=== PATIENT | female | born 1950 | race Caucasian/White ===

== ENCOUNTER 2017-04-16 19:54 | Emergency (ER) | payer OTHER ==
[~2017-04-16] VITALS: Ht 162.6 cm; Wt 110.0 kg
[~2017-04-16 19:54] MED LIST: CALC0.25 PO; D 50CAP PO; FURO40TA PO; GABA300C5 PO; LEVEMIR SQ; LEVO100T5 PO; MIDO10TA PO; NOVOLOGP2 SQ; OMEP20TA93 PO; POTA1TAB77 PO; SENS60TA PO; SEVEL800 PO; TEMA30CA PO; WALKER WHEELS/F1 MIS
[2017-04-16 20:57] VITALS: BP 137/63; PULSE 87; RESP 18; TEMP 98.1; O2SAT 97
--- NOTE | 2017-04-16 22:09 | PD ---
HPI Chief Complaint: Skin Problem Time Seen by Provider: 22:03 Travel History International Travel<30 days: No Contact w/Intl Traveler<30days: No Traveled to known affect area: No History of Present Illness HPI The patient is a 66-year-old female that complains of cellulitis of her right foot. She was seen several days ago about this and she was prescribed Keflex 500 mg twice daily. She is been on the Keflex only slightly over a day. Since then she developed a sore of the dorsum of her foot. She denies any fever. She has an insulin-dependent diabetic. PFSH Past Medical History Heart Rhythm Problems: No Cancer: No Cardiac Catheterization: Yes (20% BLOCKAGE) Cardiovascular Problems: Yes (ANG[place]) High Cholesterol: Yes Congestive Heart Failure: No Diabetes: Yes Patient Takes Glucophage: No Diminished Hearing: No GERD: Yes Glaucoma: No Gout: Yes Hepatitis: No Hiatal Hernia: No Hypertension: Yes Medical other: Yes (GERD, ULCER, BACK/NECK PROBLEMS) Musculoskeletal: Yes (RESTLESS LEG; CHRONIC BACK & NECK PAIN) Respiratory: No Immunizations Current: Yes Myocardial Infarction: No Thyroid Disease: Yes (HYPOTHYROID) Influenza Vaccination: No ?: Not Tubal Ligation: Yes Past Surgical History Abdominal Surgery: Yes (GALLBLADDER REMOVED) Cardiac Surgery: No Cholecystectomy: Yes Coronary Artery Bypass Graft: No Ear Surgery: No Endocrine Surgery: No Eye Surgery: No Genitourinary Surgery: No Gynecologic Surgery: Yes (TUBAL LIGATION) Neurologic Surgery: No Oral Surgery: No Pacemaker: No Thoracic Surgery: No Other Surgery: Yes Family History Family Myocardial Infarction: Yes Social History Alcohol Use: Yes (OCC) Tobacco Use: No Substance Use: No Allergies-Medications (Allergen,Severity, Reaction): Coded Allergies: quinine (Verified Allergy, Intermediate, Rash, 04/16/17) Reported Meds & Prescriptions Reported Meds & Active Scripts Active Calcitriol 0.25 Mcg Cap 0.5 Mcg PO DAILY Daily Midodrine 10 Mg Tab 10 Mg PO BID Renvela (Sevelamer Carbonate) 800 Mg Tab 3 Tab PO TID 3 tabs with each meal and 1-2 tabs with each snack. Walker with Front Wheels (Device) 1 Mis Mis 1 Ea .ROUTE DIRECTED Reported K-Tab (Potassium Chloride) 8 Meq Tab 8 Meq PO DAILY Sensipar (Cinacalcet) 60 Mg Tab 60 Mg PO DAILY Levemir Inj (Insulin Detemir) 1,000 unit/ 10 ML Vial 58 Units SQ HS Do not mix with any other Insulin. Furosemide 40 Mg Tab 40 Mg PO BID D 5000 (Cholecalciferol) 5,000 Unit Cap 1 Cap PO DAILY Omeprazole 20 Mg Tab 20 Mg PO DAILY Levothyroxine (Levothyroxine Sodium) 100 Mcg Tab 100 Mcg PO DAILY Review of Systems Except as stated in HPI: all other systems reviewed are Neg Physical Exam Narrative GENERAL: The patient is obese, alert, oriented 3 in minimal apparent distress with her right foot discomfort. Her vital signs are normal. SKIN: Focused skin assessment warm/dry. There is a 4 cm diameter vague area of apparent cellulitis on the dorsum of the right foot. There is a 3 mm sore on the dorsum of the right foot. No red streak is seen. HEAD: Atraumatic. Normocephalic. EYES: Pupils equal and round. No scleral icterus. No injection or drainage. ENT: No nasal bleeding or discharge. Mucous membranes pink and moist. NECK: Trachea midline. No JVD. CARDIOVASCULAR: Regular rate and rhythm. No murmur appreciated. RESPIRATORY: No accessory muscle use. Clear to auscultation. Breath sounds equal bilaterally. GASTROINTESTINAL: Abdomen soft, non-tender, nondistended. Hepatic and splenic margins not palpable. MUSCULOSKELETAL: No obvious deformities. No clubbing. No cyanosis. There is bilateral 2+ edema in her lower legs. NEUROLOGICAL: Awake and alert. No obvious cranial nerve deficits. Motor grossly within normal limits. Normal speech. PSYCHIATRIC: Appropriate mood and affect; insight and judgment normal. Data Data Last Documented VS Vital Signs Date Time Temp Pulse Resp B/P (MAP) Pulse Ox O2 Delivery O2 Flow Rate FiO2 04/16/17 20:57 98.1 87 18 137/63 (87) 97 MDM Medical Decision Making Medical Screen Exam Complete: Yes Emergency Medical Condition: Yes Medical Record Reviewed: Yes Differential Diagnosis Cellulitis foot, osteomyelitis-unlikely, abscess foot-unlikely Narrative Course The patient has not had an adequate trial of antibiotics at this time. She will be given Bactrim DS to add to the Keflex. She needs to elevate her legs, it is obvious that she is not elevating her legs because she has 2+ edema in both of her legs. Diagnosis Primary Impression: Cellulitis in diabetic foot Additional Impression: Infected ulcer of skin Additional Instructions: Both the antibiotic ointment and the oral antibiotics are taken twice daily. The ointment is put on the small sore twice daily. Do not put a lot on, just enough to make it slightly shiny. Med/Other Pt SpecificInfo: Prescription(s) given Scripts Sulfamethoxazole-Trimethoprim (Bactrim DS) 800-160 Mg Tab 1 TAB PO BID for Infection, #20 TAB 0 Refills Prov: Wes Johnson MD 04/16/17 Mupirocin Topical (Bactroban Topical) 22 Gm Cream 1 APPLIC TOPICAL BID for Mgmt Bacterial Infection, #1 TUBE 0 Refills Prov: Wes Johnson MD 04/16/17 Disposition: 01 DISCHARGE HOME Condition: Stable Wes Johnson MD Apr 16, 2017 22:09
[2017-04-16] MEDS ORDERED: BACT800T5 PO (22:17)
[2017-04-16] MEDS ORDERED: MUPI2%T TOPICAL (22:17)
[2017-04-16] MEDS ORDERED: MUPIROCIN 2% OINT 22 GM TUBE TOPICAL ONE (22:30)
[2017-04-16] MEDS ORDERED: SULFAMETHOXAZOLE-TRIMETHOPRIM DS 800-160 MG TAB PO ONE (22:30)
== END 2017-04-16 22:58 | disposition home or self-care (01) ==
LOC: PHED 19:54
DX: E11.628 Type 2 diabetes mellitus with other skin complications (principal); L03.115 Cellulitis of right lower limb; L97.519 Non-pressure chronic ulcer of other part of right foot with unspecified severity; I10 Essential (primary) hypertension; E78.00 Pure hypercholesterolemia, unspecified; Z79.4 Long term (current) use of insulin; Z88.8 Allergy status to other drugs, medicaments and biological substances
CPT/HCPCS: 99283

== ENCOUNTER 2017-04-27 15:45 | Inpatient (IN) | payer MEDICARE, OTHER ==
[~2017-04-27] VITALS: Ht 162.6 cm; Wt 109.6 kg
[~2017-04-27 15:45] MED LIST changes: +BACT800T5 PO; -GABA300C5 PO; +MUPI2%T TOPICAL; -NOVOLOGP2 SQ; -TEMA30CA PO
[2017-04-27 15:46] VITALS: BP 150/60; PULSE 94; RESP 16; TEMP 98.4; O2SAT 97
--- NOTE | 2017-04-27 16:35 | RADRPT ---
EXAM DATE/TIME: 04/27/2017 16:14 [place] COMPARISON: No previous studies available for comparison. INDICATIONS : Right foot pain and swelling, no known injury. MEDICAL HISTORY : Diabetes mellitus type II. SURGICAL HISTORY : None. ENCOUNTER: Initial ACUITY: 1 week PAIN SCORE: 10/10 LOCATION: Right foot, dorsal surface. FINDINGS: There is diffuse osteopenia. The osseous structures of the forefoot are in normal alignment. There is prominent vascular calcification in the interdigital vessels. Multiple prominent soft tissue calc ifications are present in the posterior leg. CONCLUSION: 1. Osseous structures of the forefoot are intact. 2. Extensive soft tissue calcifications in the distal posterior leg. Shmuel Lester MD on April 27, 2017 at 16:32 Board Certified Radiologist. This report was verified electronically.
[2017-04-27 17:22] LABS: AUTOMATED NEUTROPHIL # 9.3 TH/MM3 (1.8-7.7); BASOPHIL # 0.1 TH/MM3 (0-0.2); BASOPHIL % 0.8 % (0.0-2.0); EOSINOPHIL # 0.3 TH/MM3 (0-0.4); EOSINOPHIL % 2.9 % (0.0-4.0); HEMATOCRIT 37.1 % (35.0-46.0); HEMOGLOBIN 12.6 GM/DL (11.6-15.3); LYMPH % 8.7 % (9.0-44.0); MEAN CELL VOLUME 104.1 FL (80.0-100.0); MEAN CORPUSCULAR HEMOGLOBIN 35.5 PG (27.0-34.0); MEAN CORPUSCULAR HGB CONC 34.1 % (32.0-36.0); MEAN PLATELET VOLUME 7.7 FL (7.0-11.0); MONO % 3.5 % (0.0-8.0); MONOCYTE # 0.4 TH/MM3 (0-0.9); NEUT % 84.1 % (16.0-70.0); PLATELET COUNT 212 TH/MM3 (150-450); RED BLOOD COUNT 3.56 MIL/MM3 (4.00-5.30); RED CELL DISTRIBUTION WIDTH 17.6 % (11.6-17.2); WHITE BLOOD COUNT 11.1 TH/MM3 (4.0-11.0)
[2017-04-27 17:33] LABS: INTERNATIONAL NORMALIZED RATIO 1.1 RATIO; PROTHROMBIN TIME - PATIENT 11.1 SEC (9.8-11.6)
[2017-04-27 17:37] LABS: ALBUMIN 3.3 GM/DL (3.4-5.0); AST (GOT) 33 U/L (15-37); BICARBONATE 25.6 MEQ/L (21.0-32.0); BLOOD UREA NITROGEN 42 MG/DL (7-18); CALCIUM 9.1 MG/DL (8.5-10.1); CHLORIDE 102 MEQ/L (98-107); CREATININE 8.61 MG/DL (0.50-1.00); GLOMERULAR FILTRATION RATE 5 ML/MIN (>89); GLUCOSE,RANDOM 119 MG/DL (74-106); SODIUM (NA) 139 MEQ/L (136-145)
[2017-04-27 17:38] LABS: ALT (GPT) 27 U/L (10-53)
[2017-04-27 17:40] LABS: ALKALINE PHOSPHATASE 237 U/L (45-117); TOTAL BILIRUBIN ADULT 0.4 MG/DL (0.2-1.0); TOTAL PROTEIN 7.7 GM/DL (6.4-8.2)
--- NOTE | 2017-04-27 18:08 | HHI.HP ---
[facility] Service Family Medicine Primary Care Physician Danae Hernandez MD Admission Diagnosis Diagnoses: International Travel<30 Days: No Contact w/Intl Traveler<30days: No Known Affected Area: No History of Present Illness The patient is a pleasant 66 year old woman with PMH significant for ESRD on peritoneal dialysis, IDDM, hypotension, hypothyroidism, peripheral neuropathy sent to the ED after being evaluated in the [facility] acutes clinic earlier today for a right food wound. The patient states she first noticed her right foot wound about one month ago but it did not significantly worsen or change in character until about 2 weeks ago. The patient states she was previously given prescriptions for Keflex and Bactrim, however did not complete these courses due to being started on a different antibiotic and being advised to stop her previous abx treatment. The patient was most recently given a prescription for Levaquin, she states she has one tablet left of this and was due to take this today. She reports right foot pain at a 9/10. She is still able to bear weight on the foot an ambulate but this exacerbates the pain. She denies any drainage of pus or bleeding. She denies a history of cellulitis or abscesses or MRSA. She denies any trauma to the right foot or history of any puncture. The patient reports she is also taking gabapentin 400 mg twice daily and 900 mg at night in addition to her other chronic medications. Review of Systems Constitutional: COMPLAINS OF: Chills, DENIES: Fever, Change in appetite, Night Sweats Respiratory: DENIES: Cough, Wheezing, Sputum production, Shortness of breath Cardiovascular: DENIES: Chest pain, Palpitations Gastrointestinal: DENIES: Abdominal pain, Black stools, Bloody stools, Constipation, Diarrhea, Nausea, Vomiting Genitourinary: DENIES: Hematuria, Dysuria Integumentary: COMPLAINS OF: Rash Neurologic: DENIES: Headache Past Family Social History Past Medical History ESRD on daily peritoneal dialysis for past 5 years Insulin-dependent DM Hypothyroidism GERD Peripheral neuropathy Hypotension Past Surgical History Cholecystectomy Allergies: Coded Allergies: quinine (Verified Allergy, Intermediate, Rash, 04/27/17) Family History Father: due to complications from CHF Mother: Cardiomyopathy One brother about 4 years ago from an [place] Social History Lives at home with her and grandchildren Tobacco: patient reports she quit smoking about 20 years ago Etoh: denies Illicit drug use: denies Physical Exam Vital Signs Vital Signs Date Time Temp Pulse Resp B/P (MAP) Pulse Ox O2 Delivery O2 Flow Rate FiO2 04/27/17 15:46 98.4 94 16 150/60 (90) 97 Physical Exam GENERAL: NAD, sitting comfortably on side of bed NEURO: Alert. Normal speech. reprographics associate grossly intact. Motor grossly normal. SKIN: Right dorsal foot appearing erythematous, mildly swollen, ~1cm circular almost eschar-like area on the dorsal foot without purulent drainage or abscess. Has soft tissue swelling of her right foot. Erythema extends to the inferior aspect of her right foot. Right foot warm to touch compared to left foot. The dorsal foot also appears somewhat mottled. HEAD: Normocephalic. Atraumatic. EYES: PERRL. EOMI. No scleral icterus. No injection or drainage. ENT: No nasal drainage. Moist mucous membranes. No oral ulcers or lesions. NECK: Supple, trachea midline. No JVD or lymphadenopathy. CARDIOVASCULAR: Regular rate and rhythm without murmurs, rubs, or gallops. Peripheral pulses 2+. Capillary refill < 2 seconds. RESPIRATORY: Breath sounds clear to auscultation and equal bilaterally, without wheezes, rales, or rhonchi. No accessory muscle use. GASTROINTESTINAL: Abdomen soft, nontender, protuberant, normal BS. No rebound tenderness. No guarding. MUSCULOSKELETAL: Nonpitting lower extremity edema most prominent around the ankles bilaterally. ROM not significantly limited of right foot compared to the left foot. BACK: Nontender without obvious deformity. Laboratory Laboratory Tests Test 04/27/17 16:51 White Blood Count 11.1 Red Blood Count 3.56 Hemoglobin 12.6 Hematocrit 37.1 Mean Corpuscular Volume 104.1 Mean Corpuscular Hemoglobin 35.5 Mean Corpuscular Hemoglobin Concent 34.1 Red Cell Distribution Width 17.6 Platelet Count 212 Mean Platelet Volume 7.7 Neutrophils (%) (Auto) 84.1 Lymphocytes (%) (Auto) 8.7 Monocytes (%) (Auto) 3.5 Eosinophils (%) (Auto) 2.9 Basophils (%) (Auto) 0.8 Neutrophils # (Auto) 9.3 Lymphocytes # (Auto) 1.0 Monocytes # (Auto) 0.4 Eosinophils # (Auto) 0.3 Basophils # (Auto) 0.1 CBC Comment DIFF FINAL Differential Comment Prothrombin Time 11.1 Prothromb Time International Ratio 1.1 Activated Partial Thromboplast Time 26.7 Blood Urea Nitrogen 42 Creatinine 8.61 Random Glucose 119 Total Protein 7.7 Albumin 3.3 Calcium Level 9.1 Alkaline Phosphatase 237 Aspartate Amino Transf (AST/SGOT) 33 Alanine Aminotransferase (ALT/SGPT) 27 Total Bilirubin 0.4 Sodium Level 139 Potassium Level 4.0 Chloride Level 102 Carbon Dioxide Level 25.6 Anion Gap 11 Estimat Glomerular Filtration Rate 5 Date/Time Source Procedure Growth Status 04/27/17 16:51 Blood Peripheral Aerobic Blood Culture Pending Received 04/27/17 16:51 Blood Peripheral Anaerobic Blood Culture Pending Received Result Diagram: 04/27/17 1651 04/27/17 1651 Imaging Last 72 hours Impressions Foot X-Ray 04/27/17 0000 Signed Impressions: Service Date/Time: Thursday, April 27, 2017 16:14 - CONCLUSION: 1. Osseous structures of the forefoot are intact. 2. Extensive soft tissue calcifications in the distal posterior leg. Shmuel Lester MD Caprini VTE Risk Assessment Caprini VTE Risk Assessment: Mod/High Risk (score >= 2) Caprini Risk Assessment Model Point Value = 1 Point Value = 2 Point Value = 3 Point Value = 5 Age 41-60 Minor surgery BMI > 25 kg/m2 Swollen legs Varicose veins or History of unexplained or recurrent spontaneous Oral contraceptives or hormone replacement Sepsis (< 1 month) Serious lung disease, including pneumonia (< 1 month) Abnormal pulmonary function Acute myocardial infarction Congestive heart failure (< 1 month) History of inflammatory bowel disease Medical patient at bed rest Age 61-74 Arthroscopic surgery Major open surgery (> 45 min) Laparoscopic surgery (> 45 min) Malignancy Confined to bed (> 72 hours) Immobilizing plaster cast Central venous access Age >= 75 History of VTE Family history of VTE Factor V Leiden Prothrombin [id number] Lupus anticoagulant Anticardiolipin antibodies Elevated serum homocysteine Heparin-induced thrombocytopenia Other congenital or acquired thrombophilia Stroke (< 1 month) Elective arthroplasty Hip, pelvis, or leg fracture Acute spinal cord injury (< 1 month) Prophylaxis Regimen Total Risk Factor Score Risk Level Prophylaxis Regimen 0-1 Low Early ambulation 2 Moderate Order ONE of the following: *Sequential Compression Device (SCD) *Heparin 5000 units SQ BID 3-4 Higher Order ONE of the following medications: *Heparin 5000 units SQ TID *Enoxaparin/Lovenox 40 mg SQ daily (WT < 150 kg, CrCl > 30 mL/min) *Enoxaparin/Lovenox 30 mg SQ daily (WT < 150 kg, CrCl > 10-29 mL/min) *Enoxaparin/Lovenox 30 mg SQ BID (WT < 150 kg, CrCl > 30 mL/min) AND/OR *Sequential Compression Device (SCD) 5 or more Highest Order ONE of the following medications: *Heparin 5000 units SQ TID (Preferred with Epidurals) *Enoxaparin/Lovenox 40 mg SQ daily (WT < 150 kg, CrCl > 30 mL/min) *Enoxaparin/Lovenox 30 mg SQ daily (WT < 150 kg, CrCl > 10-29 mL/min) *Enoxaparin/Lovenox 30 mg SQ BID (WT < 150 kg, CrCl > 30 mL/min) AND *Sequential Compression Device (SCD) Assessment and Plan Assessment and Plan 66 year old female being admitted with sepsis due to right foot cellulitis, vs calciphylaxis, vs diabetic foot ulcer Code Status Full code Discussed Condition With [facility] family medicine service Problem List: (1) Cellulitis ICD Codes: L03.90 - Cellulitis, unspecified Plan: Will treat as sepsis due to cellulitis at this time, although the patient has not had any improvement despite outpatient PO antibiotics Give vancomycin 1 gm x1 now, give every 4 to 7 days with peritoneal dialysis if planning to continue, discussed with inpatient pharmacy Consult podiatry, appreciate recommendations Patient appears well hydrated, hold IV fluids given ESRD Pain control with norco prn, morphine prn breakthrough pain (2) ESRD (end stage renal disease) on dialysis ICD Codes: N18.6 - End stage renal disease; Z99.2 - Dependence on renal dialysis Status: Acute Plan: Continue peritoneal dialysis daily Consult nephrology Continue home renvela, sensipar (3) Diabetes mellitus type 2, insulin dependent ICD Codes: E11.9 - Diabetes mellitus type 2, insulin dependent; Z79.4 - terminal makeup operator (current) use of insulin Status: Chronic Plan: Hold home levemir Will half home dose at this time, give Levemir 29 units hs Accuchecks achs Low-dose ISS (4) Hyperphosphatemia ICD Codes: E83.39 - Other disorders of phosphorus metabolism Plan: Continue Renvela Continue peritoneal dialysis daily (5) Nutrition, metabolism, and development symptoms ICD Codes: R63.8 - Other symptoms and signs concerning food and fluid intake Plan: Fluids: per PO Electrolytes: continue to monitor, PD daily Nutrition: 1800 ADA DVT ppx: Heparin 5000 units q12h GI ppx: Protonix PO daily Physician Certification 2 Midnight Certification Type: Admission for Inpatient Services Order for Inpatient Services The services are ordered in accordance with Medicare regulations or non- Medicare payer requirements, as applicable. In the case of services not specified as inpatient-only, they are appropriately provided as inpatient services in accordance with the 2-midnight benchmark. Estimated LOS (days): 2 days is the estimated time the patient will need to remain in the hospital, assuming treatment plan goals are met and no additional complications. Post-Hospital Plan: Home Problem Qualifiers (1) Cellulitis: Chai Jeter MD Apr 27, 2017 18:08
--- NOTE | 2017-04-27 18:23 | PD ---
HPI Chief Complaint: Edema Time Seen by Provider: 16:23 Travel History International Travel<30 days: No Contact w/Intl Traveler<30days: No Traveled to known affect area: No History of Present Illness HPI 66-year-old female with history of renal failure, peritoneal dialysis patient, insulin dependent diabetes mellitus, presents with worsening pain and redness to her right foot. Patient states that she was seen earlier this month and a port [place] and prescribed antibiotics. She states since she has been on the antibiotics she has had worsening pain and redness to her right foot. She has severe peripheral neuropathy. She states despite this she is having increased pain. She denies any fevers, chills. She denies any nausea vomiting diarrhea. She does make some urine and denies any change in her output of urine. According to the nurse who took report, she was sent here by her family physician in the [facility]. PFSH Past Medical History Heart Rhythm Problems: No Cancer: No Cardiac Catheterization: Yes (20% BLOCKAGE) Cardiovascular Problems: Yes High Cholesterol: Yes Congestive Heart Failure: No Diabetes: Yes Patient Takes Glucophage: No Diminished Hearing: No GERD: Yes Glaucoma: No Gout: Yes Hepatitis: No Hiatal Hernia: No Hypertension: Yes Medical other: Yes (GERD, ULCER, BACK/NECK PROBLEMS) Musculoskeletal: Yes (RESTLESS LEG; CHRONIC BACK & NECK PAIN) Respiratory: No Immunizations Current: Yes Myocardial Infarction: No Thyroid Disease: Yes (HYPOTHYROID) Tubal Ligation: Yes Past Surgical History Abdominal Surgery: Yes (GALLBLADDER REMOVED) Cardiac Surgery: No Cholecystectomy: Yes Coronary Artery Bypass Graft: No Ear Surgery: No Endocrine Surgery: No Eye Surgery: No Genitourinary Surgery: No Gynecologic Surgery: Yes (TUBAL LIGATION) Neurologic Surgery: No Oral Surgery: No Pacemaker: No Thoracic Surgery: No Other Surgery: Yes Family History Family Myocardial Infarction: Yes Social History Alcohol Use: Yes (OCC) Tobacco Use: No Substance Use: No Allergies-Medications (Allergen,Severity, Reaction): Coded Allergies: quinine (Verified Allergy, Intermediate, Rash, 04/27/17) Reported Meds & Prescriptions Reported Meds & Active Scripts Active Bactrim DS (Sulfamethoxazole-Trimethoprim) 800-160 Mg Tab 1 Tab PO BID Bactroban Topical (Mupirocin) 22 Gm Cream 1 Applic TOPICAL BID Calcitriol 0.25 Mcg Cap 0.5 Mcg PO DAILY Daily Midodrine 10 Mg Tab 10 Mg PO BID Renvela (Sevelamer Carbonate) 800 Mg Tab 3 Tab PO TID 3 tabs with each meal and 1-2 tabs with each snack. Walker with Front Wheels (Device) 1 Mis Mis 1 Ea .ROUTE DIRECTED Reported K-Tab (Potassium Chloride) 8 Meq Tab 8 Meq PO DAILY Sensipar (Cinacalcet) 60 Mg Tab 60 Mg PO DAILY Levemir Inj (Insulin Detemir) 1,000 unit/ 10 ML Vial 58 Units SQ HS Do not mix with any other Insulin. Furosemide 40 Mg Tab 40 Mg PO BID D 5000 (Cholecalciferol) 5,000 Unit Cap 1 Cap PO DAILY Omeprazole 20 Mg Tab 20 Mg PO DAILY Levothyroxine (Levothyroxine Sodium) 100 Mcg Tab 100 Mcg PO DAILY Review of Systems Except as stated in HPI: all other systems reviewed are Neg General / Constitutional: No: Fever, Chills HENT: No: Headaches, Lightheadedness, Neck Pain Cardiovascular: No: Chest Pain or Discomfort, Palpitations Respiratory: No: Cough, Shortness of Breath Gastrointestinal: No: Nausea, Vomiting, Diarrhea, Abdominal Pain Genitourinary: No: Dysuria, Decreased Urinary Output Musculoskeletal: Positive: Edema (Increased pain right foot), Pain, Other, No: Weakness Skin: Positive Lesions (Right dorsum of her foot), No Rash, No Itching Neurologic: No: Weakness, Dizziness, Headache Physical Exam Narrative GENERAL: Well-developed well-nourished female in no acute respiratory distress. SKIN: Focused skin assessment warm/dry. HEAD: Atraumatic. Normocephalic. EYES: Pupils equal and round. No scleral icterus. No injection or drainage. ENT: No nasal bleeding or discharge. Mucous membranes pink and moist. NECK: Trachea midline. No JVD. CARDIOVASCULAR: Regular rate and rhythm. No murmur appreciated. RESPIRATORY: No accessory muscle use. Clear to auscultation. Breath sounds equal bilaterally. GASTROINTESTINAL: Abdomen soft, non-tender, nondistended. Peritoneal dialysis catheter intact with no drainage or redness MUSCULOSKELETAL: On examination patient's right foot, she has a eschar lesion over the dorsum of her foot between her third and fourth metatarsal. There is surrounding redness and pain up her ankle. There is no calf tenderness. Patient has chronic lower extremity edema which is not new. No Homans sign. No palpable cords in the popliteal area. NEUROLOGICAL: Awake and alert. No obvious cranial nerve deficits. Motor grossly within normal limits. Normal speech. Data Data Last Documented VS Vital Signs Date Time Temp Pulse Resp B/P (MAP) Pulse Ox O2 Delivery O2 Flow Rate FiO2 04/27/17 15:46 98.4 94 16 150/60 (90) 97 Orders Orders Foot, Complete ([id number]) (04/27/17 ) Complete Blood Count With Diff (04/27/17 15:58) Comprehensive Metabolic Panel (04/27/17 15:58) Prothrombin Time / Inr (Pt) (04/27/17 15:58) Act Partial Throm Time (Ptt) (04/27/17 15:58) Blood Culture (04/27/17 15:58) Labs Laboratory Tests Test 04/27/17 16:51 White Blood Count 11.1 TH/MM3 Red Blood Count 3.56 MIL/MM3 Hemoglobin 12.6 GM/DL Hematocrit 37.1 % Mean Corpuscular Volume 104.1 FL Mean Corpuscular Hemoglobin 35.5 PG Mean Corpuscular Hemoglobin Concent 34.1 % Red Cell Distribution Width 17.6 % Platelet Count 212 TH/MM3 Mean Platelet Volume 7.7 FL Neutrophils (%) (Auto) 84.1 % Lymphocytes (%) (Auto) 8.7 % Monocytes (%) (Auto) 3.5 % Eosinophils (%) (Auto) 2.9 % Basophils (%) (Auto) 0.8 % Neutrophils # (Auto) 9.3 TH/MM3 Lymphocytes # (Auto) 1.0 TH/MM3 Monocytes # (Auto) 0.4 TH/MM3 Eosinophils # (Auto) 0.3 TH/MM3 Basophils # (Auto) 0.1 TH/MM3 CBC Comment DIFF FINAL Differential Comment Prothrombin Time 11.1 SEC Prothromb Time International Ratio 1.1 RATIO Activated Partial Thromboplast Time 26.7 SEC Blood Urea Nitrogen 42 MG/DL Creatinine 8.61 MG/DL Random Glucose 119 MG/DL Total Protein 7.7 GM/DL Albumin 3.3 GM/DL Calcium Level 9.1 MG/DL Alkaline Phosphatase 237 U/L Aspartate Amino Transf (AST/SGOT) 33 U/L Alanine Aminotransferase (ALT/SGPT) 27 U/L Total Bilirubin 0.4 MG/DL Sodium Level 139 MEQ/L Potassium Level 4.0 MEQ/L Chloride Level 102 MEQ/L Carbon Dioxide Level 25.6 MEQ/L Anion Gap 11 MEQ/L Estimat Glomerular Filtration Rate 5 ML/MIN MDM Medical Decision Making Medical Screen Exam Complete: Yes Emergency Medical Condition: Yes Differential Diagnosis Right foot cellulitis, failed outpatient antibiotics, renal failure/peritoneal dialysis dependent, metabolic derangement. Narrative Course 66-year-old female presents at the request of her primary care physician for admission for failed outpatient cellulitis of her right foot. Patient is a peritoneal dialysis patient. She has been on Bactrim since 17 April. There is a call out to the [facility] service for admission. Diagnosis Primary Impression: Right foot cellulitis, failed outpatient treatment. Additional Impressions: Renal failure, peritoneal dialysis dependent. Insulin dependent diabetes mellitus Admitting Information Admitting Physician Requests: Admit Romel Wang MD Apr 27, 2017 18:22
[2017-04-27] MEDS ORDERED: HYDROmorphone HCL PF 2 MG/ML VIAL IVS ONE (18:30)
[2017-04-27] MEDS ORDERED: VANCOMYCIN INJ 1,000 MG in SODIUM CHLOR 0.9% 250 ML INJ 250 ML IV ONE ×2 (18:30→19:00)
[2017-04-27] MEDS ORDERED: ONDANSETRON HCL 4 MG/2 ML VIAL IV PUSH ONE (18:30)
[2017-04-27 18:56] VITALS: BP 130/62; PULSE 90; RESP 16; O2SAT 99
[2017-04-27] MEDS ORDERED: MAGNESIUM HYDROXIDE SUSP 30 ML CUP PO PRN (19:00)
[2017-04-27] MEDS ORDERED: SODIUM CHLORIDE 0.9% FLUSH 10 ML FLUSH IV FLUSH PRN ×2 (19:00→23:00)
[2017-04-27] MEDS ORDERED: ACETAMINOPHEN/HYDROcodone 325 MG/5 MG TAB PO PRN (19:00)
[2017-04-27] MEDS ORDERED: NALOXONE HCL 0.4 MG/ML AMP IV PUSH PRN (19:00)
[2017-04-27] MEDS ORDERED: Vancomycin Consult Pharmacy 1 EA OTHER SCH (19:00)
[2017-04-27] MEDS ORDERED: BISACODYL 10 MG SUPP RECTAL PRN (19:00)
[2017-04-27 20:41] VITALS: BP 117/58; PULSE 88; RESP 18; TEMP 98; O2SAT 93
[2017-04-27] MEDS: SODIUM CHLORIDE 0.9% FLUSH 10 ML FLUSH IV FLUSH SCH (21:00)
[2017-04-27] MEDS: DOCUSATE SODIUM 50 MG/SENNA 8.6 MG TAB PO SCH (21:00)
[2017-04-27] MEDS ORDERED: GLUCAGON 1 MG/ML VIAL OTHER PRN (21:30)
[2017-04-27] MEDS ORDERED: DEXTROSE 50% IN WATER 50 ML VIAL(D50) IV PUSH PRN (21:30)
[2017-04-27 21:49] VITALS: PULSE 87
[2017-04-27] MEDS: FUROSEMIDE 40 MG TAB PO SCH (22:06)
[2017-04-27] MEDS: ACETAMINOPHEN/HYDROcodone 325 MG/10 MG TAB PO PRN (22:06)
[2017-04-27] MEDS: MIDODRINE 5 MG TAB PO SCH (22:07)
[2017-04-27] MEDS: HEPARIN SODIUM - SQ 10,000 UNITS/ML VIAL SQ SCH (22:07)
[2017-04-27] MEDS: INSULIN DETEMIR 100 UNITS/ML VIAL SQ SCH (22:07)
[2017-04-27] MEDS: GABAPENTIN 300 MG CAP PO SCH (22:09)
[2017-04-27] MEDS ORDERED: HEPARIN SODIUM - IV 10,000 UNITS/10 ML VIAL XX PRN (23:00)
[2017-04-28] VITALS (12 sets, daily range): BP systolic 114–140; BP diastolic 55–62; PULSE 74–125; RESP 18–20; TEMP 98.1–99.2; O2SAT 92–97
[2017-04-28] MEDS: ACETAMINOPHEN/HYDROcodone 325 MG/10 MG TAB PO PRN ×3 (02:14→16:26)
[2017-04-28] MEDS: MORPHINE SULFATE 4 MG/ML INJ IV PUSH PRN ×3 (05:44→20:11)
[2017-04-28] MEDS: LEVOTHYROXINE SODIUM 100 MCG TAB PO SCH (05:44)
[2017-04-28] MEDS: SODIUM CHLORIDE 0.9% FLUSH 10 ML FLUSH IV FLUSH SCH ×2 (07:33→21:00)
[2017-04-28] MEDS: MIDODRINE 5 MG TAB PO SCH ×2 (07:58→22:34)
[2017-04-28] MEDS: SEVELAMER CARBONATE 800 MG TAB PO SCH ×3 (07:58→17:28)
[2017-04-28] MEDS: CHOLECALCIFEROL (VIT D3) 5000 UNIT CAP PO SCH (07:59)
[2017-04-28] MEDS: CALCITRIOL 0.25 MCG CAP PO SCH (07:59)
[2017-04-28] MEDS: PANTOPRAZOLE SOD 20 MG DELAYED RELEASE TAB PO SCH (07:59)
[2017-04-28] MEDS: FUROSEMIDE 40 MG TAB PO SCH ×2 (07:59→22:33)
[2017-04-28] MEDS: GABAPENTIN 400 MG CAP PO SCH ×2 (07:59→14:34)
[2017-04-28] MEDS: DOCUSATE SODIUM 50 MG/SENNA 8.6 MG TAB PO SCH ×2 (07:59→21:00)
[2017-04-28] MEDS: HEPARIN SODIUM - SQ 10,000 UNITS/ML VIAL SQ SCH ×2 (08:01→21:00)
[2017-04-28 08:04] LABS: AUTOMATED NEUTROPHIL # 7.5 TH/MM3 (1.8-7.7); BASOPHIL # 0.1 TH/MM3 (0-0.2); BASOPHIL % 1.1 % (0.0-2.0); EOSINOPHIL # 0.4 TH/MM3 (0-0.4); EOSINOPHIL % 4.8 % (0.0-4.0); HEMATOCRIT 38.5 % (35.0-46.0); HEMOGLOBIN 12.7 GM/DL (11.6-15.3); LYMPHOCYTE # 0.8 TH/MM3 (1.0-4.8); MEAN CELL VOLUME 104.4 FL (80.0-100.0); MEAN CORPUSCULAR HEMOGLOBIN 34.4 PG (27.0-34.0); MEAN PLATELET VOLUME 8.1 FL (7.0-11.0); MONO % 4.3 % (0.0-8.0); MONOCYTE # 0.4 TH/MM3 (0-0.9); NEUT % 80.8 % (16.0-70.0); PLATELET COUNT 248 TH/MM3 (150-450); RED BLOOD COUNT 3.69 MIL/MM3 (4.00-5.30); WHITE BLOOD COUNT 9.3 TH/MM3 (4.0-11.0)
[2017-04-28 08:45] LABS: BICARBONATE 25.3 MEQ/L (21.0-32.0); CALCIUM 9.2 MG/DL (8.5-10.1); CREATININE 8.35 MG/DL (0.50-1.00)
[2017-04-28] MEDS ORDERED: CINACALCET HYDROCHLORIDE 30 MG TAB PO SCH (09:00)
[2017-04-28] MEDS: INSULIN ASPART SUPPLEMENTAL SCALE SQ SCH ×4 (09:15→21:00)
[2017-04-28] MEDS: POTASSIUM CHLORIDE 8 MEQ CONTROLLED RELEASE TAB PO SCH (09:19)
--- NOTE | 2017-04-28 12:11 | PD.CONS ---
HPI Service Nephrology Consult Requested By Dr. Larsen, Dr. Jeter Reason for Consult ESRD management Primary Care Physician Danae Hernandez MD History of Present Illness Patient is a 66-year-old white female with history of diabetes, obesity, hypertension, ESRD on peritoneal dialysis, developed right foot painful ulceration, this happened about a month ago and it was a small wound but for the past 2 weeks that it is spreading it as blackish eschar on top and there was discoloration with redness present, the pain intensified and she was unable to bear weight or walk, she was sent by family physician to the emergency for further management, she had her peritoneal dialysis yesterday. She also has hyperparathyroidism, hyperphosphatemia, she was told there is a possibility of calciphylaxis. Review of Systems Constitutional: COMPLAINS OF: Fatigue Respiratory: COMPLAINS OF: Shortness of breath Cardiovascular: COMPLAINS OF: Lower Extremity Edema Gastrointestinal: DENIES: Abdominal pain, Black stools, Bloody stools, Constipation, Diarrhea, Nausea, Vomiting, Difficulty Swallowing, Anorexia Integumentary: COMPLAINS OF: Abnormal pigmentation, Rash (ulceration on, right foot) Hematologic/lymphatic: COMPLAINS OF: Bruising Neurologic: COMPLAINS OF: Abnormal gait Psychiatric: COMPLAINS OF: Anxiety Past Family Social History Allergies: Coded Allergies: quinine (Verified Allergy, Intermediate, Rash, 04/27/17) Past Medical History End-stage renal disease Diabetes Hypertension History of smoking Hyperparathyroidism Anemia Hyperlipidemia\ Hyperphosphatemia Osteoarthritis Hypothyroidism GERD Past Surgical History Gallbladder Tenckhoff placement Tubal ligation Reported Medications Reported Meds & Active Scripts Active Bactrim DS (Sulfamethoxazole-Trimethoprim) 800-160 Mg Tab 1 Tab PO BID Bactroban Topical (Mupirocin) 22 Gm Cream 1 Applic TOPICAL BID Calcitriol 0.25 Mcg Cap 0.5 Mcg PO DAILY Daily Midodrine 10 Mg Tab 10 Mg PO BID Renvela (Sevelamer Carbonate) 800 Mg Tab 3 Tab PO TID 3 tabs with each meal and 1-2 tabs with each snack. Walker with Front Wheels (Device) 1 Mis Mis 1 Ea .ROUTE DIRECTED Reported K-Tab (Potassium Chloride) 8 Meq Tab 8 Meq PO DAILY Sensipar (Cinacalcet) 60 Mg Tab 60 Mg PO DAILY Levemir Inj (Insulin Detemir) 1,000 unit/ 10 ML Vial 58 Units SQ HS Do not mix with any other Insulin. Furosemide 40 Mg Tab 40 Mg PO BID D 5000 (Cholecalciferol) 5,000 Unit Cap 1 Cap PO DAILY Omeprazole 20 Mg Tab 20 Mg PO DAILY Levothyroxine (Levothyroxine Sodium) 100 Mcg Tab 100 Mcg PO DAILY Active Ordered Medications Current Medications Medications (Trade) Dose Ordered Sig/Gianfranco Route Start Time Stop Time Status Last Admin (NS Flush) 2 ml UNSCH PRN IV FLUSH 04/27/17 19:00 (NS Flush) 2 ml BID IV FLUSH 04/27/17 21:00 04/28/17 07:33 (Tylenol) 650 mg Q4H PRN PO 04/27/17 19:00 (Zofran Inj) 4 mg Q6H PRN IVP 04/27/17 19:00 (Heparin Inj) 5,000 units Q12H SQ 04/27/17 21:00 04/28/17 08:01 (Narcan Inj) 0.4 mg UNSCH PRN IV PUSH 04/27/17 19:00 (Williamson 5-325 Mg) 1 tab Q4H PRN PO 04/27/17 19:00 (Williamson 10-325 Mg) 1 tab Q4H PRN PO 04/27/17 19:00 04/28/17 02:14 (Morphine Inj) 4 mg Q4HR PRN IV PUSH 04/27/17 22:30 04/28/17 05:44 (Nathaly-Colace) 1 tab BID PO 04/27/17 21:00 04/28/17 07:59 (Milk Of Magnesia Liq) 30 ml Q12H PRN PO 04/27/17 19:00 (Dulcolax Supp) 10 mg DAILY PRN RECTAL 04/27/17 19:00 (Lactulose Liq) 30 ml DAILY PRN PO 04/27/17 19:00 Pharmacy Profile Note 0 ml @ 0 mls/hr UNSCH OTHER 04/27/17 19:00 (Rocaltrol) 0.5 mcg DAILY PO 04/28/17 09:00 04/28/17 07:59 (Vitamin D3) 5,000 units DAILY PO 04/28/17 09:00 04/28/17 07:59 (Lasix) 40 mg BID PO 04/27/17 21:00 04/28/17 07:59 (Synthroid) 100 mcg DAILY@0600 PO 04/28/17 06:00 04/28/17 05:44 (Proamatine) 10 mg BID PO 04/27/17 21:00 04/28/17 07:58 (KCl) 8 meq DAILY PO 04/28/17 09:00 04/28/17 09:19 (Renvela) 2,400 mg TID PO 04/28/17 09:00 04/28/17 07:58 (Sensipar) 60 mg DAILY PO 04/28/17 09:00 04/28/17 09:19 (Protonix) 20 mg DAILY PO 04/28/17 09:00 04/28/17 07:59 (Neurontin) 900 mg HS PO 04/27/17 21:30 04/27/17 22:09 (Neurontin) 400 mg BID@0900,1500 PO 04/28/17 09:00 04/28/17 07:59 (Levemir Inj) 29 units HS SQ 04/27/17 21:15 04/27/17 22:07 (NovoLOG SUPPLEMENTAL SCALE) 1 ACHS SLIDING SCALE SQ 04/28/17 08:00 04/28/17 09:15 (D50w (Vial) Inj) 50 ml UNSCH PRN IV PUSH 04/27/17 21:30 (Glucagon Inj) 1 mg UNSCH PRN OTHER 04/27/17 21:30 (Heparin Inj) 1,000 units WITH DIALYSIS PRN XX 04/27/17 23:00 (NS Flush) 10 ml UNSCH PRN IV FLUSH 04/27/17 23:00 Family History Noncontributory Social History History of smoking half pack per day. She states that she stopped few months back Denies alcohol intake Physical Exam Vital Signs Vital Signs Date Time Temp Pulse Resp B/P (MAP) Pulse Ox O2 Delivery O2 Flow Rate FiO2 04/28/17 08:00 99.2 82 20 124/55 (78) 95 04/28/17 04:27 98.5 85 20 122/60 (80) 92 04/28/17 03:48 86 04/28/17 00:16 91 04/28/17 00:00 98.1 74 18 132/62 (85) 92 04/27/17 23:00 Room Air 04/27/17 21:49 87 04/27/17 20:41 98.0 88 18 117/58 (77) 93 04/27/17 18:56 90 16 130/62 (84) 99 Room Air 04/27/17 15:46 98.4 94 16 150/60 (90) 97 Physical Exam GENERAL: Well-nourished, well-developed patient. SKIN: Warm and dry. HEAD: Normocephalic. EYES: No scleral icterus. No injection or drainage. NECK: Supple, trachea midline. No JVD or lymphadenopathy. CARDIOVASCULAR: Regular rate and rhythm without murmurs, gallops, or rubs. RESPIRATORY: Breath sounds equal bilaterally. No accessory muscle use. GASTROINTESTINAL: Abdomen soft, non-tender, nondistended. EXTREMITIES: No cyanosis, right foot redness and discoloration on top of the foot there is eschar as well 2 cm above 4th toe NEUROLOGICAL: Awake, alert, and oriented x 3. Non-focal. Laboratory Laboratory Tests Test 04/27/17 16:51 04/28/17 07:18 White Blood Count 11.1 9.3 Red Blood Count 3.56 3.69 Hemoglobin 12.6 12.7 Hematocrit 37.1 38.5 Mean Corpuscular Volume 104.1 104.4 Mean Corpuscular Hemoglobin 35.5 34.4 Mean Corpuscular Hemoglobin Concent 34.1 33.0 Red Cell Distribution Width 17.6 18.0 Platelet Count 212 248 Mean Platelet Volume 7.7 8.1 Neutrophils (%) (Auto) 84.1 80.8 Lymphocytes (%) (Auto) 8.7 9.0 Monocytes (%) (Auto) 3.5 4.3 Eosinophils (%) (Auto) 2.9 4.8 Basophils (%) (Auto) 0.8 1.1 Neutrophils # (Auto) 9.3 7.5 Lymphocytes # (Auto) 1.0 0.8 Monocytes # (Auto) 0.4 0.4 Eosinophils # (Auto) 0.3 0.4 Basophils # (Auto) 0.1 0.1 CBC Comment DIFF FINAL DIFF FINAL Differential Comment Prothrombin Time 11.1 Prothromb Time International Ratio 1.1 Activated Partial Thromboplast Time 26.7 Blood Urea Nitrogen 42 42 Creatinine 8.61 8.35 Random Glucose 119 186 Total Protein 7.7 Albumin 3.3 Calcium Level 9.1 9.2 Alkaline Phosphatase 237 Aspartate Amino Transf (AST/SGOT) 33 Alanine Aminotransferase (ALT/SGPT) 27 Total Bilirubin 0.4 Sodium Level 139 138 Potassium Level 4.0 4.4 Chloride Level 102 100 Carbon Dioxide Level 25.6 25.3 Anion Gap 11 13 Estimat Glomerular Filtration Rate 5 5 Phosphorus Level 6.3 Parathyroid Hormone (Intact) 705.2 Date/Time Source Procedure Growth Status 04/27/17 16:51 Blood Peripheral Aerobic Blood Culture - Preliminary NO GROWTH IN 1 DAY Resulted 04/27/17 16:51 Blood Peripheral Anaerobic Blood Culture - Preliminary NO GROWTH IN 1 DAY Resulted Result Diagram: 04/28/1718 04/28/1718 Imaging Last Impressions Foot X-Ray 04/27/17 0000 Signed Impressions: Service Date/Time: Thursday, April 27, 2017 16:14 - CONCLUSION: 1. Osseous structures of the forefoot are intact. 2. Extensive soft tissue calcifications in the distal posterior leg. Shmuel Lester MD Assessment and Plan Problem List: (1) ESRD (end stage renal disease) on dialysis ICD Codes: N18.6 - End stage renal disease; Z99.2 - Dependence on renal dialysis Status: Acute Plan: Discussed with patient that she is on peritoneal dialysis doing not well, She has hyperparathyroidism and hyperphosphatemia risk of calciphylaxis as high Wound appearance is suspicious she will need a skin biopsy and will ask probation worker for further assistance Meanwhile I offered her hemodialysis which she refused There is medication sodium thiosulfate, but used with hemodialysis and Given with a central line She stated she absolutely do not wish to go on hemodialysis I will wait for the biopsy meanwhile we can increase the Sensipar to 90 mg daily control of phosphorus Continue monitor her progress monitor for any new lesions. (2) Diabetes mellitus type 2, insulin dependent ICD Codes: E11.9 - Diabetes mellitus type 2, insulin dependent; Z79.4 - MCC (current) use of insulin Status: Chronic Plan: Monitor blood glucose (3) Cellulitis ICD Codes: L03.90 - Cellulitis, unspecified Plan: Vancomycin was given (4) Hyperphosphatemia ICD Codes: E83.39 - Other disorders of phosphorus metabolism Plan: Sensipar increased to 90 mg continue with Renvela low phosphate diet Problem Qualifiers (1) Cellulitis: Nazanin Strickland MD Apr 28, 2017 12:11
--- NOTE | 2017-04-28 13:47 | HHI.FPPN ---
Subjective Remarks Patient seen and examined this morning. No acute events overnight. Reports no change in her foot. Having pain, but controlled with medications. Denies any new numbness or wound drainage. Otherwise, denies any fever/chills, chest pain, shortness of breath, abdominal pain. (Iron Ramachandran MD) Objective Vitals Vital Signs Date Time Temp Pulse Resp B/P (MAP) Pulse Ox O2 Delivery O2 Flow Rate FiO2 04/28/17 12:00 98.3 85 20 114/60 (78) 97 04/28/17 08:00 99.2 82 20 124/55 (78) 95 04/28/17 04:27 98.5 85 20 122/60 (80) 92 04/28/17 03:48 86 04/28/17 00:16 91 04/28/17 00:00 98.1 74 18 132/62 (85) 92 04/27/17 23:00 Room Air 04/27/17 21:49 87 04/27/17 20:41 98.0 88 18 117/58 (77) 93 04/27/17 18:56 90 16 130/62 (84) 99 Room Air 04/27/17 15:46 98.4 94 16 150/60 (90) 97 I/O 04/27/17 04/27/17 04/27/17 04/28/17 04/28/17 04/28/17 07:00 15:00 23:00 07:00 15:00 23:00 Intake Total 480 ml 250 ml Output Total 1500 ml Balance 480 ml -1250 ml Intake Oral 480 ml IV Total 250 ml Output Peritoneal Fluid 1500 ml # Voids 1 1 # Bowel Movements 0 (Iron Ramachandran MD) Result Diagram: 04/28/1718 04/28/17 0718 Imaging Last Impressions Foot X-Ray 04/27/17 0000 Signed Impressions: Service Date/Time: Thursday, April 27, 2017 16:14 - CONCLUSION: 1. Osseous structures of the forefoot are intact. 2. Extensive soft tissue calcifications in the distal posterior leg. Shmuel Lester MD Objective Remarks GENERAL: NAD, sitting in bed CARDIOVASCULAR: Regular rate and rhythm. RESPIRATORY: No accessory muscle use. Clear to auscultation. Breath sounds equal bilaterally. GASTROINTESTINAL: Abdomen soft, non-tender, nondistended. MUSCULOSKELETAL: Right dorsal foot appearing erythematous, mildly swollen, ~1cm circular almost eschar-like area on the dorsal foot without purulent drainage or abscess. Has soft tissue swelling of her right foot. Erythema extends to the inferior aspect of her right foot. Right foot warm to touch compared to left foot. NEUROLOGICAL: Awake and alert. Normal speech. (Iron Ramachandran MD) A/P Assessment and Plan 66 year old female being admitted with sepsis due to right foot cellulitis, vs calciphylaxis, vs diabetic foot ulcer Discharge Planning Pending workup and treatment of wound (Iron Ramachandran MD) Attending Attestation Patient interviewed Examination performed Case dicussed in detail with team 'EMR reviewed Agree with contents of above note See orders (Felix Larsen MD) Problem List: (1) Wound, open, foot ICD Codes: S91.309A - Unspecified open wound, unspecified foot, initial encounter Plan: Calciphylaxis vs cellulitis vs ischemia Podiatry consulted-appreciate recs -Spoke with Dr. Chambers -Recommended continuing Vancomycin for now for possible infection -Consulting vascular for evaluation Patient appears well hydrated, hold IV fluids given ESRD Pain control with norco prn, morphine prn breakthrough pain (2) ESRD (end stage renal disease) on dialysis ICD Codes: N18.6 - End stage renal disease; Z99.2 - Dependence on renal dialysis Status: Acute Plan: Continue peritoneal dialysis daily Consult nephrology -Offered hemodialysis, with possible medication -Await biopsy results -Sensipar 90mg dialy Continue home renvela (3) Diabetes mellitus type 2, insulin dependent ICD Codes: E11.9 - Diabetes mellitus type 2, insulin dependent; 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 Status: Chronic Plan: Hold home levemir Will half home dose at this time, give Levemir 29 units hs Accuchecks achs Low-dose ISS (4) Hyperphosphatemia ICD Codes: E83.39 - Other disorders of phosphorus metabolism Plan: Continue Renvela Continue peritoneal dialysis daily (5) Nutrition, metabolism, and development symptoms ICD Codes: R63.8 - Other symptoms and signs concerning food and fluid intake Plan: Fluids: per PO Electrolytes: continue to monitor, PD daily Nutrition: 1800 ADA DVT ppx: Heparin 5000 units q12h GI ppx: Protonix PO daily (Iron Ramachandran MD) Problem Qualifiers (1) Wound, open, foot: Qualified Codes: S91.301A - Unspecified open wound, right foot, initial encounter Iron Ramachandran MD Apr 28, 2017 13:47 Felix Larsen MD Apr 28, 2017 18:16
--- NOTE | 2017-04-28 16:32 | PD.POD ---
Past Med/Surg/Social History Past Surgical History Gynecologic: DENIES HX OF: Hysterectomy Breast: DENIES HX OF: Mastectomy, bilateral, Mastectomy, left, Mastectomy, right Social History Smoking Status: Current Some Day Smoker Objective Vital Signs Vital Signs Date Time Temp Pulse Resp B/P (MAP) Pulse Ox O2 Delivery O2 Flow Rate FiO2 04/28/17 12:00 98.3 85 20 114/60 (78) 97 04/28/17 08:00 99.2 82 20 124/55 (78) 95 04/28/17 04:27 98.5 85 20 122/60 (80) 92 04/28/17 03:48 86 04/28/17 00:16 91 04/28/17 00:00 98.1 74 18 132/62 (85) 92 04/27/17 23:00 Room Air 04/27/17 21:49 87 04/27/17 20:41 98.0 88 18 117/58 (77) 93 04/27/17 18:56 90 16 130/62 (84) 99 Room Air Coded Allergies: quinine (Verified Allergy, Intermediate, Rash, 04/27/17) Assessment & Plan Diagnosis: (1) Peripheral vascular disease of foot ICD Codes: I73.9 - Peripheral vascular disease, unspecified Status: Chronic (2) 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 Recommended restart ABX, topical Santyl debridement ordered, Arterial doppler ordered, Vascular surgery consult ordered. Spoke with Medicine team. Will Follow. 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
[2017-04-28] MEDS ORDERED: Vancomycin Consult Pharmacy 1 EA OTHER SCH (16:45)
--- NOTE | 2017-04-28 17:24 | MB ---
cc: KAYLEEN DENISE DPM DATE OF CONSULTATION 04/28/2017 REASON FOR CONSULTATION Right foot ulcer, nonhealing wound calciphylaxis. HISTORY OF PRESENT ILLNESS This is a 66-year-old female who has noticed over the past 1-2 weeks worsening condition of her right foot. She denies any obvious incident or injury but she did notice that there was very mild bleeding at one point in time and then there was spreading of a purple discoloration of the dorsum of her foot. She was counseled by her primary care physician who prescribed Keflex and Bactrim. However, she did not complete the course and she was then given a prescription for Levaquin. She does have a history of pain with ambulation and now rest pain and appears to be worsening. The patient does have a family history of her grandmother who had gangrene of the extremity and ultimately needed amputation. PAST MEDICAL HISTORY 1. End-stage renal disease for the past 5-6 years on peritoneal dialysis. 2. She is an insulin dependent diabetic. 3. Hypothyroidism. 4. Gastroesophageal reflux disease. 5. Peripheral neuropathy. 6. Hypotensive. PAST SURGICAL HISTORY Cholecystectomy. ALLERGIES QUININE FAMILY HISTORY AND SOCIAL HISTORY Father due to complications of CHF. Mother secondary to cardiomyopathy. One brother about four years ago from myocardial infarction. She lives at home with her and grandchildren. She quit smoking approximately 20 years ago. Denies drugs or alcohol. MEDICATIONS 1. Outpatient medications reviewed. Inpatient medications reviewed. It appears that she received vancomycin on 04/27. She is not currently on a standing dose of vancomycin. 2. She is on Sensipar. 3. Calciferol. 4. Vitamin D3. 5. Potassium chloride. 6. Sevelamer carbonate. 7. Protonix. 8. Neurontin. 9. Insulin. 10. Synthroid. 11. Heparin. 12. Morphine sulfate. 13. Furosemide. 14. Midodrine. As needed medications: 1. Tylenol. 2. Zofran. Pain medications: 1. [place]. 2. Anti constipation protocol. PHYSICAL EXAMINATION VITAL SIGNS: Temperature is 98.3, pulse rate 85, respiratory rate is 20, blood pressure is 114/60. She is sating 97% on room air. GENERAL: This is an alert and oriented female. She appears to be obese. EXTREMITIES: The bilateral lower extremities are examined. The right lower extremity, there is warmth at the level of the knee down to the ankle and the distal forefoot is cool. The dorsal aspect of the foot lateral there is noted to be approximately 1.5 cm eschar with noy ischemic rubor. Upon pressure to the area there is pain but there is no odor. There is there is no drainage. There is no soft tissue emphysema. Minimal swelling noted. There appears to be superficial abrasion of dorsal aspect of the patient's right fifth digit. Of all the digits this one is the coolest. It appears that it is going into an early ischemic gangrenous state. Slight delayed capillary fill time to digits one through four. Significant delayed capillary fill time to digit five. Pulses are hard to palpate but they are audible at least the dorsalis pedis by Doppler. Superficial venous dilations are noted. There is pain with range of motion of the toes but there is no pain with range of motion of the hind foot or ankle. Sensation appears to be intact. Left lower extremity is free from any ulcerative lesions. Pulses are decreased as well. The foot appears to be warm. NEUROLOGIC: The patient is verbal, appropriate. LUNGS: Nonlabored respirations. IMAGING X-ray of the foot reveals osseous structures of the forefoot are intact. There is soft tissue calcification in the distal posterior leg as well as evidence of Monckeberg sclerosis seen throughout the soft tissue of the foot. There appears to be disuse osteopenia. LABORATORY FINDINGS White blood cell 11.1 down to 9.3. Hemoglobin/hematocrit 12 and 38. Platelet count is 248. A Chem-7 sodium is 138, potassium 4.4, chloride 100, CO2 is 25.3, BUN is 42, creatinine 8.35. Random glucose is 186. Per the patient the last hemoglobin A1c was 7.3. Coagulation profile PT 11.1. INR 1.1. Microbiologic findings no growth of peripheral blood. ASSESSMENT AND PLAN Right foot necrotic ulcer eschar likely calciphylaxis with underlying PVD. My recommendation is to restart the antibiotic for now. The treatment for calciphylaxis typically is aggressive wound care however, due to the patient's limited circulation, aggressive debridement will likely cause significant exposure of the deep bone and soft tissue structures that will become infected quite quickly. My recommendation is a topical enzymatic debrider, arterial Doppler as a routine check for waveforms and a vascular surgery consultation. I will hold off on any aggressive intervention at this time. I spoke with medicine team regarding my recommendations. I will continue to follow along this case. LASHAWN Lr /4:32 PM /4:51 PM
[2017-04-28] MEDS: ONDANSETRON HCL 4 MG/2 ML VIAL IVP PRN (20:18)
[2017-04-28] MEDS: GABAPENTIN 300 MG CAP PO SCH (22:34)
[2017-04-28] MEDS: INSULIN DETEMIR 100 UNITS/ML VIAL SQ SCH (22:34)
[2017-04-29] VITALS (8 sets, daily range): BP systolic 107–127; BP diastolic 57–80; PULSE 79–117; RESP 14–18; TEMP 97.7–100.5; O2SAT 92–96
[2017-04-29] MEDS: LEVOTHYROXINE SODIUM 100 MCG TAB PO SCH (06:26)
[2017-04-29] MEDS: ACETAMINOPHEN/HYDROcodone 325 MG/10 MG TAB PO PRN ×4 (06:46→20:46)
[2017-04-29] MEDS: SODIUM CHLORIDE 0.9% FLUSH 10 ML FLUSH IV FLUSH SCH ×2 (07:27→20:47)
[2017-04-29] MEDS: CALCITRIOL 0.25 MCG CAP PO SCH (07:51)
[2017-04-29] MEDS: MIDODRINE 5 MG TAB PO SCH ×2 (07:51→20:46)
[2017-04-29] MEDS: PANTOPRAZOLE SOD 20 MG DELAYED RELEASE TAB PO SCH (07:52)
[2017-04-29] MEDS: CINACALCET HYDROCHLORIDE 30 MG TAB PO SCH (07:52)
[2017-04-29] MEDS: CHOLECALCIFEROL (VIT D3) 5000 UNIT CAP PO SCH (07:52)
[2017-04-29] MEDS: POTASSIUM CHLORIDE 8 MEQ CONTROLLED RELEASE TAB PO SCH (07:52)
[2017-04-29] MEDS: SEVELAMER CARBONATE 800 MG TAB PO SCH ×3 (07:52→18:03)
[2017-04-29] MEDS: FUROSEMIDE 40 MG TAB PO SCH ×2 (07:52→20:47)
[2017-04-29] MEDS: INSULIN ASPART SUPPLEMENTAL SCALE SQ SCH ×4 (07:53→20:53)
[2017-04-29] MEDS: DOCUSATE SODIUM 50 MG/SENNA 8.6 MG TAB PO SCH ×2 (07:53→20:47)
[2017-04-29] MEDS: HEPARIN SODIUM - SQ 10,000 UNITS/ML VIAL SQ SCH ×2 (07:53→20:47)
[2017-04-29] MEDS: COLLAGENASE OINT 30 GM TUBE TOPICAL SCH (07:54)
[2017-04-29] MEDS: GABAPENTIN 400 MG CAP PO SCH ×2 (07:59→15:15)
[2017-04-29 08:28] LABS: AUTOMATED NEUTROPHIL # 8.5 TH/MM3 (1.8-7.7); BASOPHIL # 0.1 TH/MM3 (0-0.2); BASOPHIL % 0.8 % (0.0-2.0); EOSINOPHIL # 0.3 TH/MM3 (0-0.4); EOSINOPHIL % 2.6 % (0.0-4.0); HEMATOCRIT 33.4 % (35.0-46.0); HEMOGLOBIN 11.1 GM/DL (11.6-15.3); LYMPH % 7.8 % (9.0-44.0); LYMPHOCYTE # 0.8 TH/MM3 (1.0-4.8); MEAN CELL VOLUME 104.9 FL (80.0-100.0); MEAN CORPUSCULAR HGB CONC 33.4 % (32.0-36.0); MEAN PLATELET VOLUME 8.2 FL (7.0-11.0); MONO % 4.4 % (0.0-8.0); MONOCYTE # 0.4 TH/MM3 (0-0.9); NEUT % 84.4 % (16.0-70.0); PLATELET COUNT 186 TH/MM3 (150-450); RED BLOOD COUNT 3.18 MIL/MM3 (4.00-5.30); RED CELL DISTRIBUTION WIDTH 17.8 % (11.6-17.2); WHITE BLOOD COUNT 10.1 TH/MM3 (4.0-11.0)
--- NOTE | 2017-04-29 08:45 | RADRPT ---
EXAM DATE/TIME: 04/28/2017 00:00 [facility] COMPARISON: No previous studies available for comparison. INDICATIONS : Right foot cellulitis, right foot ulcer TECHNIQUE: Five-station segmental examination of the lower extremities was performed. Pulsed-cuff waveform tracings and pressures were recorded. Ankle-brachial indices and toe-brachial indices were calculated. PRESSURES (mmHg): Brachial (arm): Right 92 Left IV SITE Lower Thigh: Right 109 Left 97 Calf: Right 99 Left 106 Ankle: Right CNO>220 Left 102 Toe: Right 0 Left 57 CASSIE: Right CNO Left 1.11 TBI: Right 0.00 Left 0.62 PULSED CUFF WAVEFORMS: The waveform is diminished throughout most of the right leg suggesting possible inflow disease. CONCLUSION: 1. The distal circulation on the right could not be occluded. There is a diminished waveform on the r ight. This would suggest densely calcified, non-compressible vessels. The diminished waveform raises suspicion for vascular disease. CT angiography could be performed for more definitive assessment. 2. CASSIE and TBI on the left are within the range of normal. Juan Miguel Hurt MD on April 29, 2017 at 8:40 Board Certified Radiologist. This report was verified electronically.
[2017-04-29 08:51] LABS: CALCIUM 8.6 MG/DL (8.5-10.1); CREATININE 8.75 MG/DL (0.50-1.00)
--- NOTE | 2017-04-29 11:36 | PD.VS.CON ---
History of Present Illness Chief Complaint: Right foot wound w/ progressive tissue loss and discoloration Non palpable distal pulses Consult Requested by: Dr. Chambers History of Present Illness 66/F with a PMH of DM, End Stage Renal Failure (on peritoneal dialysis), Hypothyroidism and Peripheral Neuropathy Pt c/o right 5th digit (toe) callus that appeared 6W ago Pt reported worsening tissue loss over the past 2 weeks with darkening discoloration Pt w/ non palpable Distal pulses (Petra Guerrero NANY) Past/Family/Social History Past Medical History ESRD (PD for 5 years) DM Hypotension Hypothyroidism Peripheral neuropathy Past Surgical History Cholecystectomy Social History Tobacco: patient reports she quit smoking about 20 years ago Etoh: denies Illicit drug use: denied Lives at home with her and grandchildren (Petra Guerrero NANY) Home Medications Active Scripts Sulfamethoxazole-Trimethoprim (Bactrim DS) 800-160 Mg Tab, 1 TAB PO BID for Infection, #20 TAB 0 Refills Prov:Wes Johnson MD 04/16/17 Mupirocin Topical (Bactroban Topical) 22 Gm Cream, 1 APPLIC TOPICAL BID for Mgmt Bacterial Infection, #1 TUBE 0 Refills Prov:Wes Johnson MD 04/16/17 Calcitriol (Calcitriol) 0.25 Mcg Cap, 0.5 MCG PO DAILY for Calcium Supplement, # 60 CAP 5 Refills Daily Prov:Danae Hernandez MD 04/03/17 Midodrine (Midodrine) 10 Mg Tab, 10 MG PO BID for Control Low Blood Pressure, # 90 TAB 0 Refills Prov:Danae Hernandez MD 04/01/17 Sevelamer Carbonate (Renvela) 800 Mg Tab, 3 TAB PO TID for Control phosphorous levels, #810 TAB 0 Refills 3 tabs with each meal and 1-2 tabs with each snack. Prov:Danae Hernandez MD 04/01/17 Walker with Front Wheels (Walker with Front Wheels) 1 Mis Mis, 1 EA .ROUTE DIRECTED, #1 EA 0 Refills Prov:Danae Hernandez MD 04/01/16 Reported Medications Potassium Chloride ER (K-Tab) 8 Meq Tab, 8 MEQ PO DAILY for Electrolyte Replacement, #30 TAB 0 Refills 04/01/17 Cinacalcet (Sensipar) 60 Mg Tab, 60 MG PO DAILY, #30 TAB 0 Refills 04/01/17 Insulin Detemir Inj (Levemir Inj) 1,000 unit/ 10 ML Vial, 58 UNITS SQ HS for Blood Sugar Management, VIAL 0 Refills Do not mix with any other Insulin. 04/01/16 Furosemide (Furosemide) 40 Mg Tab, 40 MG PO BID, #60 TAB 0 Refills 04/01/16 Cholecalciferol (D 5000) 5,000 Unit Cap, 1 CAP PO DAILY 04/01/16 Omeprazole (Omeprazole) 20 Mg Tab, 20 MG PO DAILY, #90 TAB 0 Refills 04/01/16 Levothyroxine (Levothyroxine) 100 Mcg Tab, 100 MCG PO DAILY for Thyroid, #90 TAB 0 Refills 04/01/16 Coded Allergies: quinine (Verified Allergy, Intermediate, Rash, 04/27/17) Review of Systems Constitutional: DENIES: Fever, Chills Cardiovascular: COMPLAINS OF: Claudication (Bilat LE ), DENIES: Chest pain Integumentary: COMPLAINS OF: Abnormal pigmentation (Right foot/ulcerations present ) (Petra Guerrero) Physical Exam Vitals/I&O Date Time Temp Pulse Resp B/P (MAP) Pulse Ox O2 Delivery O2 Flow Rate FiO2 04/29/17 08:00 98.7 86 17 114/80 (91) 94 04/29/17 04:00 99.3 93 14 107/57 (74) 92 04/29/17 03:54 95 04/29/17 00:00 100.5 117 18 113/61 (78) 92 04/28/17 23:43 125 04/28/17 20:00 98.3 91 18 140/61 (87) 95 04/28/17 19:46 92 04/28/17 16:17 79 04/28/17 16:00 98.1 79 20 121/58 (79) 93 04/28/17 12:00 83 04/28/17 12:00 98.3 85 20 114/60 (78) 97 04/29/17 04/29/17 04/29/17 07:00 15:00 23:00 Output Total 1168 ml Balance -1168 ml Neuro: GCS 15 CN 2-12 HEENT: Neck: NO JVD Heart: RRR Lungs: CTA Abdomen: S/NT Vascular: Non palpable distal pulses R Foot with dependent rubor (dorsal to lateral aspect of foot) Circular lesion below R 3rd toe without drainage or odor (Petra Guerrero) Laboratory Tests Test 04/29/17 06:05 White Blood Count 10.1 Red Blood Count 3.18 Hemoglobin 11.1 Hematocrit 33.4 Mean Corpuscular Volume 104.9 Mean Corpuscular Hemoglobin 35.0 Mean Corpuscular Hemoglobin Concent 33.4 Red Cell Distribution Width 17.8 Platelet Count 186 Mean Platelet Volume 8.2 Neutrophils (%) (Auto) 84.4 Lymphocytes (%) (Auto) 7.8 Monocytes (%) (Auto) 4.4 Eosinophils (%) (Auto) 2.6 Basophils (%) (Auto) 0.8 Neutrophils # (Auto) 8.5 Lymphocytes # (Auto) 0.8 Monocytes # (Auto) 0.4 Eosinophils # (Auto) 0.3 Basophils # (Auto) 0.1 CBC Comment DIFF FINAL Differential Comment Blood Urea Nitrogen 41 Creatinine 8.75 Random Glucose 125 Calcium Level 8.6 Sodium Level 136 Potassium Level 4.3 Chloride Level 98 Carbon Dioxide Level 26.0 Anion Gap 12 Estimat Glomerular Filtration Rate 5 Date/Time Source Procedure Growth Status 04/27/17 16:51 Blood Peripheral Aerobic Blood Culture - Preliminary NO GROWTH IN 1 DAY Resulted 04/27/17 16:51 Blood Peripheral Anaerobic Blood Culture - Preliminary NO GROWTH IN 1 DAY Resulted (Petra Guerrero) Assessment and Plan Assessment: (1) 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 Araya tomorrow for potential revascularization Pt agrees w/ plan Consent signed and placed in the chart Pt NPO after midnight Petra Guerrero CHILD CARE COUNSELOR [facility] [phone] (Petra Guerrero) Plan Profoundly ischemic R foot. 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
--- NOTE | 2017-04-29 11:39 | HHI.FPPN ---
Subjective Remarks Patient seen and examined this morning. No acute events overnight. Pt has a T max of 100.5 F overnight. Pt stated she did not feel warm or have chills. Denies cough, CP, SOB, abdominal pain or N/V. Pt stated Right foot pain is tolerable. Objective Vitals Vital Signs Date Time Temp Pulse Resp B/P (MAP) Pulse Ox O2 Delivery O2 Flow Rate FiO2 04/29/17 08:00 98.7 86 17 114/80 (91) 94 04/29/17 04:00 99.3 93 14 107/57 (74) 92 04/29/17 03:54 95 04/29/17 00:00 100.5 117 18 113/61 (78) 92 04/28/17 23:43 125 04/28/17 20:00 98.3 91 18 140/61 (87) 95 04/28/17 19:46 92 04/28/17 16:17 79 04/28/17 16:00 98.1 79 20 121/58 (79) 93 04/28/17 12:00 83 04/28/17 12:00 98.3 85 20 114/60 (78) 97 I/O 04/28/17 04/28/17 04/28/17 04/29/17 04/29/17 04/29/17 07:00 15:00 23:00 07:00 15:00 23:00 Intake Total 480 ml 970 ml Output Total 1500 ml 1168 ml Balance 480 ml -530 ml -1168 ml Intake Oral 480 ml 720 ml IV Total 250 ml Output Peritoneal Fluid 1500 ml Hemodialysis 1168 ml # Voids 1 4 1 # Bowel Movements 0 Result Diagram: 04/29/17 0605 04/29/17 0605 Imaging Last Impressions Foot X-Ray 04/27/17 0000 Signed Impressions: Service Date/Time: Thursday, April 27, 2017 16:14 - CONCLUSION: 1. Osseous structures of the forefoot are intact. 2. Extensive soft tissue calcifications in the distal posterior leg. Shmuel Lester MD Objective Remarks GENERAL: NAD, sitting in bed CARDIOVASCULAR: Regular rate and rhythm. RESPIRATORY: No accessory muscle use. Clear to auscultation. Breath sounds equal bilaterally. GASTROINTESTINAL: Abdomen soft, non-tender, nondistended. MUSCULOSKELETAL: Right dorsal foot appearing erythematous, mildly swollen, ~1cm circular almost eschar-like area on the dorsal foot without purulent drainage or abscess. Erythema extends to the inferior aspect of her right foot. NEUROLOGICAL: Awake and alert. Normal speech. A/P Assessment and Plan 66 year old female being admitted with sepsis due to right foot cellulitis, vs calciphylaxis. Discharge Planning Pending workup and treatment of wound Problem List: (1) Wound, open, foot ICD Codes: S91.309A - Unspecified open wound, unspecified foot, initial encounter Plan: Calciphylaxis vs cellulitis vs ischemia Podiatry consulted-appreciate recs -Recommended continuing Vancomycin for now for possible infection -vascular surgery were consulted for evaluation -possible revascularization procedure tomorrow, per patient. Will await formal recommendations. -Nephrology following, - It was recommended pt switch to HD for improvement of calciphylaxis, but pt has refused HD at this time. She will like to see outcome of vascular procedure first. 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) use of insulin Status: Chronic Plan: Hold home levemir Will half home dose at this time, give Levemir 29 units hs Accuchecks achs Low-dose ISS (4) Hyperphosphatemia ICD Codes: E83.39 - Other disorders of phosphorus metabolism Plan: Continue Renvela Continue peritoneal dialysis daily (5) Nutrition, metabolism, and development symptoms ICD Codes: R63.8 - Other symptoms and signs concerning food and fluid intake Plan: Fluids: per PO Electrolytes: continue to monitor, PD daily Nutrition: 1800 ADA DVT ppx: Heparin 5000 units q12h GI ppx: Protonix PO daily Problem Qualifiers (1) Wound, open, foot: Qualified Codes: S91.301A - Unspecified open wound, right foot, initial encounter Chema Bush MD, R1 Apr 29, 2017 11:39
[2017-04-29] MEDS: MORPHINE SULFATE 4 MG/ML INJ IV PUSH PRN ×3 (13:08→22:11)
[2017-04-29] MEDS: GABAPENTIN 300 MG CAP PO SCH (20:46)
[2017-04-29] MEDS: INSULIN DETEMIR 100 UNITS/ML VIAL SQ SCH (21:36)
[2017-04-30] VITALS (10 sets, daily range): BP systolic 102–140; BP diastolic 56–70; PULSE 80–104; RESP 18–20; TEMP 98–99.9; O2SAT 92–98
[2017-04-30] MEDS: ACETAMINOPHEN/HYDROcodone 325 MG/10 MG TAB PO PRN ×2 (04:44→09:44)
[2017-04-30] MEDS: LEVOTHYROXINE SODIUM 100 MCG TAB PO SCH (04:44)
[2017-04-30] MEDS: MORPHINE SULFATE 4 MG/ML INJ IV PUSH PRN ×2 (06:44→11:10)
[2017-04-30] MEDS: INSULIN ASPART SUPPLEMENTAL SCALE SQ SCH ×4 (08:00→21:00)
[2017-04-30] MEDS: GABAPENTIN 400 MG CAP PO SCH ×2 (09:00→15:00)
[2017-04-30] MEDS: FUROSEMIDE 40 MG TAB PO SCH ×2 (09:16→21:42)
[2017-04-30] MEDS: SEVELAMER CARBONATE 800 MG TAB PO SCH ×3 (09:16→18:00)
[2017-04-30] MEDS: DOCUSATE SODIUM 50 MG/SENNA 8.6 MG TAB PO SCH ×2 (09:16→21:44)
[2017-04-30] MEDS: POTASSIUM CHLORIDE 8 MEQ CONTROLLED RELEASE TAB PO SCH (09:16)
[2017-04-30] MEDS: PANTOPRAZOLE SOD 20 MG DELAYED RELEASE TAB PO SCH (09:16)
[2017-04-30] MEDS: MIDODRINE 5 MG TAB PO SCH ×2 (09:16→21:42)
[2017-04-30] MEDS: CHOLECALCIFEROL (VIT D3) 5000 UNIT CAP PO SCH (09:16)
[2017-04-30] MEDS: CALCITRIOL 0.25 MCG CAP PO SCH (09:16)
[2017-04-30] MEDS: HEPARIN SODIUM - SQ 10,000 UNITS/ML VIAL SQ SCH ×2 (09:17→21:45)
[2017-04-30] MEDS: CINACALCET HYDROCHLORIDE 30 MG TAB PO SCH (09:21)
[2017-04-30 09:23] LABS: ALBUMIN 3.3 GM/DL (3.4-5.0); AST (GOT) 28 U/L (15-37); BICARBONATE 28.8 MEQ/L (21.0-32.0); BLOOD UREA NITROGEN 43 MG/DL (7-18); CALCIUM 8.8 MG/DL (8.5-10.1); CHLORIDE 96 MEQ/L (98-107); GLOMERULAR FILTRATION RATE 4 ML/MIN (>89); GLUCOSE,RANDOM 115 MG/DL (74-106); SODIUM (NA) 134 MEQ/L (136-145)
[2017-04-30 09:24] LABS: ALT (GPT) 22 U/L (10-53)
[2017-04-30 09:26] LABS: ALKALINE PHOSPHATASE 198 U/L (45-117); TOTAL BILIRUBIN ADULT 0.6 MG/DL (0.2-1.0); TOTAL PROTEIN 7.8 GM/DL (6.4-8.2)
--- NOTE | 2017-04-30 09:36 | HHI.FPPN ---
Subjective Remarks Pt seen and examined this morning. No acute events overnight. Reports pain is stable, controlled some with medications. Is anxious about the vascular procedure today, but understands the plan. Otherwise, is doing well and denies any new complaints. Denies any chest pain, SOB, abdominal pain. Objective Vitals Vital Signs Date Time Temp Pulse Resp B/P (MAP) Pulse Ox O2 Delivery O2 Flow Rate FiO2 04/30/17 04:00 Room Air 04/30/17 04:00 98.7 84 18 115/56 (75) 94 04/30/17 04:00 80 04/30/17 00:00 98.6 96 20 102/69 (80) 94 04/30/17 00:00 97 04/30/17 00:00 Room Air 04/29/17 20:00 97.7 86 18 127/65 (85) 96 04/29/17 20:00 Room Air 04/29/17 20:00 79 04/29/17 16:07 98.6 86 17 112/66 (81) 94 04/29/17 15:46 83 04/29/17 12:00 98.5 84 17 110/65 (80) 93 I/O 04/29/17 04/29/17 04/29/17 04/30/17 04/30/17 04/30/17 07:00 15:00 23:00 07:00 15:00 23:00 Intake Total 420 ml 700 ml Output Total 1168 ml 963 ml Balance -1168 ml 420 ml 700 ml -963 ml Intake Oral 420 ml 700 ml Hemodialysis 1168 ml 963 ml # Voids 1 5 3 # Bowel Movements 1 Result Diagram: 04/29/17 0605 04/30/17 0825 Imaging Last Impressions Foot X-Ray 04/27/17 0000 Signed Impressions: Service Date/Time: Thursday, April 27, 2017 16:14 - CONCLUSION: 1. Osseous structures of the forefoot are intact. 2. Extensive soft tissue calcifications in the distal posterior leg. Shmuel Lester MD Objective Remarks GENERAL: NAD, sitting in bed CARDIOVASCULAR: Regular rate and rhythm. RESPIRATORY: No accessory muscle use. Clear to auscultation. Breath sounds equal bilaterally. GASTROINTESTINAL: Abdomen soft, non-tender, nondistended. MUSCULOSKELETAL: Right dorsal foot appearing erythematous, mildly swollen, ~1cm circular almost eschar-like area on the dorsal foot without purulent drainage or abscess. Erythema extends to the inferior aspect of her right foot. Stable from yesterday. NEUROLOGICAL: Awake and alert. Normal speech. A/P Assessment and Plan 66 year old female being admitted with sepsis due to right foot cellulitis, vs calciphylaxis. Discharge Planning Pending workup and treatment of wound Problem List: (1) Wound, open, foot ICD Codes: S91.309A - Unspecified open wound, unspecified foot, initial encounter Plan: Calciphylaxis vs cellulitis vs ischemia Podiatry consulted-appreciate recs -Recommended continuing Vancomycin for now for possible infection -Topical enzymatic debrider -Vascular surgery were consulted for evaluation -R LE angiogram 04/30 -Nephrology following, - It was recommended pt switch to HD for improvement of calciphylaxis, but pt declines HD at this time. She will like to see outcome of vascular procedure first. 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 insulin Status: Chronic Plan: Hold home levemir Will half home dose at this time, give Levemir 29 units hs Accuchecks achs Low-dose ISS (4) Hyperphosphatemia ICD Codes: E83.39 - Other disorders of phosphorus metabolism Plan: Continue Renvela Continue peritoneal dialysis daily (5) Nutrition, metabolism, and development symptoms ICD Codes: R63.8 - Other symptoms and signs concerning food and fluid intake Plan: Fluids: per PO Electrolytes: continue to monitor, PD daily Nutrition: 1800 ADA DVT ppx: Heparin 5000 units q12h GI ppx: Protonix PO daily Problem Qualifiers (1) Wound, open, foot: Qualified Codes: S91.301A - Unspecified open wound, right foot, initial encounter Iron Ramachandran MD Apr 30, 2017 09:36
[2017-04-30 09:37] LABS: AUTOMATED NEUTROPHIL # 10.1 TH/MM3 (1.8-7.7); BASOPHIL # 0.1 TH/MM3 (0-0.2); BASOPHIL % 0.5 % (0.0-2.0); EOSINOPHIL # 0.4 TH/MM3 (0-0.4); EOSINOPHIL % 3.5 % (0.0-4.0); HEMATOCRIT 34.3 % (35.0-46.0); HEMOGLOBIN 11.4 GM/DL (11.6-15.3); MEAN CELL VOLUME 103.8 FL (80.0-100.0); MEAN CORPUSCULAR HEMOGLOBIN 34.4 PG (27.0-34.0); MEAN CORPUSCULAR HGB CONC 33.2 % (32.0-36.0); MEAN PLATELET VOLUME 7.6 FL (7.0-11.0); MONO % 4.9 % (0.0-8.0); MONOCYTE # 0.6 TH/MM3 (0-0.9); NEUT % 83.1 % (16.0-70.0); PLATELET COUNT 192 TH/MM3 (150-450); RED CELL DISTRIBUTION WIDTH 17.6 % (11.6-17.2); WHITE BLOOD COUNT 12.2 TH/MM3 (4.0-11.0)
[2017-04-30] MEDS ORDERED: HEPARIN-NS/PF FLUSH BAG 1,000 ML IV FLUSH ONE (12:44)
[2017-04-30] MEDS ORDERED: MIDAZOLAM HCL 2 MG/2 ML VIAL ONE (12:47)
[2017-04-30] MEDS ORDERED: HEPARIN SODIUM - IV 10,000 UNITS/10 ML VIAL ONE (12:48)
[2017-04-30] MEDS ORDERED: PROTAMINE SULFATE 50 MG/5 ML VIAL ONE (13:52)
--- NOTE | 2017-04-30 14:00 | HHI.PR ---
cc: Carlos Araya MD; Tc Chambers DPM Immediate Post Op Note Procedure Date: Apr 30, 2017 Pre Op Diagnosis: PAD, R LE tissue loss Post Op Diagnosis: PAD, R LE tissue loss Surgeon: Carlos Araya Rodeo Clown(s): none Procedure: 1. Aortogram w/ R LE angiogram 2. R AYO atherectomy and PUBLIC HEALTH INFORMATICIAN 3. L AYO atherectomy and PUBLIC HEALTH INFORMATICIAN 4. L BLOOD DONOR UNIT ASSISTANT Angioseal Findings: severe calcific AYO disease B good runoff to foot with 2 vessels R LE Complications: none Specimen(s) removed: none Estimated blood loss: 10mL Anesthesia: MAC Drains: None Patient to: Other (DOCU) Carlos Araya MD Apr 30, 2017 14:00
--- NOTE | 2017-04-30 14:12 | CATHPROC ---
[employer] HIS Report Study Information Study Number Admission Scheduled Start Study Start [id number] Apr 27 2017 6:27PM 04/30/2017 Apr 30 2017 12:25PM [place] Service Cath Endovascular Study Admit Source Facility Department Emergency department [facility] - Business Planning Analyst Physician and Clinical Staff Initial MD Araya, Carlos Senior Vice President & General CounselDina Arteaga RN Recorder Fahad Patten,RT(R) Recorder Dennis DIEGO, Chin Hunt,RT(R) Procedures Performed Procedure Location (Site) Vessel Name Abdominal Angiogram Abd Aorta (A3) Aorta Abdominal Angiogram Fem Art (right) Femoral Art Abdominal Angiogram Iliac R. Com. (R4) Illiac Art. Abdominal Angiogram Popliteal R (R10) Popliteal Abdominal Angiogram SFA (right) Femoral Art Abdominal Angiogram Tib, Ant. (right) Popliteal Abdominal Angiogram Tib, Post (right) Popliteal [employer] Iliac L. Com. (L4) [place] Art. PRE[employer] Iliac R. Com. (R4) [place] Art. Wire insertion Fem Art (left) Femoral Art Wire insertion Fem Art (right) Femoral Art Equipment Time Adjunct Art History Instructor Description Size Mfg Part Number Used/Scraped [id number] 12:27 ANGIO-DYNAMICS OMNI FLUSH 65CM CATHETER FR 4 Used *[id number] DBP- CARDIOVASCULAR CATHETER, STEALTH SOLID 13:20 [id number] Used SYSTEMS INC. 2.0MM *[id number] CARDIOVASCULAR [id number] 13:13 WIRE, FIRM (VIPER) 335 Used SYSTEMS INC. *[id number] INTRODUCER SET, 12:27 COOK INC. FR 5 [id number] *[id number] Used MICROPUNCTURE, STIFFENED 13:14 CORDIS/ MARY SHEATH, FR6 BRITE TIP 11CM FR 6 11CM [id number] Used 13:21 CORDIS/ MARY SHEATH, FR6 BRITE TIP 11CM FR 6 11CM [id number] Used [id number] *[id number] 13:28 DAIG/[employer] [facility] MEDICAL ANGIOSEAL, FR6 VIP FR 6 Used *[id number] 13:28 DAIG/[employer] MEDICAL ANGIOSEAL, FR6 VIP FR 6 Used *[id number] BALLOON, ADMIRAL EXTREME 8 X [id number] 13:25 INVATELocately TECHN[employer]IES 80CM Used 40 80CM *[id number] 12:27 MEDLINE INDUSTRIES PACK, CCL CUSTOM * Used *[id number] 12:27 [facility] MEDICAL PRESSURE TUBING 48" 48" [id number] Used [id number] 12:27 NAMIC TUBING, HIGH PRESSURE 20" 20" Used *[id number] TUBING, PRESSURE INJECTION [id number] 12:27 NAMIC PACER 72" Used 72" *[id number] 12:27 NYCOMED OMNIPAQUE, 300 MG, 150ML 150ML [id number] Used 12:27 NYCOMED OMNIPAQUE, 300 MG, 50ML 50ML [id number] Used 12:47 NYCOMED OMNIPAQUE, 300 MG, 50ML 50ML [id number] Used 12:48 NYCOMED OMNIPAQUE, 300 MG, 50ML 50ML [id number] Used [id number] 12:27 [facility] BLANKET,WARM AIR CCL * Used *[id number] 12:27 TERUMO MEDICAL SHEATH, FR4 TERUMO (10CM) FR 4 Used *[id number] CATHETER, FR4 GUIDE ANGLED 13:03 TERUMO MEDICAL/MARY FR 4 [id number] *[id number] Used 120CM WIRE, ANGLED GLIDE .035 [id number] 12:27 TERUMO MEDICAL/MARY 260CM Used 260CM *[id number] Equipment Model, Serial, Lot Number and Expiration Data Description Model Number Serial Number Lot Number Expiration Date ANGIOSEAL, FR6 [facility] [id number] 01-06-2018 ANGIOSEAL, FR6 [facility] [id number] 01-06-2018 WIRE, FIRM (VIPER) 335 [id number] 01-06-2019 History: Allergies Allergy Reaction quinine Rash History: Risk Factors Hypertension Dyslipidemia No Yes On Dialysis History: Stress Tests Stress or Imaging Studies Performed No History: Other Disease Selection Items Gerd History: Other Current Smoker Method Quit No Cigarettes 20 Years Ago Labs Hgb (g/dl) Hct (%) WBC (l/cumm) Platelets (thousands) 11.60-17.00 35.00-51.00 4.00-11.00 150.00-450.00 11.4 34.3 12.2 192 Glucose (mg/dl) BUN (mg/dl) Creatinine (mg/dl) BUN:Creatinine (1:x) 74.00-106.00 7.00-18.00 0.50-1.30 10.00-20.00 115 43 9.0 4.8 Na (meq/l) K (meq/l) 136.00-145.00 3.50-5.10 134 4.4 INR (PTT:PT) 0.90-1.10 1.1 CPK-MB (ng/ML) 0.50-3.60 Not Drawn Medication Medication Total Dose (Bolus/Oral) Medication Total Dosage/Unit 1% XYLOCAINE 40 mL FENTANYL 100 mcg HEPARIN 5000 units OXYGEN 2 l/min PROTAMINE 50 mg VERSED 2 mg Medications (Bolus/Oral) Medication Time Given Dosage/Unit Administered By Reason VERSED 04/30/2017 12:50:27 PM 1 mg Dina Vásquez For sedation 1 mg VERSED given in lab by Dina Vásquez RN via Peripheral IV. Reason: For sedation. 1% XYLOCAINE 04/30/2017 12:50:33 PM 20 mL Carlos Araya 20 mL 1% XYLOCAINE given by Carlos Araya in Left Groin via Subcutaneous. FENTANYL 04/30/2017 12:51:23 PM 50 mcg Dina Vásquez For sedation 50 mcg FENTANYL given in lab by Dina Vásquez RN via Peripheral IV. Reason: For sedation. OXYGEN 04/30/2017 12:51:58 PM 2 l/min Dina Vásquez 2 l/min OXYGEN given in lab by Dina Vásquez RN via Nasal. 1% XYLOCAINE 04/30/2017 1:13:32 PM 20 mL Carlos Araya 20 mL 1% XYLOCAINE given in lab by Carlos Araya in Right Groin via Subcutaneous. FENTANYL 04/30/2017 1:15:19 PM 25 mcg Dina Vásquez For sedation 25 mcg FENTANYL given in lab by Dina Vásquez, BRANDIE via Peripheral IV. Reason: For sedation. HEPARIN 04/30/2017 1:19:17 PM 5000 units Dina Vásquez 5000 units HEPARIN given in lab by Dina Vásquez RN via Peripheral IV. Ordered by Carlos Araya. PROTAMINE 04/30/2017 1:53:01 PM 50 mg Dina Vásquez 50 mg PROTAMINE given in lab by Dina Vásquez, BRANDIE. Ordered by Carlos Araya. VERSED 04/30/2017 1:54:14 PM 1 mg Dina Vásquez For sedation 1 mg VERSED given in lab by Dina Vásquez, BRANDIE via Peripheral IV. Reason: For sedation. FENTANYL 04/30/2017 1:55:07 PM 25 mcg Dina Vásquez For sedation 25 mcg FENTANYL given in lab by Dina Vásquez, BRANDIE via Peripheral IV. Reason: For sedation. Initial Case Assessment Cardiovascular HR NIBP 92 126/70 Edema Present Skin color Skin Mild Normal Warm Dry Circulatory - Left Pulses Neurological State Oriented to time-place- Alert Moves all extremities person Respiration - General Respiration Rate SpO2 (%) (B/min) 16 95 Final Case Assessment Cardiovascular HR NIBP 69 120/73 Circulatory - Right Pulses Femoral 1 Scale (0,1,2,3,4,d) Circulatory - Left Pulses Femoral 1 Scale (0,1,2,3,4,d) Neurological State Oriented to time-place- Alert Moves all extremities person Respiration - General Respiration Rate SpO2 (%) O2 (lpm) (B/min) 12 97 2 Chronological Log Time Study Chronological Log 12:34:05 Patient arrived via Bed. 12:34:07 Patient Name, D.O.B, / Armband Verified By R.N. 12:34:08 Consent signed by the physician and the patient and verified by the Business Planning Analyst staff. 12:34:16 Pre-op and post- op instructions given; patient acknowledges understanding of instructions. 12:34:18 Verbal Stimulation=2 Physical Stimulation=2 Airway=2 Respiration=2 TOTAL=8. (0=absent, 1=li mited, 2=present) 12:34:28 Presedation assessment performed by Business Planning Analyst RN. 12:42:01 MD arrived. 12:42:09 Patient has been NPO for More than 6Hrs. Vitals capture started with the following parameters, Patient=Adult, Interval=5 min, Initial Pr utwhow=117 mmHg, 12:42:42 Deflation Rate=5 mmHg, Cuff placed on Right Ankle 12:42:48 Presedation assessment performed by Business Planning Analyst RN. 12:42:54 Immediate Presedation assesment performed by physician. 12:43:20 Skin Breakdown- right foot non healing ulcer 12:43:23 HR=91 bpm, KRTM=073/70 mmhg, SpO2=93.0 %, Resp=15 B/min, Pain=0, Albert=10, Casillas=2 12:43:47 Patient Warmer Placed on the Table. 12:43:50 Km Prominences Protected Assessment: Initial Case, HR=92 BPM, ESSK=821/70 mmhg, Edema=Mild, Color=Normal, Skin = Warm, D ry Left Pulses: Femoral=1 12:44:23 Neurological: State=Alert, Ox3, SMILEY Respiration: Resp=16 B/min, SpO2=95 % 12:45:53 Right and left groin prepped with 2% chlorhexidine, and draped after a 3 min. waiting time. 12:48:20 HR=93 bpm, TWPM=827/71 mmhg, SpO2=92.0 %, Resp=13 B/min, Casillas=2 Time Out. Correct patient, correct procedure, correct physician, power injector loaded, or not loaded with contrast with 12:48:50 surgical team present. Time Out Concurred by MD and individual staff in procedure. 12:49:13 Case Start 12:50:27 1 mg VERSED given in lab by Dina Vásquez RN via Peripheral IV. Reason: For sedation. 12:50:33 20 mL 1% XYLOCAINE given by Carlos Araya in Left Groin via Subcutaneous. 12:51:23 50 mcg FENTANYL given in lab by Dina Vásquez RN via Peripheral IV. Reason: For sedation . 12:51:58 2 l/min OXYGEN given in lab by Dina Vásquez RN via Nasal. 12:52:26 Access site was Left Femoral Artery. A INTRODUCER SET, MICROPUNCTURE, STIFFENED FR 5 was advanced into the Fem Art (left) using the Modified 12:52:35 Seldinger technique. 12:53:25 HR=84 bpm, ZFHO=594/54 mmhg, SpO2=75.0 %, Resp=11 B/min, Casillas=2 A SHEATH, FR4 TERUMO (10CM) FR 4 was exchanged in the Fem Art (left). This was necessary in ord er to 12:53:25 accomodate a larger catheter. 12:54:05 A WIRE, ANGLED GLIDE .035 260CM 260CM was inserted via Fem Art (left). 12:54:24 A OMNI FLUSH 65CM CATHETER FR 4 was advanced over a wire. contrast was used for injections. 12:55:52 Wire removed 12:55:54 Through a OMNI FLUSH 65CM CATHETER FR 4, The Abdominal Aorta was injected with 12 cc's of c ontrast. 12:56:26 A WIRE, ANGLED GLIDE .035 260CM 260CM was inserted via Fem Art (left). 12:58:00 Wire removed 12:58:24 HR=88 bpm, NGZE=032/58 mmhg, SpO2=96.0 %, Resp=9 B/min, Casillas=2 13:00:02 Through a catheter, The R Iliac was injected with 20 cc's of contrast. 13:03:01 A WIRE, ANGLED GLIDE .035 260CM 260CM was inserted via Fem Art (left). 13:03:25 HR=99 bpm, JQFT=212/60 mmhg, SpO2=96.0 %, Resp=10 B/min, Casillas=2 After removing the current catheter a CATHETER, FR4 GUIDE ANGLED 120CM FR 4 was advanced over a WIRE, 13:03:47 ANGLED GLIDE .035 260CM 260CM. After removing the current catheter a OMNI FLUSH 65CM CATHETER FR 4 was advanced over a WIRE, A NGLED GLIDE 13:05:07 .035 260CM 260CM. 13:06:39 Wire removed 13:07:48 Through a OMNI FLUSH 65CM CATHETER FR 4, The r sfa was injected with 20 cc's of contrast. 13:08:24 HR=90 bpm, SMXV=878/62 mmhg, SpO2=98.0 %, Resp=14 B/min, Casillas=2 13:08:44 Through a OMNI FLUSH 65CM CATHETER FR 4, The R popliteal was injected with 20 cc's of contr ast. 13:09:09 Through a OMNI FLUSH 65CM CATHETER FR 4, The R tibial was injected with 20 cc's of contrast . 13:11:47 Through a OMNI FLUSH 65CM CATHETER FR 4, The posterior tibial was injected with 20 cc's of contrast. 13:13:25 HR=90 bpm, SEQP=189/69 mmhg, SpO2=99.0 %, Resp=11 B/min, Casillas=2 13:13:32 20 mL 1% XYLOCAINE given in lab by Carlos Araya in Right Groin via Subcutaneous. 13:14:57 Access site was Right Femoral Artery. A INTRODUCER SET, MICROPUNCTURE, STIFFENED FR 5 was advanced into the Fem Art (right) using the Modified 13:15:03 Seldinger technique. 13:15:19 25 mcg FENTANYL given in lab by Dina Vásquez, RN via Peripheral IV. Reason: For sedation . A SHEATH, FR6 BRITE TIP 11CM FR 6 11CM was exchanged in the Fem Art (right). This was necessary in order to 13:15:30 accomodate a larger catheter. 13:15:45 A WIRE, ANGLED GLIDE .035 260CM 260CM was inserted via Fem Art (right). 13:18:20 A CATHETER, FR4 GUIDE ANGLED 120CM FR 4 was advanced over a wire. contrast was used for inj ections. 13:18:30 HR=88 bpm, NFTZ=388/65 mmhg, PvF4=117.0 %, Resp=16 B/min, Casillas=2 13:18:48 Wire removed 13:18:59 A WIRE, FIRM (VIPER) 335 was inserted via Fem Art (right). 13:19:17 5000 units HEPARIN given in lab by Dina Vásquez, RN via Peripheral IV. Ordered by Carlos Araya. 13:19:44 Catheter was removed w/o difficulty 13:22:11 An CATHETER, STEALTH SOLID 2.0MM catheter was inserted into the Fem Art (right). 13:22:51 2.0 solidcrown atherectomy performed right iliac artey. Multiple passes performed 13:23:23 HR=95 bpm, SYEW=023/61 mmhg, SpO2=98.0 %, Resp=12 B/min, Casillas=2 13:27:34 A WIRE, ANGLED GLIDE .035 260CM 260CM was inserted via Fem Art (left). A SHEATH, FR6 BRITE TIP 11CM FR 6 11CM was exchanged in the Fem Art (left). This was necessary in order to 13:27:51 accomodate a larger catheter. 13:28:13 Atherectomy catheter removed from right femoral artery 13:29:07 HR=92 bpm, VBQJ=102/66 mmhg, SpO2=96.0 %, Resp=17 B/min, Casillas=2 13:29:12 A OMNI FLUSH 65CM CATHETER FR 4 was advanced over a wire. contrast was used for injections. 13:29:29 Wire removed A BALLOON, ADMIRAL EXTREME 8 X 40 80CM 80CM was inserted over WIRE, FIRM (VIPER) 335 via the Fe m Art 13:29:57 (right). 13:31:29 In the Iliac R. Com. (R4) a BALLOON, ADMIRAL EXTREME 8 X 40 80CM 80CM was inflated to 8 justyn s for 135 seconds. 13:33:34 HR=88 bpm, QCHS=830/74 mmhg, SpO2=99.0 %, Resp=10 B/min, Casillas=2 13:34:42 Balloon Removed. 13:35:40 A WIRE, ANGLED GLIDE .035 260CM 260CM was inserted via Fem Art (left). 13:36:00 Catheter was removed w/o difficulty 13:36:11 A CATHETER, FR4 GUIDE ANGLED 120CM FR 4 was advanced over a wire. contrast was used for inj ections. 13:36:46 Wire removed 13:36:55 ViperWire removed Right femoral artery 13:37:41 A WIRE, FIRM (VIPER) 335 was inserted via Fem Art (left). 13:37:59 Catheter was removed w/o difficulty 13:38:02 An CATHETER, STEALTH SOLID 2.0MM catheter was inserted into the Fem Art (left). 13:38:37 Atherectomy L Iliac 2.0 Solid Pax viper. Multiple passes performed 13:39:06 HR=94 bpm, VVQS=356/104 mmhg, SpO2=97.0 %, Resp=14 B/min, Casillas=2 13:43:19 Atherectomy catheter removed from left femoral artery 13:43:34 HR=95 bpm, FNGC=006/64 mmhg, SpO2=97.0 %, Resp=18 B/min, Casillas=2 13:44:12 A BALLOON, ADMIRAL EXTREME 8 X 40 80CM 80CM was inserted over WIRE, FIRM (VIPER) 335 via th e Fem Art (left). 13:44:32 In the Iliac L. Com. (L4) a BALLOON, ADMIRAL EXTREME 8 X 40 80CM 80CM was inflated to 8 justny s for 210 seconds. 13:46:58 A WIRE, BENTSON 150CM 150CM was inserted via Fem Art (right). 13:47:06 A OMNI FLUSH 65CM CATHETER FR 4 was advanced over a wire. contrast was used for injections. 13:49:14 HR=96 bpm, GHTG=838/90 mmhg, SpO2=97.0 %, Resp=14 B/min, Casillas=2 13:49:50 Omniflush Catheter was removed over wire 13:50:03 Through a OMNI FLUSH 65CM CATHETER FR 4, The Abdominal Aorta was injected with 20 cc's of c ontrast. 13:50:45 Balloon Removed. 13:50:48 Viper Wire removed 13:50:59 A WIRE, BENTSON 150CM 150CM was inserted via Fem Art (left). 13:51:27 ANGIOSEAL, FR6 VIP FR 6 placement in the Fem Art (left) 13:53:01 50 mg PROTAMINE given in lab by Dina Vásquez, BRANDIE. Ordered by Carlos Araya. 13:53:22 Manual pressure applied to Right groin 13:54:09 XU=249 bpm, TETI=623/78 mmhg, SpO2=88.0 %, Resp=15 B/min, Pain=4, Casillas=2 13:54:14 1 mg VERSED given in lab by Dina Vásquez, RN via Peripheral IV. Reason: For sedation. 13:55:00 Right Femoral Artery Sheath removed; pressure applied to access site. 13:55:07 25 mcg FENTANYL given in lab by Dina Vásquez, RN via Peripheral IV. Reason: For sedation . 13:56:10 Case End Vitals capture started with the following parameters, Patient=Adult, Interval=5 min, Initial Pr kaitxj=448 mmHg, 14:00:48 Deflation Rate=5 mmHg, Cuff placed on Right Ankle 14:01:37 HR=96 bpm, GOHI=239/67 mmhg, SpO2=96.0 %, Resp=12 B/min, Casillas=2 14:07:13 HR=96 bpm, YYNK=835/73 mmhg, SpO2=97.0 %, Resp=9 B/min, Casillas=2 14:07:40 Sterile dressing applied to bilateral groin sites 14:08:01 Holding Area notified of successful intervention. 14:08:05 Bedside Report will be given. 14:08:13 Vitals capture stopped. Assessment: Final Case, HR=69 BPM, DROJ=188/73 mmhg Right Pulses: Femoral=1 14:08:23 Left Pulses: Femoral=1 Neurological: State=Alert, Ox3, SMILEY Respiration: Resp=12 B/min, SpO2=97 %, O2=2 lpm 14:09:13 No case complications noted. 14:11:32 Patient moved to stretcher End Study - Contrast Media Used In Study Contrast Total Opened (mL) Total Used (mL) Total Wasted (mL) Omnipaque 150 90 60 End Study - Maximum Contrast Load Max Contrast Load (mL) 61.4 End Study - Radiation Exposure Fluoro Time (minutes) 15.7 End Study - Patient Disposition Complications Transferred To Interventional Outcome No Telemetry Bed successful
[2017-04-30] MEDS ORDERED: IOHEXOL 350 MG/ML 100 ML BTL (for Cath Lab) OTHER ONE (15:12)
--- NOTE | 2017-04-30 16:19 | HHI.NPPN ---
Subjective History of Present Illness 66 year old with esrd PVD Additional Remarks re entry for 04/29 visit Objective Data Data Vital Signs 04/29/17 20:00 97.7 86 18 127/65 (85) 96 04/29/17 20:00 Room Air 04/29/17 20:00 79 -: 04/30/17 0825 04/30/17 0825 Physical Exam General Appearance: Well Developed Neck Neck Exam: Neck Supple Pulmonary Resp Exam: Clear Bilaterally, Breath Sounds Equal Gastrointestinal/Abdomen GI Exam: Soft, Non-Tender, Bowel Sounds Present Extremeties Extremities Exam: Moderate Edema Extremeties Remarks rt foot wound Assessment/Plan Problem List: (1) ESRD (end stage renal disease) on dialysis ICD Codes: N18.6 - End stage renal disease; Z99.2 - Dependence on renal dialysis Status: Acute Plan: she is on PD she will go for PVD angiogram discussed meanwhile control PTH/PO4 with medications (2) Diabetes mellitus type 2, insulin dependent ICD Codes: E11.9 - Diabetes mellitus type 2, insulin dependent; Z79.4 - senior living (current) use of insulin Status: Chronic Plan: Monitor blood glucose (3) Cellulitis ICD Codes: L03.90 - Cellulitis, unspecified Plan: Vancomycin was given (4) Hyperphosphatemia ICD Codes: E83.39 - Other disorders of phosphorus metabolism Plan: Sensipar increased to 90 mg continue with Renvela low phosphate diet Problem Qualifiers (1) Cellulitis: Nazanin Strickland MD Apr 30, 2017 16:19
--- NOTE | 2017-04-30 17:07 | HHI.NPPN ---
History of Present Illness Current Symptoms Appetite: normal Diet: other Compliance: poor Edema: Yes Muscle cramps: Yes Nausea: No Vomiting: No Pruritus: Yes Shortness of breath: Yes Weight change: Recent gain Past Medical History Diabetes Mellitus: Yes Hypertension: Yes Medications Current or past medications: New (< 30 days) Antibiotics Vitamin D supplementation: Yes Social History Tobacco status: Former tobacco use Family History Kidney disease: No Subjective History of Present Illness 66 year old with esrd PVD Additional Remarks post Vascular angioplasty Objective Data Data 04/30/17 05/01/17 19:00 07:00 Output Total 963 ml Balance -963 ml Hemodialysis 963 ml Vital Signs Date Time Temp Pulse Resp B/P (MAP) Pulse Ox O2 Delivery O2 Flow Rate FiO2 04/30/17 14:23 96 Nasal Cannula 6.00 04/30/17 12:01 98.0 87 19 140/65 (90) 93 04/30/17 11:45 18 04/30/17 11:45 22 04/30/17 08:01 98.0 85 19 113/70 (84) 92 04/30/17 04:00 Room Air 04/30/17 04:00 98.7 84 18 115/56 (75) 94 04/30/17 04:00 80 04/30/17 00:00 98.6 96 20 102/69 (80) 94 04/30/17 00:00 97 04/30/17 00:00 Room Air 04/29/17 20:00 97.7 86 18 127/65 (85) 96 04/29/17 20:00 Room Air 04/29/17 20:00 79 -: 04/30/17 0825 04/30/17 0825 Exam Constitutional General Appearance: comfortable Eyes Sclera: Bilateral: Normal Respiratory Auscultation: Bilateral: Normal Cardiovascular Rhythm: regular Peripheral edema: Leg: Right: 1+ Other (describe): rt fot scab Gastrointestinal Palpation: Soft, Distended Bowel sounds: LUQ: Normal, LLQ: Normal, RUQ: Normal, RLQ: Normal Neurologic Mental status: Alertness: description (sedated) Assessment/Plan Problem List: (1) ESRD (end stage renal disease) on dialysis ICD Codes: N18.6 - End stage renal disease; Z99.2 - Dependence on renal dialysis Status: Acute Plan: she is on PD PVD Angioplasty doing well post procedure meanwhile control PTH/PO4 with medications (2) Diabetes mellitus type 2, insulin dependent ICD Codes: E11.9 - Diabetes mellitus type 2, insulin dependent; Z79.4 - senior living (current) use of insulin Status: Chronic Plan: Monitor blood glucose (3) Cellulitis ICD Codes: L03.90 - Cellulitis, unspecified Plan: Vancomycin was given (4) Hyperphosphatemia ICD Codes: E83.39 - Other disorders of phosphorus metabolism Plan: Sensipar increased to 90 mg continue with Renvela low phosphate diet Problem Qualifiers (1) Cellulitis: Nazanin Strickland MD Apr 30, 2017 17:07
[2017-04-30] MEDS ORDERED: VANCOMYCIN INJ 1,000 MG in SODIUM CHLOR 0.9% 250 ML INJ 250 ML IV ONE (18:00)
[2017-04-30] MEDS ORDERED: VANCOMYCIN INJ 1,000 MG in SODIUM CHLOR 0.9% 250 ML INJ 250 ML IV SCH (18:00)
[2017-04-30] MEDS: SODIUM CHLORIDE 0.9% FLUSH 10 ML FLUSH IV FLUSH SCH (21:00)
[2017-04-30] MEDS: GABAPENTIN 300 MG CAP PO SCH (21:42)
[2017-04-30] MEDS: INSULIN DETEMIR 100 UNITS/ML VIAL SQ SCH (21:46)
[2017-05-01] VITALS (13 sets, daily range): BP systolic 112–137; BP diastolic 56–68; PULSE 79–95; RESP 18–20; TEMP 97.7–99.8; O2SAT 92–95
[2017-05-01] MEDS: LEVOTHYROXINE SODIUM 100 MCG TAB PO SCH (05:57)
[2017-05-01] MEDS: ACETAMINOPHEN/HYDROcodone 325 MG/10 MG TAB PO PRN ×2 (05:57→10:19)
[2017-05-01 07:26] LABS: AUTOMATED NEUTROPHIL # 10.7 TH/MM3 (1.8-7.7); BASOPHIL # 0.1 TH/MM3 (0-0.2); BASOPHIL % 0.7 % (0.0-2.0); EOSINOPHIL # 0.3 TH/MM3 (0-0.4); EOSINOPHIL % 2.7 % (0.0-4.0); HEMATOCRIT 34.7 % (35.0-46.0); HEMOGLOBIN 11.4 GM/DL (11.6-15.3); LYMPHOCYTE # 0.8 TH/MM3 (1.0-4.8); MEAN CELL VOLUME 104.5 FL (80.0-100.0); MEAN CORPUSCULAR HEMOGLOBIN 34.4 PG (27.0-34.0); MEAN CORPUSCULAR HGB CONC 32.9 % (32.0-36.0); MEAN PLATELET VOLUME 7.8 FL (7.0-11.0); MONO % 6.1 % (0.0-8.0); MONOCYTE # 0.8 TH/MM3 (0-0.9); NEUT % 84.5 % (16.0-70.0); PLATELET COUNT 191 TH/MM3 (150-450); RED BLOOD COUNT 3.32 MIL/MM3 (4.00-5.30); RED CELL DISTRIBUTION WIDTH 17.9 % (11.6-17.2); WHITE BLOOD COUNT 12.7 TH/MM3 (4.0-11.0)
[2017-05-01 07:38] LABS: BICARBONATE 25.6 MEQ/L (21.0-32.0); CALCIUM 9.2 MG/DL (8.5-10.1); CREATININE 9.39 MG/DL (0.50-1.00)
[2017-05-01] MEDS: CALCITRIOL 0.25 MCG CAP PO SCH (08:00)
[2017-05-01] MEDS: POTASSIUM CHLORIDE 8 MEQ CONTROLLED RELEASE TAB PO SCH (08:00)
[2017-05-01] MEDS: DOCUSATE SODIUM 50 MG/SENNA 8.6 MG TAB PO SCH ×2 (08:00→21:43)
[2017-05-01] MEDS: CHOLECALCIFEROL (VIT D3) 5000 UNIT CAP PO SCH (08:00)
[2017-05-01] MEDS: PANTOPRAZOLE SOD 20 MG DELAYED RELEASE TAB PO SCH (08:00)
[2017-05-01] MEDS: MIDODRINE 5 MG TAB PO SCH ×2 (08:00→21:43)
[2017-05-01] MEDS: FUROSEMIDE 40 MG TAB PO SCH ×2 (08:01→21:42)
[2017-05-01] MEDS: HEPARIN SODIUM - SQ 10,000 UNITS/ML VIAL SQ SCH ×2 (08:01→21:43)
[2017-05-01] MEDS: GABAPENTIN 400 MG CAP PO SCH ×2 (08:08→14:10)
[2017-05-01] MEDS: MORPHINE SULFATE 4 MG/ML INJ IV PUSH PRN (08:11)
[2017-05-01] MEDS: SODIUM CHLORIDE 0.9% FLUSH 10 ML FLUSH IV FLUSH SCH ×2 (08:16→19:50)
[2017-05-01] MEDS: CINACALCET HYDROCHLORIDE 30 MG TAB PO SCH (09:11)
[2017-05-01] MEDS: SEVELAMER CARBONATE 800 MG TAB PO SCH ×4 (09:11→18:00)
[2017-05-01] MEDS: INSULIN ASPART SUPPLEMENTAL SCALE SQ SCH ×4 (09:11→20:31)
--- NOTE | 2017-05-01 09:22 | HHI.FPPN ---
Subjective Remarks Pt seen and examined this morning. Temp of 99.8 overnight. Pt had vascular surgery yesterday, and had been drowsy overnight from the procedure. Pt's present at bedside, who stated that she is improving this morning, but having more pain overnight as well. She states that the pain medication helps. Otherwise, denies any new complaints. Denies any fever/chills, chest pain, SOB, abdominal pain. Objective Vitals Vital Signs Date Time Temp Pulse Resp B/P (MAP) Pulse Ox O2 Delivery O2 Flow Rate FiO2 05/01/17 07:46 Nasal Cannula 2.00 05/01/17 07:46 90 05/01/17 06:00 98.7 86 18 128/68 (88) 93 05/01/17 04:35 83 05/01/17 04:00 98.8 88 18 137/60 (85) 93 05/01/17 04:00 93 Nasal Cannula 2.00 05/01/17 02:00 98.9 87 18 116/65 (82) 92 05/01/17 01:37 99.8 05/01/17 00:00 99.7 95 20 112/67 (82) 95 05/01/17 00:00 Nasal Cannula 2.00 04/30/17 23:50 95 04/30/17 23:35 96 Nasal Cannula 2.00 04/30/17 21:40 Nasal Cannula 2.00 04/30/17 20:06 101 04/30/17 20:00 99.6 104 20 121/64 (83) 98 04/30/17 18:47 92 04/30/17 18:16 99.9 100 19 126/68 (87) 97 04/30/17 14:23 96 Nasal Cannula 6.00 04/30/17 12:01 98.0 87 19 140/65 (90) 93 04/30/17 11:45 18 04/30/17 11:45 22 I/O 04/30/17 04/30/17 04/30/17 05/01/17 05/01/17 05/01/17 07:00 15:00 23:00 07:00 15:00 23:00 Intake Total 700 ml 0 ml 0 ml Output Total 963 ml 277 ml Balance 700 ml -963 ml 0 ml 0 ml -277 ml Intake Oral 700 ml 0 ml 0 ml Hemodialysis 963 ml 277 ml # Voids 3 4 1 # Bowel Movements 1 0 Result Diagram: 05/01/17 0643 05/01/17 0643 Imaging Last Impressions Foot X-Ray 04/27/17 0000 Signed Impressions: Service Date/Time: Thursday, April 27, 2017 16:14 - CONCLUSION: 1. Osseous structures of the forefoot are intact. 2. Extensive soft tissue calcifications in the distal posterior leg. Shmuel Lester MD Objective Remarks GENERAL: In mild distress from some pain, sitting up in bed CARDIOVASCULAR: Regular rate and rhythm. RESPIRATORY: No accessory muscle use. Clear to auscultation. Breath sounds equal bilaterally. GASTROINTESTINAL: Abdomen soft, non-tender, nondistended. MUSCULOSKELETAL: Right dorsal foot appearing erythematous, mildly swollen, ~1cm circular almost eschar-like area on the dorsal foot without purulent drainage or abscess. Erythema extends to the inferior aspect of her right foot. Stable, some improved coloration. NEUROLOGICAL: Awake and alert. Normal speech. A/P Assessment and Plan 66 year old female being admitted with sepsis due to right foot cellulitis, vs calciphylaxis. Discharge Planning Pending workup and treatment of wound Problem List: (1) Wound, open, foot ICD Codes: S91.309A - Unspecified open wound, unspecified foot, initial encounter Plan: Calciphylaxis vs cellulitis vs ischemia Podiatry consulted-appreciate recs -Recommended continuing Vancomycin for now for possible infection -Topical enzymatic debrider -Vascular surgery were consulted for evaluation -R LE angiogram 04/30 -Nephrology following, - It was recommended pt switch to HD for improvement of calciphylaxis, but pt declines HD at this time. She will like to see outcome of vascular procedure first. Patient appears well hydrated, hold IV fluids given ESRD Pain control with norco prn, morphine prn breakthrough pain (2) ESRD (end stage renal disease) on dialysis ICD Codes: N18.6 - End stage renal disease; Z99.2 - Dependence on renal dialysis Status: Acute Plan: Continue peritoneal dialysis daily Consult nephrology -Offered hemodialysis, with possible medication -Sensipar 90mg dialy Continue home renvela (3) Diabetes mellitus type 2, insulin dependent ICD Codes: E11.9 - Diabetes mellitus type 2, insulin dependent; Z79.4 - intermission coordinator (current) use of insulin Status: Chronic Plan: Will give 1/2 home dose Levemir 29 units hs Accucheckgaurang achs Low-dose ISS (4) Hyperphosphatemia ICD Codes: E83.39 - Other disorders of phosphorus metabolism Plan: Continue Renvela Continue peritoneal dialysis daily (5) Nutrition, metabolism, and development symptoms ICD Codes: R63.8 - Other symptoms and signs concerning food and fluid intake Plan: Fluids: per PO Electrolytes: continue to monitor, PD daily Nutrition: 1800 ADA DVT ppx: Heparin 5000 units q12h GI ppx: Protonix PO daily Problem Qualifiers (1) Wound, open, foot: Qualified Codes: S91.301A - Unspecified open wound, right foot, initial encounter Iron Ramachandran MD May 01, 2017 09:22
[2017-05-01] MEDS: COLLAGENASE OINT 30 GM TUBE TOPICAL SCH ×2 (09:52→09:58)
--- NOTE | 2017-05-01 15:51 | PD.POD ---
Subjective Pain score: 6 Remarks Patient is responsive however appears not to be lucid seen bedside with Past Med/Surg/Social History Past Medical History Endocrine: REPORTS HX OF: Diabetes mellitus Cardiovascular: REPORTS HX OF: Hypertension Past Surgical History Gynecologic: DENIES HX OF: Hysterectomy Breast: DENIES HX OF: Mastectomy, bilateral, Mastectomy, left, Mastectomy, right Social History Smoking Status: Current Some Day Smoker Objective Vital Signs Vital Signs Date Time Temp Pulse Resp B/P (MAP) Pulse Ox O2 Delivery O2 Flow Rate FiO2 05/01/17 14:35 98.7 87 20 119/56 (77) 93 05/01/17 12:00 98.5 93 18 122/65 (84) 94 05/01/17 08:00 97.7 92 18 120/61 (80) 92 05/01/17 07:46 Nasal Cannula 2.00 05/01/17 07:46 90 05/01/17 06:00 98.7 86 18 128/68 (88) 93 05/01/17 04:35 83 05/01/17 04:00 98.8 88 18 137/60 (85) 93 05/01/17 04:00 93 Nasal Cannula 2.00 05/01/17 02:00 98.9 87 18 116/65 (82) 92 05/01/17 01:37 99.8 05/01/17 00:00 99.7 95 20 112/67 (82) 95 05/01/17 00:00 Nasal Cannula 2.00 04/30/17 23:50 95 04/30/17 23:35 96 Nasal Cannula 2.00 04/30/17 21:40 Nasal Cannula 2.00 04/30/17 20:06 101 04/30/17 20:00 99.6 104 20 121/64 (83) 98 04/30/17 18:47 92 04/30/17 18:16 99.9 100 19 126/68 (87) 97 Coded Allergies: quinine (Verified Allergy, Intermediate, Rash, 04/27/17) Medications and IVs Administered Medications Medications (Trade) Dose Ordered Sig/Gianfranco Route PRN Reason Start Time Stop Time Status Last Admin Dose Admin Sodium Chloride (NS Flush) 2 ml BID IV FLUSH 04/27/17 21:00 05/01/17 08:16 Ondansetron HCl (Zofran Inj) 4 mg Q6H PRN IVP NAUSEA OR VOMITING 04/27/17 19:00 04/28/17 20:18 Heparin Sodium (Porcine) (Heparin Inj) 5,000 units Q12H SQ 04/27/17 21:00 05/01/17 08:01 Acetaminophen/ Hydrocodone Bitart (Wilton 10-325 Mg) 1 tab Q4H PRN PO PAIN SCALE 6 TO 10 04/27/17 19:00 05/01/17 10:19 Morphine Sulfate (Morphine Inj) 4 mg Q4HR PRN IV PUSH BREAKTHROUGH PAIN 04/27/17 22:30 05/01/17 08:11 Senna/Docusate Sodium (Nathaly-Colace) 1 tab BID PO 04/27/17 21:00 05/01/17 08:00 Calcitriol (Rocaltrol) 0.5 mcg DAILY PO 04/28/17 09:00 05/01/17 08:00 Cholecalciferol (Vitamin D3) 5,000 units DAILY PO 04/28/17 09:00 05/01/17 08:00 Furosemide (Lasix) 40 mg BID PO 04/27/17 21:00 05/01/17 08:01 Levothyroxine Sodium (Synthroid) 100 mcg DAILY@0600 PO 04/28/17 06:00 05/01/17 05:57 Midodrine (Proamatine) 10 mg BID PO 04/27/17 21:00 05/01/17 08:00 Potassium Chloride (KCl) 8 meq DAILY PO 04/28/17 09:00 05/01/17 08:00 Sevelamer Carbonate (Renvela) 2,400 mg TID PO 04/28/17 09:00 05/01/17 12:49 Pantoprazole Sodium (Protonix) 20 mg DAILY PO 04/28/17 09:00 05/01/17 08:00 Gabapentin (Neurontin) 900 mg HS PO 04/27/17 21:30 04/30/17 21:42 Gabapentin (Neurontin) 400 mg BID@0900,1500 PO 04/28/17 09:00 05/01/17 14:10 Insulin Detemir (Levemir Inj) 29 units HS SQ 04/27/17 21:15 04/30/17 21:46 Insulin Aspart (NovoLOG SUPPLEMENTAL SCALE) 1 ACHS SLIDING SCALE SQ 04/28/17 08:00 05/01/17 12:46 Cinacalcet (Sensipar) 90 mg DAILY PO 04/29/17 09:00 05/01/17 09:11 Collagenase (Santyl Oint) 1 applic DAILY TOPICAL 04/29/17 09:00 05/01/17 09:58 Other Results Laboratory Tests Test 04/30/17 08:25 05/01/17 06:43 White Blood Count 12.2 TH/MM3 12.7 TH/MM3 Red Blood Count 3.30 MIL/MM3 3.32 MIL/MM3 Hemoglobin 11.4 GM/DL 11.4 GM/DL Hematocrit 34.3 % 34.7 % Mean Corpuscular Volume 103.8 FL 104.5 FL Mean Corpuscular Hemoglobin 34.4 PG 34.4 PG Mean Corpuscular Hemoglobin Concent 33.2 % 32.9 % Red Cell Distribution Width 17.6 % 17.9 % Platelet Count 192 TH/MM3 191 TH/MM3 Mean Platelet Volume 7.6 FL 7.8 FL Neutrophils (%) (Auto) 83.1 % 84.5 % Lymphocytes (%) (Auto) 8.0 % 6.0 % Monocytes (%) (Auto) 4.9 % 6.1 % Eosinophils (%) (Auto) 3.5 % 2.7 % Basophils (%) (Auto) 0.5 % 0.7 % Neutrophils # (Auto) 10.1 TH/MM3 10.7 TH/MM3 Lymphocytes # (Auto) 1.0 TH/MM3 0.8 TH/MM3 Monocytes # (Auto) 0.6 TH/MM3 0.8 TH/MM3 Eosinophils # (Auto) 0.4 TH/MM3 0.3 TH/MM3 Basophils # (Auto) 0.1 TH/MM3 0.1 TH/MM3 CBC Comment DIFF FINAL DIFF FINAL Differential Comment Laboratory Tests Test 04/30/17 08:25 05/01/17 06:43 Blood Urea Nitrogen 43 MG/DL 47 MG/DL Creatinine 9.00 MG/DL 9.39 MG/DL Random Glucose 115 MG/DL 154 MG/DL Total Protein 7.8 GM/DL Albumin 3.3 GM/DL Calcium Level 8.8 MG/DL 9.2 MG/DL Alkaline Phosphatase 198 U/L Aspartate Amino Transf (AST/SGOT) 28 U/L Alanine Aminotransferase (ALT/SGPT) 22 U/L Total Bilirubin 0.6 MG/DL Sodium Level 134 MEQ/L 134 MEQ/L Potassium Level 4.4 MEQ/L 4.9 MEQ/L Chloride Level 96 MEQ/L 97 MEQ/L Carbon Dioxide Level 28.8 MEQ/L 25.6 MEQ/L Anion Gap 9 MEQ/L 11 MEQ/L Estimat Glomerular Filtration Rate 4 ML/MIN 4 ML/MIN Physical Exam Remarks The patient appears to be alert however not completely lucid nursing alerted and medical team notified Right lower extremity is examined the foot appears to be significantly improved with warmth there still is noted to be a central eschar over the dorsal lateral aspect of the fourth fifth digit base with delayed capillary fill time to the lesser digits. There is extreme pain upon palpating this area there is no odor there is no drainage. 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
--- NOTE | 2017-05-01 16:50 | HHI.FPPN ---
Addendum to progress note ADDENDUM Reason for addendum: Additonal documentation Additional information Pt seen and examined after nurse concern for pt's mental status. Dr. Chambers also saw patient this afternoon and requested that we see her again. The nurse states that the vitals are stable, however, pt has been very drowsy most of the day. The is in the room as well and states that she has been back to normal since the procedure. She ate lunch normally. When she wakes up, she answers questions slowly. She denies any pain. Also has no urine output today, bladder scan showed 0ml. Had peritoneal dialysis last night after the procedure. Vitals: 98.7, P 87, RR 20, BP 119/56, 93% on 2L Gen: Lying in bed sleeping, arousable CV: RRR w/o murmurs Lungs: diminished breath sounds, clear to auscultation Ext: no edema. Right foot wound bandaged Neuro: AOx3. Limited neuro exam due to mental status, but normal sensation and motor function appreciated. Answers questions with 1 word answers. A/P: 66 y/o female with ESRD, DM with lethargy following angiogram yesterday. Blood glucose: 147 Vitals stable. AOx3 -Narcan now, showed some improvement -CT head now to rule out neuro disease -CBC, CMP dw Iron Quach MD May 01, 2017 16:50
[2017-05-01] MEDS ORDERED: NALOXONE HCL 0.4 MG/ML AMP IV PUSH ONE (17:00)
[2017-05-01] MEDS: NALOXONE HCL 0.4 MG/ML AMP IV PUSH PRN ×2 (17:06→20:22)
[2017-05-01] MEDS: ONDANSETRON HCL 4 MG/2 ML VIAL IVP PRN (17:19)
--- NOTE | 2017-05-01 18:39 | RADRPT ---
EXAM DATE/TIME: 05/01/2017 18:17 [facility] COMPARISON: CT BRAIN W/O CONTRAST, December 22, 2010, 19:04. INDICATIONS : Altered mental status. RADIATION DOSE: 45.89 CTDIvol (mGy) MEDICAL HISTORY : Cardiovascular disease. Hypertension. Diabetes mellitus type 1. SURGICAL HISTORY : Cholecystectomy. Tubal ligation. ENCOUNTER: Initial ACUITY: 1 day PAIN SCALE: 0/10 LOCATION: cranial TECHNIQUE: Multiple contiguous axial images were obtained of the head. Using automated exposure control and adj ustment of the mA and/or kV according to patient size, radiation dose was kept as low as reasonably a chievable to obtain optimal diagnostic quality images. DICOM format image data is available electro nically for review and comparison. FINDINGS: CEREBRUM: The ventricles are normal for age. No evidence of midline shift, mass lesion, hemorrhage or acute in farction. No extra-axial fluid collections are seen. POSTERIOR FOSSA: The cerebellum and brainstem are intact. The 4th ventricle is midline. The cerebellopontine angle i s unremarkable. EXTRACRANIAL: The visualized portion of the orbits is intact. SKULL: The calvaria is intact. No evidence of skull fracture. CONCLUSION: 1. No acute intracranial abnormality. Baldemar Jacobson MD on May 01, 2017 at 18:37 Board Certified Radiologist. This report was verified electronically.
--- NOTE | 2017-05-01 18:40 | HHI.NPPN ---
Subjective History of Present Illness 66 year old with esrd PVD Additional Remarks Patient remained lethargic since angioplasty Objective Data Data 05/01/17 05/02/17 19:00 07:00 Intake Total 600 ml Output Total 277 ml Balance 323 ml Intake Oral 600 ml Hemodialysis 277 ml Bladder Scan Volume Amount 0 ml # Voids 0 Vital Signs Date Time Temp Pulse Resp B/P (MAP) Pulse Ox O2 Delivery O2 Flow Rate FiO2 05/01/17 16:51 Nasal Cannula 2.00 05/01/17 16:00 98.8 85 18 127/65 (85) 95 05/01/17 14:35 98.7 87 20 119/56 (77) 93 05/01/17 12:00 98.5 93 18 122/65 (84) 94 05/01/17 08:00 97.7 92 18 120/61 (80) 92 05/01/17 07:46 Nasal Cannula 2.00 05/01/17 07:46 90 05/01/17 06:00 98.7 86 18 128/68 (88) 93 05/01/17 04:35 83 05/01/17 04:00 98.8 88 18 137/60 (85) 93 05/01/17 04:00 93 Nasal Cannula 2.00 05/01/17 02:00 98.9 87 18 116/65 (82) 92 05/01/17 01:37 99.8 05/01/17 00:00 99.7 95 20 112/67 (82) 95 05/01/17 00:00 Nasal Cannula 2.00 04/30/17 23:50 95 04/30/17 23:35 96 Nasal Cannula 2.00 04/30/17 21:40 Nasal Cannula 2.00 04/30/17 20:06 101 04/30/17 20:00 99.6 104 20 121/64 (83) 98 04/30/17 18:47 92 -: 05/01/17 0643 05/01/17 0643 Physical Exam General Appearance: Well Developed Neck Neck Exam: Neck Supple Pulmonary Resp Exam: Clear Bilaterally, Breath Sounds Equal Gastrointestinal/Abdomen GI Exam: Soft, Non-Tender, Bowel Sounds Present Extremeties Extremities Exam: Moderate Edema Extremeties Remarks rt foot wound Neurologic Neuro Exam: Obtunded Assessment/Plan Problem List: (1) ESRD (end stage renal disease) on dialysis ICD Codes: N18.6 - End stage renal disease; Z99.2 - Dependence on renal dialysis Status: Acute Plan: she is on PD PVD Angioplasty Patient remained lethargic post angioplasty CT is done awaiting results Continue with peritoneal dialysis 277 cc of ultrafiltrate meanwhile control PTH/PO4 with medications (2) Diabetes mellitus type 2, insulin dependent ICD Codes: E11.9 - Diabetes mellitus type 2, insulin dependent; 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
[2017-05-01] MEDS: GABAPENTIN 300 MG CAP PO SCH (21:00)
[2017-05-01] MEDS: INSULIN DETEMIR 100 UNITS/ML VIAL SQ SCH ×2 (21:00→22:20)
[2017-05-01 21:02] LABS: AUTOMATED NEUTROPHIL # 9.2 TH/MM3 (1.8-7.7); BASOPHIL # 0.1 TH/MM3 (0-0.2); BASOPHIL % 0.5 % (0.0-2.0); EOSINOPHIL # 0.3 TH/MM3 (0-0.4); EOSINOPHIL % 2.7 % (0.0-4.0); HEMATOCRIT 30.5 % (35.0-46.0); HEMOGLOBIN 10.2 GM/DL (11.6-15.3); LYMPHOCYTE # 0.5 TH/MM3 (1.0-4.8); MEAN CELL VOLUME 103.6 FL (80.0-100.0); MEAN CORPUSCULAR HEMOGLOBIN 34.6 PG (27.0-34.0); MEAN CORPUSCULAR HGB CONC 33.4 % (32.0-36.0); MONO % 6.5 % (0.0-8.0); MONOCYTE # 0.7 TH/MM3 (0-0.9); NEUT % 85.3 % (16.0-70.0); PLATELET COUNT 168 TH/MM3 (150-450); RED BLOOD COUNT 2.94 MIL/MM3 (4.00-5.30); RED CELL DISTRIBUTION WIDTH 17.9 % (11.6-17.2); WHITE BLOOD COUNT 10.8 TH/MM3 (4.0-11.0)
[2017-05-01 21:16] LABS: ALBUMIN 2.8 GM/DL (3.4-5.0); AST (GOT) 26 U/L (15-37); BICARBONATE 27.5 MEQ/L (21.0-32.0); BLOOD UREA NITROGEN 52 MG/DL (7-18); CALCIUM 8.8 MG/DL (8.5-10.1); CHLORIDE 96 MEQ/L (98-107); GLOMERULAR FILTRATION RATE 4 ML/MIN (>89); GLUCOSE,RANDOM 106 MG/DL (74-106); SODIUM (NA) 133 MEQ/L (136-145)
[2017-05-01 21:18] LABS: ALT (GPT) 21 U/L (10-53); CREATININE 10.34 MG/DL (0.50-1.00)
[2017-05-01 21:20] LABS: ALKALINE PHOSPHATASE 169 U/L (45-117); TOTAL BILIRUBIN ADULT 0.6 MG/DL (0.2-1.0); TOTAL PROTEIN 6.8 GM/DL (6.4-8.2)
[2017-05-02] VITALS: BP 119/64; PULSE 78; PULSE 84; RESP 18; TEMP 97.7; O2SAT 93
[2017-05-02 04:00] VITALS: BP 130/60; PULSE 83; PULSE 87; RESP 20; TEMP 97.7; O2SAT 92
[2017-05-02] MEDS: LEVOTHYROXINE SODIUM 100 MCG TAB PO SCH (05:44)
[2017-05-02 08:00] VITALS: BP 123/73; PULSE 86; PULSE 87; RESP 17; TEMP 98.2; O2SAT 90
[2017-05-02] MEDS: INSULIN ASPART SUPPLEMENTAL SCALE SQ SCH ×2 (08:00→12:00)
[2017-05-02] MEDS: COLLAGENASE OINT 30 GM TUBE TOPICAL SCH (09:00)
[2017-05-02] MEDS: SEVELAMER CARBONATE 800 MG TAB PO SCH ×2 (09:00→13:00)
[2017-05-02] MEDS: PANTOPRAZOLE SOD 20 MG DELAYED RELEASE TAB PO SCH (09:09)
[2017-05-02] MEDS: HEPARIN SODIUM - SQ 10,000 UNITS/ML VIAL SQ SCH ×2 (09:09→21:00)
[2017-05-02] MEDS: DOCUSATE SODIUM 50 MG/SENNA 8.6 MG TAB PO SCH ×2 (09:10→21:00)
[2017-05-02] MEDS: MIDODRINE 5 MG TAB PO SCH ×2 (09:10→21:00)
[2017-05-02] MEDS: CHOLECALCIFEROL (VIT D3) 5000 UNIT CAP PO SCH (09:10)
[2017-05-02] MEDS: CALCITRIOL 0.25 MCG CAP PO SCH (09:10)
[2017-05-02] MEDS: FUROSEMIDE 40 MG TAB PO SCH ×2 (09:10→21:00)
[2017-05-02] MEDS: CINACALCET HYDROCHLORIDE 30 MG TAB PO SCH (09:10)
[2017-05-02] MEDS: SODIUM CHLORIDE 0.9% FLUSH 10 ML FLUSH IV FLUSH SCH ×2 (09:11→21:00)
--- NOTE | 2017-05-02 09:12 | PD.VS.PN ---
Subjective Subjective/Hospital Course POD#2 s/p B AYO atherectomy and angioplasty Overall significantly more obtunded than pre-op continues to endorse R foot pain no focal neuro deficits and CT last night negative Objective Vitals/I&O Date Time Temp Pulse Resp B/P (MAP) Pulse Ox O2 Delivery O2 Flow Rate FiO2 05/02/17 08:00 98.2 87 17 123/73 (90) 90 05/02/17 04:00 97.7 83 20 130/60 (83) 92 05/02/17 04:00 87 05/02/17 00:00 78 05/02/17 00:00 97.7 84 18 119/64 (82) 93 05/01/17 20:00 98.2 82 20 126/63 (84) 93 05/01/17 20:00 Nasal Cannula 2.00 05/01/17 20:00 79 05/01/17 16:51 Nasal Cannula 2.00 05/01/17 16:00 98.8 85 18 127/65 (85) 95 05/01/17 15:59 82 05/01/17 14:35 98.7 87 20 119/56 (77) 93 05/01/17 12:00 98.5 93 18 122/65 (84) 94 05/02/17 05/02/17 05/02/17 07:00 15:00 23:00 Intake Total 0 ml Balance 0 ml Physical Exam obtunded pupils equal + B UE strength, symmetric R foot warm Laboratory Laboratory Tests Test 05/01/17 19:10 White Blood Count 10.8 Red Blood Count 2.94 Hemoglobin 10.2 Hematocrit 30.5 Mean Corpuscular Volume 103.6 Mean Corpuscular Hemoglobin 34.6 Mean Corpuscular Hemoglobin Concent 33.4 Red Cell Distribution Width 17.9 Platelet Count 168 Mean Platelet Volume 8.0 Neutrophils (%) (Auto) 85.3 Lymphocytes (%) (Auto) 5.0 Monocytes (%) (Auto) 6.5 Eosinophils (%) (Auto) 2.7 Basophils (%) (Auto) 0.5 Neutrophils # (Auto) 9.2 Lymphocytes # (Auto) 0.5 Monocytes # (Auto) 0.7 Eosinophils # (Auto) 0.3 Basophils # (Auto) 0.1 CBC Comment DIFF FINAL Differential Comment Blood Urea Nitrogen 52 Creatinine 10.34 Random Glucose 106 Total Protein 6.8 Albumin 2.8 Calcium Level 8.8 Alkaline Phosphatase 169 Aspartate Amino Transf (AST/SGOT) 26 Alanine Aminotransferase (ALT/SGPT) 21 Total Bilirubin 0.6 Sodium Level 133 Potassium Level 4.7 Chloride Level 96 Carbon Dioxide Level 27.5 Anion Gap 10 Estimat Glomerular Filtration Rate 4 Date/Time Source Procedure Growth Status 04/27/17 16:51 Blood Peripheral Aerobic Blood Culture - Preliminary NO GROWTH IN 4 DAYS Resulted 04/27/17 16:51 Blood Peripheral Anaerobic Blood Culture - Preliminary NO GROWTH IN 4 DAYS Resulted Imaging Last [address] 05/01/17 0000 Signed Impressions: Service Date/Time: Monday, May 01, 2017 18:17 - CONCLUSION: 1. No acute intracranial abnormality. 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 ischemia vs calciphylaxis New mental status changes 1. Potential symptomatic parathyroid dysfunction 2. Would favor HD for a few sessions to ensure not metabolic 3. Limit narcotics 4. Could have repeat angiogram if foot doesn't progress but I don't think that the foot/wound is cause of mental status changes. 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
--- NOTE | 2017-05-02 10:03 | HHI.FPPN ---
Subjective Remarks Patient seen and examined this morning. Patient is POD#2 from revascularization surgery on LE. Since vascular procedure pt has remained lucid. She was AAO x3 yesterday morning. Today she is awake but not responding appropriately to orientation questions. is at bedside and agrees she is still "out of it ", still not back at her mental status baseline. Patient received narcan yesterday with mild improvement of lethargy. Objective Vitals Vital Signs Date Time Temp Pulse Resp B/P (MAP) Pulse Ox O2 Delivery O2 Flow Rate FiO2 05/02/17 08:00 98.2 87 17 123/73 (90) 90 05/02/17 04:00 97.7 83 20 130/60 (83) 92 05/02/17 04:00 87 05/02/17 00:00 78 05/02/17 00:00 97.7 84 18 119/64 (82) 93 05/01/17 20:00 98.2 82 20 126/63 (84) 93 05/01/17 20:00 Nasal Cannula 2.00 05/01/17 20:00 79 05/01/17 16:51 Nasal Cannula 2.00 05/01/17 16:00 98.8 85 18 127/65 (85) 95 05/01/17 15:59 82 05/01/17 14:35 98.7 87 20 119/56 (77) 93 05/01/17 12:00 98.5 93 18 122/65 (84) 94 I/O 05/01/17 05/01/17 05/01/17 05/02/17 05/02/17 05/02/17 07:00 15:00 23:00 07:00 15:00 23:00 Intake Total 0 ml 600 ml 0 ml Output Total 277 ml Balance 0 ml 323 ml 0 ml Intake Oral 0 ml 600 ml 0 ml Hemodialysis 277 ml Bladder Scan Volume Amount 0 ml # Voids 1 0 0 # Bowel Movements 0 0 Result Diagram: 05/01/17190905/01/171909 Objective Remarks GENERAL: In mild distress from some foot pain, laying in bed. CARDIOVASCULAR: Regular rate and rhythm. RESPIRATORY: No accessory muscle use. Clear to auscultation. Breath sounds equal bilaterally. GASTROINTESTINAL: Abdomen soft, non-tender, nondistended. MUSCULOSKELETAL: Right dorsal foot wrapped in bandage, no swelling not, warm, stable, improved coloration. Severe tenderness upon palpation of Right foot. NEUROLOGICAL: Awake. She is able to make eye contact when addressed but not able to sustain patient's attention throughout exam. Not responding orientation questions, pt mumbled something unrelated when asked. No focal neurologic deficits noted on exam. A/P Assessment and Plan 66 year old female being admitted with sepsis due to right foot cellulitis, vs calciphylaxis. Discharge Planning Pending workup and treatment of wound Problem List: (1) Wound, open, foot ICD Codes: S91.309A - Unspecified open wound, unspecified foot, initial encounter Plan: Calciphylaxis vs cellulitis vs ischemia Podiatry consulted-appreciate recs -Recommended continuing Vancomycin for now for possible infection -Topical enzymatic debrider Vascular surgery were consulted for evaluation -R LE angiogram 04/30 - LE perfusion improved since revascularization surgery. - This morning patient seen with Dr. Araya, who agrees 1-2 rounds of HD to see if this improves her mental status. Nephrology following, - Previously it was recommended pt switch to HD for improvement of calciphylaxis, but pt declined HD at that time. Patient has negative association with HD because her father the day after receiving HD. She previously stated she will like to see outcome of vascular procedure first before deciding to proceed with HD. - at bedside, is patient's health care proxy, stated he will agree with doing HD temporarily. -CT brain w/o contrast on 03/31 done yesterday due to pt's AMS/lethargic state showed: no acute intracranial abnormality -Spoke to Dr. Minor, physician supervisor personnel clerks today. He does not believe AMS will improve with HD, suggested giving patient flumazenil and considering neuro consult if pt mental status does not improve today. He will see pt later today. -Patient received PD last night, BUN stable, will hold off HD for now pending improvement of AMS. -CHERY Larsen, will do MRI brain Patient appears well hydrated, hold IV fluids given ESRD Pain control medications held due to patient's current AMS -f/u am labs cbc,cmp,pth (2) ESRD (end stage renal disease) on dialysis ICD Codes: N18.6 - End stage renal disease; Z99.2 - Dependence on renal dialysis Status: Acute Plan: Continue peritoneal dialysis daily Consult nephrology -Offered hemodialysis, with possible medication -Sensipar 90mg dialy Continue home renvela Cr is uptrending, see plan above (3) Diabetes mellitus type 2, insulin dependent ICD Codes: E11.9 - Diabetes mellitus type 2, insulin dependent; Z79.4 - 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 possible switch to HD Nutrition: 1800 ADA DVT ppx: Heparin 5000 units q12h GI ppx: Protonix PO daily Problem Qualifiers (1) Wound, open, foot: Qualified Codes: S91.301A - Unspecified open wound, right foot, initial encounter Chema Bush MD, R1 May 02, 2017 10:03
[2017-05-02 10:25] LABS: AUTOMATED NEUTROPHIL # 10.1 TH/MM3 (1.8-7.7); BASOPHIL # 0.1 TH/MM3 (0-0.2); BASOPHIL % 0.5 % (0.0-2.0); EOSINOPHIL # 0.3 TH/MM3 (0-0.4); EOSINOPHIL % 2.9 % (0.0-4.0); HEMOGLOBIN 10.5 GM/DL (11.6-15.3); LYMPH % 5.7 % (9.0-44.0); LYMPHOCYTE # 0.7 TH/MM3 (1.0-4.8); MEAN CELL VOLUME 104.2 FL (80.0-100.0); MEAN CORPUSCULAR HEMOGLOBIN 34.3 PG (27.0-34.0); MEAN CORPUSCULAR HGB CONC 32.9 % (32.0-36.0); MONO % 6.1 % (0.0-8.0); MONOCYTE # 0.7 TH/MM3 (0-0.9); NEUT % 84.8 % (16.0-70.0); PLATELET COUNT 178 TH/MM3 (150-450); RED BLOOD COUNT 3.07 MIL/MM3 (4.00-5.30); RED CELL DISTRIBUTION WIDTH 17.6 % (11.6-17.2); WHITE BLOOD COUNT 11.9 TH/MM3 (4.0-11.0)
[2017-05-02 10:42] LABS: BICARBONATE 26.8 MEQ/L (21.0-32.0); CALCIUM 8.3 MG/DL (8.5-10.1)
[2017-05-02 10:51] LABS: CREATININE 10.13 MG/DL (0.50-1.00)
[2017-05-02] MEDS ORDERED: FLUMAZENIL 0.5 MG/5 ML VIAL IV PUSH ONE (11:15)
[2017-05-02 12:00] VITALS: BP 142/73; PULSE 88; RESP 18; TEMP 99; O2SAT 92
[2017-05-02 16:00] VITALS: BP 106/70; PULSE 77; PULSE 80; RESP 17; TEMP 99.9; O2SAT 95
--- NOTE | 2017-05-02 17:48 | RADRPT ---
EXAM DATE/TIME: 05/02/2017 17:13 [facility] COMPARISON: CT BRAIN W/O CONTRAST, May 01, 2017, 18:17. INDICATIONS : Confusion. MEDICAL HISTORY : Diabetes mellitus type 2. Renal insufficiency, chronic. SURGICAL HISTORY : Bilateral vascular leg angioplasty. ENCOUNTER: Initial ACUITY: 1 day PAIN SCORE: 0/10 LOCATION: cranial TECHNIQUE: Multiplanar, multisequence MRI of the brain was performed without contrast. FINDINGS: CEREBRUM: The ventricles are normal for age. There is bilateral cortical collapse of the. No evidence of midli ne shift, mass lesion, hemorrhage. There is a small acute focal infarct involving the left posterior frontal lobe adjacent to the posterior horn of the left lateral ventricle. No extraaxial fluid colle ctions are seen. The pituitary gland and suprasellar cistern are normal in configuration. WHITE MATTER: There is chronic white matter changes bilaterally characteristic of ischemic demyelinization. POSTERIOR FOSSA: The cerebellum and brainstem are intact. The 4th ventricle is midline. The cerebellopontine angle is unremarkable. The cerebellar tonsils are normal in position. DIFFUSION IMAGING: Focal area of increased signal adjacent to the posterior horn of the left lateral ventricle character istic of a small focal area of infarction. The small focal infarct measures 8 mm. EXTRACRANIAL: The visualized portions of the orbits and paranasal sinuses are unremarkable. CONCLUSION: 1. Small 8mm focal acute infarction involving the posterior left parietal lobe adjacent to the delicatessen slicer ior horn of the left lateral ventricle. 2. Bilateral cortical atrophy and chronic white matter changes. Raymon Conklin MD on May 02, 2017 at 17:43 Board Certified Radiologist. This report was verified electronically.
--- NOTE | 2017-05-02 18:26 | HHI.NPPN ---
Subjective History of Present Illness 66 year old with esrd PVD Additional Remarks ongoing somnelence today. Given narcan and flumazenil earlier. Objective Data Data Vital Signs Date Time Temp Pulse Resp B/P (MAP) Pulse Ox O2 Delivery O2 Flow Rate FiO2 05/02/17 16:00 99.9 80 17 106/70 (82) 95 05/02/17 12:00 99.0 88 18 142/73 (96) 92 05/02/17 08:00 98.2 87 17 123/73 (90) 90 05/02/17 04:00 97.7 83 20 130/60 (83) 92 05/02/17 04:00 87 05/02/17 00:00 78 05/02/17 00:00 97.7 84 18 119/64 (82) 93 05/01/17 20:00 98.2 82 20 126/63 (84) 93 05/01/17 20:00 Nasal Cannula 2.00 05/01/17 20:00 79 -: 05/02/17 0833 05/02/17 0833 Physical Exam General Appearance: Well Developed Neck Neck Exam: Neck Supple Pulmonary Resp Exam: Clear Bilaterally, Breath Sounds Equal Gastrointestinal/Abdomen GI Exam: Soft, Non-Tender, Bowel Sounds Present Extremeties Extremities Exam: Moderate Edema Neurologic Neuro Exam: Obtunded Assessment/Plan Problem List: (1) ESRD (end stage renal disease) on dialysis ICD Codes: N18.6 - End stage renal disease; Z99.2 - Dependence on renal dialysis Status: Acute Plan: she is on PD PAD s/p Angioplasty Patient remained lethargic post angioplasty - Given Versed and Fentanyl for sedation, was also previously given [place] (hyrdocodone). Apparent good response to narcan transiently. Will repeat. Small acute infarct seen on MRI - continue to follow, consider neuro evaluation. This potentially may be contributing to patient's symptoms. Hemodialysis would not be of significant benefit otherwise for clearance of sedation; however extended time period of HD (several weeks or months) may be beneficial to treat any calciphylaxis with sodium thiosulfate. Discussed at length with patient's . Meanwhile control PTH/PO4 with medications Continue with peritoneal dialysis for now. 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
[2017-05-02 20:00] VITALS: BP 108/60; PULSE 79; PULSE 83; RESP 18; TEMP 98; O2SAT 94
--- NOTE | 2017-05-02 20:18 | RADRPT ---
EXAM DATE/TIME: 05/02/2017 19:15 [facility] COMPARISON: No previous studies available for comparison. INDICATIONS : Cerebrovascular accident. MEDICAL HISTORY : Hypothyroidism. Hypercholesterolemia. Hypertension. Dyspnea. Edema. GERD. GOUT. Diabetes. Anxiety. Ul cer. SURGICAL HISTORY : Cholecystectomy. Tubal ligation. Cardiac catheterization. ENCOUNTER: Initial ACUITY: 1 day PAIN SCORE: Nonresponsive. LOCATION: Bilateral neck PEAK SYSTOLIC VELOCITIES (cm/sec): ICA/CCA RATIO: Right: 1.7 Left: 0.8 ICA: Right: 263.0 Left: 120.9 CCA: Right: 155.8 Left: 142.8 ECA: Right: 169.9 Left: 166.9 VERTEBRAL: Right: 95.3 antegrade Left: 84.9 antegrade Elevated flow velocities and ICA/CCA ratios have been found to correlate with increased degrees of vessel stenosis, calculated as percentage of diameter relative to a normal segment of distal ICA/CCA FINDINGS: RIGHT CAROTID: There is moderate to severe calcified plaque throughout the mid and distal common carotid artery and there is severe calcified plaque in the carotid bulb and proximal internal carotid artery. Waveforms demonstrate spectral broadening. LEFT CAROTID: There is moderate to severe calcified plaque throughout the mid common carotid artery and moderate to severe calcified plaque in the probable. VERTEBRAL ARTERIES: Antegrade flow is seen in both vertebral arteries. MISCELLANEOUS: None. CONCLUSION: 1. Severe atherosclerotic disease in the carotid bulbs and proximal internal carotid arteries bilater ally. Velocity measurements on the right suggest greater than 70% stenosis and assessment on the left suggests between 50-69% stenosis. Consider carotid CTA for further characterization, if needed clini radha. 2. There is antegrade flow within both vertebral arteries. Jc Sifuentes MD on May 02, 2017 at 20:14 Board Certified Radiologist. This report was verified electronically.
[2017-05-02] MEDS: INSULIN DETEMIR 100 UNITS/ML VIAL SQ SCH (21:00)
--- NOTE | 2017-05-02 22:29 | MP ---
cc: MAULIK ARAYA DATE OF SURGERY 04/30/17 PREOPERATIVE DIAGNOSIS Right lower extremity tissue loss, peripheral vascular disease POSTOPERATIVE DIAGNOSIS Bilateral lower extremity peripheral vascular disease, right lower extremity tissue loss. PROCEDURE 1. Aortogram 2. Right common iliac artery orbital atherectomy and angioplasty. 3. Left common iliac artery orbital atherectomy and angioplasty. 4. Left common femoral artery Angio-Seal. SURGEON Amarilis Araya MD ANESTHESIA Local with sedation INDICATION Mrs. Ruth is a 66-year old lady who has end-stage renal disease, peripheral arterial occlusive disease and right foot tissue loss. She was taken to the operating room angiographic evaluation and treatment. There is no prior cath based imaging of my review. PROCEDURE IN DETAIL Informed consent was obtained from patient. She was taken to the operating room and placed supine on the operating table. An appropriate time-out was taken to ensure the patient identity, operative site and planned procedure. Administration of antibiotics was not necessary as this was a clean procedure without planned implantation of any foreign object. Everyone in the room agreed with time-out and we proceeded. Her bilateral groins were prepped and draped. Left groin was anesthetized with 1% lidocaine. A 21 gauge micropuncture needle was used to access the left common femoral artery. This was exchanged using Seldinger technique for a micropuncture sheath through which a 0.035 Glidewire was introduced. The micropuncture sheath was exchanged for a 4-Luxembourger sheath and a VCF catheter was placed over the wire and through the sheath and aortogram/arteriogram was obtained. With the catheter in the aorta, a right lower extremity angiogram was obtained. The patient was systemically heparinized with 3000 units of IV heparin. The right groin was anesthetized with 1% lidocaine. The 21 gauge micropuncture needle was used to access the right common femoral artery. This was exchanged using Seldinger technique for a micropuncture sheath through which a 0.035 Glidewire was introduced. Micropuncture sheath was exchanged for a 6-Luxembourger sheath. On the left-hand side, the 4-Luxembourger sheath was exchanged for a 6-Luxembourger sheath over a Glidewire. A [employer] catheter was placed over the right-hand Glidewire and glide was advanced through the aorta and exchanged for a viper wire. The common iliac artery was atherectomized with an orbital atherectomy, and then postdilated with 8 mm balloon. Completion angiogram showed excellent result with minimal recoil and no extravasation. We then removed the wire and catheter from that side and placed the viper wire up the left hand side and the left common artery was atherectomized using orbital atherectomy device and then postdilated to 8 mm. Completion angiogram showed excellent results without any recoil or extravasation. The completion angiogram showed significant improvement in the common iliac artery's calcific disease. Wire catheter and sheath were removed from the right hand side and pressure held with hemostasis. On the left-hand side, the groin was closed with AngioSeal. There were no complications and I was present and scrubbed for entire procedure. INTERPRETATION The patient has patent terminal aorta with high-grade calcific common iliac artery lesion but she has a patent external iliac artery, hypogastric arteries bilaterally. After atherectomy and angioplasty, of the common iliac arteries, there is a significant reduction in the bulk of the plaque and no further hemodynamically significant stenoses. On the right-hand side, the common femoral artery SFA and profunda are patent. The popliteal artery is patent. There is three-vessel runoff to the ankle and two-vessel runoff to the foot. There are several border like projections in the right infrarenal disease but contrast did pass very rapidly past this. MD ALONA Elizabeth/ /3:31 PM /10:14 PM SAMIR
[2017-05-03] VITALS (9 sets, daily range): BP systolic 93–141; BP diastolic 55–70; PULSE 74–89; RESP 16–19; TEMP 97.9–99.3; O2SAT 90–97
[2017-05-03] MEDS: LEVOTHYROXINE SODIUM 100 MCG TAB PO SCH (05:48)
[2017-05-03 07:06] LABS: AUTOMATED NEUTROPHIL # 8.4 TH/MM3 (1.8-7.7); BASOPHIL # 0.1 TH/MM3 (0-0.2); BASOPHIL % 1.1 % (0.0-2.0); EOSINOPHIL # 0.4 TH/MM3 (0-0.4); EOSINOPHIL % 3.7 % (0.0-4.0); HEMATOCRIT 31.4 % (35.0-46.0); HEMOGLOBIN 10.6 GM/DL (11.6-15.3); LYMPH % 5.9 % (9.0-44.0); LYMPHOCYTE # 0.6 TH/MM3 (1.0-4.8); MEAN CELL VOLUME 103.7 FL (80.0-100.0); MEAN CORPUSCULAR HGB CONC 33.7 % (32.0-36.0); MEAN PLATELET VOLUME 7.8 FL (7.0-11.0); MONO % 5.9 % (0.0-8.0); MONOCYTE # 0.6 TH/MM3 (0-0.9); NEUT % 83.4 % (16.0-70.0); PLATELET COUNT 192 TH/MM3 (150-450); RED BLOOD COUNT 3.03 MIL/MM3 (4.00-5.30); RED CELL DISTRIBUTION WIDTH 17.9 % (11.6-17.2); WHITE BLOOD COUNT 10.1 TH/MM3 (4.0-11.0)
[2017-05-03 07:27] LABS: BICARBONATE 28.1 MEQ/L (21.0-32.0); BLOOD UREA NITROGEN 52 MG/DL (7-18); CALCIUM 8.3 MG/DL (8.5-10.1); CHLORIDE 98 MEQ/L (98-107); GLOMERULAR FILTRATION RATE 4 ML/MIN (>89); GLUCOSE,RANDOM 133 MG/DL (74-106); SODIUM (NA) 135 MEQ/L (136-145)
[2017-05-03 07:28] LABS: CHOLESTEROL 128 MG/DL (120-200); TRIGLYCERIDES 108 MG/DL (42-150)
[2017-05-03 07:30] LABS: CHOLESTEROL/ HDL RATIO 2.73 RATIO; HDL CHOLESTEROL 46.8 MG/DL (40.0-60.0); LDL CHOLESTEROL 60 MG/DL (0-99)
[2017-05-03 07:35] LABS: CREATININE 10.86 MG/DL (0.50-1.00)
[2017-05-03] MEDS: INSULIN ASPART SUPPLEMENTAL SCALE SQ SCH ×4 (08:00→21:00)
--- NOTE | 2017-05-03 08:48 | RADRPT ---
EXAM DATE/TIME: 05/03/2017 08:02 [facility] COMPARISON: MRI BRAIN W/O CONTRAST, May 02, 2017, 17:13. INDICATIONS : CVA. MEDICAL HISTORY : Diabetes mellitus type 2. Renal insufficiency, chronic. SURGICAL HISTORY : Bilateral lower leg vascular surgery. ENCOUNTER: Initial ACUITY: 1 day PAIN SCORE: 0/10 LOCATION: cranial Please note a normal MRA of the brain does not entirely exclude the possibility of a small aneurysm, nor the possibility of distal intracranial vessel disease. TECHNIQUE: 3D time of flight MRA was performed. Source images, multiplanar STS MIP, and 3D volume MIP reconstru ctions were reviewed. FINDINGS: There is excellent visualization of the major intracranial arteries out to the second-order branch ve ssels. There is no evidence for aneurysm, vessel truncation or stenosis, and no evidence for vascula r malformation. CONCLUSION: Negative MRA. Jc Trevino MD on May 03, 2017 at 8:45 Board Certified Radiologist. This report was verified electronically.
[2017-05-03] MEDS: CHOLECALCIFEROL (VIT D3) 5000 UNIT CAP PO SCH (09:00)
[2017-05-03] MEDS: POTASSIUM CHLORIDE 8 MEQ CONTROLLED RELEASE TAB PO SCH ×2 (09:00→09:40)
[2017-05-03] MEDS: ASPIRIN 325 MG TAB PO SCH ×2 (09:00→09:40)
[2017-05-03] MEDS: SEVELAMER CARBONATE 800 MG TAB PO SCH ×4 (09:00→16:59)
[2017-05-03] MEDS: CINACALCET HYDROCHLORIDE 30 MG TAB PO SCH (09:39)
[2017-05-03] MEDS: DOCUSATE SODIUM 50 MG/SENNA 8.6 MG TAB PO SCH ×2 (09:39→20:34)
[2017-05-03] MEDS: FUROSEMIDE 40 MG TAB PO SCH ×2 (09:40→20:34)
[2017-05-03] MEDS: CALCITRIOL 0.25 MCG CAP PO SCH (09:40)
[2017-05-03] MEDS: MIDODRINE 5 MG TAB PO SCH ×2 (09:40→20:34)
[2017-05-03] MEDS: SODIUM CHLORIDE 0.9% FLUSH 10 ML FLUSH IV FLUSH SCH ×2 (09:41→21:00)
[2017-05-03] MEDS: PANTOPRAZOLE SOD 20 MG DELAYED RELEASE TAB PO SCH (09:41)
[2017-05-03] MEDS: HEPARIN SODIUM - SQ 10,000 UNITS/ML VIAL SQ SCH ×2 (09:42→20:35)
--- NOTE | 2017-05-03 11:09 | HHI.FPPN ---
Subjective Remarks Patient seen and examined at bedside this morning. at bedside stated patient slept well throughout the night. Patient found to have small left parietal lobe stroke on MRI yesterday. Results were discussed with yesterday and this morning. stated patient is more conversive today compared to yesterday. Patient appears to be still slightly altered but responds to commands during exam. Patient was brought back from MRA procedure and was complaining of pain. (Chema Bush MD, R1) Objective Vitals Vital Signs Date Time Temp Pulse Resp B/P (MAP) Pulse Ox O2 Delivery O2 Flow Rate FiO2 05/03/17 10:42 95 Nasal Cannula 2.00 05/03/17 08:00 98.4 84 19 111/68 (82) 90 05/03/17 04:33 Nasal Cannula 2.00 05/03/17 04:00 98.9 89 16 93/57 (69) 97 05/03/17 04:00 86 05/03/17 00:00 97.9 75 16 98/55 (69) 92 05/03/17 00:00 76 05/02/17 23:45 Nasal Cannula 2.00 05/02/17 21:07 21 05/02/17 20:00 98.0 83 18 108/60 (76) 94 05/02/17 20:00 79 05/02/17 16:00 Nasal Cannula 2.00 05/02/17 16:00 77 05/02/17 16:00 99.9 80 17 106/70 (82) 95 05/02/17 12:00 99.0 88 18 142/73 (96) 92 I/O 05/02/17 05/02/17 05/02/17 05/03/17 05/03/17 05/03/17 07:00 15:00 23:00 07:00 15:00 23:00 Intake Total 0 ml Output Total 0 ml Balance 0 ml 0 ml Intake Oral 0 ml Output Urine Total 0 ml # Voids 0 # Bowel Movements 0 0 (Chema Bush MD, R1) Result Diagram: 05/03/17 0640 05/03/17 0640 Imaging Last Impressions Brain MRI 05/02/17 1108 Signed Impressions: Service Date/Time: Tuesday, May 02, 2017 17:13 - CONCLUSION: 1. Small 8mm focal acute infarction involving the posterior left parietal lobe adjacent to the posterior horn of the left lateral ventricle. 2. Bilateral cortical atrophy and chronic white matter changes. Raymon Conklin MD Carotid Artery Ultrasound 05/02/17 0000 Signed Impressions: Service Date/Time: Tuesday, May 02, 2017 19:15 - CONCLUSION: 1. Severe atherosclerotic disease in the carotid bulbs and proximal internal carotid arteries bilaterally. Velocity measurements on the right suggest greater than 70%% stenosis and assessment on the left suggests between 50-69%% stenosis. Consider carotid CTA for further characterization, if needed clinically. 2. There is antegrade flow within both vertebral arteries. Jc Sifuentes MD Head CT 05/01/17 0000 Signed Impressions: Service Date/Time: Monday, May 01, 2017 18:17 - CONCLUSION: 1. No acute intracranial abnormality. Baldemar Jacobson MD Foot X-Ray 04/27/17 0000 Signed Impressions: Service Date/Time: Thursday, April 27, 2017 16:14 - CONCLUSION: 1. Osseous structures of the forefoot are intact. 2. Extensive soft tissue calcifications in the distal posterior leg. Shmuel Lester MD Objective Remarks GENERAL: In mild distress from some foot pain, laying in bed. CARDIOVASCULAR: Regular rate and rhythm. RESPIRATORY: No accessory muscle use. Clear to auscultation. Breath sounds equal bilaterally. GASTROINTESTINAL: Abdomen soft, non-tender, nondistended. MUSCULOSKELETAL: Right dorsal foot wrapped in bandage, no swelling not, warm, stable, improved coloration. Severe tenderness upon palpation of Right foot. NEUROLOGICAL: Awake. Still slightly altered. Patient complaining of pain and tearful. No focal neurologic deficits noted on exam. Followed command when asked to squeeze hands. Did not want to interact with us but interactive with that was at bedside. (Chema Bush MD, R1) A/P Assessment and Plan 66 year old female being admitted with sepsis due to right foot cellulitis, vs calciphylaxis. Patient is POD #3 of Bilateral lower leg revascularization surgery. CT head done on 05/01 normal, MRI done on 05/02 showed small acute stroke on the left parietal lobe. Patient hemodynamically stable. MRA on 05/03 normal. Discharge Planning Pending workup and treatment of wound (Chema Bush MD, R1) Attending Attestation discussed patient in detail with (Felix Larsen MD) Problem List: (1) Wound, open, foot ICD Codes: S91.309A - Unspecified open wound, unspecified foot, initial encounter Plan: Calciphylaxis vs cellulitis vs ischemia Podiatry consulted-appreciate recs -Recommended continuing Vancomycin for now for possible infection -Topical enzymatic debrider Vascular surgery were consulted for evaluation -R LE angiogram 04/30 - LE perfusion improved since revascularization surgery. Nephrology following, - Previously it was recommended pt switch to HD for improvement of calciphylaxis, but pt declined HD at that time. Patient has negative association with HD because her father the day after receiving HD. She previously stated she will like to see outcome of vascular procedure first before deciding to proceed with HD. -CT brain w/o contrast on 03/31 due to pt's AMS/lethargic state showed: no acute intracranial abnormality -Spoke to Dr. Minor on 05/02. He does not believe AMS will improve with HD, suggested giving patient flumazenil -Patient received PD last night, BUN stable, will hold off HD for now pending improvement of AMS. Patient appears well hydrated, hold IV fluids given ESRD Pain control medications held due to patient's current AMS -f/u am labs cbc,cmp,pth (2) CVA (cerebral vascular accident) ICD Codes: I63.9 - Cerebral infarction, unspecified Status: Acute Plan: Patient with sedated/AMS sxs since revascularization procedure on 04/30. AMS slowly improving. Patient more alert and interactive today, per . POD# 3 BL AYO atherectomy and angioplasty -No neurological deficits on exam -CT brain w/o contrast done on 03/31 due to pt's AMS/lethargic state showed: no acute intracranial abnormality -Spoke to Dr. Minor on 05/02. He does not believe AMS will improve with HD, suggested giving patient flumazenil. -Patient received narcan x3 with temporary improvement in mental status -Patient received flumazenil x1 05/02 -pain medication held pending improvement of AMS Due to patient's continued AMS on 05/02 an MRI was ordered and results showed a small acute stroke on the left parietal lobe. STAT neuro consult and page was done. Patient altered mental status likely due to combination of incomplete clearance of any seizure medication and acute stroke. Neurology consulted 05/02, appreciate recommendations -MRI brain: Small 8mm focal acute infarction involving the posterior left parietal lobe adjacent to the posterior horn of the left lateral ventricle.Bilateral cortical atrophy and chronic white matter changes. -Carotid u/s: Right >70% stenosis, Left 50-69% stenosis.Severe atherosclerotic disease in carotid bulbs and proximal internal carotids BL. Consider carotid CTA. -MRA 05/03 results: There is excellent visualization of the major intracranial arteries out to the second-order branch vessels. There is no evidence for aneurysm, vessel truncation or stenosis, and no evidence for vascular malformation. -Pt started on asa yesterday 05/02 -f/u lipid profile (3) ESRD (end stage renal disease) on dialysis ICD Codes: N18.6 - End stage renal disease; Z99.2 - Dependence on renal dialysis Status: Acute Plan: Continue peritoneal dialysis daily Consult nephrology -Offered hemodialysis, with possible medication -Sensipar 90mg dialy Continue home renvela Cr is uptrending, see plan above (4) Diabetes mellitus type 2, insulin dependent ICD Codes: E11.9 - Diabetes mellitus type 2, insulin dependent; Z79.4 - intermodal customer service (current) use of insulin Status: Chronic Plan: Will give 1/2 home dose Levemir 29 units hs Accuchecks achs Low-dose ISS (5) Hyperphosphatemia ICD Codes: E83.39 - Other disorders of phosphorus metabolism Plan: Continue Renvela Continue peritoneal dialysis daily -see plan for Right foot wound (6) Nutrition, metabolism, and development symptoms ICD Codes: R63.8 - Other symptoms and signs concerning food and fluid intake Plan: Fluids: per PO Electrolytes: continue to monitor, PD daily. Nutrition: 1800 ADA DVT ppx: Heparin 5000 units q12h GI ppx: Protonix PO daily (Chema Bush MD, R1) Problem Qualifiers (1) Wound, open, foot: Qualified Codes: S91.301A - Unspecified open wound, right foot, initial encounter (2) CVA (cerebral vascular accident): Chema Bush MD, R1 May 03, 2017 11:09 Felix Larsen MD May 03, 2017 19:38
--- NOTE | 2017-05-03 11:29 | PD.POD ---
Subjective Pain score: 6 Remarks Patient is more responsive responsive however and appears to be more lucid seen bedside with Past Med/Surg/Social History Past Medical History Endocrine: REPORTS HX OF: Diabetes mellitus Cardiovascular: REPORTS HX OF: Hypertension Past Surgical History Gynecologic: DENIES HX OF: Hysterectomy Breast: DENIES HX OF: Mastectomy, bilateral, Mastectomy, left, Mastectomy, right Social History Smoking Status: Current Some Day Smoker Objective Vital Signs Vital Signs Date Time Temp Pulse Resp B/P (MAP) Pulse Ox O2 Delivery O2 Flow Rate FiO2 05/03/17 10:42 95 Nasal Cannula 2.00 05/03/17 08:00 98.4 84 19 111/68 (82) 90 05/03/17 04:33 Nasal Cannula 2.00 05/03/17 04:00 98.9 89 16 93/57 (69) 97 05/03/17 04:00 86 05/03/17 00:00 97.9 75 16 98/55 (69) 92 05/03/17 00:00 76 05/02/17 23:45 Nasal Cannula 2.00 05/02/17 21:07 21 05/02/17 20:00 98.0 83 18 108/60 (76) 94 05/02/17 20:00 79 05/02/17 16:00 Nasal Cannula 2.00 05/02/17 16:00 77 05/02/17 16:00 99.9 80 17 106/70 (82) 95 05/02/17 12:00 99.0 88 18 142/73 (96) 92 Coded Allergies: quinine (Verified Allergy, Intermediate, Rash, 04/27/17) Medications and IVs Administered Medications Medications (Trade) Dose Ordered Sig/Gianfranco Route PRN Reason Start Time Stop Time Status Last Admin Dose Admin Sodium Chloride (NS Flush) 2 ml BID IV FLUSH 04/27/17 21:00 05/03/17 09:41 Ondansetron HCl (Zofran Inj) 4 mg Q6H PRN IVP NAUSEA OR VOMITING 04/27/17 19:00 05/01/17 17:19 Heparin Sodium (Porcine) (Heparin Inj) 5,000 units Q12H SQ 04/27/17 21:00 05/03/17 09:42 Naloxone HCl (Narcan Inj) 0.4 mg UNSCH PRN IV PUSH SEE LABEL COMMENTS 04/27/17 19:00 05/01/17 20:22 Acetaminophen/ Hydrocodone Bitart ([place] 10-325 Mg) 1 tab Q4H PRN PO PAIN SCALE 6 TO 10 04/27/17 19:00 Future Hold 05/01/17 10:19 Morphine Sulfate (Morphine Inj) 4 mg Q4HR PRN IV PUSH BREAKTHROUGH PAIN 04/27/17 22:30 Future Hold 05/01/17 08:11 Senna/Docusate Sodium (Nathaly-Colace) 1 tab BID PO 04/27/17 21:00 05/03/17 09:39 Calcitriol (Rocaltrol) 0.5 mcg DAILY PO 04/28/17 09:00 05/03/17 09:40 Cholecalciferol (Vitamin D3) 5,000 units DAILY PO 04/28/17 09:00 05/03/17 09:00 Furosemide (Lasix) 40 mg BID PO 04/27/17 21:00 05/03/17 09:40 Levothyroxine Sodium (Synthroid) 100 mcg DAILY@0600 PO 04/28/17 06:00 05/03/17 05:48 Midodrine (Proamatine) 10 mg BID PO 04/27/17 21:00 05/03/17 09:40 Potassium Chloride (KCl) 8 meq DAILY PO 04/28/17 09:00 05/03/17 09:40 Sevelamer Carbonate (Renvela) 2,400 mg TID PO 04/28/17 09:00 05/03/17 09:39 Pantoprazole Sodium (Protonix) 20 mg DAILY PO 04/28/17 09:00 05/03/17 09:41 Gabapentin (Neurontin) 900 mg HS PO 04/27/17 21:30 Future Hold 04/30/17 21:42 Gabapentin (Neurontin) 400 mg BID@0900,1500 PO 04/28/17 09:00 Future Hold 05/01/17 14:10 Insulin Detemir (Levemir Inj) 29 units HS SQ 04/27/17 21:15 05/01/17 22:20 Insulin Aspart (NovoLOG SUPPLEMENTAL SCALE) 1 ACHS SLIDING SCALE SQ 04/28/17 08:00 05/01/17 12:46 Cinacalcet (Sensipar) 90 mg DAILY PO 04/29/17 09:00 05/03/17 09:39 Collagenase (Santyl Oint) 1 applic DAILY TOPICAL 04/29/17 09:00 05/02/17 09:00 Aspirin (Aspirin) 325 mg DAILY PO 05/02/17 18:00 05/03/17 09:40 Other Results Laboratory Tests Test 05/01/17 19:10 05/02/17 08:33 05/03/17 06:40 White Blood Count 10.8 TH/MM3 11.9 TH/MM3 10.1 TH/MM3 Red Blood Count 2.94 MIL/MM3 3.07 MIL/MM3 3.03 MIL/MM3 Hemoglobin 10.2 GM/DL 10.5 GM/DL 10.6 GM/DL Hematocrit 30.5 % 32.0 % 31.4 % Mean Corpuscular Volume 103.6 FL 104.2 FL 103.7 FL Mean Corpuscular Hemoglobin 34.6 PG 34.3 PG 35.0 PG Mean Corpuscular Hemoglobin Concent 33.4 % 32.9 % 33.7 % Red Cell Distribution Width 17.9 % 17.6 % 17.9 % Platelet Count 168 TH/MM3 178 TH/MM3 192 TH/MM3 Mean Platelet Volume 8.0 FL 8.0 FL 7.8 FL Neutrophils (%) (Auto) 85.3 % 84.8 % 83.4 % Lymphocytes (%) (Auto) 5.0 % 5.7 % 5.9 % Monocytes (%) (Auto) 6.5 % 6.1 % 5.9 % Eosinophils (%) (Auto) 2.7 % 2.9 % 3.7 % Basophils (%) (Auto) 0.5 % 0.5 % 1.1 % Neutrophils # (Auto) 9.2 TH/MM3 10.1 TH/MM3 8.4 TH/MM3 Lymphocytes # (Auto) 0.5 TH/MM3 0.7 TH/MM3 0.6 TH/MM3 Monocytes # (Auto) 0.7 TH/MM3 0.7 TH/MM3 0.6 TH/MM3 Eosinophils # (Auto) 0.3 TH/MM3 0.3 TH/MM3 0.4 TH/MM3 Basophils # (Auto) 0.1 TH/MM3 0.1 TH/MM3 0.1 TH/MM3 CBC Comment DIFF FINAL DIFF FINAL DIFF FINAL Differential Comment Laboratory Tests Test 05/01/17 19:10 05/02/17 08:33 05/02/17 12:25 05/03/17 06:40 Blood Urea Nitrogen 52 MG/DL 51 MG/DL 52 MG/DL Creatinine 10.34 MG/DL 10.13 MG/DL 10.86 MG/DL Random Glucose 106 MG/DL 123 MG/DL 133 MG/DL Total Protein 6.8 GM/DL Albumin 2.8 GM/DL Calcium Level 8.8 MG/DL 8.3 MG/DL 8.3 MG/DL Alkaline Phosphatase 169 U/L Aspartate Amino Transf (AST/SGOT) 26 U/L Alanine Aminotransferase (ALT/SGPT) 21 U/L Total Bilirubin 0.6 MG/DL Sodium Level 133 MEQ/L 134 MEQ/L 135 MEQ/L Potassium Level 4.7 MEQ/L 4.3 MEQ/L 4.4 MEQ/L Chloride Level 96 MEQ/L 96 MEQ/L 98 MEQ/L Carbon Dioxide Level 27.5 MEQ/L 26.8 MEQ/L 28.1 MEQ/L Anion Gap 10 MEQ/L 11 MEQ/L 9 MEQ/L Estimat Glomerular Filtration Rate 4 ML/MIN 4 ML/MIN 4 ML/MIN Parathyroid Hormone (Intact) 469.3 PG/ML Triglycerides Level 108 MG/DL Cholesterol Level 128 MG/DL LDL Cholesterol 60 MG/DL HDL Cholesterol 46.8 MG/DL Cholesterol/HDL Ratio 2.73 RATIO Physical Exam Remarks Right lower extremity is examined the foot appears to be significantly improved with warmth there still is noted to be a central eschar over the dorsal lateral aspect of the fourth fifth digit base with delayed capillary fill time to the lesser digits. There is extreme pain upon palpating this area there is no odor there is no drainage. 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 ICD Codes: L97.919 - Non-pressure chronic ulcer of unspecified part of right lower leg with unspecified severity; E83.59 - Other disorders of calcium metabolism Status: Acute A/P Continue Santyl debridement, once stable per medicine and vascular, okay for outpatient follow-up recommend daily application of Santyl home health, reconsult if new issues arise otherwise will follow-up outpatient Problem Qualifiers (1) 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
[2017-05-03 12:23] LABS: HEMOGLOBIN A1C 6.3 % (4.3-6.0)
--- NOTE | 2017-05-03 13:29 | HHI.FF ---
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 My clinical findings support the need for the requested home health care services because: Ltd mobility - disease progression Infection w/ risk of complications I certify that my clinical findings support that this patient is homebound because: Post-op weakness Impaired cognitive ability/safety Chema Bush MD, R1 May 03, 2017 13:29
--- NOTE | 2017-05-03 13:57 | MB ---
cc: LAZARO KAUFFMAN M.D. DATE OF CONSULTATION: 05/03/2017. REASON FOR CONSULTATION: She is a 66-year-old woman seen in neurological consultation. HISTORY OF PRESENT ILLNESS: I came to see her this morning when she was in the MRI unit. I spoke to the primary care physician team yesterday. This patient became lethargic the day before yesterday and the CT brain was negative. Yesterday she went for an MRI of brain that showed a tiny area of acute stroke. She has a history of being admitted on 04/27 for right foot cellulitis / sepsis. I believe today is postop day #3 for revascularization of her right foot. She woke up more conversant and more appropriate today than yesterday. According to the chart, she has a renal failure on peritoneal dialysis and apparently has refused hemodialysis in the past. EXAMINATION: On exam, her cousin was with her. The patient was awake, reasonably alert, following commands but emotional and started crying and she had difficulty with some relatively simple information. She is oriented to her age but had difficulty with the date. She discussed her medical background briefly. Her ocular movements were full. Visual cabello full. Pupils small but reactive. She has some asterixis / tremoring of both upper extremities, generalized weakness and decreased mobility right lower extremity. I did not push for the exam because of her recent surgical procedure. Reflexes were diminished but present at the knees, probably absent at the ankles, plantar responses probably flexor bilaterally. She raised the arms. She is able to count fingers bilaterally. ASSESSMENT: 1. Lethargy / encephalopathy along with small acute ischemic infarct on the left posterior parietal lobe. 2. Right carotid artery disease, over 70% stenosis by ultrasound. 3. MRA head shows no abnormality. 4. Renal failure on peritoneal dialysis. Aspirin is on board and continued. Check an echo if not completed yet. Eventually she ought to be evaluated with a CT angio of the neck to further evaluate the discussed carotid artery disease, especially on the right, by the carotid ultrasound. LDL 60. She is emotional and encephalopathic, which is likely multifactorial, the small stroke itself is not likely a significant factor in terms of her encephalopathy. I will follow her with you. Thank you for asking us to assist in her care. MD NORA Sifuentes/TASHI /1:33 PM /1:44 PM
--- NOTE | 2017-05-03 15:07 | ECHRPT ---
Indication: CVA/TIA CONCLUSIONS The left ventricular systolic function is normal with an estimated ejection fraction in the range of 55-60%. Wall thickness is measured at the upper limits of normal. Normal left ventricular size. The pulmonary valve is not well visualized. BP: / HR: Rhythm: Sinus MEASUREMENTS (Male / Female) Normal Values Technical Quality:Fair 2D ECHO LV Diastolic Diameter PLAX 4.1 cm 4.2 - 5.9 / 3.9 - 5.3 cm LV Systolic Diameter PLAX 3.0 cm IVS Diastolic Thickness 1.1 cm 0.6 - 1.0 / 0.6 - 0.9 cm LVPW Diastolic Thickness 1.2 cm 0.6 - 1.0 / 0.6 - 0.9 cm LV Relative Wall Thickness 0.6 LVOT Diameter 2.5 cm M-MODE Aortic Root Diameter MM 2.7 cm LA Systolic Diameter MM 3.3 cm LA Ao Ratio MM 1.2 AV Cusp Separation MM 2.3 cm DOPPLER AV Peak Velocity 172.0 cm/s AV Peak Gradient 11.8 mmHg LVOT Peak Velocity 133.0 cm/s LVOT Peak Gradient 7.1 mmHg AV Area Cont Eq pk 3.8 cm Mitral E Point Velocity 95.8 cm/s Mitral A Point Velocity 94.3 cm/s Mitral E to A Ratio 1.0 LV E' Lateral Velocity 9.5 cm/s Mitral E to LV E' Lateral Ratio 10.1 LV E' Septal Velocity 6.5 cm/s Mitral E to LV E' Septal Ratio 14.7 PV Peak Velocity 115.0 cm/s PV Peak Gradient 5.3 mmHg FINDINGS LEFT VENTRICLE The left ventricular systolic function is normal with an estimated ejection fraction in the range of 55-60%. Wall thickness is measured at the upper limits of normal. Normal left ventricular size. RIGHT VENTRICLE Normal right ventricular size and systolic function. LEFT ATRIUM The left atrial size is normal. RIGHT ATRIUM The right atrial size is normal. ATRIAL SEPTUM Normal atrial septal thickness without atrial level shunting by limited color doppler interrogation. AORTA The aortic root and proximal ascending aorta are normal in size on limited imaging. MITRAL VALVE Structurally normal mitral valve. No mitral valve stenosis or regurgitation. AORTIC VALVE Trileaflet aortic valve. No aortic valve stenosis or regurgitation. TRICUSPID VALVE Structurally normal tricuspid valve. No tricuspid valve stenosis or regurgitation. PULMONARY VALVE The pulmonary valve is not well visualized. VESSELS The inferior vena cava is normal in size. PERICARDIUM No pericardial effusion. Hua Calzada MD, FACC (Electronically Signed) Final Date:03 May 2017 15:05
--- NOTE | 2017-05-03 16:54 | HHI.NPPN ---
Subjective History of Present Illness 66 year old with esrd PVD Additional Remarks Patient much more awake and alert today. Still some ongoing confusion however. Objective Data Data 05/03/17 05/04/17 19:00 07:00 Output Total 1085 ml Balance -1085 ml Peritoneal Fluid 1085 ml Vital Signs Date Time Temp Pulse Resp B/P (MAP) Pulse Ox O2 Delivery O2 Flow Rate FiO2 05/03/17 12:20 81 05/03/17 12:00 99.3 78 19 115/60 (78) 92 05/03/17 10:42 95 Nasal Cannula 2.00 05/03/17 08:00 98.4 84 19 111/68 (82) 90 05/03/17 07:15 Nasal Cannula 3.00 05/03/17 04:33 Nasal Cannula 2.00 05/03/17 04:00 98.9 89 16 93/57 (69) 97 05/03/17 04:00 86 05/03/17 00:00 97.9 75 16 98/55 (69) 92 05/03/17 00:00 76 05/02/17 23:45 Nasal Cannula 2.00 05/02/17 21:07 21 05/02/17 20:00 98.0 83 18 108/60 (76) 94 05/02/17 20:00 79 -: 05/03/17 0640 05/03/17 0640 Physical Exam General Appearance: Well Developed Neck Neck Exam: Neck Supple Pulmonary Resp Exam: Clear Bilaterally, Breath Sounds Equal Gastrointestinal/Abdomen GI Exam: Soft, Non-Tender, Bowel Sounds Present Extremeties Extremities Exam: Moderate Edema Neurologic Neuro Exam: Obtunded Assessment/Plan Problem List: (1) ESRD (end stage renal disease) on dialysis ICD Codes: N18.6 - End stage renal disease; Z99.2 - Dependence on renal dialysis Status: Acute Plan: she is on PD PAD s/p Angioplasty Patient initially lethargic post angioplasty - Given Versed and Fentanyl for sedation, was also previously given [place] (hyrdocodone). Given narcan and flumazenil yesterday. Somnelence improved today. New finding of small acute CVA yesterday, seen with neurology. Continues with PD now, tolerating PD. Has refused hemodialysis in past (considered for sodium thiosulfate for calciphylaxis) - foot wound improving per podiatry now, s/p CAMPAIGN ADVISOR/ atherectomy. Meanwhile control PTH/PO4 with medications Continue with peritoneal dialysis for now. (2) Diabetes mellitus type 2, insulin dependent ICD Codes: E11.9 - Diabetes mellitus type 2, insulin dependent; Z79.4 - retirement (current) use of insulin Status: Chronic Plan: Monitor blood glucose (3) Cellulitis ICD Codes: L03.90 - Cellulitis, unspecified Plan: Vancomycin was given (4) Hyperphosphatemia ICD Codes: E83.39 - Other disorders of phosphorus metabolism Plan: Sensipar increased to 90 mg continue with Renvela low phosphate diet Problem Qualifiers (1) Cellulitis: Juan Miguel Minor MD May 03, 2017 16:54
[2017-05-03] MEDS: COLLAGENASE OINT 30 GM TUBE TOPICAL SCH (16:55)
[2017-05-03] MEDS: INSULIN DETEMIR 100 UNITS/ML VIAL SQ SCH (20:35)
[2017-05-04] VITALS (9 sets, daily range): BP systolic 105–136; BP diastolic 56–71; PULSE 64–85; RESP 17–19; TEMP 97.3–99.1; O2SAT 64–95
[2017-05-04 05:11] LABS: AUTOMATED NEUTROPHIL # 9.6 TH/MM3 (1.8-7.7); BASOPHIL # 0.1 TH/MM3 (0-0.2); BASOPHIL % 0.8 % (0.0-2.0); EOSINOPHIL # 0.5 TH/MM3 (0-0.4); EOSINOPHIL % 4.6 % (0.0-4.0); HEMOGLOBIN 10.8 GM/DL (11.6-15.3); LYMPH % 6.8 % (9.0-44.0); LYMPHOCYTE # 0.8 TH/MM3 (1.0-4.8); MEAN CORPUSCULAR HEMOGLOBIN 34.5 PG (27.0-34.0); MEAN CORPUSCULAR HGB CONC 33.9 % (32.0-36.0); MEAN PLATELET VOLUME 7.8 FL (7.0-11.0); MONO % 6.9 % (0.0-8.0); MONOCYTE # 0.8 TH/MM3 (0-0.9); NEUT % 80.9 % (16.0-70.0); PLATELET COUNT 233 TH/MM3 (150-450); RED BLOOD COUNT 3.14 MIL/MM3 (4.00-5.30); RED CELL DISTRIBUTION WIDTH 17.3 % (11.6-17.2); WHITE BLOOD COUNT 11.9 TH/MM3 (4.0-11.0)
[2017-05-04 05:21] LABS: INTERNATIONAL NORMALIZED RATIO 1.1 RATIO; PROTHROMBIN TIME - PATIENT 11.4 SEC (9.8-11.6)
[2017-05-04 05:42] LABS: ALBUMIN 2.9 GM/DL (3.4-5.0); AST (GOT) 18 U/L (15-37); BICARBONATE 28.6 MEQ/L (21.0-32.0); BLOOD UREA NITROGEN 54 MG/DL (7-18); CALCIUM 9.1 MG/DL (8.5-10.1); CHLORIDE 94 MEQ/L (98-107); GLOMERULAR FILTRATION RATE 3 ML/MIN (>89); GLUCOSE,RANDOM 139 MG/DL (74-106); SODIUM (NA) 134 MEQ/L (136-145)
[2017-05-04 05:43] LABS: ALT (GPT) 21 U/L (10-53)
[2017-05-04 05:45] LABS: ALKALINE PHOSPHATASE 223 U/L (45-117); TOTAL BILIRUBIN ADULT 0.5 MG/DL (0.2-1.0); TOTAL PROTEIN 7.7 GM/DL (6.4-8.2)
[2017-05-04] MEDS: LEVOTHYROXINE SODIUM 100 MCG TAB PO SCH (05:47)
[2017-05-04 05:55] LABS: CREATININE 11.03 MG/DL (0.50-1.00)
--- NOTE | 2017-05-04 07:22 | PD.VS.PN ---
Subjective Subjective/Hospital Course POD#4 s/p B AYO atherectomy and angioplasty Responsive but definitely not back to baseline mental status Notes that foot hurts with ambulation but denies rest pain No focal neurological deficits Objective Vitals/I&O Date Time Temp Pulse Resp B/P (MAP) Pulse Ox O2 Delivery O2 Flow Rate FiO2 05/04/17 04:00 97.9 80 19 118/64 (82) 95 05/04/17 00:09 98.1 84 17 132/65 (87) 93 05/03/17 20:00 98.6 81 17 141/60 (87) 96 05/03/17 16:30 74 05/03/17 16:00 98.2 76 17 111/70 (84) 90 05/03/17 12:20 81 05/03/17 12:00 99.3 78 19 115/60 (78) 92 05/03/17 10:42 95 Nasal Cannula 2.00 05/03/17 08:00 98.4 84 19 111/68 (82) 90 05/04/17 05/04/17 05/04/17 07:00 15:00 23:00 Intake Total 240 ml Output Total 200 ml Balance 40 ml Physical Exam R foot warm, stable wound. No focal neuro deficits Laboratory Laboratory Tests Test 05/04/17 04:36 05/04/17 04:56 White Blood Count 11.9 Red Blood Count 3.14 Hemoglobin 10.8 Hematocrit 32.0 Mean Corpuscular Volume 102.0 Mean Corpuscular Hemoglobin 34.5 Mean Corpuscular Hemoglobin Concent 33.9 Red Cell Distribution Width 17.3 Platelet Count 233 Mean Platelet Volume 7.8 Neutrophils (%) (Auto) 80.9 Lymphocytes (%) (Auto) 6.8 Monocytes (%) (Auto) 6.9 Eosinophils (%) (Auto) 4.6 Basophils (%) (Auto) 0.8 Neutrophils # (Auto) 9.6 Lymphocytes # (Auto) 0.8 Monocytes # (Auto) 0.8 Eosinophils # (Auto) 0.5 Basophils # (Auto) 0.1 CBC Comment DIFF FINAL Differential Comment Prothrombin Time 11.4 Prothromb Time International Ratio 1.1 Activated Partial Thromboplast Time 29.9 Blood Urea Nitrogen 54 Creatinine 11.03 Random Glucose 139 Total Protein 7.7 Albumin 2.9 Calcium Level 9.1 Alkaline Phosphatase 223 Aspartate Amino Transf (AST/SGOT) 18 Alanine Aminotransferase (ALT/SGPT) 21 Total Bilirubin 0.5 Sodium Level 134 Potassium Level 4.5 Chloride Level 94 Carbon Dioxide Level 28.6 Anion Gap 11 Estimat Glomerular Filtration Rate 3 Date/Time Source Procedure Growth Status 04/27/17 16:51 Blood Peripheral Aerobic Blood Culture - Final NO GROWTH IN 5 DAYS Complete 04/27/17 16:51 Blood Peripheral Anaerobic Blood Culture - Final NO GROWTH IN 5 DAYS Complete Imaging Last 48 hours Impressions Head Magnetic Resonance Angiography 05/03/17 0000 Signed Impressions: Service Date/Time: Wednesday, May 03, 2017 08:02 - CONCLUSION: Negative MRA. Jc Trevino MD Brain MRI 05/02/17 1108 Signed Impressions: Service Date/Time: Tuesday, May 02, 2017 17:13 - CONCLUSION: 1. Small 8mm focal acute infarction involving the posterior left parietal lobe adjacent to the posterior horn of the left lateral ventricle. 2. Bilateral cortical atrophy and chronic white matter changes. 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 ischemia vs calciphylaxis 1. Agree with podiatry: can be f/u as outpatient for wound. May require repeat angiography at some point. 2. Potential symptomatic parathyroid dysfunction - rec gen surgery consult for parathyroidectomy consideration 3. Would favor HD for a few sessions to ensure not metabolic 4. MRI showed L posterior parietal stroke. Duplex of carotids reviewed. Would NOT get CTA neck as the velocities on the carotid duplex correspond to 50-79% R ICA stenosis and <50% L carotid stenosis. CTA would be additional IV contrast without clinical benefit in my opinion. 5. Limit narcotics 6. Ok to WBAT and continue wound care. 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
[2017-05-04] MEDS: INSULIN ASPART SUPPLEMENTAL SCALE SQ SCH ×4 (08:00→20:19)
[2017-05-04] MEDS: COLLAGENASE OINT 30 GM TUBE TOPICAL SCH (09:00)
[2017-05-04] MEDS: ASPIRIN 325 MG TAB PO SCH (09:25)
[2017-05-04] MEDS: SODIUM CHLORIDE 0.9% FLUSH 10 ML FLUSH IV FLUSH SCH ×2 (09:25→19:53)
[2017-05-04] MEDS: DOCUSATE SODIUM 50 MG/SENNA 8.6 MG TAB PO SCH ×2 (09:26→19:51)
[2017-05-04] MEDS: POTASSIUM CHLORIDE 8 MEQ CONTROLLED RELEASE TAB PO SCH (09:26)
[2017-05-04] MEDS: FUROSEMIDE 40 MG TAB PO SCH ×2 (09:26→19:54)
[2017-05-04] MEDS: PANTOPRAZOLE SOD 20 MG DELAYED RELEASE TAB PO SCH (09:27)
[2017-05-04] MEDS: CHOLECALCIFEROL (VIT D3) 5000 UNIT CAP PO SCH (09:27)
[2017-05-04] MEDS: CALCITRIOL 0.25 MCG CAP PO SCH (09:27)
[2017-05-04] MEDS: CINACALCET HYDROCHLORIDE 30 MG TAB PO SCH (09:27)
[2017-05-04] MEDS: SEVELAMER CARBONATE 800 MG TAB PO SCH ×3 (09:27→17:24)
[2017-05-04] MEDS: MIDODRINE 5 MG TAB PO SCH ×2 (09:27→19:52)
[2017-05-04] MEDS: HEPARIN SODIUM - SQ 10,000 UNITS/ML VIAL SQ SCH ×2 (09:28→19:53)
--- NOTE | 2017-05-04 10:08 | HHI.FPPN ---
Subjective Remarks Pt seen and examined this morning. No acute events overnight. Pt's at bedside, who reports much improvement from yesterday. Talked with patient, who is conversive and answers questions today. Occasionally confused, but answers appropriately. Responds to commands. Occasional pain, but she currently complains of none. Denies any chest pain, SOB. Objective Vitals Vital Signs Date Time Temp Pulse Resp B/P (MAP) Pulse Ox O2 Delivery O2 Flow Rate FiO2 05/04/17 08:00 97.9 77 18 105/71 (82) 95 05/04/17 07:50 91 05/04/17 04:00 97.9 80 19 118/64 (82) 95 05/04/17 00:09 98.1 84 17 132/65 (87) 93 05/03/17 20:00 98.6 81 17 141/60 (87) 96 05/03/17 16:30 74 05/03/17 16:00 98.2 76 17 111/70 (84) 90 05/03/17 12:20 81 05/03/17 12:00 99.3 78 19 115/60 (78) 92 05/03/17 10:42 95 Nasal Cannula 2.00 I/O 05/03/17 05/03/17 05/03/17 05/04/17 05/04/17 05/04/17 07:00 15:00 23:00 07:00 15:00 23:00 Intake Total 960 ml 240 ml Output Total 0 ml 1085 ml 200 ml Balance 0 ml -1085 ml 960 ml 40 ml Intake Oral 960 ml 240 ml Output Urine Total 0 ml 200 ml Peritoneal Fluid 1085 ml # Voids 1 # Bowel Movements 0 0 Result Diagram: 05/04/17 0436 05/04/17 0456 Objective Remarks GENERAL: Lying in bed, no distress. CARDIOVASCULAR: Regular rate and rhythm. RESPIRATORY: No accessory muscle use. Clear to auscultation. Breath sounds equal bilaterally. GASTROINTESTINAL: Abdomen soft, non-tender, nondistended. MUSCULOSKELETAL: Right dorsal foot wrapped in bandage, no swelling not, warm, stable, improved coloration. Severe tenderness upon palpation of Right foot. NEUROLOGICAL: Awake. Oriented to person, place. Said 2015 for year, then 2018. No focal neurologic deficits noted on exam. Followed command when asked to squeeze hands. No cranial nerve deficits appreciated. A/P Assessment and Plan 66 year old female being admitted with sepsis due to right foot cellulitis, vs calciphylaxis. Patient is POD #4 of Bilateral lower leg revascularization surgery. CT head done on 05/01 normal, MRI done on 05/02 showed small acute stroke on the left parietal lobe. Patient hemodynamically stable. MRA on 05/03 normal. Discharge Planning Wound workup cleared by podiatry/vascular for follow-up outpatient. Pending workup/clinical improvement of neuro status Will need discharge to rehab facility. Problem List: (1) Wound, open, foot ICD Codes: S91.309A - Unspecified open wound, unspecified foot, initial encounter Plan: Podiatry consulted-appreciate recs -Santyl debridement -F/u outpatient and with home health Vascular surgery were consulted for evaluation -R LE angiogram 04/30 -LE perfusion improved since revascularization surgery. -May require repeat angiography at some point Nephrology following, - Previously it was recommended pt switch to HD for improvement of calciphylaxis, but pt declined HD at that time. Patient has negative association with HD because her father the day after receiving HD. She previously stated she will like to see outcome of vascular procedure first before deciding to proceed with HD. -CT brain w/o contrast on 03/31 due to pt's AMS/lethargic state showed: no acute intracranial abnormality -Patient continues to receive peritoneal dialysis daily. BUN stable, will hold off HD for now pending improvement of AMS. Will need placement to rehab upon discharge Patient appears well hydrated, hold IV fluids given ESRD Pain control medications held due to patient's current AMS (2) CVA (cerebral vascular accident) ICD Codes: I63.9 - Cerebral infarction, unspecified Status: Acute Plan: Patient with sedated/AMS sxs since revascularization procedure on 04/30. AMS improving, but not quite back to baseline POD# 4 BL AYO atherectomy and angioplasty -No neurological deficits on exam -CT brain w/o contrast done on 03/31 due to pt's AMS/lethargic state showed: no acute intracranial abnormality -Patient received narcan x3 with temporary improvement in mental status -pain medication held pending improvement of AMS Due to patient's continued AMS on 05/02 an MRI was ordered and results showed a small acute stroke on the left parietal lobe. STAT neuro consult and page was done. Patient altered mental status likely due to combination of incomplete clearance of any seizure medication and acute stroke. Neurology consulted 05/02, appreciate recommendations -MRI brain: Small 8mm focal acute infarction involving the posterior left parietal lobe adjacent to the posterior horn of the left lateral ventricle.Bilateral cortical atrophy and chronic white matter changes. -Carotid u/s: Right >70% stenosis, Left 50-69% stenosis.Severe atherosclerotic disease in carotid bulbs and proximal internal carotids BL. Consider carotid CTA. -MRA 05/03 results: There is excellent visualization of the major intracranial arteries out to the second-order branch vessels. There is no evidence for aneurysm, vessel truncation or stenosis, and no evidence for vascular malformation. 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 Nutrition: 1800 ADA DVT ppx: Heparin 5000 units q12h GI ppx: Protonix PO daily Problem Qualifiers (1) Wound, open, foot: Qualified Codes: S91.301A - Unspecified open wound, right foot, initial encounter (2) CVA (cerebral vascular accident): Iron Ramachandran MD May 04, 2017 10:08
[2017-05-04] MEDS: ACETAMINOPHEN 325 MG TAB PO PRN ×2 (13:16→19:52)
--- NOTE | 2017-05-04 16:36 | HHI.NPPN ---
Subjective History of Present Illness 66 year old with esrd PVD Additional Remarks Patient made extra effort walked in room, now exhausted awake but feels fatigued, washed out Objective Data Data Vital Signs Date Time Temp Pulse Resp B/P (MAP) Pulse Ox O2 Delivery O2 Flow Rate FiO2 05/04/17 12:00 99.1 75 18 123/58 (79) 95 05/04/17 08:00 97.9 77 18 105/71 (82) 95 05/04/17 07:50 91 05/04/17 04:00 97.9 80 19 118/64 (82) 95 05/04/17 00:09 98.1 84 17 132/65 (87) 93 05/03/17 20:00 98.6 81 17 141/60 (87) 96 -: 05/04/17 0436 05/04/17 0456 Physical Exam General Appearance: Well Developed Neck Neck Exam: Neck Supple Pulmonary Resp Exam: Clear Bilaterally, Breath Sounds Equal Gastrointestinal/Abdomen GI Exam: Soft, Non-Tender, Bowel Sounds Present Extremeties Extremities Exam: Moderate Edema Extremeties Remarks rt foot wound Neurologic Neuro Exam: Obtunded Assessment/Plan Problem List: (1) ESRD (end stage renal disease) on dialysis ICD Codes: N18.6 - End stage renal disease; Z99.2 - Dependence on renal dialysis Status: Acute Plan: she is on PD PAD s/p Angioplasty Patient initially lethargic post angioplasty - Given Versed and Fentanyl for sedation, was also previously given [place] (hyrdocodone). Given narcan and flumazenil yesterday. Somnelence improved today. New finding of small acute CVA Thursday, seen with neurology. Continues with PD now, tolerating PD. Has refused hemodialysis in past (considered for sodium thiosulfate for calciphylaxis) - foot wound improving per podiatry now, s/p OIL REFINER/ atherectomy. Meanwhile control PTH/PO4 with medications Continue with peritoneal dialysis for now. 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
[2017-05-04] MEDS: LACTULOSE SYRUP 20 GM/30 ML CUP PO PRN (17:25)
[2017-05-04] MEDS: INSULIN DETEMIR 100 UNITS/ML VIAL SQ SCH (20:19)
[2017-05-05] VITALS (11 sets, daily range): BP systolic 108–129; BP diastolic 54–66; PULSE 70–89; RESP 18–19; TEMP 97.6–98.3; O2SAT 94–99
[2017-05-05] MEDS: LEVOTHYROXINE SODIUM 100 MCG TAB PO SCH (04:51)
[2017-05-05 06:35] LABS: AUTOMATED NEUTROPHIL # 9.6 TH/MM3 (1.8-7.7); BASOPHIL # 0.1 TH/MM3 (0-0.2); BASOPHIL % 0.8 % (0.0-2.0); EOSINOPHIL # 0.5 TH/MM3 (0-0.4); EOSINOPHIL % 4.6 % (0.0-4.0); HEMOGLOBIN 11.2 GM/DL (11.6-15.3); LYMPHOCYTE # 0.8 TH/MM3 (1.0-4.8); MEAN CELL VOLUME 103.7 FL (80.0-100.0); MEAN CORPUSCULAR HGB CONC 32.8 % (32.0-36.0); MEAN PLATELET VOLUME 7.9 FL (7.0-11.0); MONO % 6.1 % (0.0-8.0); MONOCYTE # 0.7 TH/MM3 (0-0.9); NEUT % 81.5 % (16.0-70.0); PLATELET COUNT 279 TH/MM3 (150-450); RED BLOOD COUNT 3.28 MIL/MM3 (4.00-5.30); RED CELL DISTRIBUTION WIDTH 17.9 % (11.6-17.2); WHITE BLOOD COUNT 11.7 TH/MM3 (4.0-11.0)
[2017-05-05 06:54] LABS: BICARBONATE 26.3 MEQ/L (21.0-32.0); CALCIUM 8.7 MG/DL (8.5-10.1)
[2017-05-05 07:01] LABS: CREATININE 11.21 MG/DL (0.50-1.00)
[2017-05-05] MEDS: INSULIN ASPART SUPPLEMENTAL SCALE SQ SCH ×4 (08:00→21:15)
[2017-05-05] MEDS: SODIUM CHLORIDE 0.9% FLUSH 10 ML FLUSH IV FLUSH SCH ×2 (09:00→21:08)
[2017-05-05] MEDS: COLLAGENASE OINT 30 GM TUBE TOPICAL SCH (09:00)
--- NOTE | 2017-05-05 09:13 | HHI.FPPN ---
Subjective Remarks Patient seen and examined this morning. Patient was feeling much better and reportedly back to baseline. She answered all questions appropriately and was conversive. She had one bowel movement last night and is tolerating meals. She is ambulating well with walker, working with physical therapy and walked several time down [place] yesterday. She occasionally has sharp shooting neuropathic pain down right leg, pain tolerated with Tylenol. No other complaints. Objective Vitals Vital Signs Date Time Temp Pulse Resp B/P (MAP) Pulse Ox O2 Delivery O2 Flow Rate FiO2 05/05/17 04:39 97.6 80 18 108/60 (76) 94 05/05/17 04:00 Nasal Cannula 2.00 05/05/17 04:00 89 05/05/17 00:00 Nasal Cannula 2.00 05/04/17 23:52 98.3 81 18 106/59 (75) 93 05/04/17 20:20 97.9 78 18 123/59 (80) 91 05/04/17 20:00 Nasal Cannula 2.00 05/04/17 20:00 77 05/04/17 18:10 95 2.00 05/04/17 17:20 20 05/04/17 16:00 97.3 64 18 136/56 (82) 64 05/04/17 12:00 99.1 75 18 123/58 (79) 95 I/O 05/04/17 05/04/17 05/04/17 05/05/17 05/05/17 05/05/17 07:00 15:00 23:00 07:00 15:00 23:00 Intake Total 240 ml 240 ml 120 ml Output Total 200 ml Balance 40 ml 240 ml 120 ml Intake Oral 240 ml 240 ml 120 ml Output Urine Total 200 ml # Voids 2 1 # Bowel Movements 0 1 Result Diagram: 05/05/17 0520 05/05/17 0520 Objective Remarks GENERAL: Sitting up in bed, alert and oriented to person, time and place. CARDIOVASCULAR: Regular rate and rhythm. S1 and S2 heard. No murmurs or extra beats. RESPIRATORY: No accessory muscle use. Clear breath sounds, decreased at bases. No wheezing. GASTROINTESTINAL: Abdomen soft, non-tender, nondistended. Diminished bowel sounds. MUSCULOSKELETAL: Right dorsal foot wrapped in bandage, no swelling, warm, stable , improved coloration. tenderness upon palpation of Right foot. trace edema bilaterally. NEUROLOGICAL: Awake. Oriented to person, place. No focal neurologic deficits noted on exam. Equal electrical research engineer strength, equal strength raising legs off bed. No cranial nerve deficits appreciated. A/P Assessment and Plan 66 year old female being admitted with sepsis due to right foot cellulitis, vs calciphylaxis. Patient is POD #5 of Bilateral lower leg revascularization surgery. CT head done on 05/01 normal, MRI done on 05/02 showed small acute stroke on the left parietal lobe. MRA on 05/03 normal. Patient hemodynamically stable and shows no neurologic deficits. Discharge Planning Wound workup cleared by podiatry/vascular for follow-up outpatient. Shows clinical improvement of neuro status Will need evaluation by PT to determine if discharge to rehab facility is needed. Attending Attestation Note Written by Marianne Yancey MS4 [employer] COM Reviewed by Chema Bush, PGY1 Problem List: (1) Wound, open, foot ICD Codes: S91.309A - Unspecified open wound, unspecified foot, initial encounter Plan: Podiatry consulted-appreciate recs -Santyl debridement -F/u outpatient and with home health Vascular surgery were consulted for evaluation -R LE angiogram 04/30 -LE perfusion improved since revascularization surgery. -May require repeat angiography at some point - Weight bearing as tolerated Nephrology following, - Previously it was recommended pt switch to HD for improvement of calciphylaxis, but pt declined HD at that time. Patient has negative association with HD because her father the day after receiving HD. She previously stated she will like to see outcome of vascular procedure first before deciding to proceed with HD. -CT brain w/o contrast on 03/31 due to pt's AMS/lethargic state showed: no acute intracranial abnormality -Patient continues to receive peritoneal dialysis daily. BUN stable Will need placement to rehab upon discharge Patient appears well hydrated, hold IV fluids given ESRD Pain tolerated with Tylenol (2) CVA (cerebral vascular accident) ICD Codes: I63.9 - Cerebral infarction, unspecified Status: Acute Plan: Patient s/p revascularization procedure on 04/30. AMS improving, today back to baseline POD# 5 BL AYO atherectomy and angioplasty -No neurological deficits on exam -CT brain w/o contrast done on 03/31 due to pt's AMS/lethargic state showed: no acute intracranial abnormality -Patient received narcan x3 with temporary improvement in mental status -pain tolerated with Tylenol. Due to patient's continued AMS on 05/02 an MRI was ordered and results showed a small acute stroke on the left parietal lobe. STAT neuro consult and page was done. Patient altered mental status likely due to combination of incomplete clearance of anesthesia medication and acute stroke. Neurology consulted 05/02, appreciate recommendations -MRI brain: Small 8mm focal acute infarction involving the posterior left parietal lobe adjacent to the posterior horn of the left lateral ventricle.Bilateral cortical atrophy and chronic white matter changes. -Carotid u/s: Right >70% stenosis, Left 50-69% stenosis.Severe atherosclerotic disease in carotid bulbs and proximal internal carotids BL. Consider carotid CTA. -MRA 05/03 results: There is excellent visualization of the major intracranial arteries out to the second-order branch vessels. There is no evidence for aneurysm, vessel truncation or stenosis, and no evidence for vascular malformation. -Encephalopathy was likely multifactorial -Continue aspirin. - Small stroke itself not likely a factor in terms of her encephalopathy - neurology recommends CTA of neck however vascular surgery does not believe a CTA of neck is needed. Will discuss with patient, and medicine team. (3) ESRD (end stage renal disease) on dialysis ICD Codes: N18.6 - End stage renal disease; Z99.2 - Dependence on renal dialysis Status: Acute Plan: Continue peritoneal dialysis daily nephrology consulted -Offered hemodialysis, for improvement of calciphylaxis. Pt declined at this time. -Sensipar 90mg daily Continue home renvela (4) Diabetes mellitus type 2, insulin dependent ICD Codes: E11.9 - Diabetes mellitus type 2, insulin dependent; Z79.4 - ad terminal makeup operator (current) use of insulin Status: Chronic Plan: Will give 1/2 home dose Levemir 29 units hs Accuchecks achs Low-dose ISS (5) Hyperphosphatemia ICD Codes: E83.39 - Other disorders of phosphorus metabolism Plan: Continue Renvela Continue peritoneal dialysis daily -see plan for Right foot wound (6) Nutrition, metabolism, and development symptoms ICD Codes: R63.8 - Other symptoms and signs concerning food and fluid intake Plan: Fluids: per PO Electrolytes: continue to monitor, PD daily. Nutrition: 1800 ADA DVT ppx: Heparin 5000 units q12h GI ppx: Protonix PO daily Problem Qualifiers (1) Wound, open, foot: Qualified Codes: S91.301A - Unspecified open wound, right foot, initial encounter (2) CVA (cerebral vascular accident): Chema Bush MD, R1 May 05, 2017 09:13
[2017-05-05] MEDS: CALCITRIOL 0.25 MCG CAP PO SCH (09:15)
[2017-05-05] MEDS: SEVELAMER CARBONATE 800 MG TAB PO SCH ×3 (09:15→16:16)
[2017-05-05] MEDS: CHOLECALCIFEROL (VIT D3) 5000 UNIT CAP PO SCH (09:16)
[2017-05-05] MEDS: CINACALCET HYDROCHLORIDE 30 MG TAB PO SCH (09:16)
[2017-05-05] MEDS: FUROSEMIDE 40 MG TAB PO SCH ×2 (09:16→21:07)
[2017-05-05] MEDS: PANTOPRAZOLE SOD 20 MG DELAYED RELEASE TAB PO SCH (09:16)
[2017-05-05] MEDS: ASPIRIN 325 MG TAB PO SCH (09:16)
[2017-05-05] MEDS: POTASSIUM CHLORIDE 8 MEQ CONTROLLED RELEASE TAB PO SCH (09:16)
[2017-05-05] MEDS: DOCUSATE SODIUM 50 MG/SENNA 8.6 MG TAB PO SCH ×2 (09:16→21:07)
[2017-05-05] MEDS: MIDODRINE 5 MG TAB PO SCH ×2 (09:17→21:07)
[2017-05-05] MEDS: HEPARIN SODIUM - SQ 10,000 UNITS/ML VIAL SQ SCH ×2 (09:17→21:08)
[2017-05-05] MEDS: ACETAMINOPHEN 325 MG TAB PO PRN ×3 (09:18→21:15)
--- NOTE | 2017-05-05 11:03 | PD.VS.PN ---
Subjective POD #: 5 Procedure(s): Aortogram w/ R LE angiogram R AYO atherectomy and CAR COOPER L AYO atherectomy and CAR COOPER L RANGE MANAGER Angioseal Subjective/Hospital Course POD# 5 Pt s/p R LE revascularization Pt appropriately responsive and back to baseline mental status R foot wound w/ improved healing and discoloration LE warm w/ motor intact Pt c/o intermittent R LE neuropathic pain that is relieved w/ Tylenol Pt w/ strong LE distal pulses heard via Doppler Objective Vitals/I&O Date Time Temp Pulse Resp B/P (MAP) Pulse Ox O2 Delivery O2 Flow Rate FiO2 05/05/17 08:07 98.1 71 19 129/59 (82) 95 05/05/17 04:39 97.6 80 18 108/60 (76) 94 05/05/17 04:00 Nasal Cannula 2.00 05/05/17 04:00 89 05/05/17 00:00 Nasal Cannula 2.00 05/04/17 23:52 98.3 81 18 106/59 (75) 93 05/04/17 20:20 97.9 78 18 123/59 (80) 91 05/04/17 20:00 Nasal Cannula 2.00 05/04/17 20:00 77 05/04/17 18:10 95 2.00 05/04/17 17:20 20 05/04/17 16:00 97.3 64 18 136/56 (82) 64 05/04/17 12:00 99.1 75 18 123/58 (79) 95 05/05/17 05/05/17 05/05/17 07:00 15:00 23:00 Intake Total 120 ml Balance 120 ml Exam: GENERAL: A&OX3, GCS15, NAD SKIN: B LE Warm and dry w/ motor intact R (anterior aspect of foot) ulceration intact with improved healing and discoloration R DP/PT with biphasic signals heard via Doppler MUSCULOSKELETAL: No cyanosis, or edema. Laboratory Laboratory Tests Test 05/05/17 05:20 White Blood Count 11.7 Red Blood Count 3.28 Hemoglobin 11.2 Hematocrit 34.0 Mean Corpuscular Volume 103.7 Mean Corpuscular Hemoglobin 34.0 Mean Corpuscular Hemoglobin Concent 32.8 Red Cell Distribution Width 17.9 Platelet Count 279 Mean Platelet Volume 7.9 Neutrophils (%) (Auto) 81.5 Lymphocytes (%) (Auto) 7.0 Monocytes (%) (Auto) 6.1 Eosinophils (%) (Auto) 4.6 Basophils (%) (Auto) 0.8 Neutrophils # (Auto) 9.6 Lymphocytes # (Auto) 0.8 Monocytes # (Auto) 0.7 Eosinophils # (Auto) 0.5 Basophils # (Auto) 0.1 CBC Comment DIFF FINAL Differential Comment Blood Urea Nitrogen 55 Creatinine 11.21 Random Glucose 146 Calcium Level 8.7 Sodium Level 134 Potassium Level 4.6 Chloride Level 94 Carbon Dioxide Level 26.3 Anion Gap 14 Estimat Glomerular Filtration Rate 3 Date/Time Source Procedure Growth Status 04/27/17 16:51 Blood Peripheral Aerobic Blood Culture - Final NO GROWTH IN 5 DAYS Complete 04/27/17 16:51 Blood Peripheral Anaerobic Blood Culture - Final NO GROWTH IN 5 DAYS Complete Assessment and Plan Assessment: (1) Calciphylaxis of right lower extremity with nonhealing ulcer Status: Acute Plan 66/F s/p R LE revascularization POD 5- Pt doing well Pt w/ strong multiphasic signals heard via Doppler LE warm w/ motor intact R Foot w/ improved wound healing and discoloration Plan Continue wound care Continue PT/WBAT Will Arrange out pt f/u in 3W w/ a surveillance CASSIE Petra Guerrero [facility] [phone] Problem Qualifiers (1) Calciphylaxis of right lower extremity with nonhealing ulcer: Qualified Codes: E83.59 - Other disorders of calcium metabolism; L97.911 - Non- pressure chronic ulcer of unspecified part of right lower leg limited to breakdown of skin Petra Guerrero May 05, 2017 11:03
[2017-05-05] MEDS ORDERED: ASA325 PO (13:59)
--- NOTE | 2017-05-05 14:09 | HHI.NPPN ---
Subjective History of Present Illness 66 year old with esrd PVD Additional Remarks Patient feels better Objective Data Data Vital Signs Date Time Temp Pulse Resp B/P (MAP) Pulse Ox O2 Delivery O2 Flow Rate FiO2 05/05/17 12:17 95 05/05/17 11:14 18 05/05/17 08:07 98.1 71 19 129/59 (82) 95 05/05/17 08:00 72 05/05/17 07:15 95 2.00 05/05/17 04:39 97.6 80 18 108/60 (76) 94 05/05/17 04:00 Nasal Cannula 2.00 05/05/17 04:00 89 05/05/17 00:00 Nasal Cannula 2.00 05/04/17 23:52 98.3 81 18 106/59 (75) 93 05/04/17 20:20 97.9 78 18 123/59 (80) 91 05/04/17 20:00 Nasal Cannula 2.00 05/04/17 20:00 77 05/04/17 18:10 95 2.00 05/04/17 16:00 97.3 64 18 136/56 (82) 64 05/04/17 16:00 70 -: 05/05/17 0520 05/05/17 0520 Physical Exam General Appearance: Well Developed Neck Neck Exam: Neck Supple Pulmonary Resp Exam: Clear Bilaterally, Breath Sounds Equal Gastrointestinal/Abdomen GI Exam: Soft, Non-Tender, Bowel Sounds Present Extremeties Extremities Exam: Moderate Edema Extremeties Remarks rt foot wound Neurologic Neuro Exam: Obtunded Assessment/Plan Problem List: (1) ESRD (end stage renal disease) on dialysis ICD Codes: N18.6 - End stage renal disease; Z99.2 - Dependence on renal dialysis Status: Acute Plan: she is on PD PAD s/p Angioplasty Patient initially lethargic post angioplasty - New finding of small acute CVA Thursday, seen with neurology. Continues with PD now, tolerating PD. Has refused hemodialysis in past (considered for sodium thiosulfate for calciphylaxis) - foot wound improving per podiatry now, s/p WATCHER [employer]OMAT [employer]/ atherectomy. Meanwhile control PTH/PO4 with medications Continue with peritoneal dialysis for now. continue with PD CAROTID ARTERY DISEASE: finding rt 70 % lt upto 69% (2) Diabetes mellitus type 2, insulin dependent ICD Codes: E11.9 - Diabetes mellitus type 2, insulin dependent; Z79.4 - FPC (current) use of insulin Status: Chronic Plan: Monitor blood glucose (3) Cellulitis ICD Codes: L03.90 - Cellulitis, unspecified Plan: Vancomycin was given (4) Hyperphosphatemia ICD Codes: E83.39 - Other disorders of phosphorus metabolism Plan: Sensipar increased to 90 mg continue with Renvela low phosphate diet Problem Qualifiers (1) Cellulitis: Nazanin Strickland MD May 05, 2017 14:09
--- NOTE | 2017-05-05 17:15 | HHI.PR ---
Review/Management Daily Summary 05/05 much more alert and oriented family at bedside no addtl neuro sx rehab soon prn neuro Subjective Subjective Comments No acute events reported No headache Active Medications Current Medications Medications (Trade) Dose Ordered Sig/Gianfranco Route Start Time Stop Time Status Last Admin (NS Flush) 2 ml UNSCH PRN IV FLUSH 04/27/17 19:00 (NS Flush) 2 ml BID IV FLUSH 04/27/17 21:00 05/05/17 09:00 (Tylenol) 650 mg Q4H PRN PO 04/27/17 19:00 05/05/17 16:15 (Zofran Inj) 4 mg Q6H PRN IVP 04/27/17 19:00 05/01/17 17:19 (Heparin Inj) 5,000 units Q12H SQ 04/27/17 21:00 05/05/17 09:17 (Narcan Inj) 0.4 mg UNSCH PRN IV PUSH 04/27/17 19:00 05/01/17 20:22 (Alma 5-325 Mg) 1 tab Q4H PRN PO 04/27/17 19:00 Future Hold (Alma 10-325 Mg) 1 tab Q4H PRN PO 04/27/17 19:00 Future Hold 05/01/17 10:19 (Morphine Inj) 4 mg Q4HR PRN IV PUSH 04/27/17 22:30 Future Hold 05/01/17 08:11 (Nathaly-Colace) 1 tab BID PO 04/27/17 21:00 05/05/17 09:16 (Milk Of Magnesia Liq) 30 ml Q12H PRN PO 04/27/17 19:00 (Dulcolax Supp) 10 mg DAILY PRN RECTAL 04/27/17 19:00 (Lactulose Liq) 30 ml DAILY PRN PO 04/27/17 19:00 05/04/17 17:25 (Rocaltrol) 0.5 mcg DAILY PO 04/28/17 09:00 05/05/17 09:15 (Vitamin D3) 5,000 units DAILY PO 04/28/17 09:00 05/05/17 09:16 (Lasix) 40 mg BID PO 04/27/17 21:00 05/05/17 09:16 (Synthroid) 100 mcg DAILY@0600 PO 04/28/17 06:00 05/05/17 04:51 (Proamatine) 10 mg BID PO 04/27/17 21:00 05/05/17 09:17 (KCl) 8 meq DAILY PO 04/28/17 09:00 05/05/17 09:16 (Renvela) 2,400 mg TID PO 04/28/17 09:00 05/05/17 16:16 (Protonix) 20 mg DAILY PO 04/28/17 09:00 05/05/17 09:16 (Neurontin) 900 mg HS PO 04/27/17 21:30 Future Hold 04/30/17 21:42 (Neurontin) 400 mg BID@0900,1500 PO 04/28/17 09:00 Future Hold 05/01/17 14:10 (Levemir Inj) 29 units HS SQ 04/27/17 21:15 05/04/17 20:19 (NovoLOG SUPPLEMENTAL SCALE) 1 ACHS SLIDING SCALE SQ 04/28/17 08:00 05/05/17 16:19 (D50w (Vial) Inj) 50 ml UNSCH PRN IV PUSH 04/27/17 21:30 (Glucagon Inj) 1 mg UNSCH PRN OTHER 04/27/17 21:30 (Heparin Inj) 1,000 units WITH DIALYSIS PRN XX 04/27/17 23:00 (NS Flush) 10 ml UNSCH PRN IV FLUSH 04/27/17 23:00 (Sensipar) 90 mg DAILY PO 04/29/17 09:00 05/05/17 09:16 (Santyl Oint) 1 applic DAILY TOPICAL 04/29/17 09:00 05/03/17 16:55 (Aspirin) 325 mg DAILY PO 05/02/17 18:00 05/05/17 09:16 Allergies Allergies Coded Allergies quinine (Verified Allergy, Intermediate, Rash, 04/27/17) Exam I&O / VS Vital Signs Date Time Temp Pulse Resp B/P (MAP) Pulse Ox O2 Delivery O2 Flow Rate FiO2 05/05/17 12:17 95 05/05/17 11:14 18 05/05/17 08:07 98.1 71 19 129/59 (82) 95 05/05/17 08:00 72 05/05/17 07:15 95 2.00 05/05/17 04:39 97.6 80 18 108/60 (76) 94 05/05/17 04:00 Nasal Cannula 2.00 05/05/17 04:00 89 05/05/17 00:00 Nasal Cannula 2.00 05/04/17 23:52 98.3 81 18 106/59 (75) 93 05/04/17 20:20 97.9 78 18 123/59 (80) 91 05/04/17 20:00 Nasal Cannula 2.00 05/04/17 20:00 77 05/04/17 18:10 95 2.00 Objective Micro and Labs Laboratory Tests Test 05/05/17 05:20 White Blood Count 11.7 Red Blood Count 3.28 Hemoglobin 11.2 Hematocrit 34.0 Mean Corpuscular Volume 103.7 Mean Corpuscular Hemoglobin 34.0 Mean Corpuscular Hemoglobin Concent 32.8 Red Cell Distribution Width 17.9 Platelet Count 279 Mean Platelet Volume 7.9 Neutrophils (%) (Auto) 81.5 Lymphocytes (%) (Auto) 7.0 Monocytes (%) (Auto) 6.1 Eosinophils (%) (Auto) 4.6 Basophils (%) (Auto) 0.8 Neutrophils # (Auto) 9.6 Lymphocytes # (Auto) 0.8 Monocytes # (Auto) 0.7 Eosinophils # (Auto) 0.5 Basophils # (Auto) 0.1 CBC Comment DIFF FINAL Differential Comment Blood Urea Nitrogen 55 Creatinine 11.21 Random Glucose 146 Calcium Level 8.7 Sodium Level 134 Potassium Level 4.6 Chloride Level 94 Carbon Dioxide Level 26.3 Anion Gap 14 Estimat Glomerular Filtration Rate 3 Date/Time Source Procedure Growth Status 04/27/17 16:51 Blood Peripheral Aerobic Blood Culture - Final NO GROWTH IN 5 DAYS Complete 04/27/17 16:51 Blood Peripheral Anaerobic Blood Culture - Final NO GROWTH IN 5 DAYS Complete Fred Mendez MD May 05, 2017 17:15
[2017-05-05] MEDS: INSULIN DETEMIR 100 UNITS/ML VIAL SQ SCH (21:15)
[2017-05-06] VITALS (14 sets, daily range): BP systolic 106–127; BP diastolic 57–73; PULSE 63–97; RESP 13–18; TEMP 96.8–98.5; O2SAT 92–98
[2017-05-06] MEDS: LEVOTHYROXINE SODIUM 100 MCG TAB PO SCH (05:06)
[2017-05-06] MEDS: INSULIN ASPART SUPPLEMENTAL SCALE SQ SCH ×4 (07:46→21:00)
[2017-05-06 07:49] LABS: AUTOMATED NEUTROPHIL # 8.6 TH/MM3 (1.8-7.7); BASOPHIL # 0.1 TH/MM3 (0-0.2); BASOPHIL % 0.9 % (0.0-2.0); EOSINOPHIL # 0.6 TH/MM3 (0-0.4); EOSINOPHIL % 5.8 % (0.0-4.0); HEMATOCRIT 30.6 % (35.0-46.0); HEMOGLOBIN 10.4 GM/DL (11.6-15.3); LYMPH % 5.5 % (9.0-44.0); LYMPHOCYTE # 0.6 TH/MM3 (1.0-4.8); MEAN CELL VOLUME 102.7 FL (80.0-100.0); MEAN PLATELET VOLUME 7.7 FL (7.0-11.0); MONO % 6.4 % (0.0-8.0); MONOCYTE # 0.7 TH/MM3 (0-0.9); NEUT % 81.4 % (16.0-70.0); PLATELET COUNT 260 TH/MM3 (150-450); RED BLOOD COUNT 2.98 MIL/MM3 (4.00-5.30); RED CELL DISTRIBUTION WIDTH 17.7 % (11.6-17.2); WHITE BLOOD COUNT 10.6 TH/MM3 (4.0-11.0)
[2017-05-06 08:10] LABS: CALCIUM 8.2 MG/DL (8.5-10.1); PHOSPHORUS 8.5 MG/DL (2.5-4.9)
[2017-05-06 08:16] LABS: CREATININE 10.47 MG/DL (0.50-1.00)
[2017-05-06] MEDS: CHOLECALCIFEROL (VIT D3) 5000 UNIT CAP PO SCH (08:43)
[2017-05-06] MEDS: DOCUSATE SODIUM 50 MG/SENNA 8.6 MG TAB PO SCH ×2 (08:43→21:22)
[2017-05-06] MEDS: PANTOPRAZOLE SOD 20 MG DELAYED RELEASE TAB PO SCH (08:43)
[2017-05-06] MEDS: FUROSEMIDE 40 MG TAB PO SCH ×2 (08:44→21:21)
[2017-05-06] MEDS: SODIUM CHLORIDE 0.9% FLUSH 10 ML FLUSH IV FLUSH SCH ×2 (08:44→21:22)
[2017-05-06] MEDS: ASPIRIN 325 MG TAB PO SCH (08:44)
[2017-05-06] MEDS: SEVELAMER CARBONATE 800 MG TAB PO SCH ×3 (08:44→16:44)
[2017-05-06] MEDS: HEPARIN SODIUM - SQ 10,000 UNITS/ML VIAL SQ SCH ×2 (08:44→21:21)
[2017-05-06] MEDS: POTASSIUM CHLORIDE 8 MEQ CONTROLLED RELEASE TAB PO SCH (08:44)
[2017-05-06] MEDS: CINACALCET HYDROCHLORIDE 30 MG TAB PO SCH (08:45)
[2017-05-06] MEDS: MIDODRINE 5 MG TAB PO SCH ×2 (08:45→21:22)
[2017-05-06] MEDS: CALCITRIOL 0.25 MCG CAP PO SCH (08:45)
[2017-05-06] MEDS: ACETAMINOPHEN 325 MG TAB PO PRN ×3 (08:46→21:22)
[2017-05-06] MEDS: COLLAGENASE OINT 30 GM TUBE TOPICAL SCH (08:48)
--- NOTE | 2017-05-06 09:31 | HHI.FPPN ---
Subjective Remarks Patient seen and examined this morning by team. was at bedside. She is doing well today. She woke up very confused last night, but was reassured and reoriented by nurse. She does complain of sharp shooting neuropathic pains down both legs. She noticed her right foot is red/pink but improved from the the black discoloration a few days ago. She was also concerned about the perfusion to the left leg as well and has noticed some discoloration. Patient and are agreeable that she will go to a rehab facility that accepts peritoneal dialysis patients, hopefully [facility]. She has a follow up appointment with Dr. Araya in 3 weeks. Patient and understand that carotid u/s showed stenosis and may need further workup outpatient. No other complaints, no chest pain, no shortness of breath. Patient is using IS 3x daily at least. She is ambulating well with walker. Objective Vitals Vital Signs Date Time Temp Pulse Resp B/P (MAP) Pulse Ox O2 Delivery O2 Flow Rate FiO2 05/06/17 08:08 97.9 79 18 127/59 (81) 95 05/06/17 05:10 96.8 63 14 115/73 (87) 98 05/06/17 03:45 97 05/06/17 00:47 97.6 76 13 121/69 (86) 96 05/06/17 00:00 63 05/05/17 20:50 Room Air 05/05/17 20:10 97.9 70 18 110/54 (72) 97 05/05/17 20:00 72 05/05/17 17:59 18 05/05/17 17:30 95 21 05/05/17 16:30 98.3 83 18 113/66 (82) 99 05/05/17 12:17 95 05/05/17 12:07 98.1 75 19 110/56 (74) 95 05/05/17 12:00 83 I/O 05/05/17 05/05/17 05/05/17 05/06/17 05/06/17 05/06/17 07:00 15:00 23:00 07:00 15:00 23:00 Intake Total 120 ml 420 ml Balance 120 ml 420 ml Intake Oral 120 ml 420 ml # Voids 1 1 2 # Bowel Movements 1 Result Diagram: 05/06/17 0607 05/06/17 0607 Objective Remarks GENERAL: Sitting up in bed, alert and oriented to person, time and place. Good mood and affect CARDIOVASCULAR: Regular rate and rhythm. S1 and S2 heard. No murmurs or extra beats. RESPIRATORY: No accessory muscle use. Clear breath sounds, decreased at bases. No wheezing. GASTROINTESTINAL: Abdomen soft, non-tender, nondistended. Diminished bowel sounds. MUSCULOSKELETAL: Right dorsal foot wrapped in bandage, no swelling, warm, stable , improved coloration. Tenderness upon palpation of Right foot. Left foot is normal coloration with mild venous stasis changes on dorsal surface near toes. Trace edema bilaterally. NEUROLOGICAL: No focal neurologic deficits noted on exam. No cranial nerve deficits appreciated. A/P Assessment and Plan 66 year old female admitted with sepsis due to right foot cellulitis, vs calciphylaxis. Patient is POD #6 s/p bilateral lower leg revascularization surgery. CT head done on 05/01 normal, MRI done on 05/02 showed small acute stroke on the left parietal lobe. MRA on 05/03 normal. Patient hemodynamically stable and shows no neurologic deficits. Discharge Planning Wound workup cleared by podiatry/vascular for follow-up outpatient. Shows clinical improvement of neuro status Discharge to rehab facility pending placement Attending Attestation Note written by Marianne Yancey MS4 [employer] COM Reviewed by Chema Bush, PGY-1 Problem List: (1) Wound, open, foot ICD Codes: S91.309A - Unspecified open wound, unspecified foot, initial encounter Plan: Podiatry consulted-appreciate recs -Santyl debridement -F/u outpatient Vascular surgery were consulted for evaluation -R LE angiogram 04/30 -LE perfusion improved since revascularization surgery. -May require repeat angiography at some point -Weight bearing as tolerated Nephrology following, -Previously it was recommended pt switch to HD for improvement of calciphylaxis, but pt declined HD at that time. Patient has negative association with HD because her father the day after receiving HD. She previously stated she will like to see outcome of vascular procedure first before deciding to proceed with HD. -CT brain w/o contrast on 03/31 due to pt's AMS/lethargic state showed: no acute intracranial abnormality -Patient continues to receive peritoneal dialysis daily. BUN stable Will need placement to rehab upon discharge Patient appears well hydrated, hold IV fluids given ESRD Pain tolerated with Tylenol (2) CVA (cerebral vascular accident) ICD Codes: I63.9 - Cerebral infarction, unspecified Status: Acute Plan: Patient s/p revascularization procedure on 04/30. AMS back to baseline. POD# 6 BL AYO atherectomy and angioplasty -No neurological deficits on exam -CT brain w/o contrast done on 05/01 due to pt's AMS/lethargic state showed: no acute intracranial abnormality -pain tolerated with Tylenol. Due to patient's continued AMS on 05/02 an MRI was ordered and results showed a small acute stroke on the left parietal lobe. STAT neuro consult and page was done. Patient altered mental status likely due to combination of incomplete clearance of anesthesia medication and acute stroke. Neurology consulted 05/02, appreciate recommendations -MRI brain: Small 8mm focal acute infarction involving the posterior left parietal lobe adjacent to the posterior horn of the left lateral ventricle.Bilateral cortical atrophy and chronic white matter changes. -Carotid u/s: Right >70% stenosis, Left 50-69% stenosis.Severe atherosclerotic disease in carotid bulbs and proximal internal carotids BL. Consider carotid CTA. -MRA 05/03 results: There is excellent visualization of the major intracranial arteries out to the second-order branch vessels. There is no evidence for aneurysm, vessel truncation or stenosis, and no evidence for vascular malformation. -Encephalopathy was likely multifactorial -Continue aspirin. -Small stroke itself not likely a factor in terms of her encephalopathy -Patient and would like to address carotid stenosis at a later time as outpatient with vascular surgery, Dr. Araya. (3) ESRD (end stage renal disease) on dialysis ICD Codes: N18.6 - End stage renal disease; Z99.2 - Dependence on renal dialysis Status: Acute Plan: Continue peritoneal dialysis daily nephrology consulted -Offered hemodialysis, for improvement of calciphylaxis. Pt declined at this time. -Sensipar 90mg daily Continue home renvela (4) Diabetes mellitus type 2, insulin dependent ICD Codes: E11.9 - Diabetes mellitus type 2, insulin dependent; Z79.4 - long-term (current) use of insulin Status: Chronic Plan: Will give 1/2 home dose Levemir 29 units hs Accuchecks achs Low-dose ISS (5) Hyperphosphatemia ICD Codes: E83.39 - Other disorders of phosphorus metabolism Plan: Continue Renvela Continue peritoneal dialysis daily -see plan for Right foot wound (6) Nutrition, metabolism, and development symptoms ICD Codes: R63.8 - Other symptoms and signs concerning food and fluid intake Plan: Fluids: per PO Electrolytes: continue to monitor, PD daily. Nutrition: 1800 ADA DVT ppx: Heparin 5000 units q12h GI ppx: Protonix PO daily Problem Qualifiers (1) Wound, open, foot: Qualified Codes: S91.301A - Unspecified open wound, right foot, initial encounter (2) CVA (cerebral vascular accident): Chema Bush MD, R1 May 06, 2017 09:31
[2017-05-06] MEDS: LACTULOSE SYRUP 20 GM/30 ML CUP PO PRN (15:58)
--- NOTE | 2017-05-06 19:19 | HHI.NPPN ---
Subjective History of Present Illness 66 year old with esrd PVD Additional Remarks Patient feels better Objective Data Data 05/06/17 05/07/17 19:00 07:00 Intake Total 600 ml Output Total 371 ml Balance 229 ml Intake Oral 600 ml Hemodialysis 371 ml # Voids 5 # Bowel Movements 0 Vital Signs Date Time Temp Pulse Resp B/P (MAP) Pulse Ox O2 Delivery O2 Flow Rate FiO2 05/06/17 16:19 98.4 70 16 121/59 (79) 94 05/06/17 16:00 63 05/06/17 12:23 98.3 79 18 112/57 (75) 93 05/06/17 12:00 64 05/06/17 09:58 Room Air 05/06/17 09:58 95 05/06/17 08:08 97.9 79 18 127/59 (81) 95 05/06/17 05:10 96.8 63 14 115/73 (87) 98 05/06/17 03:45 97 05/06/17 00:47 97.6 76 13 121/69 (86) 96 05/06/17 00:00 63 05/05/17 20:50 Room Air 05/05/17 20:10 97.9 70 18 110/54 (72) 97 05/05/17 20:00 72 -: 05/06/17 0607 05/06/17 0607 Physical Exam General Appearance: Well Developed Neck Neck Exam: Neck Supple Pulmonary Resp Exam: Clear Bilaterally, Breath Sounds Equal Gastrointestinal/Abdomen GI Exam: Soft, Non-Tender, Bowel Sounds Present Extremeties Extremities Exam: Moderate Edema Extremeties Remarks rt foot wound Neurologic Neuro Exam: Obtunded Assessment/Plan Problem List: (1) ESRD (end stage renal disease) on dialysis ICD Codes: N18.6 - End stage renal disease; Z99.2 - Dependence on renal dialysis Status: Acute Plan: she is on PD PAD s/p Angioplasty Patient initially lethargic post angioplasty - New finding of small acute CVA Thursday, seen with neurology. Continues with PD now, tolerating PD. Has refused hemodialysis in past (considered for sodium thiosulfate for calciphylaxis) - foot wound improving per podiatry now, s/p CSW/ atherectomy. Meanwhile control PTH/PO4 with medications Continue with peritoneal dialysis for now. continue with PD CAROTID ARTERY DISEASE: finding rt 70 % lt upto 69% slow to improve UF 371 ML (2) Diabetes mellitus type 2, insulin dependent ICD Codes: E11.9 - Diabetes mellitus type 2, insulin dependent; Z79.4 - MCFP (current) use of insulin Status: Chronic Plan: Monitor blood glucose (3) Cellulitis ICD Codes: L03.90 - Cellulitis, unspecified Plan: Vancomycin was given (4) Hyperphosphatemia ICD Codes: E83.39 - Other disorders of phosphorus metabolism Plan: Sensipar increased to 90 mg continue with Renvela low phosphate diet Problem Qualifiers (1) Cellulitis: Nazanin Strickland MD May 06, 2017 19:19
[2017-05-06] MEDS: INSULIN DETEMIR 100 UNITS/ML VIAL SQ SCH (21:22)
[2017-05-07] VITALS: PULSE 91; PULSE 95
[2017-05-07] MEDS ORDERED: TEMAZEPAM 7.5 MG CAP PO ONE (00:45)
[2017-05-07 04:00] VITALS: PULSE 66
[2017-05-07 04:22] VITALS: BP 108/63; PULSE 76; RESP 16; TEMP 97.9; O2SAT 92
[2017-05-07] MEDS: LEVOTHYROXINE SODIUM 100 MCG TAB PO SCH (04:47)
[2017-05-07 07:04] LABS: HEMATOCRIT 29.3 % (35.0-46.0); MEAN CELL VOLUME 101.3 FL (80.0-100.0); MEAN CORPUSCULAR HEMOGLOBIN 34.4 PG (27.0-34.0); MEAN PLATELET VOLUME 7.6 FL (7.0-11.0); PLATELET COUNT 268 TH/MM3 (150-450); RED BLOOD COUNT 2.89 MIL/MM3 (4.00-5.30); RED CELL DISTRIBUTION WIDTH 16.8 % (11.6-17.2); WHITE BLOOD COUNT 9.6 TH/MM3 (4.0-11.0)
[2017-05-07 07:32] LABS: BICARBONATE 26.7 MEQ/L (21.0-32.0); CALCIUM 8.1 MG/DL (8.5-10.1); CREATININE 9.83 MG/DL (0.50-1.00)
[2017-05-07 08:00] VITALS: PULSE 75
[2017-05-07] MEDS: INSULIN ASPART SUPPLEMENTAL SCALE SQ SCH ×2 (08:00→12:00)
[2017-05-07 08:08] VITALS: BP 119/58; PULSE 82; RESP 18; TEMP 97.9; O2SAT 94
[2017-05-07] MEDS: POTASSIUM CHLORIDE 8 MEQ CONTROLLED RELEASE TAB PO SCH (08:39)
[2017-05-07] MEDS: SEVELAMER CARBONATE 800 MG TAB PO SCH ×2 (08:39→12:28)
[2017-05-07] MEDS: CHOLECALCIFEROL (VIT D3) 5000 UNIT CAP PO SCH (08:39)
[2017-05-07] MEDS: CALCITRIOL 0.25 MCG CAP PO SCH (08:39)
[2017-05-07] MEDS: PANTOPRAZOLE SOD 20 MG DELAYED RELEASE TAB PO SCH (08:39)
[2017-05-07] MEDS: ASPIRIN 325 MG TAB PO SCH (08:40)
[2017-05-07] MEDS: DOCUSATE SODIUM 50 MG/SENNA 8.6 MG TAB PO SCH (08:40)
[2017-05-07] MEDS: FUROSEMIDE 40 MG TAB PO SCH (08:40)
[2017-05-07] MEDS: CINACALCET HYDROCHLORIDE 30 MG TAB PO SCH (08:40)
[2017-05-07] MEDS: MIDODRINE 5 MG TAB PO SCH (08:40)
[2017-05-07] MEDS: COLLAGENASE OINT 30 GM TUBE TOPICAL SCH (08:41)
[2017-05-07] MEDS: SODIUM CHLORIDE 0.9% FLUSH 10 ML FLUSH IV FLUSH SCH (08:41)
[2017-05-07] MEDS: HEPARIN SODIUM - SQ 10,000 UNITS/ML VIAL SQ SCH (08:41)
[2017-05-07] MEDS: ACETAMINOPHEN 325 MG TAB PO PRN ×2 (08:42→12:32)
--- NOTE | 2017-05-07 11:03 | HHI.FPPN ---
Subjective Remarks Patient seen and examined by team. was at bedside. Patient is feeling well, ambulated halls today. Pain controlled with Tylenol. No acute events overnight. Waiting rehab placement. Objective Vitals Vital Signs Date Time Temp Pulse Resp B/P (MAP) Pulse Ox O2 Delivery O2 Flow Rate FiO2 05/07/17 08:08 97.9 82 18 119/58 (78) 94 05/07/17 08:00 75 05/07/17 07:08 Room Air 05/07/17 04:22 97.9 76 16 108/63 (78) 92 05/07/17 04:00 66 05/07/17 00:00 95 05/06/17 23:15 98.2 79 16 106/57 (73) 92 05/06/17 21:55 96 05/06/17 20:00 91 05/06/17 19:44 98.5 89 18 112/59 (76) 96 05/06/17 19:30 95 Room Air 05/06/17 16:19 98.4 70 16 121/59 (79) 94 05/06/17 16:00 63 05/06/17 12:23 98.3 79 18 112/57 (75) 93 05/06/17 12:00 64 I/O 05/06/17 05/06/17 05/06/17 05/07/17 05/07/17 05/07/17 07:00 15:00 23:00 07:00 15:00 23:00 Intake Total 600 ml 240 ml Output Total 371 ml Balance -371 ml 600 ml 240 ml Intake Oral 600 ml 240 ml Hemodialysis 371 ml # Voids 2 5 1 # Bowel Movements 0 0 Result Diagram: 05/07/17 0615 05/07/17 0615 Objective Remarks GENERAL: Sitting up in chair, alert and oriented to person, time and place. Good mood and affect CARDIOVASCULAR: Regular rate and rhythm. S1 and S2 heard. No murmurs or extra beats. RESPIRATORY: No accessory muscle use. Clear breath sounds, decreased at bases. No wheezing. GASTROINTESTINAL: Abdomen soft, non-tender, nondistended. Diminished bowel sounds. MUSCULOSKELETAL: Right dorsal foot wrapped in bandage. Trace edema bilaterally. NEUROLOGICAL: No focal neurologic deficits noted on exam. No cranial nerve deficits appreciated. A/P Assessment and Plan 66 year old female admitted with sepsis due to right foot cellulitis, vs calciphylaxis. Patient is POD #7 s/p bilateral lower leg revascularization surgery. CT head done on 05/01 normal, MRI done on 05/02 showed small acute stroke on the left parietal lobe. MRA on 05/03 normal. Patient hemodynamically stable and shows no neurologic deficits. Discharge Planning Wound workup cleared by podiatry/vascular for follow-up outpatient. Discharge to rehab facility pending placement Attending Attestation Note Written by Marianne Yancey MS4 [facility] COM Patient seen and discussed with Dr. White. Problem List: (1) Wound, open, foot ICD Codes: S91.309A - Unspecified open wound, unspecified foot, initial encounter Plan: Podiatry consulted-appreciate recs -Santyl debridement -F/u outpatient Vascular surgery were consulted for evaluation -R LE angiogram 04/30 -LE perfusion improved since revascularization surgery. -May require repeat angiography at some point -Weight bearing as tolerated Nephrology following, -Previously it was recommended pt switch to HD for improvement of calciphylaxis, but pt declined HD at that time. Patient has negative association with HD because her father the day after receiving HD. She previously stated she will like to see outcome of vascular procedure first before deciding to proceed with HD. -CT brain w/o contrast on 03/31 due to pt's AMS/lethargic state showed: no acute intracranial abnormality -Patient continues to receive peritoneal dialysis daily. BUN stable Will need placement to rehab upon discharge Patient appears well hydrated, hold IV fluids given ESRD Pain tolerated with Tylenol (2) CVA (cerebral vascular accident) ICD Codes: I63.9 - Cerebral infarction, unspecified Status: Acute Plan: Patient s/p revascularization procedure on 04/30. AMS back to baseline. POD# 7 BL AYO atherectomy and angioplasty -No neurological deficits on exam -CT brain w/o contrast done on 05/01 due to pt's AMS/lethargic state showed: no acute intracranial abnormality -Pain tolerated with Tylenol. Due to patient's continued AMS on 05/02 an MRI was ordered and results showed a small acute stroke on the left parietal lobe. STAT neuro consult and page was done. Patient altered mental status likely due to combination of incomplete clearance of anesthesia medication and acute stroke. Neurology consulted 05/02, appreciate recommendations -MRI brain: Small 8mm focal acute infarction involving the posterior left parietal lobe adjacent to the posterior horn of the left lateral ventricle.Bilateral cortical atrophy and chronic white matter changes. -Carotid u/s: Right >70% stenosis, Left 50-69% stenosis.Severe atherosclerotic disease in carotid bulbs and proximal internal carotids BL. Consider carotid CTA. -MRA 05/03 results: There is excellent visualization of the major intracranial arteries out to the second-order branch vessels. There is no evidence for aneurysm, vessel truncation or stenosis, and no evidence for vascular malformation. -Encephalopathy was likely multifactorial -Continue aspirin. -Small stroke itself not likely a factor in terms of her encephalopathy -Patient and would like to address carotid stenosis at a later time as outpatient with vascular surgery, Dr. Araya. (3) ESRD (end stage renal disease) on dialysis ICD Codes: N18.6 - End stage renal disease; Z99.2 - Dependence on renal dialysis Status: Acute Plan: Continue peritoneal dialysis daily nephrology consulted -Offered hemodialysis, for improvement of calciphylaxis. Pt declined at this time. -Sensipar 90mg daily Continue home renvela (4) Diabetes mellitus type 2, insulin dependent ICD Codes: E11.9 - Diabetes mellitus type 2, insulin dependent; Z79.4 - FPC (current) use of insulin Status: Chronic Plan: Will give 1/2 home dose Levemir 29 units hs Accuchecks achs Low-dose ISS (5) Hyperphosphatemia ICD Codes: E83.39 - Other disorders of phosphorus metabolism Plan: Continue Renvela Continue peritoneal dialysis daily -see plan for Right foot wound (6) Nutrition, metabolism, and development symptoms ICD Codes: R63.8 - Other symptoms and signs concerning food and fluid intake Plan: Fluids: per PO Electrolytes: continue to monitor, PD daily. Nutrition: 1800 ADA DVT ppx: Heparin 5000 units q12h GI ppx: Protonix PO daily Problem Qualifiers (1) Wound, open, foot: Qualified Codes: S91.301A - Unspecified open wound, right foot, initial encounter (2) CVA (cerebral vascular accident): Chema Bush MD, R1 May 07, 2017 11:02
--- NOTE | 2017-05-07 11:38 | PD.VS.PN ---
Subjective POD #: 7 Procedure(s): Aortogram w/ R LE angiogram R AYO atherectomy and COAL PASSER L AYO atherectomy and [employer] [facility] Angioseal Subjective/Hospital Course POD# 7 Pt s/p R LE revascularization R foot wound stable w/ improved healing and discoloration LE warm w/ motor intact Pt continues w/ strong LE distal pulses heard via Doppler Objective Vitals/I&O Date Time Temp Pulse Resp B/P (MAP) Pulse Ox O2 Delivery O2 Flow Rate FiO2 05/07/17 08:08 97.9 82 18 119/58 (78) 94 05/07/17 08:00 75 05/07/17 07:08 Room Air 05/07/17 04:22 97.9 76 16 108/63 (78) 92 05/07/17 04:00 66 05/07/17 00:00 95 05/06/17 23:15 98.2 79 16 106/57 (73) 92 05/06/17 21:55 96 05/06/17 20:00 91 05/06/17 19:44 98.5 89 18 112/59 (76) 96 05/06/17 19:30 95 Room Air 05/06/17 16:19 98.4 70 16 121/59 (79) 94 05/06/17 16:00 63 05/06/17 12:23 98.3 79 18 112/57 (75) 93 05/06/17 12:00 64 05/07/17 05/07/17 05/07/17 07:00 15:00 23:00 Intake Total 240 ml Balance 240 ml Exam: GENERAL: A&OX3, GCS15, NAD SKIN: B LE Warm and dry w/ motor intact R (anterior aspect of foot) ulceration intact with improved healing and discoloration R DP/PT with biphasic signals heard via Doppler MUSCULOSKELETAL: No cyanosis, or edema. Laboratory Laboratory Tests Test 05/07/17 06:15 White Blood Count 9.6 Red Blood Count 2.89 Hemoglobin 10.0 Hematocrit 29.3 Mean Corpuscular Volume 101.3 Mean Corpuscular Hemoglobin 34.4 Mean Corpuscular Hemoglobin Concent 34.0 Red Cell Distribution Width 16.8 Platelet Count 268 Mean Platelet Volume 7.6 Blood Urea Nitrogen 57 Creatinine 9.83 Random Glucose 100 Calcium Level 8.1 Sodium Level 134 Potassium Level 4.0 Chloride Level 95 Carbon Dioxide Level 26.7 Anion Gap 12 Estimat Glomerular Filtration Rate 4 Date/Time Source Procedure Growth Status 04/27/17 16:51 Blood Peripheral Aerobic Blood Culture - Final NO GROWTH IN 5 DAYS Complete 04/27/17 16:51 Blood Peripheral Anaerobic Blood Culture - Final NO GROWTH IN 5 DAYS Complete Assessment and Plan Assessment: (1) Calciphylaxis of right lower extremity with nonhealing ulcer Status: Acute Plan 66/F S/P R LE revascularization POD 7- Pt doing well awaiting placement to [facility] LE warm w/ motor intact R Foot w/ improved wound healing and discoloration Plan Continue wound care Continue PT/WBAT Arranged out pt f/u in 3W w/ a surveillance CASSIE Guerrero [facility] [phone] Problem Qualifiers (1) Calciphylaxis of right lower extremity with nonhealing ulcer: Qualified Codes: E83.59 - Other disorders of calcium metabolism; L97.911 - Non- pressure chronic ulcer of unspecified part of right lower leg limited to breakdown of skin Petra Guerrero May 07, 2017 11:38
[2017-05-07 12:08] VITALS: BP 125/58; PULSE 72; RESP 18; TEMP 97.9; O2SAT 95
--- NOTE | 2017-05-07 13:16 | HHI.DCPOC ---
Discharge Care Plan Diagnosis: (1) CVA (cerebral vascular accident) (2) Wound, open, foot (3) Calciphylaxis of right lower extremity with nonhealing ulcer (4) Type 2 diabetes mellitus with diabetic peripheral angiopathy without gangrene (5) ESRD (end stage renal disease) on dialysis (6) Renal failure treated with peritoneal dialysis Goals to Promote Your Health * To prevent worsening of your condition and complications * To maintain your health at the optimal level Directions to Meet Your Goals Take your medications as prescribed Follow your dietary instruction Follow activity as directed Keep your appointments as scheduled Take your immunizations and boosters as scheduled If your symptoms worsen call your PCP, if no PCP go to Urgent Care Center or Emergency Room Smoking is Dangerous to Your Health. Avoid second hand smoke Call the 24-hour hour crisis hotline for domestic abuse at Chema Bush MD, R1 May 07, 2017 13:16
--- NOTE | 2017-05-07 21:49 | HHI.DS ---
Discharge Summary Admission Date Apr 27, 2017 at 18:27 Discharge Date: May 07, 2017 Admitting Diagnosis (1) Wound, open, foot Plan: Podiatry consulted-appreciate recs -Santyl debridement -F/u outpatient Vascular surgery were consulted for evaluation -R LE angiogram 04/30 -LE perfusion improved since revascularization surgery. -May require repeat angiography at some point -Weight bearing as tolerated Nephrology following, -Previously it was recommended pt switch to HD for improvement of calciphylaxis, but pt declined HD at that time. Patient has negative association with HD because her father the day after receiving HD. She previously stated she will like to see outcome of vascular procedure first before deciding to proceed with HD. -CT brain w/o contrast on 03/31 due to pt's AMS/lethargic state showed: no acute intracranial abnormality -Patient continues to receive peritoneal dialysis daily. BUN stable Will need placement to rehab upon discharge Patient appears well hydrated, hold IV fluids given ESRD Pain tolerated with Tylenol ICD Codes: S91.309A - Unspecified open wound, unspecified foot, initial encounter (2) CVA (cerebral vascular accident) Plan: Patient s/p revascularization procedure on 04/30. AMS back to baseline. POD# 7 BL AYO atherectomy and angioplasty -No neurological deficits on exam -CT brain w/o contrast done on 05/01 due to pt's AMS/lethargic state showed: no acute intracranial abnormality -Pain tolerated with Tylenol. Due to patient's continued AMS on 05/02 an MRI was ordered and results showed a small acute stroke on the left parietal lobe. STAT neuro consult and page was done. Patient altered mental status likely due to combination of incomplete clearance of anesthesia medication and acute stroke. Neurology consulted 05/02, appreciate recommendations -MRI brain: Small 8mm focal acute infarction involving the posterior left parietal lobe adjacent to the posterior horn of the left lateral ventricle.Bilateral cortical atrophy and chronic white matter changes. -Carotid u/s: Right >70% stenosis, Left 50-69% stenosis.Severe atherosclerotic disease in carotid bulbs and proximal internal carotids BL. Consider carotid CTA. -MRA 05/03 results: There is excellent visualization of the major intracranial arteries out to the second-order branch vessels. There is no evidence for aneurysm, vessel truncation or stenosis, and no evidence for vascular malformation. -Encephalopathy was likely multifactorial -Continue aspirin. -Small stroke itself not likely a factor in terms of her encephalopathy -Patient and would like to address carotid stenosis at a later time as outpatient with vascular surgery, Dr. Araya. ICD Codes: I63.9 - Cerebral infarction, unspecified Status: Acute (3) ESRD (end stage renal disease) on dialysis Plan: Continue peritoneal dialysis daily nephrology consulted -Offered hemodialysis, for improvement of calciphylaxis. Pt declined at this time. -Sensipar 90mg daily Continue home renvela ICD Codes: N18.6 - End stage renal disease; Z99.2 - Dependence on renal dialysis Status: Acute (4) Diabetes mellitus type 2, insulin dependent Plan: Will give 1/2 home dose Levemir 29 units hs Accuchecks achs Low-dose ISS ICD Codes: E11.9 - Diabetes mellitus type 2, insulin dependent; Z79.4 - long term (current) use of insulin Status: Chronic (5) Hyperphosphatemia Plan: Continue Renvela Continue peritoneal dialysis daily -see plan for Right foot wound ICD Codes: E83.39 - Other disorders of phosphorus metabolism (6) Nutrition, metabolism, and development symptoms Plan: Fluids: per PO Electrolytes: continue to monitor, PD daily. Nutrition: 1800 ADA DVT ppx: Heparin 5000 units q12h GI ppx: Protonix PO daily ICD Codes: R63.8 - Other symptoms and signs concerning food and fluid intake Brief History The patient is a pleasant 66 year old woman with PMH significant for ESRD on peritoneal dialysis, IDDM, hypotension, hypothyroidism, peripheral neuropathy sent to the ED after being evaluated in the [facility] acutes clinic earlier today for a right food wound. The patient states she first noticed her right foot wound about one month ago but it did not significantly worsen or change in character until about 2 weeks ago. The patient states she was previously given prescriptions for Keflex and Bactrim, however did not complete these courses due to being started on a different antibiotic and being advised to stop her previous abx treatment. The patient was most recently given a prescription for Levaquin, she states she has one tablet left of this and was due to take this today. She reports right foot pain at a 9/10. She is still able to bear weight on the foot an ambulate but this exacerbates the pain. She denies any drainage of pus or bleeding. She denies a history of cellulitis or abscesses or MRSA. She denies any trauma to the right foot or history of any puncture. The patient reports she is also taking gabapentin 400 mg twice daily and 900 mg at night in addition to her other chronic medications. CBC/BMP: 05/07/17 0615 05/07/17 0615 Significant Findings Laboratory Tests Test 05/05/17 05:20 05/06/17 06:07 05/07/17 06:15 White Blood Count 11.7 TH/MM3 (4.0-11.0) Red Blood Count 3.28 MIL/MM3 (4.00-5.30) 2.98 MIL/MM3 (4.00-5.30) 2.89 MIL/MM3 (4.00-5.30) Hemoglobin 11.2 GM/DL (11.6-15.3) 10.4 GM/DL (11.6-15.3) 10.0 GM/DL (11.6-15.3) Hematocrit 34.0 % (35.0-46.0) 30.6 % (35.0-46.0) 29.3 % (35.0-46.0) Mean Corpuscular Volume 103.7 FL (80.0-100.0) 102.7 FL (80.0-100.0) 101.3 FL (80.0-100.0) Red Cell Distribution Width 17.9 % (11.6-17.2) 17.7 % (11.6-17.2) Neutrophils (%) (Auto) 81.5 % (16.0-70.0) 81.4 % (16.0-70.0) Lymphocytes (%) (Auto) 7.0 % (9.0-44.0) 5.5 % (9.0-44.0) Eosinophils (%) (Auto) 4.6 % (0.0-4.0) 5.8 % (0.0-4.0) Neutrophils # (Auto) 9.6 TH/MM3 (1.8-7.7) 8.6 TH/MM3 (1.8-7.7) Lymphocytes # (Auto) 0.8 TH/MM3 (1.0-4.8) 0.6 TH/MM3 (1.0-4.8) Eosinophils # (Auto) 0.5 TH/MM3 (0-0.4) 0.6 TH/MM3 (0-0.4) Blood Urea Nitrogen 55 MG/DL (7-18) 57 MG/DL (7-18) 57 MG/DL (7-18) Creatinine 11.21 MG/DL (0.50-1.00) 10.47 MG/DL (0.50-1.00) 9.83 MG/DL (0.50-1.00) Random Glucose 146 MG/DL (74-106) 109 MG/DL (74-106) Sodium Level 134 MEQ/L (136-145) 132 MEQ/L (136-145) 134 MEQ/L (136-145) Chloride Level 94 MEQ/L (98-107) 93 MEQ/L (98-107) 95 MEQ/L (98-107) Estimat Glomerular Filtration Rate 3 ML/MIN (>89) 4 ML/MIN (>89) 4 ML/MIN (>89) Mean Corpuscular Hemoglobin 35.0 PG (27.0-34.0) 34.4 PG (27.0-34.0) Calcium Level 8.2 MG/DL (8.5-10.1) 8.1 MG/DL (8.5-10.1) Phosphorus Level 8.5 MG/DL (2.5-4.9) PE at Discharge GENERAL: Sitting up in chair, alert and oriented to person, time and place. Good mood and affect CARDIOVASCULAR: Regular rate and rhythm. S1 and S2 heard. No murmurs or extra beats. RESPIRATORY: No accessory muscle use. Clear breath sounds, decreased at bases. No wheezing. GASTROINTESTINAL: Abdomen soft, non-tender, nondistended. Diminished bowel sounds. MUSCULOSKELETAL: Right dorsal foot wrapped in bandage. Trace edema bilaterally. NEUROLOGICAL: No focal neurologic deficits noted on exam. No cranial nerve deficits appreciated. Pt Condition on Discharge: Stable Discharge Disposition: Rehab Inpatient Discharge Instructions DIET: Follow Instructions for: Renal Failure Diet Activities you can perform: Weight Bearing as Chema Thompson MD, R1 May 07, 2017 21:48
== END 2017-05-07 16:16 | DRG 270 ==
LOC: NEPC 15:45 → NEDA 18:27 → N04B 20:52
PROVIDERS: ADMIT Family Medicine; ATTEND Family Medicine
PROC: 3E1M39Z Irrigation of Peritoneal Cavity using Dialysate, Percutaneous Approach (ICD-10-PCS; 2017-04-28)
PROC: 04CC3ZZ Extirpation of Matter from Right Common Iliac Artery, Percutaneous Approach (ICD-10-PCS; 2017-04-30)
PROC: 047D3ZZ Dilation of Left Common Iliac Artery, Percutaneous Approach (ICD-10-PCS; 2017-04-30)
PROC: 047C3ZZ Dilation of Right Common Iliac Artery, Percutaneous Approach (ICD-10-PCS; 2017-04-30)
PROC: B4101ZZ Fluoroscopy of Abdominal Aorta using Low Osmolar Contrast (ICD-10-PCS; 2017-04-30)
PROC: 04CD3ZZ Extirpation of Matter from Left Common Iliac Artery, Percutaneous Approach (ICD-10-PCS; principal; 2017-04-30 14:30)
DX: E11.51 Type 2 diabetes mellitus with diabetic peripheral angiopathy without gangrene (principal); N18.6 End stage renal disease; G93.49 Other encephalopathy; E11.22 Type 2 diabetes mellitus with diabetic chronic kidney disease; I12.0 Hypertensive chronic kidney disease with stage 5 chronic kidney disease or end stage renal disease; N25.81 Secondary hyperparathyroidism of renal origin; L03.115 Cellulitis of right lower limb; E11.621 Type 2 diabetes mellitus with foot ulcer; I63.9 Cerebral infarction, unspecified; E83.59 Other disorders of calcium metabolism; Z99.2 Dependence on renal dialysis; E11.42 Type 2 diabetes mellitus with diabetic polyneuropathy; E03.9 Hypothyroidism, unspecified; L97.519 Non-pressure chronic ulcer of other part of right foot with unspecified severity; E83.39 Other disorders of phosphorus metabolism; I65.23 Occlusion and stenosis of bilateral carotid arteries; Z79.4 Long term (current) use of insulin; Z68.41 Body mass index [BMI] 40.0-44.9, adult; E66.9 Obesity, unspecified; Z87.891 Personal history of nicotine dependence
CPT/HCPCS: 37220; 37222; 70450; 70544; 70551; 73630; 75625; 75716; 80048; 80053; 80061; 82948; 83036; 83970; 84100; 85025; 85027; 85610; 85730; 87040; 90935; 93306; 93880; 93923; 94150; 99152; 99153; 99285; C1714; C1725; C1760; C1769; C1887; C1893; G0269; J1170; J1644; J1815; J2250; J2270; J2310; J2405; J2720; J3010; J3370; J7050; Q9967

== ENCOUNTER 2017-06-09 12:05 | Inpatient (IN) | payer MEDICARE, OTHER ==
[~2017-06-09] VITALS: Ht 162.6 cm; Wt 104.2 kg
[~2017-06-09 12:05] MED LIST changes: +ACET325T15 PO; +ALPR.25 PO; +ASA325 PO; -BACT800T5 PO; +BENA25CA4 PO; +DEXAMETHASONE SOD PHOS 4 MG/ML VIAL IV ONE; +GABA100C4 PO; +GETGO ROLLING W1 MI1; +GLYCOPYRROLATE 1 MG/5 ML SYRINGE IV PUSH ONE; +IOHEXOL 300 MG/ML 50 ML BTL (for RAD DIAG) IVCONTRAST ONE; +LIDOCAINE HCL 1% PF 5 ML SYRINGE OTHER ONE; -MUPI2%T TOPICAL; +NEOSTIGMINE 5 MG/5 ML SYRINGE IV PUSH ONE; +NOVOLOGSS SQ; +ONDANSETRON HCL 4 MG/2 ML VIAL IV ONE; +PHENYLEPH/NS 1000 MCG/10 ML SYR IV ONE; +PHENYLEPHRINE HCL 10 MG/ML VIAL IV ONE; +PROPOFOL 200 MG/20 ML AMP IV ONE; +REST15CA PO; +ROCURONIUM INJ 50 MG/5 ML SYRINGE IV PUSH ONE; +SODIUM CHLORID 0.9% 500 ML INJ 500 ML IV ONE; -WALKER WHEELS/F1 MIS
[2017-06-09] MEDS ORDERED: POVIDONE IODINE 5% (ANTISEPSIS KIT) 4 APPLICATIONS EACH NARE PRN (12:30)
[2017-06-09] MEDS ORDERED: LACTATED RINGER'S 1000 ML IV PRN (12:30)
[2017-06-09] MEDS ORDERED: CHLORHEXIDINE GLUCONATE 2 % 1 PACK (2 CLOTHS) TOPICAL PRN (12:30)
[2017-06-09] MEDS ORDERED: SODIUM CHLORID 0.9% 500 ML IV PRN (12:30)
[2017-06-09] MEDS ORDERED: METOPROLOL TARTRATE 25 MG TAB PO PRN (12:30)
[2017-06-09] MEDS ORDERED: INSULIN HUMAN REGULAR 1,000 UNITS/10 ML VIAL SQ PRN (12:30)
[2017-06-09] MEDS ORDERED: ceFAZolin INJ 1,000 MG VIAL ONE (12:58)
[2017-06-09] MEDS ORDERED: HEPARIN SODIUM - IV 10,000 UNITS/10 ML VIAL ONE (12:59)
--- NOTE | 2017-06-09 13:03 | HHI.HP ---
History of Present Illness Chief Complaint: R LE wound History of Present Illness 67yo female with PAD and R LE tissue loss. Presents for angiogram and endovascular intervention. Past/Family/Social History Past Medical History ESRD CVA DM hypothyroidism CVA neuropathy Past Surgical History endo iliac atherectomy Apr 2017 Social History nonsmoker Family History NC Home Medications Active Scripts Temazepam (Restoril) 15 Mg Cap, 15 MG PO HS Y for INSOMNIA, #30 CAP 0 Refills Prov:Suman Arshad MD 05/20/17 Alprazolam (Xanax) 0.25 Mg Tab, 0.25 MG PO BID Y for ANXIETY, #60 TAB Prov:Suman Arshad MD 05/20/17 Calcitriol (Calcitriol) 0.25 Mcg Cap, 0.5 MCG PO DAILY for Calcium Supplement, # 60 CAP 0 Refills Daily Prov:Yin Ashley 05/19/17 Insulin Aspart Inj (Novolog Inj) 100 Unit/Ml Inj, 1 UNIT SQ ACHS SLIDING SCALE for 30 Days, INJECTION Sliding Scale As Directed. Prov:Yin Ashley 05/19/17 Insulin Detemir Inj (Levemir Inj) 1,000 unit/ 10 ML Vial, 30 UNITS SQ HS for control sugar for 30 Days, INJECTION Do not mix with any other Insulin. Prov:Yin Ashley 05/19/17 Gabapentin (Gabapentin) 100 Mg Cap, 200 MG PO HS for neuropathy, #60 CAP Prov:Yin Ashley 05/19/17 Acetaminophen (Eq Acetaminophen) 325 Mg Tab, 650 MG PO Q4H Y for Fever/ Pain 1- 6 for 30 Days, #360 TAB Prov:Yin Ashley 05/19/17 Aspirin (Px Aspirin) 325 Mg Tab, 325 MG PO DAILY for stroke prevention, #30 TAB Prov:Yin Ashley 05/19/17 Potassium Chloride ER (K-Tab) 8 Meq Tab, 8 MEQ PO DAILY for Electrolyte Replacement, #30 TAB 0 Refills Prov:Yin Ashley 05/19/17 Cinacalcet (Sensipar) 60 Mg Tab, 60 MG PO DAILY for reduce calcium, #30 TAB 0 Refills Prov:Yin Ashley 05/19/17 Midodrine (Midodrine) 10 Mg Tab, 10 MG PO BID for Control Low Blood Pressure, # 60 TAB 0 Refills Prov:Yin Ashley NANY 05/19/17 Sevelamer Carbonate (Renvela) 800 Mg Tab, 3 TAB PO TID for Control phosphorous levels, #500 TAB 0 Refills 3 tabs with each meal and 1-2 tabs with each snack. Prov:Jean Ashleynica AYON 05/19/17 Furosemide (Furosemide) 40 Mg Tab, 40 MG PO BID for diuretic, #60 TAB 0 Refills Prov:Yin Ashley Giana NANY 05/19/17 Cholecalciferol (D 5000) 5,000 Unit Cap, 1 CAP PO DAILY for vitamin D supplement , #30 CAP Prov:DionYin 05/19/17 Omeprazole (Omeprazole) 20 Mg Tab, 20 MG PO DAILY for Reflux, #30 TAB 0 Refills Prov:DionYin Giana AYON 05/19/17 Levothyroxine (Levothyroxine) 100 Mcg Tab, 100 MCG PO DAILY for Thyroid, #30 TAB 0 Refills Prov:DionYin Giana AYON 05/19/17 Walker Rolling/GetGo (Walker Rolling/GetGo) 1 Mis Mis, EA .XX DIRECTED, #1 Prov:DionYin 05/18/17 Reported Medications Diphenhydramine HCl (Benadryl Allergy) 25 Mg Cap, 1 TAB PO BID 06/08/17 Discontinued Scripts Tramadol (Ultram) 50 Mg Tab, 25 MG PO Q6H Y for Pain 7-10, #60 TAB Prov:Suman Arshad MD 05/20/17 [Lidocaine 2% Jelly] 5 ML JEL No Conflict Check, 5 ML TOPICAL DAILY for wound care for 30 Days Prov:DionYin 05/19/17 Coded Allergies: quinine (Verified Allergy, Severe, Shortness of Breath, 06/08/17) tramadol (Verified Allergy, Severe, Rash, 06/08/17) Review of Systems Constitutional: DENIES: Diaphoretic episodes, Fatigue, Fever, Weight gain, Weight loss, Chills, Dizziness, Change in appetite, Night Sweats Physical Exam Neuro: anxious but alert HEENT: NC/AT Neck: no JVD Heart: reg rate Lungs: clear B Abdomen: NT Vascular: nonpalpable pedal pulses pending Caprini VTE Risk Assessment Caprini VTE Risk Assessment: No/Low Risk (score <= 1) Caprini Risk Assessment Model Point Value = 1 Point Value = 2 Point Value = 3 Point Value = 5 Age 41-60 Minor surgery BMI > 25 kg/m2 Swollen legs Varicose veins or History of unexplained or recurrent spontaneous Oral contraceptives or hormone replacement Sepsis (< 1 month) Serious lung disease, including pneumonia (< 1 month) Abnormal pulmonary function Acute myocardial infarction Congestive heart failure (< 1 month) History of inflammatory bowel disease Medical patient at bed rest Age 61-74 Arthroscopic surgery Major open surgery (> 45 min) Laparoscopic surgery (> 45 min) Malignancy Confined to bed (> 72 hours) Immobilizing plaster cast Central venous access Age >= 75 History of VTE Family history of VTE Factor V Leiden Prothrombin [id number] Lupus anticoagulant Anticardiolipin antibodies Elevated serum homocysteine Heparin-induced thrombocytopenia Other congenital or acquired thrombophilia Stroke (< 1 month) Elective arthroplasty Hip, pelvis, or leg fracture Acute spinal cord injury (< 1 month) Prophylaxis Regimen Total Risk Factor Score Risk Level Prophylaxis Regimen 0-1 Low Early ambulation 2 Moderate Order ONE of the following: *Sequential Compression Device (SCD) *Heparin 5000 units SQ BID 3-4 Higher Order ONE of the following medications: *Heparin 5000 units SQ TID *Enoxaparin/Lovenox 40 mg SQ daily (WT < 150 kg, CrCl > 30 mL/min) *Enoxaparin/Lovenox 30 mg SQ daily (WT < 150 kg, CrCl > 10-29 mL/min) *Enoxaparin/Lovenox 30 mg SQ BID (WT < 150 kg, CrCl > 30 mL/min) AND/OR *Sequential Compression Device (SCD) 5 or more Highest Order ONE of the following medications: *Heparin 5000 units SQ TID (Preferred with Epidurals) *Enoxaparin/Lovenox 40 mg SQ daily (WT < 150 kg, CrCl > 30 mL/min) *Enoxaparin/Lovenox 30 mg SQ daily (WT < 150 kg, CrCl > 10-29 mL/min) *Enoxaparin/Lovenox 30 mg SQ BID (WT < 150 kg, CrCl > 30 mL/min) AND *Sequential Compression Device (SCD) Assessment and Plan Plan R LE angiogram and endovascular intervention Admit post-operatively for wound care, medical management Discharge Planning 2-3 days [facility] [phone] Carlos Araya MD Jun 09, 2017 13:03
[2017-06-09 13:14] LABS: AUTOMATED NEUTROPHIL # 10.5 TH/MM3 (1.8-7.7); BASOPHIL # 0.1 TH/MM3 (0-0.2); BASOPHIL % 1.2 % (0.0-2.0); EOSINOPHIL # 0.3 TH/MM3 (0-0.4); EOSINOPHIL % 2.3 % (0.0-4.0); HEMATOCRIT 33.5 % (35.0-46.0); HEMOGLOBIN 11.3 GM/DL (11.6-15.3); LYMPH % 6.5 % (9.0-44.0); LYMPHOCYTE # 0.8 TH/MM3 (1.0-4.8); MEAN CELL VOLUME 100.2 FL (80.0-100.0); MEAN CORPUSCULAR HEMOGLOBIN 33.8 PG (27.0-34.0); MEAN CORPUSCULAR HGB CONC 33.8 % (32.0-36.0); MONOCYTE # 0.5 TH/MM3 (0-0.9); PLATELET COUNT 226 TH/MM3 (150-450); RED BLOOD COUNT 3.34 MIL/MM3 (4.00-5.30); RED CELL DISTRIBUTION WIDTH 16.5 % (11.6-17.2); WHITE BLOOD COUNT 12.2 TH/MM3 (4.0-11.0)
[2017-06-09 13:24] LABS: INTERNATIONAL NORMALIZED RATIO 1.1 RATIO
[2017-06-09 13:41] LABS: BICARBONATE 23.5 MEQ/L (21.0-32.0); CALCIUM 9.3 MG/DL (8.5-10.1)
[2017-06-09 13:52] LABS: CREATININE 11.39 MG/DL (0.50-1.00)
[2017-06-09 14:11] LABS: BACTERIA, URINE MOD /hpf; BILIRUBIN, URINE NEG (NEG); BLOOD, URINE SMALL (NEG); GLUCOSE,URINE NEG (NEG); KETONE, URINE NEG (NEG); MUCUS URINE FEW /lpf (OCC); NITRITE,URINE NEG (NEG); PH, URINE 5.5 (5.0-8.5); SQUAMOUS EPITHELIAL CELL URINE 9 /hpf (0-5); TRANSITIONAL EPI CELLS, URINE <1 /hpf; URINE COLOR YELLOW (YELLW/STRAW); URINE LEUKOCYTE ESTERASE MOD (NEG)
[2017-06-09] MEDS ORDERED: IOHEXOL 300 INJ 50 ML IV ONE (14:24)
--- NOTE | 2017-06-09 15:49 | HHI.PR ---
cc: Carlos Araya MD; Tc Chambers DPM Immediate Post Op Note Procedure Date: Jun 09, 2017 Pre Op Diagnosis: PAD with tissue loss, B LE Post Op Diagnosis: PAD with tissue loss, B LE Surgeon: Carlos Araya Maritime Engineer(s): none Procedure: 1. Aortogram w/ B LE angiogram 2. R SFA/popliteal orbital atherectomy and LINE LOCATOR (5mm) 3. L AYO LINE LOCATOR (7mm) 4. L DENTAL TECHNOLOGIST Angioseal Findings: calcific stenosis of R popliteal artery, successful intervention with 3 vessel runoff to ankle and 2 to foot calcific stenosis of L iliac artery Complications: none Specimen(s) removed: none Estimated blood loss: 10mL Anesthesia: General Drains: None Fluids: 500mL IVF Patient to: PACU Patient Condition: Good Implant/Devices: SEE IMPLANT LOG (if applicable) Date/Time of Procedure: SEE SURGICAL CARE RECORD Carlos Araya MD Jun 09, 2017 15:49
[2017-06-09] MEDS ORDERED: DO NOT ADM ANY ANTICOAGULANT DRUGS PRN ×2 (15:55)
[2017-06-09] MEDS ORDERED: MIDAZOLAM HCL 2 MG/2 ML VIAL ONE (16:02)
--- NOTE | 2017-06-09 18:06 | HHI.HP ---
[facility] Service Family Medicine Primary Care Physician Danae Hernandez MD Admission Diagnosis Diagnoses: International Travel<30 Days: No Contact w/Intl Traveler<30days: No Known Affected Area: No History of Present Illness The patient is a 67-year-old female with PMH significant for PAD with right lower extremity tissue loss, ESRD on peritoneal dialysis, IDDM, hypotension who presented on 06/09 for angiogram and endovascular intervention by vascular surgery. The patient underwent right superficial femoral artery orbital atherectomy and EVENT SALES REPRESENTATIVE, left common iliac artery EVENT SALES REPRESENTATIVE, and left common femoral artery angioseal by Dr. Araya. The patient is admitted to our [facility] service for postoperative wound care and medical management. Patient is seen and examined in PACU. Patient is resting comfortably. She endorses fatigue and feeling tired post-operatively. Denies pain. She otherwise does not report any specific complaints. (Chai Jeter MD) Review of Systems Constitutional: DENIES: Fever, Chills Eyes: DENIES: Blurred vision Respiratory: DENIES: Cough, Wheezing, Shortness of breath Cardiovascular: DENIES: Chest pain, Palpitations Gastrointestinal: DENIES: Abdominal pain, Nausea, Vomiting (Chai Jeter MD) Past Family Social History Past Medical History ESRD on daily peritoneal dialysis for past 5 years Insulin-dependent DM Hypothyroidism GERD Peripheral neuropathy Hypotension Past Surgical History Cholecystectomy (Chai Jeter MD) Allergies: Coded Allergies: quinine (Verified Allergy, Severe, Shortness of Breath, 06/08/17) tramadol (Verified Allergy, Severe, Rash, 06/08/17) Family History Father: due to complications from CHF Mother: Cardiomyopathy One brother about 4 years ago from an [place] Social History Lives at home with her and grandchildren Tobacco: patient reports she quit smoking about 20 years ago Etoh: denies Illicit drug use: denies (Chai Jeter MD) Physical Exam Vital Signs Vital Signs Date Time Temp Pulse Resp B/P (MAP) Pulse Ox O2 Delivery O2 Flow Rate FiO2 06/09/17 13:10 98.7 95 20 109/68 (82) 95 Physical Exam GENERAL: NAD, lying flat comfortably in bed NEURO: Alert. Normal speech. hand turner grossly intact. SKIN: Warm and dry. HEAD: Normocephalic. Atraumatic. EYES: EOMI. No scleral icterus. No injection or drainage. ENT: No nasal drainage. Moist mucous membranes. NECK: Supple. No JVD. CARDIOVASCULAR: Regular rate and rhythm without murmurs, rubs, or gallops. RESPIRATORY: Breath sounds clear to auscultation anteriorly and equal bilaterally, without wheezes, rales, or rhonchi. No accessory muscle use. GASTROINTESTINAL: Abdomen soft, nontender, protuberant. No guarding. MUSCULOSKELETAL: No lower extremity edema. Laboratory Laboratory Tests Test 06/09/17 12:40 06/09/17 13:03 Urine Color YELLOW Urine Turbidity HAZY Urine pH 5.5 Urine Specific [place] 1.021 Urine Protein 100 Urine Glucose (UA) NEG Urine Ketones NEG Urine Occult Blood SMALL Urine Nitrite NEG Urine Bilirubin NEG Urine Urobilinogen 2.0 Urine Leukocyte Esterase MOD Urine RBC 2 Urine WBC 15 Urine Squamous Epithelial Cells 9 Urine Transitional Epithelial Cells <1 Urine Bacteria MOD Urine Mucus FEW Microscopic Urinalysis Comment CULTURE INDICATED White Blood Count 12.2 Red Blood Count 3.34 Hemoglobin 11.3 Hematocrit 33.5 Mean Corpuscular Volume 100.2 Mean Corpuscular Hemoglobin 33.8 Mean Corpuscular Hemoglobin Concent 33.8 Red Cell Distribution Width 16.5 Platelet Count 226 Mean Platelet Volume 8.0 Neutrophils (%) (Auto) 86.0 Lymphocytes (%) (Auto) 6.5 Monocytes (%) (Auto) 4.0 Eosinophils (%) (Auto) 2.3 Basophils (%) (Auto) 1.2 Neutrophils # (Auto) 10.5 Lymphocytes # (Auto) 0.8 Monocytes # (Auto) 0.5 Eosinophils # (Auto) 0.3 Basophils # (Auto) 0.1 CBC Comment DIFF FINAL Differential Comment Prothrombin Time 11.0 Prothromb Time International Ratio 1.1 Activated Partial Thromboplast Time 26.2 Blood Urea Nitrogen 47 Creatinine 11.39 Random Glucose 148 Calcium Level 9.3 Sodium Level 137 Potassium Level 5.3 Chloride Level 100 Carbon Dioxide Level 23.5 Anion Gap 14 Estimat Glomerular Filtration Rate 3 Date/Time Source Procedure Growth Status 06/09/17 12:40 Urine Clean Catch Urine Culture Pending Received (Chai Jeter MD) Result Diagram: 06/09/17 1303 06/09/17 1303 Caprini VTE Risk Assessment Caprini VTE Risk Assessment: Mod/High Risk (score >= 2) Caprini Risk Assessment Model Point Value = 1 Point Value = 2 Point Value = 3 Point Value = 5 Age 41-60 Minor surgery BMI > 25 kg/m2 Swollen legs Varicose veins or History of unexplained or recurrent spontaneous Oral contraceptives or hormone replacement Sepsis (< 1 month) Serious lung disease, including pneumonia (< 1 month) Abnormal pulmonary function Acute myocardial infarction Congestive heart failure (< 1 month) History of inflammatory bowel disease Medical patient at bed rest Age 61-74 Arthroscopic surgery Major open surgery (> 45 min) Laparoscopic surgery (> 45 min) Malignancy Confined to bed (> 72 hours) Immobilizing plaster cast Central venous access Age >= 75 History of VTE Family history of VTE Factor V Leiden Prothrombin [id number] Lupus anticoagulant Anticardiolipin antibodies Elevated serum homocysteine Heparin-induced thrombocytopenia Other congenital or acquired thrombophilia Stroke (< 1 month) Elective arthroplasty Hip, pelvis, or leg fracture Acute spinal cord injury (< 1 month) Prophylaxis Regimen Total Risk Factor Score Risk Level Prophylaxis Regimen 0-1 Low Early ambulation 2 Moderate Order ONE of the following: *Sequential Compression Device (SCD) *Heparin 5000 units SQ BID 3-4 Higher Order ONE of the following medications: *Heparin 5000 units SQ TID *Enoxaparin/Lovenox 40 mg SQ daily (WT < 150 kg, CrCl > 30 mL/min) *Enoxaparin/Lovenox 30 mg SQ daily (WT < 150 kg, CrCl > 10-29 mL/min) *Enoxaparin/Lovenox 30 mg SQ BID (WT < 150 kg, CrCl > 30 mL/min) AND/OR *Sequential Compression Device (SCD) 5 or more Highest Order ONE of the following medications: *Heparin 5000 units SQ TID (Preferred with Epidurals) *Enoxaparin/Lovenox 40 mg SQ daily (WT < 150 kg, CrCl > 30 mL/min) *Enoxaparin/Lovenox 30 mg SQ daily (WT < 150 kg, CrCl > 10-29 mL/min) *Enoxaparin/Lovenox 30 mg SQ BID (WT < 150 kg, CrCl > 30 mL/min) AND *Sequential Compression Device (SCD) (Chai Jeter MD) Assessment and Plan Assessment and Plan 67 year old female s/p angiogram and endovascular intervention by Dr. Araya on 06/09, admitted to [facility] for postop wound care and medical management. Code Status Full code Discussed Condition With Dr. Michael Veloz (Chai Jeter MD) Attending Attestation Patient seen and examined. Case reviewed and discussed with the resident team. Agree with plan of care as discussed with me and documented in the resident note. pt seen in PACU, still seems sedated from her procedure (Linh Rodriguez MD) Problem List: (1) Peripheral arterial occlusive disease ICD Codes: I77.9 - Disorder of arteries and arterioles, unspecified Status: Acute Plan: Patient is s/p by Dr. Araya 06/09: 1. Aortogram w/ B LE angiogram 2. R SFA/popliteal orbital atherectomy and EVENT SALES REPRESENTATIVE (5mm) 3. L AYO EVENT SALES REPRESENTATIVE (7mm) 4. L HALF SECTION IRONER Angioseal Podiatry has also been consulted (2) ESRD (end stage renal disease) on dialysis ICD Codes: N18.6 - End stage renal disease; Z99.2 - Dependence on renal dialysis Status: Chronic Plan: Patient is ESRD on PD daily Consult nephrology Continue peritoneal dialysis Continue home Sensipar 60 mg daily (3) Hypotension ICD Codes: I95.9 - Hypotension, unspecified Status: Chronic Plan: Continue midodrine 10 mg twice daily Monitors vitals q4h (4) Diabetes mellitus type 2, insulin dependent ICD Codes: E11.9 - Diabetes mellitus type 2, insulin dependent; Z79.4 - intermediate (current) use of insulin Status: Chronic Plan: Hold home insulin regimen Start levemir 5 units bid Low-dose ISS Accuchecks ACHS (5) Nutrition, metabolism, and development symptoms ICD Codes: R63.8 - Other symptoms and signs concerning food and fluid intake Plan: Fluids: per PO Electrolytes: K+ 5.3, patient to continue dialysis Nutrition: Heart healthy GI ppx: Not indicated at this time DVT ppx: await further recommendations per vascular surgery or podiatry if planning further intervention (Chai Jeter MD) Physician Certification 2 Midnight Certification Type: Admission for Inpatient Services Order for Inpatient Services The services are ordered in accordance with Medicare regulations or non- Medicare payer requirements, as applicable. In the case of services not specified as inpatient-only, they are appropriately provided as inpatient services in accordance with the 2-midnight benchmark. Estimated LOS (days): 3 days is the estimated time the patient will need to remain in the hospital, assuming treatment plan goals are met and no additional complications. Post-Hospital Plan: Not yet determined (Chai Jeter MD) Problem Qualifiers (1) Hypotension: Qualified Codes: I95.9 - Hypotension, unspecified Chai Jeter MD Jun 09, 2017 18:06 Linh Rodriguez MD Jun 10, 2017 12:59
[2017-06-09] MEDS: CINACALCET HYDROCHLORIDE 30 MG TAB PO SCH (19:40)
[2017-06-09] MEDS: SEVELAMER CARBONATE 800 MG TAB PO SCH (19:40)
[2017-06-09] MEDS: LEVOTHYROXINE SODIUM 100 MCG TAB PO SCH (19:40)
[2017-06-09] MEDS: CALCITRIOL 0.25 MCG CAP PO SCH (19:40)
[2017-06-09] MEDS: PANTOPRAZOLE SOD 20 MG DELAYED RELEASE TAB PO SCH (19:40)
[2017-06-09] MEDS: CHOLECALCIFEROL (VIT D3) 5000 UNIT CAP PO SCH (19:40)
[2017-06-09 21:00] VITALS: BP 112/57; PULSE 73; RESP 16; TEMP 98.1; O2SAT 97
[2017-06-09 21:30] VITALS: PULSE 64
--- NOTE | 2017-06-09 22:08 | MP ---
cc: Carlos Araya MD DATE OF OPERATION: 06/09/17 PREOPERATIVE DIAGNOSES: Bilateral lower extremity peripheral arterial occlusive disease, right lower extremity tissue loss. POSTOPERATIVE DIAGNOSES: Bilateral lower extremity peripheral arterial occlusive disease, right lower extremity tissue loss. PROCEDURE: 1. Aortogram with bilateral lower extremity angiogram: 2. Right superficial femoral artery orbital atherectomy and angioplasty. 3. Left common iliac artery angioplasty. 4. Left common femoral artery Angio-Seal. ATTENDING SURGEON: Jerod Araya MD. ANESTHESIA: General. INDICATIONS FOR PROCEDURE: Ms. Ruth is a 67-year-old female with end-stage renal disease and bilateral lower extremity peripheral arterial occlusive disease and right foot rest pain. She is taken to the operating room for angiographic evaluation and treatment of her occlusive disease and there was no prior catheter-based imaging available since the worsening of her tissue loss. DESCRIPTION OF PROCEDURE: Informed consent was obtained from the patient and she was taken to the operating room and placed supine on the operating table. An appropriate timeout was taken to ensure the patient's identity, operative site and planned procedure. The administration of antibiotics were not necessary as this is a clean procedure without the planned implantation of any foreign object. Everyone in the room agreed with the timeout, we proceeded. Her bilateral groins were prepped and draped. Left left common femoral artery was accessed with a 21-gauge micropuncture needle which was exchanged using Seldinger technique through micropuncture sheath through which a 0.035 Glidewire was introduced and the micropuncture sheath was exchanged for a 4 Togolese sheath. A VCF catheter was placed over the wire into the sheath and aortogram and pelvic arteriogram were obtained. The Glidewire was reintroduced and navigated down to the right common femoral artery and the VCF catheter was advanced over this and a right lower extremity arteriogram was obtained. The patient was systemically heparinized with 5000 units of IV heparin and after approximately 30 minutes 3000 additional units were administered. A 0.035 Ricci and then ultimately an Amplatz wire were introduced into the mid SFA. The VCF catheter and 4-Togolese sheath were removed and a 6-Togolese 55 cm Chucho sheath was introduced. Through the Chucho and over the Amplatz wire, a CXI catheter was placed and the Amplatz wire was exchanged for a glide and then a PECAN SHELLER wire and multiple wire and catheter combinations were used to navigate the near occlusive popliteal stenosis and placed the catheter in the below-knee popliteal artery and then the wire was exchanged for a 0.014 ViperWire. With the ViperWire in place, the CSI orbital atherectomy device was introduced and the popliteal artery and distal SFA were orbitally atherectomized without difficulty. At the completion a 4 mm balloon was used to angioplasty the entire SFA. This showed a residual stenosis in the popliteal artery that was treated with a 5 mm balloon. The completion angiograms showed excellent result without any recoil or extravasation. The SFA, popliteal arteries were widely patent. There were no hemodynamically significant stenoses and there was 3-vessel runoff to the ankle with 2-vessel runoff to the foot. The wire and catheter were removed and the Ricci wire was reintroduced and the 6-Togolese 55 cm Chucho sheath was pulled back to the ipsilateral iliac. The iliac angiogram was obtained and again this showed a patent terminal aorta as well as common iliac arteries bilaterally with a calcific left common iliac artery stenosis and this was angioplastied with a 7 mm balloon. The completion angiogram showed excellent result with no recoil or extravasation wire, catheter and sheath removed. The groin was closed with an Angio-Seal and complications. I was present, scrubbed, and performed the entire procedure. MD JOY ElizabethF/rt , 09:46 PM , 10:07 PM SAMIR
[2017-06-09 23:12] VITALS: BP 140/59; PULSE 84; RESP 16; TEMP 97.8; O2SAT 97
[2017-06-10] VITALS (13 sets, daily range): BP systolic 115–153; BP diastolic 58–73; PULSE 55–113; RESP 16–20; TEMP 97.3–97.6; O2SAT 94–100
[2017-06-10] MEDS: GABAPENTIN 100 MG CAP PO SCH ×2 (00:29→21:42)
[2017-06-10] MEDS: TEMAZEPAM 15 MG CAP PO PRN (00:30)
[2017-06-10] MEDS: MIDODRINE 5 MG TAB PO SCH ×3 (00:30→21:42)
[2017-06-10] MEDS: INSULIN DETEMIR 100 UNITS/ML VIAL SQ SCH ×3 (00:31→21:00)
[2017-06-10] MEDS: FUROSEMIDE 40 MG TAB PO SCH ×3 (00:31→21:42)
[2017-06-10] MEDS: INSULIN ASPART SUPPLEMENTAL SCALE SQ SCH ×5 (00:32→21:00)
[2017-06-10] MEDS ORDERED: IBUPROFEN 400 MG TAB PO PRN (01:30)
[2017-06-10] MEDS ORDERED: NALOXONE HCL 0.4 MG/ML AMP IV PUSH PRN (01:30)
[2017-06-10] MEDS ORDERED: MORPHINE SULFATE 2 MG/ML SYRINGE IV PUSH PRN (01:30)
[2017-06-10] MEDS ORDERED: ACETAMINOPHEN/HYDROcodone 325 MG/5 MG TAB PO PRN (01:30)
[2017-06-10] MEDS: ACETAMINOPHEN/HYDROcodone 325 MG/10 MG TAB PO PRN ×4 (01:50→23:01)
[2017-06-10] MEDS: LEVOTHYROXINE SODIUM 100 MCG TAB PO SCH (06:37)
[2017-06-10] MEDS: CALCITRIOL 0.25 MCG CAP PO SCH (07:49)
[2017-06-10] MEDS: SEVELAMER CARBONATE 800 MG TAB PO SCH ×3 (07:49→18:00)
[2017-06-10] MEDS: PANTOPRAZOLE SOD 20 MG DELAYED RELEASE TAB PO SCH (07:49)
[2017-06-10] MEDS: CHOLECALCIFEROL (VIT D3) 5000 UNIT CAP PO SCH (07:50)
[2017-06-10 09:43] LABS: AUTOMATED NEUTROPHIL # 10.7 TH/MM3 (1.8-7.7); BASOPHIL # 0.1 TH/MM3 (0-0.2); BASOPHIL % 0.5 % (0.0-2.0); EOSINOPHIL # 0.1 TH/MM3 (0-0.4); EOSINOPHIL % 0.8 % (0.0-4.0); HEMATOCRIT 31.8 % (35.0-46.0); HEMOGLOBIN 10.4 GM/DL (11.6-15.3); LYMPH % 7.7 % (9.0-44.0); MEAN CELL VOLUME 102.1 FL (80.0-100.0); MEAN CORPUSCULAR HEMOGLOBIN 33.5 PG (27.0-34.0); MEAN CORPUSCULAR HGB CONC 32.8 % (32.0-36.0); MEAN PLATELET VOLUME 8.1 FL (7.0-11.0); MONO % 4.5 % (0.0-8.0); MONOCYTE # 0.6 TH/MM3 (0-0.9); NEUT % 86.5 % (16.0-70.0); PLATELET COUNT 216 TH/MM3 (150-450); RED BLOOD COUNT 3.11 MIL/MM3 (4.00-5.30); RED CELL DISTRIBUTION WIDTH 16.5 % (11.6-17.2); WHITE BLOOD COUNT 12.4 TH/MM3 (4.0-11.0)
--- NOTE | 2017-06-10 10:03 | MB ---
cc: Tc ChambersM DATE: 06/10/2017 REASON FOR CONSULTATION: Right foot gangrenous fourth and fifth digit, with dorsal foot ischemic ulcer and early left foot ischemia. HISTORY OF PRESENT ILLNESS: This is a 67-year-old female who is well known to me. She was initially seen for an advancing ischemic foot, right. Vascular surgery intervened and then a second intervention took place within the last 24 hours. The plan was to attempt a definitive amputation or debridement of the right foot. Upon evaluating, the patient has a new onset of a similar type painful ischemic, early advancing calciphylaxis eschar of the dorsal aspect of the left foot. I am seeing her bedside with her . PAST MEDICAL HISTORY: End-stage renal disease on peritoneal dialysis, insulin-dependent diabetic, hypothyroidism, GERD, peripheral neuropathy and hypertension. PAST SURGICAL HISTORY: Cholecystectomy. ALLERGIES: QUININE AND TRAMADOL. FAMILY HISTORY: Father from complications of CHF. Mother significant for cardiomyopathy. She has a brother that about 4 years ago from an [place]. SOCIAL HISTORY: Lives at home with her . She quit smoking 20 years ago. No drugs or habits noted. INPATIENT MEDICATIONS: She is receiving multiple p.r.n. medications and insulin. She is also receiving pain medication, morphine sulfate as well as Neurontin. PHYSICAL EXAMINATION: VITAL SIGNS: Temperature 97.6, pulse rate 77, respiratory rate 20, blood pressure 129/60, 94% on room air. GENERAL: This is an alert and oriented female seen bedside, exhibiting nonlabored respirations. EXTREMITIES: Bilateral lower extremities were examined. Right lower extremity, there is noted to be ischemia, necrosis and gangrenous changes to the right fifth digit, as well as the fourth digit and early ischemic ulcer at the dorsal aspect of the third digit. Painful ischemic eschar of the medial aspect of the first MPJ. There is slight delayed capillary fill time to digits 1 and 2. There is advancing ulcer ischemia with fibrotic drainage and a mild odor to the dorsal aspect of the proximal lateral metatarsal area, fourth and fifth metatarsal mid shaft and base. It appears to be demarcated at this area. The plantar aspect of the foot appears to have a well perfused plantar fat pad out to the sulcus. Pulses are still diminished but the foot is warm. There is extreme pain upon palpating the distal forefoot. There is not much pain upon palpating the mid foot, hindfoot or ankle. Left foot is examined. There is noted to be a dark purple discoloration of the dorsal aspect of the patient's foot. Outline was made today. There is no obvious fluctuance, drainage. It is slightly cool. Pulses are hard to palpate on the left as well. It appears the foot mainly is warm at the hindfoot, but at the dorsal aspect of the peripheral area appears to be early signs of ischemia. This is a very similar early presentation of what I saw a 1-2 months ago of the right foot. LABORATORY DATA: White blood cell 12.2, hemoglobin and hematocrit 11 and 33, platelet count is 226. Chem-7: Sodium 137, potassium 5.3, chloride 100, CO2 of 23.5, BUN 47, creatinine 11.39. Coagulation profile: PT 11, INR 1.1. Microbial findings: No wound culture taken yet. ASSESSMENT AND PLAN: Right foot fourth and fifth digit gangrene with ischemic findings of the dorsal aspect of the right foot and the medial aspect of the first metatarsophalangeal joint, early ischemic findings dorsal aspect of the left foot, possible calciphylaxis. I will discuss further with Dr. Araya, the plan for the left. My focus will be on the right for the current time. The thought process is do we move forward with a fourth, fifth metatarsal and digit amputation or a transmetatarsal amputation. I do feel that the patient will continue to have significant wound healing complications, regardless of what we do. The patient wishes for me to move forward with hoping for 1 definitive procedure. Therefore, I am more inclined to do a transmetatarsal amputation. As for the left, we will continue to monitor very closely. We did have a brief discussion regarding the possibility of switching from peritoneal dialysis to hopefully improve clearance. I will leave this more to medicine and we will have a discussion. She is very scared about going on dialysis. Surgery is likely planned for tomorrow, approximately noon time. The patient will be ordered n.p.o. after midnight. LASHAWN Lr/RORY , 09:27 AM , 10:02 AM SAMIR
[2017-06-10 10:04] LABS: CALCIUM 8.5 MG/DL (8.5-10.1)
[2017-06-10] MEDS: CINACALCET HYDROCHLORIDE 30 MG TAB PO SCH (10:07)
[2017-06-10 10:15] LABS: CREATININE 10.64 MG/DL (0.50-1.00)
[2017-06-10] MEDS ORDERED: CALCIUM GLUCONATE 10% 1 GM/10 ML VIAL IV PUSH ONE (11:15)
--- NOTE | 2017-06-10 12:58 | HHI.HP ---
[facility] Service Family Medicine Primary Care Physician Danae Hernandez MD Admission Diagnosis Diagnoses: (1) Peripheral arterial occlusive disease Diagnosis: Principal (2) ESRD (end stage renal disease) on dialysis Diagnosis: Principal (3) Hypotension Diagnosis: Principal (4) Diabetes mellitus type 2, insulin dependent Diagnosis: Principal (5) Nutrition, metabolism, and development symptoms Diagnosis: Principal International Travel<30 Days: No Contact w/Intl Traveler<30days: No Known Affected Area: No History of Present Illness Ms Ruth is a 67-year-old female with PMH significant for PAD with right lower extremity tissue loss, ESRD on peritoneal dialysis, IDDM, hypotension who presented on 06/09 for angiogram and endovascular intervention by vascular surgery. The patient underwent right superficial femoral artery orbital atherectomy and PAPER BALING MACHINE OPERATOR, left common iliac artery PAPER BALING MACHINE OPERATOR, and left common femoral artery angioseal by Dr. Araya. The patient is admitted to our [facility] service for postoperative wound care and medical management. Patient is seen and examined in PACU. Patient is resting comfortably. She endorses fatigue and feeling tired post-operatively. Denies pain. She otherwise did not report any specific complaints. She was sedated postop and in fact did not remember meeting us in the PACU. Today she was more informative and told us she has had complications from her PAD for some time and now has tissue loss that will necessitate an amputation of part of her right lower extremity. She states she has had severe pain on the left especially in the foot for 4 days total and is concerned as that is how her right foot presented. She has not had any hardening of the skin and has been on peritoneal dialysis without infections or problems for about 5 years. She is on a heart monitor and had a 14 beat run of V tach at 820 this am. Otherwise her monitor has not shown any events. Her K was somewhat elevated today. She has been admitted to have her procedure tomorrow with Dr Chambers and be followed for her blood flow post angiogram with Dr Araya. Review of Systems ROS Limitations: Poor Historian Constitutional: DENIES: Diaphoretic episodes, Fatigue, Fever Musculoskeletal: COMPLAINS OF: Muscle aches, Stiffness, Joint Swelling Integumentary: COMPLAINS OF: Abnormal pigmentation, DENIES: Nail changes Hematologic/lymphatic: DENIES: Bruising Neurologic: DENIES: Abnormal gait Other Constitutional: DENIES: Fever, Chills Eyes: DENIES: Blurred vision Respiratory: DENIES: Cough, Wheezing, Shortness of breath Cardiovascular: DENIES: Chest pain, Palpitations Gastrointestinal: DENIES: Abdominal pain, Nausea, Vomiting Past Family Social History Past Medical History ESRD on daily peritoneal dialysis for past 5 years Insulin-dependent DM Hypothyroidism GERD Peripheral neuropathy Hypotension Past Surgical History Cholecystectomy Allergies: Coded Allergies: quinine (Verified Allergy, Severe, Shortness of Breath, 06/08/17) tramadol (Verified Allergy, Severe, Rash, 06/08/17) Family History Father: due to complications from CHF, renal failure Mother: Cardiomyopathy One brother about 4 years ago from an [place] Social History Lives at home with her and grandchildren Tobacco: patient reports she quit smoking about 20 years ago Etoh: denies Illicit drug use: denies Physical Exam Vital Signs Vital Signs Date Time Temp Pulse Resp B/P (MAP) Pulse Ox O2 Delivery O2 Flow Rate FiO2 06/10/17 09:37 97 Nasal Cannula 2.00 06/10/17 08:30 Nasal Cannula 2.00 06/10/17 08:09 97.6 77 20 129/60 (83) 94 06/10/17 08:00 71 06/10/17 04:38 97.5 86 16 115/73 (87) 95 06/10/17 04:00 86 06/10/17 00:00 77 06/09/17 23:12 97.8 84 16 140/59 (86) 97 06/09/17 21:30 64 06/09/17 21:00 98.1 73 16 112/57 (75) 97 06/09/17 21:00 Nasal Cannula 2.00 06/09/17 20:55 78 14 121/66 (84) 100 Nasal Cannula 2 06/09/17 20:00 79 14 118/63 (81) 100 Nasal Cannula 2 06/09/17 19:00 77 14 133/61 (85) 100 Nasal Cannula 2 06/09/17 18:00 77 14 136/62 (86) 97 Nasal Cannula 2 06/09/17 17:00 79 14 124/57 (79) 96 Nasal Cannula 2 06/09/17 16:45 82 14 131/63 (85) 95 Nasal Cannula 2 06/09/17 16:30 80 14 134/61 (85) 95 Nasal Cannula 2 06/09/17 16:15 83 14 115/59 (77) 94 Nasal Cannula 2 06/09/17 15:54 97.7 87 14 147/67 (93) 97 Nasal Cannula 2 06/09/17 13:10 98.7 95 20 109/68 (82) 95 Physical Exam GENERAL: NAD, lying flat comfortably in bed NEURO: Alert. Normal speech. process improvement consultant grossly intact. SKIN: Warm and dry. HEAD: Normocephalic. Atraumatic. EYES: EOMI. No scleral icterus. No injection or drainage. ENT: No nasal drainage. Moist mucous membranes. NECK: Supple. No JVD. CARDIOVASCULAR: Regular rate and rhythm without murmurs, rubs, or gallops. RESPIRATORY: Breath sounds clear to auscultation anteriorly and equal bilaterally, without wheezes, rales, or rhonchi. No accessory muscle use. GASTROINTESTINAL: Abdomen soft, nontender, protuberant. No guarding. MUSCULOSKELETAL: No lower extremity edema. left foot has area of discoloration on dorsum of foot that is reddish-almost has a purple hue to it. the rest of her foot has a normal hue. her skin is pliable and not hard even in the discolored area but is very tender to touch. she can lie with the blanket over it Laboratory Laboratory Tests Test 06/09/17 12:40 06/09/17 13:03 06/10/17 08:22 Urine Color YELLOW Urine Turbidity HAZY Urine pH 5.5 Urine Specific [place] 1.021 Urine Protein 100 Urine Glucose (UA) NEG Urine Ketones NEG Urine Occult Blood SMALL Urine Nitrite NEG Urine Bilirubin NEG Urine Urobilinogen 2.0 Urine Leukocyte Esterase MOD Urine RBC 2 Urine WBC 15 Urine Squamous Epithelial Cells 9 Urine Transitional Epithelial Cells <1 Urine Bacteria MOD Urine Mucus FEW Microscopic Urinalysis Comment CULTURE INDICATED White Blood Count 12.2 12.4 Red Blood Count 3.34 3.11 Hemoglobin 11.3 10.4 Hematocrit 33.5 31.8 Mean Corpuscular Volume 100.2 102.1 Mean Corpuscular Hemoglobin 33.8 33.5 Mean Corpuscular Hemoglobin Concent 33.8 32.8 Red Cell Distribution Width 16.5 16.5 Platelet Count 226 216 Mean Platelet Volume 8.0 8.1 Neutrophils (%) (Auto) 86.0 86.5 Lymphocytes (%) (Auto) 6.5 7.7 Monocytes (%) (Auto) 4.0 4.5 Eosinophils (%) (Auto) 2.3 0.8 Basophils (%) (Auto) 1.2 0.5 Neutrophils # (Auto) 10.5 10.7 Lymphocytes # (Auto) 0.8 1.0 Monocytes # (Auto) 0.5 0.6 Eosinophils # (Auto) 0.3 0.1 Basophils # (Auto) 0.1 0.1 CBC Comment DIFF FINAL DIFF FINAL Differential Comment Prothrombin Time 11.0 Prothromb Time International Ratio 1.1 Activated Partial Thromboplast Time 26.2 Blood Urea Nitrogen 47 46 Creatinine 11.39 10.64 Random Glucose 148 127 Calcium Level 9.3 8.5 Sodium Level 137 135 Potassium Level 5.3 5.4 Chloride Level 100 101 Carbon Dioxide Level 23.5 24.0 Anion Gap 14 10 Estimat Glomerular Filtration Rate 3 4 Date/Time Source Procedure Growth Status 06/09/17 12:40 Urine Clean Catch Urine Culture Pending Worksheet Result Diagram: 06/10/17 0822 06/10/17 0822 Caprini VTE Risk Assessment Caprini VTE Risk Assessment: Mod/High Risk (score >= 2) Caprini Risk Assessment Model Point Value = 1 Point Value = 2 Point Value = 3 Point Value = 5 Age 41-60 Minor surgery BMI > 25 kg/m2 Swollen legs Varicose veins or History of unexplained or recurrent spontaneous Oral contraceptives or hormone replacement Sepsis (< 1 month) Serious lung disease, including pneumonia (< 1 month) Abnormal pulmonary function Acute myocardial infarction Congestive heart failure (< 1 month) History of inflammatory bowel disease Medical patient at bed rest Age 61-74 Arthroscopic surgery Major open surgery (> 45 min) Laparoscopic surgery (> 45 min) Malignancy Confined to bed (> 72 hours) Immobilizing plaster cast Central venous access Age >= 75 History of VTE Family history of VTE Factor V Leiden Prothrombin [id number] Lupus anticoagulant Anticardiolipin antibodies Elevated serum homocysteine Heparin-induced thrombocytopenia Other congenital or acquired thrombophilia Stroke (< 1 month) Elective arthroplasty Hip, pelvis, or leg fracture Acute spinal cord injury (< 1 month) Prophylaxis Regimen Total Risk Factor Score Risk Level Prophylaxis Regimen 0-1 Low Early ambulation 2 Moderate Order ONE of the following: *Sequential Compression Device (SCD) *Heparin 5000 units SQ BID 3-4 Higher Order ONE of the following medications: *Heparin 5000 units SQ TID *Enoxaparin/Lovenox 40 mg SQ daily (WT < 150 kg, CrCl > 30 mL/min) *Enoxaparin/Lovenox 30 mg SQ daily (WT < 150 kg, CrCl > 10-29 mL/min) *Enoxaparin/Lovenox 30 mg SQ BID (WT < 150 kg, CrCl > 30 mL/min) AND/OR *Sequential Compression Device (SCD) 5 or more Highest Order ONE of the following medications: *Heparin 5000 units SQ TID (Preferred with Epidurals) *Enoxaparin/Lovenox 40 mg SQ daily (WT < 150 kg, CrCl > 30 mL/min) *Enoxaparin/Lovenox 30 mg SQ daily (WT < 150 kg, CrCl > 10-29 mL/min) *Enoxaparin/Lovenox 30 mg SQ BID (WT < 150 kg, CrCl > 30 mL/min) AND *Sequential Compression Device (SCD) Assessment and Plan Assessment and Plan 67 year old female s/p angiogram and endovascular intervention by Dr. Araya on 06/09, admitted to [facility] for postop wound care and medical management plus she will need her right foot to have some part amputated Problem List: (1) Peripheral arterial occlusive disease ICD Codes: I77.9 - Disorder of arteries and arterioles, unspecified Status: Acute Plan: Patient is s/p by Dr. Araya 06/09: 1. Aortogram w/ B LE angiogram 2. R SFA/popliteal orbital atherectomy and PAPER BALING MACHINE OPERATOR (5mm) 3. L AYO PAPER BALING MACHINE OPERATOR (7mm) 4. L PROPERTY UTILIZATION OFFICER Angioseal Podiatry has also been consulted and she will need amputation tomorrow (2) ESRD (end stage renal disease) on dialysis ICD Codes: N18.6 - End stage renal disease; Z99.2 - Dependence on renal dialysis Status: Chronic Plan: Patient is ESRD on PD daily Consulted nephrology Continue peritoneal dialysis Continue home Sensipar 60 mg daily (3) Hypotension ICD Codes: I95.9 - Hypotension, unspecified Status: Chronic Plan: Continue midodrine 10 mg twice daily Monitors vitals q4h (4) Diabetes mellitus type 2, insulin dependent ICD Codes: E11.9 - Diabetes mellitus type 2, insulin dependent; Z79.4 - longterm (current) use of insulin Status: Chronic Plan: Hold home insulin regimen Start levemir 5 units bid Low-dose ISS Accuchecks ACHS (5) V tach ICD Codes: I47.2 - Ventricular tachycardia Status: Acute Plan: 14 beat run at 820 am. she has been on the monitor and has had no other events. we saw her and checked the monitor at 1130 and it has been fine since then. she is on dialysis and her K was up slightly today. will check a mag, give calcium gluconate and some Kayexalate as well as change her to a low K diet. she was asymptomatic. if this recurs consider consulting Cardiology but the expectation is that adjusting the electrolytes will fix the problem (6) Nutrition, metabolism, and development symptoms ICD Codes: R63.8 - Other symptoms and signs concerning food and fluid intake Plan: Fluids: per PO Electrolytes: K+ 5.3, patient to continue dialysis Nutrition: renal with low K GI ppx: Not indicated at this time DVT ppx: await further recommendations per vascular surgery or podiatry if planning further intervention Physician Certification 2 Midnight Certification Type: Admission for Inpatient Services Order for Inpatient Services The services are ordered in accordance with Medicare regulations or non- Medicare payer requirements, as applicable. In the case of services not specified as inpatient-only, they are appropriately provided as inpatient services in accordance with the 2-midnight benchmark. Estimated LOS (days): 4 4 days is the estimated time the patient will need to remain in the hospital, assuming treatment plan goals are met and no additional complications. Post-Hospital Plan: Not yet determined Problem Qualifiers (1) Hypotension: Qualified Codes: I95.9 - Hypotension, unspecified Linh Rodriguez MD Jun 10, 2017 12:58
[2017-06-10] MEDS ORDERED: CALCIUM GLUCONATE INJ 1 GM in SODIUM CHLORIDE 0.9% INJ 100 ML IV ONE (13:00)
[2017-06-10] MEDS: SODIUM POLYSTYRENE SULFONATE SUSP 15 GM/60 ML CUP PO SCH ×4 (13:00→21:00)
--- NOTE | 2017-06-10 13:21 | EKG ---
Date Performed: 06/09/2017 Time Performed: 12:37:01 PTAGE: 67 years EKG: Sinus rhythm LEFT ANTERIOR FASCICULAR BLOCK ANTEROSEPTAL MYOCARDIAL INFARCTION , PROBABLY OLD ABNORMAL ECG PREVIOUS TRACING : 12/25/2013 09.17 DOCTOR: Hua Calzada Interpretating Date/Time 06/10/2017 13:20:08
[2017-06-10 13:42] LABS: PHOSPHORUS 5.9 MG/DL (2.5-4.9)
--- NOTE | 2017-06-10 14:45 | PD.CONS ---
HPI Service Nephrology Consult Requested By Dr. Rodriguez Reason for Consult ESRD Primary Care Physician Danae Hernandez MD History of Present Illness Patient is 67-year-old white female with history of peripheral vascular disease , diabetes, hypertension, ESRD on peritoneal dialysis gangrene of toes right foot, she was admitted to for vascular procedure done by Dr. Quiana long , patient also developed skin lesion in the left foot than the skin lesion is quite painful, possibility of calciphylaxis was discuss Review of Systems Constitutional: COMPLAINS OF: Fatigue Musculoskeletal: COMPLAINS OF: Joint pain, Muscle aches, Stiffness, Joint Swelling, Back pain, Neck pain Neurologic: COMPLAINS OF: Abnormal gait Psychiatric: COMPLAINS OF: Anxiety Past Family Social History Allergies: Coded Allergies: quinine (Verified Allergy, Severe, Shortness of Breath, 06/08/17) tramadol (Verified Allergy, Severe, Rash, 06/08/17) Past Medical History ESRD Diabetes Peripheral vascular disease Calciphylaxis Hypertension History of CVA Peripheral edema Sleep apnea Past Surgical History Angioplasty PD catheter insertion Tubal ligation Trigger finger surgery Reported Medications Reported Meds & Active Scripts Active Restoril (Temazepam) 15 Mg Cap 15 Mg PO HS PRN Xanax (Alprazolam) 0.25 Mg Tab 0.25 Mg PO BID PRN Calcitriol 0.25 Mcg Cap 0.5 Mcg PO DAILY Daily Novolog Inj (Insulin Aspart) 100 Unit/Ml Inj 1 Unit SQ ACHS SLIDING SCALE 30 Days Sliding Scale As Directed. Levemir Inj (Insulin Detemir) 1,000 unit/ 10 ML Vial 30 Units SQ HS 30 Days Do not mix with any other Insulin. Gabapentin 100 Mg Cap 200 Mg PO HS Eq Acetaminophen (Acetaminophen) 325 Mg Tab 650 Mg PO Q4H PRN 30 Days Px Aspirin (Aspirin) 325 Mg Tab 325 Mg PO DAILY K-Tab (Potassium Chloride) 8 Meq Tab 8 Meq PO DAILY Sensipar (Cinacalcet) 60 Mg Tab 60 Mg PO DAILY Midodrine 10 Mg Tab 10 Mg PO BID Renvela (Sevelamer Carbonate) 800 Mg Tab 3 Tab PO TID 3 tabs with each meal and 1-2 tabs with each snack. Furosemide 40 Mg Tab 40 Mg PO BID D 5000 (Cholecalciferol) 5,000 Unit Cap 1 Cap PO DAILY Omeprazole 20 Mg Tab 20 Mg PO DAILY Levothyroxine (Levothyroxine Sodium) 100 Mcg Tab 100 Mcg PO DAILY Walker Rolling/GetGo (Device) 1 Mis Mis Ea .XX DIRECTED Reported Benadryl Allergy (Diphenhydramine HCl) 25 Mg Cap 1 Tab PO BID Active Ordered Medications Current Medications Medications (Trade) Dose Ordered Sig/Gianfranco Route Start Time Stop Time Status Last Admin Lactated Ringer's 1,000 ml @ 30 mls/hr Q24H PRN IV 06/09/17 12:30 06/12/17 12:29 06/09/17 12:30 Sodium Chloride 500 ml @ 30 mls/hr [id number] PRN IV 06/09/17 12:30 06/12/17 12:29 (Lopressor) 25 mg COMPUTER MECHANIC PRN PO 06/09/17 12:30 06/12/17 12:29 (Betadine 5% Antisepsis Kit) 1 applic COMPUTER MECHANIC PRN EACH NARE 06/09/17 12:30 06/12/17 12:29 06/09/17 13:15 (Chlorhexidine 2% Cloth) 3 pack COMPUTER MECHANIC PRN TOPICAL 06/09/17 12:30 06/12/17 12:29 06/09/17 12:00 (NovoLIN R INJ) See Protocol Table ... COMPUTER MECHANIC PRN SQ 06/09/17 12:30 06/12/17 12:29 Miscellaneous Information ALL NURSING DEPARTME... UNSCH PRN .XX 06/09/17 15:55 06/10/17 15:54 (Xanax) 0.25 mg BID PRN PO 06/09/17 17:15 (Rocaltrol) 0.5 mcg DAILY PO 06/09/17 18:30 06/10/17 07:49 (Vitamin D3) 5,000 units DAILY PO 06/09/17 18:30 06/10/17 07:50 (Lasix) 40 mg BID PO 06/09/17 21:00 06/10/17 07:50 (Neurontin) 200 mg HS PO 06/09/17 21:00 06/10/17 00:29 (Synthroid) 100 mcg DAILY@0600 PO 06/09/17 19:00 06/10/17 06:37 (Proamatine) 10 mg BID PO 06/09/17 21:00 06/10/17 07:49 (Renvela) 2,400 mg TID PO 06/09/17 18:00 06/10/17 13:29 (Restoril) 15 mg HS PRN PO 06/09/17 17:15 06/10/17 00:30 (Sensipar) 60 mg DAILY PO 06/09/17 17:15 06/10/17 10:07 (Protonix) 20 mg DAILY PO 06/09/17 19:00 06/10/17 07:49 (NovoLOG SUPPLEMENTAL SCALE) 1 ACHS SLIDING SCALE SQ 06/09/17 21:00 06/10/17 00:32 (Levemir Inj) 5 units Q12HR SQ 06/09/17 21:00 06/10/17 07:51 (Motrin) 400 mg Q6H PRN PO 06/10/17 01:30 ([place] 5-325 Mg) 1 tab Q4H PRN PO 06/10/17 01:30 ([place] 10-325 Mg) 1 tab Q4H PRN PO 06/10/17 01:30 06/10/17 08:05 (Narcan Inj) 0.4 mg UNSCH PRN IV PUSH 06/10/17 01:30 (Kayexalate Liq) 15 gm QID PO 06/10/17 13:00 06/11/17 09:01 06/10/17 13:29 (Roxicodone) 5 mg Q4H PRN PO 06/10/17 12:00 Family History Noncontributory Social History History of smoking in the past Physical Exam Vital Signs Vital Signs Date Time Temp Pulse Resp B/P (MAP) Pulse Ox O2 Delivery O2 Flow Rate FiO2 06/10/17 12:09 97.3 63 20 153/67 (95) 100 06/10/17 09:37 97 Nasal Cannula 2.00 06/10/17 08:30 Nasal Cannula 2.00 06/10/17 08:09 97.6 77 20 129/60 (83) 94 06/10/17 08:00 71 06/10/17 04:38 97.5 86 16 115/73 (87) 95 06/10/17 04:00 86 06/10/17 00:00 77 06/09/17 23:12 97.8 84 16 140/59 (86) 97 06/09/17 21:30 64 06/09/17 21:00 98.1 73 16 112/57 (75) 97 06/09/17 21:00 Nasal Cannula 2.00 06/09/17 20:55 78 14 121/66 (84) 100 Nasal Cannula 2 06/09/17 20:00 79 14 118/63 (81) 100 Nasal Cannula 2 06/09/17 19:00 77 14 133/61 (85) 100 Nasal Cannula 2 06/09/17 18:00 77 14 136/62 (86) 97 Nasal Cannula 2 06/09/17 17:00 79 14 124/57 (79) 96 Nasal Cannula 2 06/09/17 16:45 82 14 131/63 (85) 95 Nasal Cannula 2 06/09/17 16:30 80 14 134/61 (85) 95 Nasal Cannula 2 06/09/17 16:15 83 14 115/59 (77) 94 Nasal Cannula 2 06/09/17 15:54 97.7 87 14 147/67 (93) 97 Nasal Cannula 2 Physical Exam GENERAL: Well-nourished, well-developed patient. SKIN: Warm and dry. HEAD: Normocephalic. EYES: No scleral icterus. No injection or drainage. NECK: Supple, trachea midline. No JVD or lymphadenopathy. CARDIOVASCULAR: Regular rate and rhythm without murmurs, gallops, or rubs. RESPIRATORY: Breath sounds equal bilaterally. No accessory muscle use. GASTROINTESTINAL: Abdomen soft, non-tender, nondistended. EXTREMITIES: No cyanosis, gangrene and right foot the left foot also there is darker and painful lesion. NEUROLOGICAL: Awake, alert, and oriented x 3. Non-focal. Laboratory Laboratory Tests Test 06/10/17 08:22 White Blood Count 12.4 Red Blood Count 3.11 Hemoglobin 10.4 Hematocrit 31.8 Mean Corpuscular Volume 102.1 Mean Corpuscular Hemoglobin 33.5 Mean Corpuscular Hemoglobin Concent 32.8 Red Cell Distribution Width 16.5 Platelet Count 216 Mean Platelet Volume 8.1 Neutrophils (%) (Auto) 86.5 Lymphocytes (%) (Auto) 7.7 Monocytes (%) (Auto) 4.5 Eosinophils (%) (Auto) 0.8 Basophils (%) (Auto) 0.5 Neutrophils # (Auto) 10.7 Lymphocytes # (Auto) 1.0 Monocytes # (Auto) 0.6 Eosinophils # (Auto) 0.1 Basophils # (Auto) 0.1 CBC Comment DIFF FINAL Differential Comment Blood Urea Nitrogen 46 Creatinine 10.64 Random Glucose 127 Calcium Level 8.5 Sodium Level 135 Potassium Level 5.4 Chloride Level 101 Carbon Dioxide Level 24.0 Anion Gap 10 Estimat Glomerular Filtration Rate 4 Phosphorus Level 5.9 Magnesium Level 2.0 Date/Time Source Procedure Growth Status 06/09/17 12:40 Urine Clean Catch Urine Culture Pending Worksheet Result Diagram: 06/10/1782106/10/17821 Assessment and Plan Problem List: (1) ESRD (end stage renal disease) on dialysis ICD Codes: N18.6 - End stage renal disease; Z99.2 - Dependence on renal dialysis Status: Chronic Plan: Discuss with patient that she will need hemodialysis with sodium thiosulfate She will think about it going for surgery Continue peritoneal dialysis (2) Calciphylaxis ICD Codes: E83.59 - Other disorders of calcium metabolism Plan: On Sensipar Renvela (3) Type 2 diabetes mellitus with diabetic peripheral angiopathy without gangrene ICD Codes: E11.51 - Type 2 diabetes mellitus with diabetic peripheral angiopathy without gangrene Status: Chronic Plan: Continue monitor Nazanin Strickland MD Jun 10, 2017 14:44
[2017-06-10 18:38] LABS: BICARBONATE 27.5 MEQ/L (21.0-32.0); CALCIUM 8.8 MG/DL (8.5-10.1)
[2017-06-10 18:55] LABS: CREATININE 10.89 MG/DL (0.50-1.00)
[2017-06-10] MEDS: ALPRAZolam 0.25 MG TAB PO PRN (21:47)
[2017-06-11] VITALS (7 sets, daily range): BP systolic 115–131; BP diastolic 58–71; PULSE 73–106; RESP 16–20; TEMP 97.7–98.1; O2SAT 94–99
[2017-06-11] MEDS: TEMAZEPAM 15 MG CAP PO PRN (00:44)
[2017-06-11] MEDS ORDERED: CHLORHEXIDINE GLUCONATE 2 % 1 PACK (2 CLOTHS) TOPICAL PRN (01:00)
[2017-06-11] MEDS ORDERED: POVIDONE IODINE 5% (ANTISEPSIS KIT) 4 APPLICATIONS EACH NARE PRN (01:00)
[2017-06-11] MEDS ORDERED: SODIUM CHLORID 0.9% 500 ML IV PRN (01:00)
[2017-06-11] MEDS ORDERED: LACTATED RINGER'S 1000 ML IV PRN (01:00)
[2017-06-11] MEDS: LEVOTHYROXINE SODIUM 100 MCG TAB PO SCH (05:47)
[2017-06-11] MEDS: INSULIN ASPART SUPPLEMENTAL SCALE SQ SCH ×4 (08:00→21:36)
[2017-06-11] MEDS: ACETAMINOPHEN/HYDROcodone 325 MG/10 MG TAB PO PRN ×2 (08:06→21:35)
[2017-06-11] MEDS: ONDANSETRON HCL 4 MG/2 ML VIAL IV PUSH PRN (08:17)
[2017-06-11 08:50] LABS: AUTOMATED NEUTROPHIL # 7.4 TH/MM3 (1.8-7.7); BASOPHIL # 0.1 TH/MM3 (0-0.2); EOSINOPHIL # 0.6 TH/MM3 (0-0.4); EOSINOPHIL % 6.2 % (0.0-4.0); HEMATOCRIT 31.6 % (35.0-46.0); HEMOGLOBIN 10.7 GM/DL (11.6-15.3); LYMPH % 10.9 % (9.0-44.0); LYMPHOCYTE # 1.1 TH/MM3 (1.0-4.8); MEAN CELL VOLUME 101.7 FL (80.0-100.0); MEAN CORPUSCULAR HEMOGLOBIN 34.4 PG (27.0-34.0); MEAN CORPUSCULAR HGB CONC 33.9 % (32.0-36.0); MEAN PLATELET VOLUME 7.7 FL (7.0-11.0); MONO % 4.8 % (0.0-8.0); MONOCYTE # 0.5 TH/MM3 (0-0.9); NEUT % 77.1 % (16.0-70.0); PLATELET COUNT 230 TH/MM3 (150-450); RED CELL DISTRIBUTION WIDTH 16.8 % (11.6-17.2); WHITE BLOOD COUNT 9.6 TH/MM3 (4.0-11.0)
[2017-06-11] MEDS: FUROSEMIDE 40 MG TAB PO SCH ×2 (09:00→20:12)
[2017-06-11] MEDS: CHOLECALCIFEROL (VIT D3) 5000 UNIT CAP PO SCH (09:00)
[2017-06-11] MEDS: PANTOPRAZOLE SOD 20 MG DELAYED RELEASE TAB PO SCH (09:00)
[2017-06-11] MEDS: SEVELAMER CARBONATE 800 MG TAB PO SCH ×3 (09:00→18:00)
[2017-06-11] MEDS: MIDODRINE 5 MG TAB PO SCH ×2 (09:00→20:12)
[2017-06-11] MEDS: CALCITRIOL 0.25 MCG CAP PO SCH (09:00)
[2017-06-11] MEDS: INSULIN DETEMIR 100 UNITS/ML VIAL SQ SCH ×2 (09:00→21:36)
[2017-06-11] MEDS: CINACALCET HYDROCHLORIDE 30 MG TAB PO SCH (09:00)
[2017-06-11] MEDS: SODIUM POLYSTYRENE SULFONATE SUSP 15 GM/60 ML CUP PO SCH (09:00)
[2017-06-11 09:34] LABS: AST (GOT) 31 U/L (15-37); BICARBONATE 25.9 MEQ/L (21.0-32.0); BLOOD UREA NITROGEN 46 MG/DL (7-18); CALCIUM 8.6 MG/DL (8.5-10.1); CHLORIDE 99 MEQ/L (98-107); GLOMERULAR FILTRATION RATE 4 ML/MIN (>89); GLUCOSE,RANDOM 110 MG/DL (74-106); SODIUM (NA) 135 MEQ/L (136-145)
[2017-06-11 09:37] LABS: ALKALINE PHOSPHATASE 288 U/L (45-117); ALT (GPT) 31 U/L (10-53); TOTAL BILIRUBIN ADULT 0.4 MG/DL (0.2-1.0); TOTAL PROTEIN 7.5 GM/DL (6.4-8.2)
[2017-06-11 09:51] LABS: CREATININE 10.76 MG/DL (0.50-1.00)
[2017-06-11] MEDS ORDERED: DEXAMETHASONE SOD PHOS 4 MG/ML VIAL IV ONE (12:00)
[2017-06-11] MEDS ORDERED: LIDOCAINE HCL 1% PF 5 ML SYRINGE OTHER ONE (12:00)
[2017-06-11] MEDS ORDERED: PHENYLEPH/NS 1000 MCG/10 ML SYR IV ONE (12:00)
[2017-06-11] MEDS ORDERED: ePHEDrine/NS 25 MG/5 ML SYRINGE IV ONE (12:00)
[2017-06-11] MEDS ORDERED: PROPOFOL 200 MG/20 ML AMP IV ONE (12:00)
[2017-06-11] MEDS ORDERED: ONDANSETRON HCL 4 MG/2 ML VIAL IV ONE (12:00)
[2017-06-11] MEDS ORDERED: ceFAZolin INJ 1,000 MG VIAL IV ONE (12:00)
[2017-06-11] MEDS ORDERED: DEXAMETHASONE SOD PHOS 4 MG/ML VIAL ONE (12:21)
[2017-06-11] MEDS ORDERED: ROPIVACAINE 0.5% PF INJ 30 ML VIAL ONE (12:21)
--- NOTE | 2017-06-11 12:25 | HHI.FPPN ---
Subjective Remarks No acute events overnight. Afebrile, vitals stable. Patient states she does not have any specific complaints or questions at this time. She denies pain. She and her state they are taking things 24 hours at a time and dealing with her current medical issues as best as they can. She does endorse difficulty controlling symptoms of depression and at times anxiety. She states she was started on a PO antidepressant by her PCP recently that she would like to continue after her surgery today. She also states she is becoming more agreeable and accepting the fact she may have to start hemodialysis. (Chai Jeter MD R2) Objective Vitals Vital Signs Date Time Temp Pulse Resp B/P (MAP) Pulse Ox O2 Delivery O2 Flow Rate FiO2 06/11/17 08:00 97.7 87 16 131/71 (91) 99 06/11/17 04:00 87 06/11/17 04:00 94 Room Air 06/11/17 04:00 98.0 73 18 130/62 (84) 94 06/11/17 00:00 82 06/11/17 00:00 98.1 73 18 129/63 (85) 94 06/11/17 00:00 94 Room Air 06/10/17 20:22 86 06/10/17 20:00 97.6 82 18 133/58 (83) 94 06/10/17 19:00 94 Room Air 06/10/17 16:09 97.6 56 20 140/72 (94) 96 06/10/17 16:00 76 I/O 06/10/17 06/10/17 06/10/17 06/11/17 06/11/17 06/11/17 06:59 14:59 22:59 06:59 14:59 22:59 Intake Total 480 ml 420 ml Output Total 755 ml 2151 ml Balance 480 ml -755 ml 420 ml -2151 ml Intake Oral 480 ml 420 ml Peritoneal Fluid 755 ml 2151 ml # Voids 1 4 # Bowel Movements 1 0 (Chai Jeter MD R2) Result Diagram: 06/11/17 0830 06/11/17 0830 Objective Remarks GENERAL: NAD, lying flat comfortably in bed NEURO: Alert. Normal speech. 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 SKIN: Warm and dry. HEAD: Normocephalic. Atraumatic. EYES: EOMI. No scleral icterus. No injection or drainage. ENT: No nasal drainage. Moist mucous membranes. NECK: Supple. No JVD. CARDIOVASCULAR: Regular rate and rhythm without murmurs, rubs, or gallops. RESPIRATORY: Breath sounds clear to auscultation anteriorly and equal bilaterally, without wheezes, rales, or rhonchi. No accessory muscle use. GASTROINTESTINAL: Abdomen soft, nontender, protuberant. No guarding. MUSCULOSKELETAL: No lower extremity edema. left foot has area of discoloration on dorsum of foot that is reddish-almost has a purple hue to it. the rest of her foot has a normal hue. her skin is pliable and not hard even in the discolored area but is very tender to touch. she can lie with the blanket over it. right foot wrapped, necrosis and gangrenous changes to right 4th and 5th digits noted. (Chai Jeter MD R2) A/P Assessment and Plan 67 year old female s/p angiogram and endovascular intervention by Dr. Araya on 06/09, admitted to [facility] for postop wound care and medical management plus she will need her right foot to have some part amputated (Chai Jeter MD R2) Attending Attestation Patient seen and examined. Case reviewed and discussed with the resident team. Agree with plan of care as discussed with me and documented in the resident note. she is having a hard time with changing to hemodialysis as her father after one session. she has been reluctant in the past to go this route but agrees at this time (Linh Rodriguez MD) Problem List: (1) Peripheral arterial occlusive disease ICD Codes: I77.9 - Disorder of arteries and arterioles, unspecified Status: Acute Plan: Patient is s/p by Dr. Araya 06/09: 1. Aortogram w/ B LE angiogram 2. R SFA/popliteal orbital atherectomy and SENIOR ORACLE DBA (5mm) 3. L AYO SENIOR ORACLE DBA (7mm) 4. L SKIN DIVING TEACHER Angioseal Podiatry consulted, patient is s/p right transmetatarsal amputation on 06/11 (2) ESRD (end stage renal disease) on dialysis ICD Codes: N18.6 - End stage renal disease; Z99.2 - Dependence on renal dialysis Status: Chronic Plan: Patient is ESRD on PD daily Consulted nephrology, currently having discussions with patient regarding the need to begin hemodialysis Continue peritoneal dialysis daily for now Continue home Sensipar 60 mg daily (3) Hypotension ICD Codes: I95.9 - Hypotension, unspecified Status: Chronic Plan: Continue midodrine 10 mg twice daily Monitors vitals q4h (4) Diabetes mellitus type 2, insulin dependent ICD Codes: E11.9 - Diabetes mellitus type 2, insulin dependent; Z79.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 No further events. If this recurs consider consulting Cardiology but the expectation is that adjusting the electrolytes will fix the problem K+ within normal limits Mg 2.0 Continue telemetry (6) Nutrition, metabolism, and development symptoms ICD Codes: R63.8 - Other symptoms and signs concerning food and fluid intake Plan: Fluids: per PO Electrolytes: continue to monitor, patient to continue dialysis Nutrition: renal with low K GI ppx: Not indicated at this time DVT ppx: will start chemical anticoagulation following surgical interventions (Chai Jeter MD R2) Problem Qualifiers (1) Hypotension: Qualified Codes: I95.9 - Hypotension, unspecified Chai Jeter MD R2 Jun 11, 2017 12:25 Linh Rodriguez MD Jun 14, 2017 08:59
[2017-06-11] MEDS ORDERED: BUPIVACAINE HCL PF 0.5% 30 ML VIAL ONE (13:07)
--- NOTE | 2017-06-11 15:05 | HHI.PR ---
Immediate Post Op Note Procedure Date: Jun 11, 2017 Pre Op Diagnosis: Right foot gangrene, ischemic ulcer and digits Post Op Diagnosis: same Surgeon: Tc Smith Project Manager Industrial(s): scrub Procedure: Right foot TMA Findings: amputation site appears to have good perfusion Additional Information: See OP dictation Complications: none Specimen(s) removed: bone soft tissue amp margin right foot Estimated blood loss: 100mL Anesthesia: General, Regional Block Drains: None Tourniquet time (min at mmHg) 20 min 250 mmhg right foot Patient to: Other Implant/Devices: SEE IMPLANT LOG (if applicable) Date/Time of Procedure: SEE SURGICAL CARE RECORD cT Smith DPM Jun 11, 2017 15:05
[2017-06-11] MEDS ORDERED: DO NOT ADM ANY ANTICOAGULANT DRUGS PRN (15:07)
[2017-06-11] MEDS ORDERED: *PROMETHAZINE 25 MG/ML VIAL PERIprocedural use ONLY ONE (15:08)
--- NOTE | 2017-06-11 15:35 | MP ---
cc: Tc Chambers DPM DATE OF OPERATION: 06/11/2017 PREOPERATIVE DIAGNOSIS: Right foot gangrene, ischemic lesser digits and ulcer. POSTOPERATIVE DIAGNOSIS: Right foot gangrene, ischemic lesser digits and ulcer. PROCEDURE PERFORMED: Right transmetatarsal amputation. ANESTHESIA: General with popliteal block. ESTIMATED BLOOD LOSS: Less than 100 mL. COMPLICATIONS: None. SPECIMEN: Bone and soft tissue for path, deep margin culture for routine microbial analysis. TOURNIQUET TIME: Approximately 20 minutes at a setting at 250 mmHg and then it was dropped and the rest of the case was done wet. PLAN OF ACTIVITY: Return to floor, monitor right foot, as well as left foot. JUSTIFICATION OF PROCEDURE: A 67-year-old female status post revascularization ischemic right foot. We discussed a partial foot amputation versus more proximal amputation. We chose TMA to increase the chance of healing and less returning to the operating room. The left foot appears to have a similar early beginning type problem which we will address; however, the right surgically is addressed today. PROCEDURE: Under mild sedation, the patient is brought into the operating room, placed on the operating table in supine position. Following the induction of general anesthesia, the right lower extremity is scrubbed, prepped and draped in the usual aseptic fashion. Before elevating and exsanguinating an anterior ankle block and PT block was performed utilizing 10 mL of 0.5% Marcaine plain. The patient's foot was then elevated, exsanguinated and the previously placed mid-calf tourniquet inflated to 250 mmHg. A fishmouth type incision was made over the dorsal aspect of the fifth metatarsal base area, across the dorsum of the foot proximal to the ischemic margins at the midshaft of the first metatarsal. A similar type incision was made along the plantar aspect of the sulcus of the foot being careful not to involve any ischemic margins. Everything was proximal to the ischemic margins. Upon incising into the tissue there was noted to be bleeding. Bovie and ligation of venous structures took place. We attempted to cauterize all the bleeders. At this time, we noticed that it was not successful. We dropped the tourniquet and no longer was there was significant bleeding concluding that we had a venous tourniquet. We continued the surgery. Sharp and blunt dissection was carried down through fascia, adipose layers, all venous structures and neurovascular structures were encountered and Bovie ligated as deemed necessary. Subperiosteal dissection took place at the level of the first through fifth metatarsal, dorsal distal to plantar proximal. Bone saw removing the metatarsals and the digits took place. The sesamoidal apparatus was also removed. The plantar plate structures along the MPJs 2 through 5 also debulked. There appeared to be vital, viable tissue. We actually had to spend time Bovie and ligating small arterial structures. Once hemostasis was achieved, the wound was flushed with copious amounts of normal saline and reapproximated utilizing Vicryl, deep dermis and fascia. The skin was closed utilizing nylon. Upon evaluating the foot, there was a well-perfused flap. Before leaving the operative suite a popliteal block was performed. A well padded bulky bandage was placed with a posterior splint. We will continue to monitor how the patient does over the next few days. Anticipate bandage change in the next 24-48 hours. LASHAWN Lr/BARBIE , 03:05 PM , 03:34 PM
[2017-06-11] MEDS ORDERED: SODIUM CHLOR 0.9% 1000 ML INJ 1,000 ML IV PRN (16:16)
[2017-06-11] MEDS ORDERED: SODIUM CHLOR 0.9% 1000 ML INJ 1,000 ML OTHER PRN ×2 (16:16)
--- NOTE | 2017-06-11 16:16 | HHI.NPPN ---
Subjective History of Present Illness 67 year old with ESRD, PVD DM Interval History developed skin lesion on left foot Review of Systems General Constitutional: Fatigue Musculoskeletal MS: Pain/Stiffness Objective Data Data 06/11/17 06/12/17 19:00 07:00 Intake Total 500 ml Output Total 2251 ml Balance -1751 ml IV Total 500 ml Peritoneal Fluid 2151 ml Estimated Blood Loss 100 ml Vital Signs Date Time Temp Pulse Resp B/P (MAP) Pulse Ox O2 Delivery O2 Flow Rate FiO2 06/11/17 16:00 98.4 90 12 135/63 (87) 99 Nasal Cannula 2 06/11/17 15:45 89 11 116/56 (76) 99 06/11/17 15:30 90 11 143/63 (89) 98 06/11/17 15:15 91 11 165/70 (101) 99 06/11/17 15:06 98.1 90 17 157/70 (99) 97 Nasal Cannula 2 06/11/17 08:00 97.7 87 16 131/71 (91) 99 06/11/17 04:00 87 06/11/17 04:00 94 Room Air 06/11/17 04:00 98.0 73 18 130/62 (84) 94 06/11/17 00:00 82 06/11/17 00:00 98.1 73 18 129/63 (85) 94 06/11/17 00:00 94 Room Air 06/10/17 20:22 86 06/10/17 20:00 97.6 82 18 133/58 (83) 94 06/10/17 19:00 94 Room Air -: 06/11/17 0830 06/11/17 0830 Physical Exam General Appearance: Well Developed, Well Nourished Neck Neck Exam: Neck Supple Pulmonary Resp Exam: Clear Bilaterally, No Distress Gastrointestinal/Abdomen GI Exam: Soft, Non-Tender, Bowel Sounds Present Extremeties Extremeties Remarks post surgery dressing Neurologic Neuro Exam: Alert Assessment/Plan Problem List: (1) ESRD (end stage renal disease) on dialysis ICD Codes: N18.6 - End stage renal disease; Z99.2 - Dependence on renal dialysis Status: Chronic Plan: Discuss with patient that she will need hemodialysis with sodium thiosulfate had foot transmetatarsal amputation surgery Continue peritoneal dialysis tonight request P/C in am (2) Calciphylaxis ICD Codes: E83.59 - Other disorders of calcium metabolism Plan: On Sensipar Renvela (3) Type 2 diabetes mellitus with diabetic peripheral angiopathy without gangrene ICD Codes: E11.51 - Type 2 diabetes mellitus with diabetic peripheral angiopathy without gangrene Status: Chronic Plan: Continue monitor Nazanin Strickland MD Jun 11, 2017 16:16
[2017-06-11] MEDS ORDERED: ONDANSETRON HCL 4 MG/2 ML VIAL IV PUSH PRN (16:30)
[2017-06-11] MEDS ORDERED: SODIUM CHLORIDE 0.9% FLUSH 10 ML FLUSH IV FLUSH PRN (16:30)
[2017-06-11] MEDS ORDERED: ACETAMINOPHEN 325 MG TAB PO PRN (16:30)
[2017-06-11] MEDS ORDERED: cloNIDine HCL 0.1 MG TAB PO PRN (16:30)
[2017-06-11] MEDS ORDERED: diphenhydrAMINE HCL 25 MG CAP PO PRN (16:30)
[2017-06-11] MEDS ORDERED: MANNITOL 12.5 GM/50 ML VIAL IV PRN (16:30)
[2017-06-11] MEDS ORDERED: HEPARIN SODIUM - IV 10,000 UNITS/10 ML VIAL IV FLUSH PRN (16:30)
[2017-06-11] MEDS ORDERED: NITROGLYCERIN 0.4 MG SL 25 TABS/BTL SL PRN (16:30)
[2017-06-11] MEDS ORDERED: ALBUMIN 25% INJ 100 ML IV PRN (16:30)
[2017-06-11] MEDS ORDERED: GELATIN 12 MM/7 MM FOAM TOP PRN (16:30)
[2017-06-11] MEDS: ALPRAZolam 0.25 MG TAB PO PRN (20:12)
[2017-06-11] MEDS: GABAPENTIN 100 MG CAP PO SCH (20:12)
[2017-06-12] VITALS (9 sets, daily range): BP systolic 109–128; BP diastolic 56–74; PULSE 74–97; RESP 18–20; TEMP 97.4–98.3; O2SAT 93–99
[2017-06-12] MEDS: TEMAZEPAM 15 MG CAP PO PRN ×2 (00:06→23:34)
[2017-06-12] MEDS: LEVOTHYROXINE SODIUM 100 MCG TAB PO SCH (05:32)
[2017-06-12] MEDS: ACETAMINOPHEN/HYDROcodone 325 MG/10 MG TAB PO PRN ×2 (05:33→20:52)
[2017-06-12] MEDS: INSULIN ASPART SUPPLEMENTAL SCALE SQ SCH ×4 (08:00→20:53)
[2017-06-12] MEDS: INSULIN DETEMIR 100 UNITS/ML VIAL SQ SCH ×2 (09:00→20:53)
[2017-06-12] MEDS: SEVELAMER CARBONATE 800 MG TAB PO SCH ×3 (09:00→18:00)
[2017-06-12] MEDS: FUROSEMIDE 40 MG TAB PO SCH ×2 (09:00→20:52)
[2017-06-12] MEDS: CINACALCET HYDROCHLORIDE 30 MG TAB PO SCH (09:00)
[2017-06-12] MEDS: CHOLECALCIFEROL (VIT D3) 5000 UNIT CAP PO SCH (09:03)
[2017-06-12] MEDS: CALCITRIOL 0.25 MCG CAP PO SCH (09:03)
[2017-06-12] MEDS: PANTOPRAZOLE SOD 20 MG DELAYED RELEASE TAB PO SCH (09:04)
[2017-06-12] MEDS: MIDODRINE 5 MG TAB PO SCH ×2 (09:05→20:52)
[2017-06-12] MEDS ORDERED: VANCOMYCIN INJ 1,000 MG in SODIUM CHLOR 0.9% 250 ML INJ 250 ML IV SCH (09:30)
[2017-06-12] MEDS ORDERED: CEFAZOLIN INJ 2,000 MG in SODIUM CHLORIDE 0.9% INJ 100 ML IV SCH (10:15)
[2017-06-12 10:33] LABS: AUTOMATED NEUTROPHIL # 10.8 TH/MM3 (1.8-7.7); BASOPHIL % 0.2 % (0.0-2.0); EOSINOPHIL % 0.3 % (0.0-4.0); HEMATOCRIT 29.8 % (35.0-46.0); HEMOGLOBIN 9.9 GM/DL (11.6-15.3); LYMPH % 7.3 % (9.0-44.0); LYMPHOCYTE # 0.9 TH/MM3 (1.0-4.8); MEAN CELL VOLUME 101.6 FL (80.0-100.0); MEAN CORPUSCULAR HEMOGLOBIN 33.7 PG (27.0-34.0); MEAN CORPUSCULAR HGB CONC 33.2 % (32.0-36.0); MEAN PLATELET VOLUME 7.7 FL (7.0-11.0); MONO % 5.2 % (0.0-8.0); MONOCYTE # 0.7 TH/MM3 (0-0.9); PLATELET COUNT 226 TH/MM3 (150-450); RED BLOOD COUNT 2.93 MIL/MM3 (4.00-5.30); RED CELL DISTRIBUTION WIDTH 16.4 % (11.6-17.2); WHITE BLOOD COUNT 12.4 TH/MM3 (4.0-11.0)
[2017-06-12] MEDS ORDERED: MIDAZOLAM HCL 2 MG/2 ML VIAL ONE (14:05)
[2017-06-12 14:09] LABS: BICARBONATE 27.2 MEQ/L (21.0-32.0); CALCIUM 8.6 MG/DL (8.5-10.1)
--- NOTE | 2017-06-12 14:09 | HHI.FPPN ---
Subjective Remarks She has seen and examined this morning. She states that she was doing okay this morning. She is waiting for her PC to be placed. She has no complaints. No chest pain, no shortness of breath, no fevers or chills, no abdominal pain, nausea or vomiting, no bowel movement as of yet, urinating well. (Azul Veloz MD R1) Objective Vitals Vital Signs Date Time Temp Pulse Resp B/P (MAP) Pulse Ox O2 Delivery O2 Flow Rate FiO2 06/12/17 11:30 97.9 74 18 121/69 (86) 99 06/12/17 08:00 96 Room Air 06/12/17 08:00 97.8 87 20 109/61 (77) 97 06/12/17 03:59 93 06/12/17 00:00 98.3 97 18 128/60 (82) 93 06/12/17 00:00 Room Air 06/11/17 23:54 104 06/11/17 20:48 2.00 06/11/17 20:00 102 06/11/17 20:00 98.1 105 20 130/60 (83) 96 06/11/17 19:00 Room Air 06/11/17 16:00 98.4 90 12 135/63 (87) 99 Nasal Cannula 2 06/11/17 16:00 97.7 106 18 117/64 (81) 95 06/11/17 15:48 96 Nasal Cannula 2.00 06/11/17 15:45 89 11 116/56 (76) 99 06/11/17 15:30 90 11 143/63 (89) 98 06/11/17 15:15 91 11 165/70 (101) 99 06/11/17 15:06 98.1 90 17 157/70 (99) 97 Nasal Cannula 2 I/O 06/11/17 06/11/17 06/11/17 06/12/17 06/12/17 06/12/17 07:00 15:00 23:00 07:00 15:00 23:00 Intake Total 500 ml 200 ml Output Total 2251 ml Balance -1751 ml 200 ml Intake Oral 200 ml IV Total 500 ml Peritoneal Fluid 2151 ml Estimated Blood Loss 100 ml # Voids 2 # Bowel Movements 0 (Azul Veloz MD R1) Result Diagram: 06/12/17 0948 06/11/17 0830 Objective Remarks GENERAL: NAD, lying flat comfortably in bed NEURO: Alert. Normal speech. 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 SKIN: Warm and dry. HEAD: Normocephalic. Atraumatic. EYES: EOMI. No scleral icterus. No injection or drainage. ENT: No nasal drainage. Moist mucous membranes. NECK: Supple. No JVD. CARDIOVASCULAR: Regular rate and rhythm without murmurs, rubs, or gallops. RESPIRATORY: Breath sounds clear to auscultation anteriorly and equal bilaterally, without wheezes, rales, or rhonchi. No accessory muscle use. GASTROINTESTINAL: Abdomen soft, nontender, protuberant. No guarding. MUSCULOSKELETAL: No lower extremity edema. left foot has area of discoloration on dorsum of foot that is reddish-almost has a purple hue to it. the rest of her foot has a normal hue. her skin is pliable and not hard even in the discolored area but is very tender to touch. she can lie with the blanket over it. right foot wrapped, bandage C/D/I. (Azul Veloz MD R1) A/P Assessment and Plan 67 year old female s/p angiogram and endovascular intervention by Dr. Araya on 06/09, admitted to [facility] for postop wound care and medical management plus she will need her right foot to have some part amputated (Azul Veloz MD R1) Attending Attestation Patient seen and examined. Case reviewed and discussed with the resident team. Agree with plan of care as discussed with me and documented in the resident note. appreciate help from Nephrology and Podiatry (Linh Rodriguez MD) Problem List: (1) Peripheral arterial occlusive disease ICD Codes: I77.9 - Disorder of arteries and arterioles, unspecified Status: Acute Plan: Patient is s/p by Dr. Araya 06/09: 1. Aortogram w/ B LE angiogram 2. R SFA/popliteal orbital atherectomy and WATER REGULATOR AND VALVE REPAIRER (5mm) 3. L AYO WATER REGULATOR AND VALVE REPAIRER (7mm) 4. L AIRCRAFT ELECTRICIAN Angioseal Podiatry consulted, patient is s/p right transmetatarsal amputation on 06/11 (2) Status post transmetatarsal amputation of right foot ICD Codes: Z89.431 - Acquired absence of right foot Status: Acute Plan: Postop day #1 from right transmetatarsal amputation by podiatry, Dr. Chambers, due to gangrene and ischemic ulcerated changes. Bandage change in the next 24-48 hours (3) ESRD (end stage renal disease) on dialysis ICD Codes: N18.6 - End stage renal disease; Z99.2 - Dependence on renal dialysis Status: Chronic Plan: Patient is ESRD on PD daily Consulted nephrology, appreciate recommendations -Patient to start hemodialysis with sodium thiosulfate -Will receive her P/C today, 06/12 Continue home Sensipar 60 mg daily (4) Hypotension ICD Codes: I95.9 - Hypotension, unspecified Status: Chronic Plan: Continue midodrine 10 mg twice daily Monitors vitals q4h (5) Diabetes mellitus type 2, insulin dependent ICD Codes: E11.9 - Diabetes mellitus type 2, insulin dependent; 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 No further events. If this recurs consider consulting Cardiology but the expectation is that adjusting the electrolytes will fix the problem K+ within normal limits Mg 2.0 Continue telemetry (7) Nutrition, metabolism, and development symptoms ICD Codes: R63.8 - Other symptoms and signs concerning food and fluid intake Plan: Fluids: per PO Electrolytes: continue to monitor, patient to continue dialysis Nutrition: renal with low K GI ppx: Not indicated at this time DVT ppx: will start chemical anticoagulation following surgical interventions (Azul Veloz MD R1) Problem Qualifiers (1) Hypotension: Qualified Codes: I95.9 - Hypotension, unspecified Azul Veloz MD R1 Jun 12, 2017 14:09 Linh Rodriguez MD Jun 14, 2017 09:03
[2017-06-12] MEDS ORDERED: LIDOCAINE 1%/EPINEPHrine 1:100,000 SOLN 30 ML VIAL ONE (14:25)
[2017-06-12 14:26] LABS: CREATININE 10.61 MG/DL (0.50-1.00)
--- NOTE | 2017-06-12 14:59 | PD.RAD ---
Post Procedure Progress Note Pre Procedure Diagnosis: (1) ESRD (end stage renal disease) on dialysis Post Procedure Diagnosis: (1) ESRD (end stage renal disease) on dialysis Procedure Date: Jun 12, 2017 Supervising Radiologist: Baldemar Jacobson Proceduralist/Assist: Ruben Morton, RT(R), Jil Miranda RT(R) Anesthesia: Conscious Sedation Plan of Activity Patient to Unit: ROPU Patient Condition: Good See PACS Report for procedural detail/treatment Baldemar Jacobson MD Jun 12, 2017 14:59
[2017-06-12] MEDS ORDERED: HEPARIN SODIUM - IV 2,000 UNITS/2 ML VIAL IV FLUSH PRN (15:00)
--- NOTE | 2017-06-12 16:10 | RADRPT ---
EXAM DATE/TIME: 06/12/2017 15:03 [place] COMPARISON: No previous studies available for comparison. INDICATIONS : Patient presents with end-stage renal disease in need of dialysis catheter placement. MEDICAL HISTORY : ESRD on daily peritoneal dialysis for past 5 years Insulin-dependent DM Hypothyroidism GERD Peripheral neuropathy Hypotension SURGICAL HISTORY : Cholecystectomy ENCOUNTER: Initial ACUITY: 2 days PAIN SCORE: 0/10 LOCATION: N/A FLUORO TIME: 0.35 minutes IMAGE SERIES: 0 SEDATION TIME: 20 minutes ACCESS: Right internal jugular vein SEDATION: 1.) 2 mg midazolam (Versed) IV 2.) 100 mcg fentanyl (Sublimaze) IV Prophylactic antibiotics were administered with appropriate pre-procedure timing. Vancomycin within 2 hours of procedure, Ancef (or alternative) within 1 hour of procedure. DEVICE: 1. 15 Wallisian dual lumen 19 cm Baxter II Plus catheter PROCEDURE : 1. Ultrasound-guided venipuncture. 2. PermaCath placement. 3. Conscious sedation with continuous EKG and oximetry monitoring. The risks, benefits and alternatives to the procedure were explained and verbal and written consent w as obtained. The site was prepped in sterile fashion. Full sterile technique was used, including ca p, mask, sterile gloves and gown and a large sterile sheet. Hand hygiene and 2% chlorhexidine and/or betadine/alcohol prep was utilized per protocol for cutaneous antisepsis. Sterile gel and sterile p robe cover were utilized for ultrasound guidance. The skin and subcutaneous tissues were infiltrated with local anesthetic solution. With ultrasound and fluoroscopic guidance a dermatotomy was created over the prescribed vein. A micr opuncture set was used to access the targeted vein and serial dilatation was performed to accept the prescribed length catheter. A subcutaneous tunnel was created in a retrograde fashion the catheter w as pulled through the tunnel. The catheter was flushed and assembled and locked with heparin. The c atheter was sutured in place. Conscious sedation was performed with the prescribed dosages and duration as above in the presence of an independent trained radiology nurse to assist in the monitoring of the patient. EKG and oximetry remained stable throughout the procedure. The patient tolerated the procedure well and there were n o complications. The patient was sent to post anesthesia recovery in stable condition. CONCLUSION: Uncomplicated PermaCath placement as above. Baldemar Jacobson MD on June 12, 2017 at 16:07 Board Certified Radiologist. This report was verified electronically.
[2017-06-12] MEDS: ALPRAZolam 0.25 MG TAB PO PRN (20:52)
[2017-06-12] MEDS: GABAPENTIN 100 MG CAP PO SCH (20:52)
--- NOTE | 2017-06-12 20:53 | HHI.NPPN ---
Subjective History of Present Illness 67 year old with ESRD, PVD DM Review of Systems General Constitutional: Fatigue Musculoskeletal MS: Pain/Stiffness Objective Data Data 06/12/17 06/13/17 19:00 07:00 Intake Total 0 ml Output Total 1000 ml Balance -1000 ml Intake Oral 0 ml Hemodialysis 1000 ml Vital Signs Date Time Temp Pulse Resp B/P (MAP) Pulse Ox O2 Delivery O2 Flow Rate FiO2 06/12/17 20:00 97.9 96 18 117/56 (76) 96 06/12/17 14:25 97 Nasal Cannula 2.00 06/12/17 11:30 97.9 74 18 121/69 (86) 99 06/12/17 08:00 96 Room Air 06/12/17 08:00 97.8 87 20 109/61 (77) 97 06/12/17 03:59 93 06/12/17 00:00 98.3 97 18 128/60 (82) 93 06/12/17 00:00 Room Air 06/11/17 23:54 104 -: 06/12/17 0948 06/12/17 1236 Physical Exam General Appearance: Well Developed, Well Nourished Neck Neck Exam: Neck Supple Pulmonary Resp Exam: Clear Bilaterally, No Distress Gastrointestinal/Abdomen GI Exam: Soft, Non-Tender, Bowel Sounds Present Extremeties Extremeties Remarks post surgery dressing Neurologic Neuro Exam: Alert Assessment/Plan Problem List: (1) ESRD (end stage renal disease) on dialysis ICD Codes: N18.6 - End stage renal disease; Z99.2 - Dependence on renal dialysis Status: Chronic Plan: hemodialysis started UF 1 L start with sodium thiosulfate tomorrow had foot transmetatarsal amputation surgery (2) Calciphylaxis ICD Codes: E83.59 - Other disorders of calcium metabolism Plan: On Sensipar Renvela (3) Type 2 diabetes mellitus with diabetic peripheral angiopathy without gangrene ICD Codes: E11.51 - Type 2 diabetes mellitus with diabetic peripheral angiopathy without gangrene Status: Chronic Plan: Continue monitor Nazanin Strickland MD Jun 12, 2017 20:52
[2017-06-12] MEDS: CITALOPRAM HYDROBROMIDE 20 MG TAB PO SCH (20:58)
[2017-06-13] VITALS (9 sets, daily range): BP systolic 106–139; BP diastolic 55–62; PULSE 54–93; RESP 17–20; TEMP 97.8–98.3; O2SAT 93–96
[2017-06-13] MEDS: ACETAMINOPHEN/HYDROcodone 325 MG/10 MG TAB PO PRN ×4 (03:01→19:25)
[2017-06-13] MEDS: LEVOTHYROXINE SODIUM 100 MCG TAB PO SCH (05:19)
[2017-06-13] MEDS: INSULIN ASPART SUPPLEMENTAL SCALE SQ SCH ×4 (08:00→21:33)
[2017-06-13] MEDS: PANTOPRAZOLE SOD 20 MG DELAYED RELEASE TAB PO SCH (08:34)
[2017-06-13] MEDS: SEVELAMER CARBONATE 800 MG TAB PO SCH ×3 (08:35→17:02)
[2017-06-13] MEDS: FUROSEMIDE 40 MG TAB PO SCH ×2 (08:36→21:32)
[2017-06-13] MEDS: ALPRAZolam 0.25 MG TAB PO PRN ×2 (08:36→21:32)
[2017-06-13] MEDS: CALCITRIOL 0.25 MCG CAP PO SCH (08:36)
[2017-06-13] MEDS: CHOLECALCIFEROL (VIT D3) 5000 UNIT CAP PO SCH (08:37)
[2017-06-13] MEDS: CITALOPRAM HYDROBROMIDE 20 MG TAB PO SCH (08:37)
[2017-06-13] MEDS: MIDODRINE 5 MG TAB PO SCH ×2 (08:38→21:32)
[2017-06-13] MEDS: CINACALCET HYDROCHLORIDE 30 MG TAB PO SCH (08:38)
[2017-06-13] MEDS: INSULIN DETEMIR 100 UNITS/ML VIAL SQ SCH ×2 (08:39→21:33)
--- NOTE | 2017-06-13 11:45 | HHI.FPPN ---
Subjective Remarks No acute events overnight. Afebrile, vitals stable. Patient endorses pain of both feet. 1L removed via HD. She otherwise does not have any specific complaints. Denies fevers, CP, SOB. (Chai Jeter MD R2) Objective Vitals Vital Signs Date Time Temp Pulse Resp B/P (MAP) Pulse Ox O2 Delivery O2 Flow Rate FiO2 06/13/17 10:17 96 21 06/13/17 08:00 97.9 85 20 119/62 (81) 96 06/13/17 08:00 Room Air 2.00 06/13/17 08:00 80 06/13/17 03:49 80 06/13/17 00:00 98.1 87 17 111/56 (74) 93 06/12/17 23:53 77 06/12/17 20:15 90 06/12/17 20:00 97.9 96 18 117/56 (76) 96 06/12/17 19:00 Room Air 06/12/17 14:25 97 Nasal Cannula 2.00 I/O 06/12/17 06/12/17 06/12/17 06/13/17 06/13/17 06/13/17 06:59 14:59 22:59 06:59 14:59 22:59 Intake Total 200 ml 0 ml 100 ml Output Total 1000 ml Balance 200 ml -1000 ml 100 ml Intake Oral 200 ml 0 ml 100 ml Hemodialysis 1000 ml # Voids 2 0 # Bowel Movements 0 0 (Chai Jeter MD R2) Result Diagram: 06/12/17 0948 06/12/17 1236 Objective Remarks GENERAL: NAD, lying flat comfortably in bed NEURO: Alert. Normal speech. compressor technician grossly intact. SKIN: Warm and dry. HEAD: Normocephalic. Atraumatic. EYES: EOMI. No scleral icterus. No injection or drainage. ENT: No nasal drainage. Moist mucous membranes. NECK: Supple. No JVD. CARDIOVASCULAR: Regular rate and rhythm without murmurs, rubs, or gallops. RESPIRATORY: Breath sounds clear to auscultation anteriorly and equal bilaterally, without wheezes, rales, or rhonchi. No accessory muscle use. GASTROINTESTINAL: Abdomen soft, nontender, protuberant. No guarding. MUSCULOSKELETAL: No lower extremity edema. left foot has area of discoloration on dorsum of foot that is reddish-almost has a purple hue to it. the rest of her foot has a normal hue. her skin is pliable and not hard even in the discolored area but is very tender to touch. she can lie with the blanket over it. right foot wrapped, bandage C/D/I. (Chai Jeter MD R2) A/P Assessment and Plan 67 year old female s/p angiogram and endovascular intervention by Dr. Araya on 06/09, admitted to [facility] for postop medical management (Chai Jeter MD R2) Attending Attestation Patient seen and examined. Case reviewed and discussed with the resident team. Agree with plan of care as discussed with me and documented in the resident note. as she is so recently post op, added iv morphine (Linh Rodriguez MD) Problem List: (1) Peripheral arterial occlusive disease ICD Codes: I77.9 - Disorder of arteries and arterioles, unspecified Status: Acute Plan: Patient is s/p by Dr. Araya 06/09: 1. Aortogram w/ B LE angiogram 2. R SFA/popliteal orbital atherectomy and MELANGEUR OPERATOR (5mm) 3. L AYO MELANGEUR OPERATOR (7mm) 4. L DIGITAL MANAGER Angioseal Podiatry consulted, patient is s/p right transmetatarsal amputation on 06/11 (2) Status post transmetatarsal amputation of right foot ICD Codes: Z89.431 - Acquired absence of right foot Status: Acute Plan: Postop day #2 from right transmetatarsal amputation by podiatry, Dr. Chambers, due to gangrene and ischemic ulcerated changes. Continue dressing changes per podiatry (3) ESRD (end stage renal disease) on dialysis ICD Codes: N18.6 - End stage renal disease; Z99.2 - Dependence on renal dialysis Status: Chronic Plan: Patient is ESRD on PD daily Consulted nephrology, appreciate recommendations -Patient to start hemodialysis with sodium thiosulfate -s/p P/C, 06/12 Continue home Sensipar 60 mg daily (4) Hypotension ICD Codes: I95.9 - Hypotension, unspecified Status: Chronic Plan: Continue midodrine 10 mg twice daily Monitors vitals q4h (5) Diabetes mellitus type 2, insulin dependent ICD Codes: E11.9 - Diabetes mellitus type 2, insulin dependent; Z79.4 - health and wellness coordinator (current) use of insulin Status: Chronic Plan: Hold home insulin regimen Start levemir 5 units bid Low-dose ISS Accuchecks ACHS (6) V tach ICD Codes: I47.2 - Ventricular tachycardia Status: Acute Plan: 14 beat run at 0820 am 06/10. No further events. If this recurs consider consulting Cardiology but the expectation is that adjusting the electrolytes will fix the problem K+ within normal limits Mg 2.0 Continue telemetry (7) Nutrition, metabolism, and development symptoms ICD Codes: R63.8 - Other symptoms and signs concerning food and fluid intake Plan: Fluids: per PO Electrolytes: continue to monitor, patient to continue dialysis Nutrition: renal with low K GI ppx: Not indicated at this time DVT ppx: will start chemical anticoagulation following surgical interventions (Chai Jeter MD R2) Problem Qualifiers (1) Hypotension: Qualified Codes: I95.9 - Hypotension, unspecified Chai Jeter MD R2 Jun 13, 2017 11:45 Linh Rodriguez MD Jun 14, 2017 09:04
[2017-06-13 12:15] LABS: AUTOMATED NEUTROPHIL # 7.6 TH/MM3 (1.8-7.7); BASOPHIL # 0.1 TH/MM3 (0-0.2); BASOPHIL % 0.8 % (0.0-2.0); EOSINOPHIL # 0.3 TH/MM3 (0-0.4); EOSINOPHIL % 3.4 % (0.0-4.0); HEMATOCRIT 28.9 % (35.0-46.0); HEMOGLOBIN 9.6 GM/DL (11.6-15.3); LYMPH % 10.6 % (9.0-44.0); MEAN CELL VOLUME 102.5 FL (80.0-100.0); MEAN CORPUSCULAR HEMOGLOBIN 34.1 PG (27.0-34.0); MEAN CORPUSCULAR HGB CONC 33.3 % (32.0-36.0); MEAN PLATELET VOLUME 7.6 FL (7.0-11.0); MONOCYTE # 0.5 TH/MM3 (0-0.9); NEUT % 80.2 % (16.0-70.0); PLATELET COUNT 203 TH/MM3 (150-450); RED BLOOD COUNT 2.82 MIL/MM3 (4.00-5.30); RED CELL DISTRIBUTION WIDTH 16.4 % (11.6-17.2); WHITE BLOOD COUNT 9.5 TH/MM3 (4.0-11.0)
[2017-06-13 12:18] LABS: INTERNATIONAL NORMALIZED RATIO 1.1 RATIO; PROTHROMBIN TIME - PATIENT 10.7 SEC (9.8-11.6)
[2017-06-13 12:41] LABS: ALBUMIN 2.9 GM/DL (3.4-5.0); ALKALINE PHOSPHATASE 269 U/L (45-117); ALT (GPT) 20 U/L (10-53); AST (GOT) 37 U/L (15-37); BICARBONATE 29.8 MEQ/L (21.0-32.0); BLOOD UREA NITROGEN 34 MG/DL (7-18); CALCIUM 8.8 MG/DL (8.5-10.1); CHLORIDE 99 MEQ/L (98-107); CREATININE 7.67 MG/DL (0.50-1.00); GLOMERULAR FILTRATION RATE 5 ML/MIN (>89); GLUCOSE,RANDOM 122 MG/DL (74-106); SODIUM (NA) 137 MEQ/L (136-145); TOTAL BILIRUBIN ADULT 0.4 MG/DL (0.2-1.0); TOTAL PROTEIN 6.9 GM/DL (6.4-8.2)
[2017-06-13] MEDS: HEPARIN SODIUM - IV 10,000 UNITS/10 ML VIAL PRN (16:31)
[2017-06-13] MEDS: EPOETIN ALFA 10,000 UNITS/ML VIAL IV PUSH PRN (16:31)
[2017-06-13] MEDS: GENTAMICIN SULFATE 20 MG/2 ML VIAL OTHER PRN (16:32)
--- NOTE | 2017-06-13 16:44 | HHI.NPPN ---
Subjective History of Present Illness 67 year old with ESRD, PVD DM Review of Systems General Constitutional: Fatigue Musculoskeletal MS: Pain/Stiffness Objective Data Data 06/13/17 06/14/17 19:00 07:00 Output Total 1000 ml Balance -1000 ml Hemodialysis 1000 ml Vital Signs Date Time Temp Pulse Resp B/P (MAP) Pulse Ox O2 Delivery O2 Flow Rate FiO2 06/13/17 12:00 97.8 83 18 139/60 (86) 95 06/13/17 12:00 93 06/13/17 10:17 96 21 06/13/17 08:00 97.9 85 20 119/62 (81) 96 06/13/17 08:00 Room Air 2.00 06/13/17 08:00 80 06/13/17 03:49 80 06/13/17 00:00 98.1 87 17 111/56 (74) 93 06/12/17 23:53 77 06/12/17 20:15 90 06/12/17 20:00 97.9 96 18 117/56 (76) 96 06/12/17 19:00 Room Air -: 06/13/17 1147 06/13/17 1147 Physical Exam General Appearance: Well Developed, Well Nourished Neck Neck Exam: Neck Supple Pulmonary Resp Exam: Clear Bilaterally, No Distress Gastrointestinal/Abdomen GI Exam: Soft, Non-Tender, Bowel Sounds Present Extremeties Extremeties Remarks post surgery dressing Neurologic Neuro Exam: Alert Assessment/Plan Problem List: (1) ESRD (end stage renal disease) on dialysis ICD Codes: N18.6 - End stage renal disease; Z99.2 - Dependence on renal dialysis Status: Chronic Plan: hemodialysis seen during dialysis UF 1 L started with sodium thiosulfate tomorrow tolerating it well had foot transmetatarsal amputation surgery (2) Calciphylaxis ICD Codes: E83.59 - Other disorders of calcium metabolism Plan: On Sensipar Renvela (3) Type 2 diabetes mellitus with diabetic peripheral angiopathy without gangrene ICD Codes: E11.51 - Type 2 diabetes mellitus with diabetic peripheral angiopathy without gangrene Status: Chronic Plan: Continue monitor Nazanin Strickland MD Jun 13, 2017 16:44
--- NOTE | 2017-06-13 17:36 | PD.POD ---
Subjective Pain score: 8 Remarks Right foot significant pain appears to be only somewhat controlled with medications, otherwise she is doing well, left foot has not increased in pain Past Med/Surg/Social History Past Medical History Endocrine: REPORTS HX OF: Diabetes mellitus Cardiovascular: REPORTS HX OF: Hypertension Past Surgical History Gynecologic: DENIES HX OF: Hysterectomy Breast: DENIES HX OF: Mastectomy, bilateral, Mastectomy, left, Mastectomy, right Social History Smoking Status: Former Smoker Objective Vital Signs Vital Signs Date Time Temp Pulse Resp B/P (MAP) Pulse Ox O2 Delivery O2 Flow Rate FiO2 06/13/17 12:00 97.8 83 18 139/60 (86) 95 06/13/17 12:00 93 06/13/17 10:17 96 21 06/13/17 08:00 97.9 85 20 119/62 (81) 96 06/13/17 08:00 Room Air 2.00 06/13/17 08:00 80 06/13/17 03:49 80 06/13/17 00:00 98.1 87 17 111/56 (74) 93 06/12/17 23:53 77 06/12/17 20:15 90 06/12/17 20:00 97.9 96 18 117/56 (76) 96 06/12/17 19:00 Room Air Coded Allergies: quinine (Verified Allergy, Severe, Shortness of Breath, 06/08/17) tramadol (Verified Allergy, Severe, Rash, 06/08/17) Medications and IVs Administered Medications Medications (Trade) Dose Ordered Sig/Gianfranco Route PRN Reason Start Time Stop Time Status Last Admin Dose Admin Alprazolam (Xanax) 0.25 mg BID PRN PO ANXIETY 06/09/17 17:15 06/13/17 08:36 Calcitriol (Rocaltrol) 0.5 mcg DAILY PO 06/09/17 18:30 06/13/17 08:36 Cholecalciferol (Vitamin D3) 5,000 units DAILY PO 06/09/17 18:30 06/13/17 08:37 Furosemide (Lasix) 40 mg BID PO 06/09/17 21:00 06/13/17 08:36 Gabapentin (Neurontin) 200 mg HS PO 06/09/17 21:00 06/12/17 20:52 Levothyroxine Sodium (Synthroid) 100 mcg DAILY@0600 PO 06/09/17 19:00 06/13/17 05:19 Midodrine (Proamatine) 10 mg BID PO 06/09/17 21:00 06/13/17 08:38 Sevelamer Carbonate (Renvela) 2,400 mg TID PO 06/09/17 18:00 06/13/17 17:02 Temazepam (Restoril) 15 mg HS PRN PO INSOMNIA 06/09/17 17:15 06/12/17 23:34 Cinacalcet (Sensipar) 60 mg DAILY PO 06/09/17 17:15 06/13/17 08:38 Pantoprazole Sodium (Protonix) 20 mg DAILY PO 06/09/17 19:00 06/13/17 08:34 Insulin Aspart (NovoLOG SUPPLEMENTAL SCALE) 1 ACHS SLIDING SCALE SQ 06/09/17 21:00 06/12/17 20:53 Insulin Detemir (Levemir Inj) 5 units Q12HR SQ 06/09/17 21:00 06/13/17 08:39 Acetaminophen/ Hydrocodone Bitart (York 10-325 Mg) 1 tab Q4H PRN PO PAIN SCALE 6 TO 10 06/10/17 01:30 06/13/17 12:23 Oxycodone HCl (Roxicodone) 5 mg Q4H PRN PO Breakthrough pain 06/10/17 12:00 06/13/17 17:02 Ondansetron HCl (Zofran Inj) 4 mg Q6HR PRN IV PUSH NAUSEA 06/10/17 20:00 06/11/17 08:17 Citalopram Hydrobromide (CeleXA) 20 mg DAILY PO 06/12/17 21:00 06/13/17 08:37 Sodium Chloride 1,000 ml @ 200 mls/hr Q5H PRN IV WITH DIALYSIS 06/11/17 16:16 06/13/17 16:31 Heparin Sodium (Porcine) (Heparin Inj) UNSCH PRN .XX WITH DIALYSIS 06/11/17 16:30 06/13/17 16:31 Gentamicin Sulfate (Gentamicin Inj) 20 mg UNSCH PRN OTHER WITH DIALYSIS 06/11/17 16:30 06/13/17 16:32 Epoetin Torey (Epogen Inj) 4,000 units UNSCH PRN IV PUSH WITH DIALYSIS 06/11/17 16:30 06/13/17 16:31 Vancomycin HCl 1000 mg/Sodium Chloride 250 ml @ 250 mls/hr HADOOP ARCHITECT IV 06/12/17 09:30 06/16/17 09:29 06/12/17 13:07 Other Results Laboratory Tests Test 06/12/17 09:48 06/13/17 11:47 White Blood Count 12.4 TH/MM3 9.5 TH/MM3 Red Blood Count 2.93 MIL/MM3 2.82 MIL/MM3 Hemoglobin 9.9 GM/DL 9.6 GM/DL Hematocrit 29.8 % 28.9 % Mean Corpuscular Volume 101.6 FL 102.5 FL Mean Corpuscular Hemoglobin 33.7 PG 34.1 PG Mean Corpuscular Hemoglobin Concent 33.2 % 33.3 % Red Cell Distribution Width 16.4 % 16.4 % Platelet Count 226 TH/MM3 203 TH/MM3 Mean Platelet Volume 7.7 FL 7.6 FL Neutrophils (%) (Auto) 87.0 % 80.2 % Lymphocytes (%) (Auto) 7.3 % 10.6 % Monocytes (%) (Auto) 5.2 % 5.0 % Eosinophils (%) (Auto) 0.3 % 3.4 % Basophils (%) (Auto) 0.2 % 0.8 % Neutrophils # (Auto) 10.8 TH/MM3 7.6 TH/MM3 Lymphocytes # (Auto) 0.9 TH/MM3 1.0 TH/MM3 Monocytes # (Auto) 0.7 TH/MM3 0.5 TH/MM3 Eosinophils # (Auto) 0.0 TH/MM3 0.3 TH/MM3 Basophils # (Auto) 0.0 TH/MM3 0.1 TH/MM3 CBC Comment DIFF FINAL DIFF FINAL Differential Comment Laboratory Tests Test 06/12/17 12:36 06/13/17 11:47 Blood Urea Nitrogen 50 MG/DL 34 MG/DL Creatinine 10.61 MG/DL 7.67 MG/DL Random Glucose 93 MG/DL 122 MG/DL Calcium Level 8.6 MG/DL 8.8 MG/DL Sodium Level 139 MEQ/L 137 MEQ/L Potassium Level 5.1 MEQ/L 4.2 MEQ/L Chloride Level 100 MEQ/L 99 MEQ/L Carbon Dioxide Level 27.2 MEQ/L 29.8 MEQ/L Anion Gap 12 MEQ/L 8 MEQ/L Estimat Glomerular Filtration Rate 4 ML/MIN 5 ML/MIN Total Protein 6.9 GM/DL Albumin 2.9 GM/DL Alkaline Phosphatase 269 U/L Aspartate Amino Transf (AST/SGOT) 37 U/L Alanine Aminotransferase (ALT/SGPT) 20 U/L Total Bilirubin 0.4 MG/DL Microbiology Date/Time Source Procedure Growth Status 06/11/17 14:16 Wound Foot Fungal Smear - Final NO FUNGAL ELEMENTS SEEN. Resulted 06/11/17 14:16 Wound Foot Fungal Culture Pending Resulted 06/11/17 14:16 Wound Foot Acid Fast Stain - Final NO ACID FAST BACILLI SEEN Resulted 06/11/17 14:16 Wound Foot Mycobacterial Culture Pending Resulted 06/11/17 14:16 Wound Foot Gram Stain - Final Complete 06/11/17 14:16 Wound Foot Wound Culture - Final Complete Exam-Podiatry Remarks Left lower extremity stable purple discoloration, dorsal lateral foot, it appears it is not increased since initial admission outlining of area, foot is slightly cool Right lower extremity transmetatarsal amputation site well coapted with sutures intact, plantar lateral mild ischemic preoperative lesion noted, stump is warm sensation intact, minimal redness Assessment & Plan A/P Left foot dorsal ischemic lesion versus calciphylaxis Right foot ischemic digits gangrene. Status post right transmetatarsal amputation postop day 2. Bandage changed, appears to be stable and improved. We'll change bandage in the next 2-3 days. No further intervention planned on the right foot. Continue to closely monitor the left foot, may need further intervention per vascular to prevent left foot progression of ischemic lesion. We will sign out to Dr. Chad Moreno. Patient is nonweightbearing on the right. Tc Chambers DPM Jun 13, 2017 17:36
[2017-06-13] MEDS ORDERED: MORPHINE SULFATE 2 MG/ML SYRINGE IM PRN (18:15)
[2017-06-13] MEDS: SODIUM CHLORIDE 0.9% FLUSH 10 ML FLUSH IV FLUSH PRN (21:26)
[2017-06-13] MEDS: GABAPENTIN 100 MG CAP PO SCH (21:32)
[2017-06-14] VITALS (7 sets, daily range): BP systolic 107–131; BP diastolic 58–65; PULSE 75–85; RESP 17–21; TEMP 97.4–98.3; O2SAT 94–98
[2017-06-14] MEDS: ACETAMINOPHEN/HYDROcodone 325 MG/10 MG TAB PO PRN ×5 (03:57→22:41)
[2017-06-14] MEDS: LEVOTHYROXINE SODIUM 100 MCG TAB PO SCH (05:59)
[2017-06-14] MEDS: INSULIN ASPART SUPPLEMENTAL SCALE SQ SCH ×4 (08:00→20:23)
[2017-06-14 08:01] LABS: AUTOMATED NEUTROPHIL # 7.2 TH/MM3 (1.8-7.7); BASOPHIL # 0.1 TH/MM3 (0-0.2); EOSINOPHIL # 0.5 TH/MM3 (0-0.4); EOSINOPHIL % 5.6 % (0.0-4.0); HEMATOCRIT 27.4 % (35.0-46.0); HEMOGLOBIN 9.2 GM/DL (11.6-15.3); LYMPH % 11.9 % (9.0-44.0); LYMPHOCYTE # 1.1 TH/MM3 (1.0-4.8); MEAN CELL VOLUME 102.8 FL (80.0-100.0); MEAN CORPUSCULAR HEMOGLOBIN 34.5 PG (27.0-34.0); MEAN CORPUSCULAR HGB CONC 33.6 % (32.0-36.0); MEAN PLATELET VOLUME 7.7 FL (7.0-11.0); MONO % 5.7 % (0.0-8.0); MONOCYTE # 0.5 TH/MM3 (0-0.9); NEUT % 75.8 % (16.0-70.0); PLATELET COUNT 170 TH/MM3 (150-450); RED BLOOD COUNT 2.67 MIL/MM3 (4.00-5.30); RED CELL DISTRIBUTION WIDTH 16.4 % (11.6-17.2); WHITE BLOOD COUNT 9.5 TH/MM3 (4.0-11.0)
[2017-06-14] MEDS: PANTOPRAZOLE SOD 20 MG DELAYED RELEASE TAB PO SCH (08:33)
[2017-06-14] MEDS: FUROSEMIDE 40 MG TAB PO SCH ×2 (08:33→20:22)
[2017-06-14] MEDS: CALCITRIOL 0.25 MCG CAP PO SCH (08:33)
[2017-06-14] MEDS: CHOLECALCIFEROL (VIT D3) 5000 UNIT CAP PO SCH (08:33)
[2017-06-14] MEDS: SEVELAMER CARBONATE 800 MG TAB PO SCH ×3 (08:33→17:01)
[2017-06-14] MEDS: CITALOPRAM HYDROBROMIDE 20 MG TAB PO SCH (08:34)
[2017-06-14] MEDS: MIDODRINE 5 MG TAB PO SCH ×2 (08:34→20:22)
[2017-06-14] MEDS: CINACALCET HYDROCHLORIDE 30 MG TAB PO SCH (08:34)
[2017-06-14] MEDS: INSULIN DETEMIR 100 UNITS/ML VIAL SQ SCH ×2 (08:36→20:23)
[2017-06-14 08:59] LABS: ALBUMIN 2.6 GM/DL (3.4-5.0); ALKALINE PHOSPHATASE 211 U/L (45-117); ALT (GPT) 13 U/L (10-53); AST (GOT) 19 U/L (15-37); BICARBONATE 31.4 MEQ/L (21.0-32.0); BLOOD UREA NITROGEN 26 MG/DL (7-18); CALCIUM 8.7 MG/DL (8.5-10.1); CHLORIDE 99 MEQ/L (98-107); CREATININE 6.24 MG/DL (0.50-1.00); GLOMERULAR FILTRATION RATE 7 ML/MIN (>89); GLUCOSE,RANDOM 92 MG/DL (74-106); SODIUM (NA) 140 MEQ/L (136-145); TOTAL BILIRUBIN ADULT 0.4 MG/DL (0.2-1.0); TOTAL PROTEIN 6.3 GM/DL (6.4-8.2)
--- NOTE | 2017-06-14 10:16 | HHI.FPPN ---
Subjective Remarks Patient seen and examined this morning. She states that she is doing better. However, she feels that her pain is not well controlled. She did not like the morphine yesterday (pain in arm and did not work) and wanted to try an increase in her other medications. Otherwise, no fever/chills, no chest pain, no shortness of breath, no abdominal pain, no nausea/vomiting. (Azul Veloz MD R1) Objective Vitals Vital Signs Date Time Temp Pulse Resp B/P (MAP) Pulse Ox O2 Delivery O2 Flow Rate FiO2 06/14/17 08:00 98.2 81 21 119/58 (78) 97 06/14/17 04:00 81 06/14/17 00:00 Room Air 06/14/17 00:00 82 06/13/17 23:49 98.3 75 20 106/55 (72) 96 06/13/17 20:32 98.1 80 20 129/58 (81) 94 06/13/17 20:00 88 06/13/17 19:30 Room Air 06/13/17 16:00 91 06/13/17 12:00 97.8 83 18 139/60 (86) 95 06/13/17 12:00 93 06/13/17 10:17 96 21 I/O 06/13/17 06/13/17 06/13/17 06/14/17 06/14/17 06/14/17 07:00 15:00 23:00 07:00 15:00 23:00 Intake Total 100 ml 120 ml Output Total 1000 ml Balance 100 ml -1000 ml 120 ml Intake Oral 100 ml 120 ml Hemodialysis 1000 ml # Voids 0 2 # Bowel Movements 0 (Azul Veloz MD R1) Result Diagram: 06/14/17 0656 06/14/17 06 Imaging Last Impressions Catheter Placement X-Ray 06/12/17 0600 Signed Impressions: Service Date/Time: Monday, June 12, 2017 15:03 - CONCLUSION: Uncomplicated PermaCath placement as above. Baldemar Jacobson MD Objective Remarks GENERAL: NAD, sitting comfortably in chair with feet elevated NEURO: Alert. Normal speech. fund manager grossly intact. SKIN: Warm and dry. HEAD: Normocephalic. Atraumatic. EYES: EOMI. No scleral icterus. No injection or drainage. ENT: No nasal drainage. Moist mucous membranes. NECK: Supple. No JVD. CARDIOVASCULAR: Regular rate and rhythm without murmurs, rubs, or gallops. RESPIRATORY: Breath sounds clear to auscultation anteriorly and equal bilaterally, without wheezes, rales, or rhonchi. No accessory muscle use. GASTROINTESTINAL: Abdomen soft, nontender, protuberant. No guarding. MUSCULOSKELETAL: No lower extremity edema. left foot has area of discoloration on dorsum of foot that is reddish-almost has a purple hue to it. the rest of her foot has a normal hue. her skin is pliable and not hard even in the discolored area but is very tender to touch. she can lie with the blanket over it. right foot wrapped, bandage C/D/I. Procedures PermaCath placement 06/12 (Azul Veloz MD R1) A/P Assessment and Plan 67 year old female s/p angiogram and endovascular intervention by Dr. Araya on 06/09, admitted to [facility] service for postop medical management (Azul Veloz MD R1) Attending Attestation Patient seen and examined. Case reviewed and discussed with the resident team. Agree with plan of care as discussed with me and documented in the resident note. she is more comfortable today and smiling more and talking on the phone. her is optimistic about the discoloration lessening in her left foot though she still has pain there (Linh Rodriguez MD) Problem List: (1) Peripheral arterial occlusive disease ICD Codes: I77.9 - Disorder of arteries and arterioles, unspecified Status: Acute Plan: Patient is s/p by Dr. Araya 06/09: 1. Aortogram w/ B LE angiogram 2. R SFA/popliteal orbital atherectomy and PUBLIC HEALTH TRAINING ASSISTANT (5mm) 3. L AYO PUBLIC HEALTH TRAINING ASSISTANT (7mm) 4. L CAFE ASSISTANT Angioseal Podiatry consulted, patient is s/p right transmetatarsal amputation on 06/11 (2) Status post transmetatarsal amputation of right foot ICD Codes: Z89.431 - Acquired absence of right foot Status: Acute Plan: Postop day #3 from right transmetatarsal amputation by podiatry, Dr. Chambers, due to gangrene and ischemic ulcerated changes. Continue dressing changes per podiatry Nonweightbearing in right foot (3) ESRD (end stage renal disease) on dialysis ICD Codes: N18.6 - End stage renal disease; Z99.2 - Dependence on renal dialysis Status: Chronic Plan: Patient is ESRD on PD daily Consulted nephrology, appreciate recommendations -Patient on hemodialysis with sodium thiosulfate -s/p P/C, 06/12 Continue home Sensipar 60 mg daily (4) Hypotension ICD Codes: I95.9 - Hypotension, unspecified Status: Chronic Plan: Continue midodrine 10 mg twice daily Monitors vitals q4h (5) Diabetes mellitus type 2, insulin dependent ICD Codes: E11.9 - Diabetes mellitus type 2, insulin dependent; Z79.4 - FPC (current) use of insulin Status: Chronic Plan: Hold home insulin regimen Start levemir 5 units bid Low-dose ISS Accuchecks ACHS (6) V tach ICD Codes: I47.2 - Ventricular tachycardia Status: Acute Plan: 14 beat run at 0820 am 06/10. No further events. If this recurs consider consulting Cardiology but the expectation is that adjusting the electrolytes will fix the problem K+ within normal limits Mg 2.0 Continue telemetry (7) Nutrition, metabolism, and development symptoms ICD Codes: R63.8 - Other symptoms and signs concerning food and fluid intake Plan: Fluids: per PO Electrolytes: continue to monitor, patient to continue dialysis Nutrition: renal with low K GI ppx: Not indicated at this time DVT ppx: will start chemical anticoagulation following surgical interventions (Azul Veloz MD R1) Problem Qualifiers (1) Hypotension: Qualified Codes: I95.9 - Hypotension, unspecified Azul Veloz MD R1 Jun 14, 2017 10:15 Linh Rodriguez MD Jun 14, 2017 12:39
--- NOTE | 2017-06-14 14:31 | HHI.NPPN ---
Subjective History of Present Illness 67 year old with ESRD, PVD DM Review of Systems General Constitutional: Fatigue Musculoskeletal MS: Pain/Stiffness Objective Data Data Vital Signs Date Time Temp Pulse Resp B/P (MAP) Pulse Ox O2 Delivery O2 Flow Rate FiO2 06/14/17 12:00 98.3 77 17 119/59 (79) 98 06/14/17 12:00 75 06/14/17 08:00 98.2 81 21 119/58 (78) 97 06/14/17 08:00 Room Air 2.00 21 06/14/17 08:00 80 06/14/17 04:00 81 06/14/17 00:00 Room Air 06/14/17 00:00 82 06/13/17 23:49 98.3 75 20 106/55 (72) 96 06/13/17 20:32 98.1 80 20 129/58 (81) 94 06/13/17 20:00 88 06/13/17 19:30 Room Air 06/13/17 16:00 91 -: 06/14/17 0656 06/14/17 0656 Physical Exam General Appearance: Well Developed, Well Nourished Neck Neck Exam: Neck Supple Pulmonary Resp Exam: Clear Bilaterally, No Distress Gastrointestinal/Abdomen GI Exam: Soft, Non-Tender, Bowel Sounds Present Extremeties Extremeties Remarks post surgery dressing Neurologic Neuro Exam: Alert Assessment/Plan Problem List: (1) ESRD (end stage renal disease) on dialysis ICD Codes: N18.6 - End stage renal disease; Z99.2 - Dependence on renal dialysis Status: Chronic Plan: hemodialysis seen during dialysis UF 1 L started with sodium thiosulfate tomorrow Patient did well with dialysis creatinine declined had foot transmetatarsal amputation surgery (2) Calciphylaxis ICD Codes: E83.59 - Other disorders of calcium metabolism Plan: On Sensipar Renvela (3) Type 2 diabetes mellitus with diabetic peripheral angiopathy without gangrene ICD Codes: E11.51 - Type 2 diabetes mellitus with diabetic peripheral angiopathy without gangrene Status: Chronic Plan: Continue monitor Nazanin Strickland MD Jun 14, 2017 14:31
[2017-06-14] MEDS: DOCUSATE SODIUM 50 MG/SENNA 8.6 MG TAB PO PRN (17:01)
[2017-06-14] MEDS: ALPRAZolam 0.25 MG TAB PO PRN (18:46)
[2017-06-14] MEDS: SODIUM CHLORIDE 0.9% FLUSH 10 ML FLUSH IV FLUSH PRN (20:21)
[2017-06-14] MEDS: GABAPENTIN 100 MG CAP PO SCH (20:22)
[2017-06-14] MEDS: TEMAZEPAM 15 MG CAP PO PRN (22:41)
[2017-06-15] VITALS (10 sets, daily range): BP systolic 110–131; BP diastolic 59–70; PULSE 73–102; RESP 17–20; TEMP 97.7–98.2; O2SAT 93–97
[2017-06-15] MEDS: LEVOTHYROXINE SODIUM 100 MCG TAB PO SCH (05:39)
[2017-06-15 07:31] LABS: HEMATOCRIT 26.2 % (35.0-46.0); MEAN CELL VOLUME 101.3 FL (80.0-100.0); MEAN CORPUSCULAR HEMOGLOBIN 34.6 PG (27.0-34.0); MEAN CORPUSCULAR HGB CONC 34.2 % (32.0-36.0); MEAN PLATELET VOLUME 7.6 FL (7.0-11.0); PLATELET COUNT 171 TH/MM3 (150-450); RED BLOOD COUNT 2.59 MIL/MM3 (4.00-5.30); RED CELL DISTRIBUTION WIDTH 16.4 % (11.6-17.2); WHITE BLOOD COUNT 10.2 TH/MM3 (4.0-11.0)
[2017-06-15 07:56] LABS: ALBUMIN 2.6 GM/DL (3.4-5.0); ALT (GPT) 9 U/L (10-53); AST (GOT) 16 U/L (15-37); BICARBONATE 27.4 MEQ/L (21.0-32.0); BLOOD UREA NITROGEN 34 MG/DL (7-18); CALCIUM 8.5 MG/DL (8.5-10.1); CHLORIDE 99 MEQ/L (98-107); GLOMERULAR FILTRATION RATE 5 ML/MIN (>89); GLUCOSE,RANDOM 96 MG/DL (74-106); SODIUM (NA) 137 MEQ/L (136-145)
[2017-06-15] MEDS: INSULIN ASPART SUPPLEMENTAL SCALE SQ SCH ×4 (08:00→20:38)
[2017-06-15 08:03] LABS: ALKALINE PHOSPHATASE 215 U/L (45-117); TOTAL BILIRUBIN ADULT 0.4 MG/DL (0.2-1.0); TOTAL PROTEIN 6.4 GM/DL (6.4-8.2)
[2017-06-15] MEDS: CHOLECALCIFEROL (VIT D3) 5000 UNIT CAP PO SCH (08:15)
[2017-06-15] MEDS: CALCITRIOL 0.25 MCG CAP PO SCH (08:15)
[2017-06-15] MEDS: FUROSEMIDE 40 MG TAB PO SCH ×2 (08:15→20:36)
[2017-06-15] MEDS: CITALOPRAM HYDROBROMIDE 20 MG TAB PO SCH (08:16)
[2017-06-15] MEDS: ACETAMINOPHEN/HYDROcodone 325 MG/10 MG TAB PO PRN ×3 (08:17→20:36)
[2017-06-15] MEDS: MIDODRINE 5 MG TAB PO SCH ×2 (08:18→20:36)
[2017-06-15] MEDS: SEVELAMER CARBONATE 800 MG TAB PO SCH ×3 (09:00→18:11)
[2017-06-15] MEDS: CINACALCET HYDROCHLORIDE 30 MG TAB PO SCH (09:00)
[2017-06-15] MEDS: INSULIN DETEMIR 100 UNITS/ML VIAL SQ SCH ×2 (09:00→20:38)
--- NOTE | 2017-06-15 10:12 | PD.VS.PN ---
Subjective Subjective/Hospital Course Pt alert in NAD Pt s/p Aortogram w/ B LE angiogram and R TMA Pt reported she started HD Pain controlled Objective Vitals/I&O Date Time Temp Pulse Resp B/P (MAP) Pulse Ox O2 Delivery O2 Flow Rate FiO2 06/15/17 08:00 97.7 85 18 110/63 (79) 93 06/15/17 04:00 97.7 82 19 131/59 (83) 97 06/15/17 04:00 73 06/15/17 00:00 74 06/14/17 20:20 Room Air 06/14/17 20:00 97.4 85 17 131/59 (83) 96 06/14/17 16:00 98.2 80 18 107/65 (79) 94 06/14/17 15:00 84 06/14/17 12:00 98.3 77 17 119/59 (79) 98 06/14/17 12:00 75 06/15/17 06/15/17 06/15/17 06:59 14:59 22:59 Intake Total 850 ml Balance 850 ml Physical Exam GENERAL: A&OX3,NAD, GCS 15 SKIN: LE Warm and dry with motor intact Post operative dressing to Right TMA I/C/D Pt with improved Reddened darkening discoloration to L anterior aspect of foot present Palpable R pop Biphasic L DP heard via Doppler Laboratory Laboratory Tests Test 06/15/17 06:30 White Blood Count 10.2 Red Blood Count 2.59 Hemoglobin 9.0 Hematocrit 26.2 Mean Corpuscular Volume 101.3 Mean Corpuscular Hemoglobin 34.6 Mean Corpuscular Hemoglobin Concent 34.2 Red Cell Distribution Width 16.4 Platelet Count 171 Mean Platelet Volume 7.6 Blood Urea Nitrogen 34 Creatinine 7.60 Random Glucose 96 Total Protein 6.4 Albumin 2.6 Calcium Level 8.5 Alkaline Phosphatase 215 Aspartate Amino Transf (AST/SGOT) 16 Alanine Aminotransferase (ALT/SGPT) 9 Total Bilirubin 0.4 Sodium Level 137 Potassium Level 4.0 Chloride Level 99 Carbon Dioxide Level 27.4 Anion Gap 11 Estimat Glomerular Filtration Rate 5 Date/Time Source Procedure Growth Status 06/09/17 12:40 Urine Clean Catch Urine Culture - Final 10-50,000 CFU/ML MIXED GRAM POSITIVE ... Complete 06/11/17 14:16 Wound Foot Fungal Smear - Final NO FUNGAL ELEMENTS SEEN. Resulted 06/11/17 14:16 Wound Foot Fungal Culture Pending Resulted Assessment and Plan Assessment: (1) Peripheral vascular disease of foot Status: Chronic Plan Pt S/P Aortogram w/ B LE angiogram Pt doing well Pain controlled Pt recently started HD Plan Discussed post operative B LE revascularization Discussed AVF surgical procedure for HD Continue wound care per podiatry Continue pain control Continue PT Ordered UE vein mapping for AVF access prep Petra Guerrero NP [facility] [phone] [facility] [phone] Petra Guerrero [facility] Jun 15, 2017 10:12
[2017-06-15] MEDS: SODIUM THIOSULFATE INJ 25,000 MG in WATER STERILE FOR INJ 100 ML IV PRN (10:49)
[2017-06-15] MEDS: HEPARIN SODIUM - IV 10,000 UNITS/10 ML VIAL PRN (10:49)
[2017-06-15] MEDS: GENTAMICIN SULFATE 20 MG/2 ML VIAL OTHER PRN (10:49)
[2017-06-15] MEDS: EPOETIN ALFA 10,000 UNITS/ML VIAL IV PUSH PRN (10:50)
--- NOTE | 2017-06-15 11:48 | HHI.FPPN ---
Subjective Remarks Patient seen and examined this morning. She states that she is doing well. She has had trouble understanding the limitations of her diet. She has difficulty with ordering food and her options being rejected by the cafeteria. Otherwise, she has had no other complaints. Her pain is well controlled. No fevers or chills, no chest pain, no shortness of breath, no abdominal pain, no nausea/ vomiting. Has not had a bowel movement. (Azul Veloz MD R1) Objective Vitals Vital Signs Date Time Temp Pulse Resp B/P (MAP) Pulse Ox O2 Delivery O2 Flow Rate FiO2 06/15/17 11:16 21 06/15/17 10:58 Room Air 06/15/17 10:58 80 06/15/17 08:00 97.7 85 18 110/63 (79) 93 06/15/17 04:00 97.7 82 19 131/59 (83) 97 06/15/17 04:00 73 06/15/17 00:00 74 06/14/17 20:20 Room Air 06/14/17 20:00 97.4 85 17 131/59 (83) 96 06/14/17 16:00 98.2 80 18 107/65 (79) 94 06/14/17 15:00 84 06/14/17 12:00 98.3 77 17 119/59 (79) 98 06/14/17 12:00 75 I/O 06/14/17 06/14/17 06/14/17 06/15/17 06/15/17 06/15/17 07:00 15:00 23:00 07:00 15:00 23:00 Intake Total 120 ml 960 ml 850 ml Balance 120 ml 960 ml 850 ml Intake Oral 120 ml 960 ml 850 ml # Voids 2 1 4 # Bowel Movements 0 0 (Azul Veloz MD R1) Result Diagram: 06/15/17 0630 06/15/17 0630 Objective Remarks GENERAL: NAD, laying in bed receiving hemodialysis NEURO: Alert. Normal speech. tax specialist grossly intact. SKIN: Warm and dry. HEAD: Normocephalic. Atraumatic. EYES: EOMI. No scleral icterus. No injection or drainage. ENT: No nasal drainage. Moist mucous membranes. NECK: Supple. No JVD. CARDIOVASCULAR: Regular rate and rhythm without murmurs, rubs, or gallops. RESPIRATORY: Breath sounds clear to auscultation anteriorly and equal bilaterally, without wheezes, rales, or rhonchi. No accessory muscle use. GASTROINTESTINAL: Abdomen soft, nontender, protuberant. No guarding. MUSCULOSKELETAL: No lower extremity edema. left foot has area of discoloration on dorsum of foot that is reddish-almost has a purple hue to it. the rest of her foot has a normal hue. her skin is pliable and not hard even in the discolored area but is very tender to touch. she can lie with the blanket over it. right foot wrapped, bandage C/D/I. Procedures PermaCath placement 06/12 (Azul Veloz MD R1) A/P Assessment and Plan 67 year old female s/p angiogram and endovascular intervention by Dr. Araya on 06/09, admitted to [facility] for postop medical management Discharge Planning Upon clearance by vascular surgery and podiatry (Azul Veloz MD R1) Attending Attestation Patient seen and examined. Case reviewed and discussed with the resident team. Agree with plan of care as discussed with me and documented in the resident note. discussed having the manager revenue come and talk to her. it is not clear that she has been following a diet for either DM or renal failure as her reportedly brings her fast food. 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 Araya 06/09: 1. Aortogram w/ B LE angiogram 2. R SFA/popliteal orbital atherectomy and PHOTOENGRAVING SKETCH MAKER (5mm) 3. L AYO PHOTOENGRAVING SKETCH MAKER (7mm) 4. L BREAD AND PASTRY BAKER Angioseal -Will conduct AVF surgical procedure for HD Podiatry consulted, patient is s/p right transmetatarsal amputation on 06/11 (2) Status post transmetatarsal amputation of right foot ICD Codes: Z89.431 - Acquired absence of right foot Status: Acute Plan: Postop day #4 from right transmetatarsal amputation on 06/11 by podiatry, Dr. Chambers, due to gangrene and ischemic ulcerated changes. Continue dressing changes per podiatry Nonweightbearing in right foot (3) ESRD (end stage renal disease) on dialysis ICD Codes: N18.6 - End stage renal disease; Z99.2 - Dependence on renal dialysis Status: Chronic Plan: Patient is ESRD, previously on PD upon admission Consulted nephrology, appreciate recommendations -Patient on hemodialysis with sodium thiosulfate -s/p P/C, 06/12 Continue home Sensipar 60 mg daily (4) Hypotension ICD Codes: I95.9 - Hypotension, unspecified Status: Chronic Plan: Continue midodrine 10 mg twice daily Monitors vitals q4h (5) Diabetes mellitus type 2, insulin dependent ICD Codes: E11.9 - Diabetes mellitus type 2, insulin dependent; Z79.4 - vermin exterminator (current) use of insulin Status: Chronic Plan: Hold home insulin regimen Start levemir 5 units bid Low-dose ISS Accuchecks ACHS (6) V tach ICD Codes: I47.2 - Ventricular tachycardia Status: Acute Plan: 14 beat run at 0820 am 06/10. No further events. If this recurs consider consulting Cardiology but the expectation is that adjusting the electrolytes will fix the problem K+ within normal limits Mg 2.0 Continue telemetry (7) Nutrition, metabolism, and development symptoms ICD Codes: R63.8 - Other symptoms and signs concerning food and fluid intake Plan: Fluids: per PO Electrolytes: continue to monitor, patient to continue dialysis Nutrition: renal with low K GI ppx: Not indicated at this time DVT ppx: will start chemical anticoagulation following surgical interventions (Azul Veloz MD R1) Problem Qualifiers (1) Hypotension: Qualified Codes: I95.9 - Hypotension, unspecified Azul Veloz MD R1 Jun 15, 2017 11:48 Linh Rodriguez MD Jun 16, 2017 13:25
[2017-06-15] MEDS: PANTOPRAZOLE SOD 20 MG DELAYED RELEASE TAB PO SCH (14:03)
--- NOTE | 2017-06-15 16:25 | RADRPT ---
EXAM DATE/TIME: 06/15/2017 10:41 CORRECTION Corrected on: June 15, 2017; [facility] COMPARISON: No previous studies available for comparison. INDICATIONS : AV fistula preop. MEDICAL HISTORY : Hypothyroidism. Hypercholesterolemia. Hypertension. Dyspnea. Edema. GERD. GOUT. Diabetes. Anxiety. U lcer. SURGICAL HISTORY : Cholecystectomy. Tubal ligation. Cardiac catheterization. ENCOUNTER: Initial ACUITY: 1 day PAIN SCORE: 0/10 LOCATION: Bilateral arm. CEPHALIC: ORIGIN: Right 3 mm Left 4 mm MID-ARM: Right 3 mm Left 4 mm ELBOW: Right 3 mm Left Thrombosed FOREARM: Right 4 mm Left 3 mm WRIST: Right 3 mm Left 2 mm BASILIC: ORIGIN: Right 4 mm Left 7 mm MID-ARM: Right 3 mm Left 6 mm ELBOW: Right 4 mm Left 4 mm ARTERIES: BRACHIAL: Right 4 mm Left 4 mm ULNAR: Right 4 mm Left 4 mm RADIAL: Right 3 mm Left 2 mm VEINS: RADIAL: Right 2 mm Left 2 mm ULNAR: Right 3 mm Left 2 mm FINDINGS: The venous system of the upper extremities are patent by color Doppler imaging. Measurements of the arm veins (in mm) are listed above. CONCLUSION: 1. Thrombosed peripheral Left cephalic vein near the antecubital fossa. 2. Upper extremity venous mapping, as above. Baldemar Jacobson MD on June 15, 2017 at 16:21 Board Certified Radiologist. This report was verified electronically. Baldemar Jacobson MD on June 15, 2017 at 16:27 Board Certified Radiologist. This report was verified electronically.
--- NOTE | 2017-06-15 16:30 | RADRPT ---
EXAM DATE/TIME: 06/15/2017 15:16 [facility] COMPARISON: No previous studies available for comparison. INDICATIONS : PreOp fistula. MEDICAL HISTORY : Hypothyroidism. Hypercholesterolemia. Hypertension. Dyspnea. Edema. GERD. GOUT. Diabetes. Anxiety. U lcer. SURGICAL HISTORY : Cholecystectomy. Tubal ligation. Cardiac catheterization. ENCOUNTER: Initial ACUITY: 1 day PAIN SCORE: 0/10 LOCATION: Bilateral arm. FINDINGS: RIGHT UPPER EXTREMITY: There is spontaneous flow documented in the brachial, basilic, cephalic, axillary, and subclavian vei ns. The vessels are compressible and augmentation response is documented. No filling defects are se en. The flow is phasic with respiration. Direction of flow in the jugular vein is caudal. LEFT UPPER EXTREMITY: Peripheral cephalic vein is thrombosed near the antecubital fossa. There is spontaneous flow document ed in the brachial, basilic, axillary, and subclavian veins. The vessels are compressible and augmen tation response is documented. No filling defects are seen. The flow is phasic with respiration. D irection of flow in the jugular vein is caudal. CONCLUSION: 1. Thrombosed peripheral cephalic vein near the antecubital fossa. 2. Otherwise, the upper extremity veins are patent. Baldemar Jacobson MD on June 15, 2017 at 16:27 Board Certified Radiologist. This report was verified electronically.
--- NOTE | 2017-06-15 17:03 | HHI.NPPN ---
Subjective History of Present Illness 67 year old with ESRD, PVD DM Review of Systems General Constitutional: Fatigue Musculoskeletal MS: Pain/Stiffness Objective Data Data 06/15/17 06/16/17 19:00 07:00 Output Total 2000 ml Balance -2000 ml Hemodialysis 2000 ml Vital Signs Date Time Temp Pulse Resp B/P (MAP) Pulse Ox O2 Delivery O2 Flow Rate FiO2 06/15/17 16:58 95 Room Air 06/15/17 16:30 90 06/15/17 13:35 98.2 87 18 120/67 (84) 95 06/15/17 11:16 21 06/15/17 10:58 Room Air 06/15/17 10:58 80 06/15/17 08:00 97.7 85 18 110/63 (79) 93 06/15/17 04:00 97.7 82 19 131/59 (83) 97 06/15/17 04:00 73 06/15/17 00:00 74 06/14/17 20:20 Room Air 06/14/17 20:00 97.4 85 17 131/59 (83) 96 -: 06/15/17 0630 06/15/17 0630 Physical Exam General Appearance: Well Developed, Well Nourished Neck Neck Exam: Neck Supple Pulmonary Resp Exam: Clear Bilaterally, No Distress Gastrointestinal/Abdomen GI Exam: Soft, Non-Tender, Bowel Sounds Present Extremeties Extremeties Remarks post surgery dressing Neurologic Neuro Exam: Alert Assessment/Plan Problem List: (1) ESRD (end stage renal disease) on dialysis ICD Codes: N18.6 - End stage renal disease; Z99.2 - Dependence on renal dialysis Status: Chronic Plan: hemodialysis seen during dialysis UF 2 L started with sodium thiosulfate Patient did well with dialysis had foot transmetatarsal amputation surgery Need PD Catheter out ESRD on HD now Dr. Araya to place AVF need placement at [facility] (2) Calciphylaxis ICD Codes: E83.59 - Other disorders of calcium metabolism Plan: On Sensipar Renvela (3) Type 2 diabetes mellitus with diabetic peripheral angiopathy without gangrene ICD Codes: E11.51 - Type 2 diabetes mellitus with diabetic peripheral angiopathy without gangrene Status: Chronic Plan: Continue monitor Nazanin Strickland MD Jun 15, 2017 17:03
[2017-06-15] MEDS: ALPRAZolam 0.25 MG TAB PO PRN (20:36)
[2017-06-15] MEDS: GABAPENTIN 100 MG CAP PO SCH (20:36)
[2017-06-15] MEDS: TEMAZEPAM 15 MG CAP PO PRN (22:31)
[2017-06-16] VITALS (7 sets, daily range): BP systolic 100–120; BP diastolic 46–68; PULSE 72–85; RESP 18–20; TEMP 97.8–98.3; O2SAT 80–100
[2017-06-16] MEDS: ACETAMINOPHEN/HYDROcodone 325 MG/10 MG TAB PO PRN ×5 (01:17→23:21)
[2017-06-16] MEDS: LEVOTHYROXINE SODIUM 100 MCG TAB PO SCH (05:45)
[2017-06-16 07:11] LABS: AUTOMATED NEUTROPHIL # 7.1 TH/MM3 (1.8-7.7); BASOPHIL # 0.1 TH/MM3 (0-0.2); BASOPHIL % 1.2 % (0.0-2.0); EOSINOPHIL # 0.6 TH/MM3 (0-0.4); EOSINOPHIL % 5.9 % (0.0-4.0); HEMATOCRIT 26.7 % (35.0-46.0); HEMOGLOBIN 9.1 GM/DL (11.6-15.3); LYMPH % 12.7 % (9.0-44.0); LYMPHOCYTE # 1.2 TH/MM3 (1.0-4.8); MEAN CELL VOLUME 101.1 FL (80.0-100.0); MEAN CORPUSCULAR HEMOGLOBIN 34.3 PG (27.0-34.0); MEAN CORPUSCULAR HGB CONC 33.9 % (32.0-36.0); MEAN PLATELET VOLUME 7.8 FL (7.0-11.0); MONO % 5.6 % (0.0-8.0); MONOCYTE # 0.5 TH/MM3 (0-0.9); NEUT % 74.6 % (16.0-70.0); PLATELET COUNT 181 TH/MM3 (150-450); RED BLOOD COUNT 2.64 MIL/MM3 (4.00-5.30); RED CELL DISTRIBUTION WIDTH 16.6 % (11.6-17.2); WHITE BLOOD COUNT 9.5 TH/MM3 (4.0-11.0)
[2017-06-16 07:43] LABS: ALBUMIN 2.6 GM/DL (3.4-5.0); AST (GOT) 35 U/L (15-37); BLOOD UREA NITROGEN 23 MG/DL (7-18); CALCIUM 9.1 MG/DL (8.5-10.1); CHLORIDE 100 MEQ/L (98-107); CREATININE 5.62 MG/DL (0.50-1.00); GLOMERULAR FILTRATION RATE 8 ML/MIN (>89); GLUCOSE,RANDOM 82 MG/DL (74-106); SODIUM (NA) 139 MEQ/L (136-145)
[2017-06-16 07:44] LABS: ALT (GPT) 17 U/L (10-53)
[2017-06-16 07:47] LABS: ALKALINE PHOSPHATASE 262 U/L (45-117); TOTAL BILIRUBIN ADULT 0.4 MG/DL (0.2-1.0); TOTAL PROTEIN 6.4 GM/DL (6.4-8.2)
[2017-06-16] MEDS: INSULIN ASPART SUPPLEMENTAL SCALE SQ SCH ×4 (08:00→20:27)
--- NOTE | 2017-06-16 08:00 | PD.VS.PN ---
Subjective Subjective/Hospital Course Pt s/p R TMA by podiatry. Following because of ischemia of L LE and ESRD. Requested for HD access. Pt is RIGHT handed and prefers LEFT arm access. Duplex ordered yesterday - L basilic vein adequate. Objective Vitals/I&O Date Time Temp Pulse Resp B/P (MAP) Pulse Ox O2 Delivery O2 Flow Rate FiO2 06/16/17 06:02 98.2 84 18 120/59 (79) 80 06/16/17 04:00 Room Air 06/16/17 03:48 79 06/16/17 02:13 18 06/16/17 01:17 98.3 72 18 105/53 (70) 94 06/16/17 00:00 Room Air 06/15/17 23:50 79 06/15/17 23:49 18 06/15/17 21:46 21 06/15/17 20:00 98.0 88 17 122/70 (87) 93 06/15/17 19:57 101 06/15/17 16:58 95 Room Air 06/15/17 16:30 90 06/15/17 16:00 98.0 102 20 121/69 (86) 95 06/15/17 13:35 98.2 87 18 120/67 (84) 95 06/15/17 11:16 21 06/15/17 10:58 Room Air 06/15/17 10:58 80 06/15/17 08:00 97.7 85 18 110/63 (79) 93 Physical Exam L foot with dusky discoloration dorsum of foot laterally but toes spared. Skin intact. No odor. Laboratory Laboratory Tests Test 06/16/17 05:42 White Blood Count 9.5 Red Blood Count 2.64 Hemoglobin 9.1 Hematocrit 26.7 Mean Corpuscular Volume 101.1 Mean Corpuscular Hemoglobin 34.3 Mean Corpuscular Hemoglobin Concent 33.9 Red Cell Distribution Width 16.6 Platelet Count 181 Mean Platelet Volume 7.8 Neutrophils (%) (Auto) 74.6 Lymphocytes (%) (Auto) 12.7 Monocytes (%) (Auto) 5.6 Eosinophils (%) (Auto) 5.9 Basophils (%) (Auto) 1.2 Neutrophils # (Auto) 7.1 Lymphocytes # (Auto) 1.2 Monocytes # (Auto) 0.5 Eosinophils # (Auto) 0.6 Basophils # (Auto) 0.1 CBC Comment AUTO DIFF Blood Urea Nitrogen 23 Creatinine 5.62 Random Glucose 82 Total Protein 6.4 Albumin 2.6 Calcium Level 9.1 Alkaline Phosphatase 262 Aspartate Amino Transf (AST/SGOT) 35 Alanine Aminotransferase (ALT/SGPT) 17 Total Bilirubin 0.4 Sodium Level 139 Potassium Level 3.6 Chloride Level 100 Carbon Dioxide Level 27.0 Anion Gap 12 Estimat Glomerular Filtration Rate 8 Date/Time Source Procedure Growth Status 06/09/17 12:40 Urine Clean Catch Urine Culture - Final 10-50,000 CFU/ML MIXED GRAM POSITIVE ... Complete 06/11/17 14:16 Wound Foot Fungal Smear - Final NO FUNGAL ELEMENTS SEEN. Resulted 06/11/17 14:16 Wound Foot Fungal Culture Pending Resulted Imaging Last 48 hours Impressions Upper Extremity Ultrasound 06/15/17 0000 Signed Impressions: Service Date/Time: Thursday, June 15, 2017 15:16 - CONCLUSION: 1. Thrombosed peripheral cephalic vein near the antecubital fossa. 2. Otherwise, the upper extremity veins are patent. Baldemar Jacobson MD Upper Extremity Ultrasound 06/15/17 0000 Signed Impressions: Service Date/Time: Thursday, June 15, 2017 10:41 - CONCLUSION: 1. Thrombosed peripheral Left cephalic vein near the antecubital fossa. 2. Upper extremity venous mapping, as above. Baldemar Jacobson MD Assessment and Plan Assessment: (1) Peripheral vascular disease of foot Status: Chronic Plan Pt S/P Aortogram w/ B LE angiogram Pt doing well 1. For L LE, if tissue worsens, will need L LE angiogram under GETA with likely atherectomy given extensive calcifications. 2. For ESRD, I propose L UE BB AVF. Apparently, Dr. Marks doing today. Happy to have him coordinate care. Please call with any questions. Discharge Planning 2-3 days [phone] Carlos Araya MD Jun 16, 2017 08:00
[2017-06-16 08:08] LABS: BANDS 3 % (0-6); LYMPHOCYTES 20 % (9-44); MONOCYTES 5 % (0-8); NEUTROPHIL # MANUAL DIFF 6.8 TH/MM3 (1.8-7.7); POLYS (SEG NEUTROPHILS) 69 % (16-70)
[2017-06-16 08:09] LABS: STOMATOCYTES 1+ (NORMAL)
[2017-06-16] MEDS: INSULIN DETEMIR 100 UNITS/ML VIAL SQ SCH ×2 (09:00→20:27)
[2017-06-16] MEDS: FUROSEMIDE 40 MG TAB PO SCH ×2 (09:00→20:24)
[2017-06-16] MEDS: SEVELAMER CARBONATE 800 MG TAB PO SCH ×3 (09:00→16:02)
[2017-06-16] MEDS: MIDODRINE 5 MG TAB PO SCH ×2 (09:00→20:24)
[2017-06-16] MEDS ORDERED: EUCERIN CREAM 120 GM JAR TOPICAL PRN (11:30)
--- NOTE | 2017-06-16 12:13 | HHI.FPPN ---
Subjective Remarks Ms Ruth is committed to hemodialysis and is getting her fistula done today as well as removal of the catheter for her peritoneal dialysis. she still has pain in both feet and gets pain when her dark spot on her left foot is touched. her left foot continues to improve post op. she otherwise is improving and looks forward to going home with her once released by surgery. she has no complaints of cardiac or respiratory problems, etc Objective Vitals Vital Signs Date Time Temp Pulse Resp B/P (MAP) Pulse Ox O2 Delivery O2 Flow Rate FiO2 06/16/17 08:00 Room Air 06/16/17 08:00 97.8 79 20 100/54 (69) 90 06/16/17 08:00 82 06/16/17 06:02 98.2 84 18 120/59 (79) 80 06/16/17 04:00 Room Air 06/16/17 03:48 79 06/16/17 02:13 18 06/16/17 01:17 98.3 72 18 105/53 (70) 94 06/16/17 00:00 Room Air 06/15/17 23:50 79 06/15/17 23:49 18 06/15/17 21:46 21 06/15/17 20:00 98.0 88 17 122/70 (87) 93 06/15/17 19:57 101 06/15/17 16:58 95 Room Air 06/15/17 16:30 90 06/15/17 16:00 98.0 102 20 121/69 (86) 95 06/15/17 13:35 98.2 87 18 120/67 (84) 95 I/O 06/15/17 06/15/17 06/15/17 06/16/17 06/16/17 06/16/17 07:00 15:00 23:00 07:00 15:00 23:00 Intake Total 850 ml 320 ml Output Total 2000 ml Balance 850 ml -2000 ml 320 ml Intake Oral 850 ml 320 ml Hemodialysis 2000 ml # Voids 4 0 # Bowel Movements 0 0 Result Diagram: 06/16/17 0542 06/16/17 0542 Objective Remarks GENERAL: NAD, laying in bed receiving hemodialysis NEURO: Alert. Normal speech. professor of management grossly intact. SKIN: Warm and dry. HEAD: Normocephalic. Atraumatic. EYES: EOMI. No scleral icterus. No injection or drainage. ENT: No nasal drainage. Moist mucous membranes. NECK: Supple. No JVD. CARDIOVASCULAR: Regular rate and rhythm without murmurs, rubs, or gallops. RESPIRATORY: Breath sounds clear to auscultation anteriorly and equal bilaterally, without wheezes, rales, or rhonchi. No accessory muscle use. GASTROINTESTINAL: Abdomen soft, nontender, protuberant. No guarding. MUSCULOSKELETAL: No lower extremity edema. left foot has area of discoloration on dorsum of foot that is reddish-almost has a purple hue to it. the rest of her foot has a normal hue. her skin is pliable and not hard even in the discolored area but is very tender to touch. she can lie with the blanket over it. right foot wrapped, bandage C/D/I. Procedures PermaCath placement 06/12 Urinary Catheter: No Vascular Central Line Catheter: Yes Reason for Continuation dialysis A/P Assessment and Plan 67 year old female s/p angiogram and endovascular intervention by Dr. Araya on 06/09, admitted to [facility] for postop medical management Discharge Planning Upon clearance by vascular surgery and podiatry Problem List: (1) Peripheral arterial occlusive disease ICD Codes: I77.9 - Disorder of arteries and arterioles, unspecified Status: Acute Plan: Patient is s/p by Dr. Araya 06/09: 1. Aortogram w/ B LE angiogram 2. R SFA/popliteal orbital atherectomy and ADVISOR CONSULTANT (5mm) 3. L AYO ADVISOR CONSULTANT (7mm) 4. L SELF RISING FLOUR MIXER Angioseal -Will conduct AVF surgical procedure for HD Podiatry consulted, patient is s/p right transmetatarsal amputation on 06/11 (2) Status post transmetatarsal amputation of right foot ICD Codes: Z89.431 - Acquired absence of right foot Status: Acute Plan: Postop from right transmetatarsal amputation on 06/11 by podiatry, Dr. Chambers, due to gangrene and ischemic ulcerated changes. Continue dressing changes per podiatry Nonweightbearing in right foot (3) ESRD (end stage renal disease) on dialysis ICD Codes: N18.6 - End stage renal disease; Z99.2 - Dependence on renal dialysis Status: Chronic Plan: Patient is ESRD, previously on PD upon admission Consulted nephrology, appreciate recommendations -Patient on hemodialysis with sodium thiosulfate -s/p P/C, 06/12 Continue home Sensipar 60 mg daily (4) Hypotension ICD Codes: I95.9 - Hypotension, unspecified Status: Chronic Plan: Continue midodrine 10 mg twice daily Monitors vitals q4h (5) Diabetes mellitus type 2, insulin dependent ICD Codes: E11.9 - Diabetes mellitus type 2, insulin dependent; Z79.4 - MCC (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 No further events. If this recurs consider consulting Cardiology but the expectation is that adjusting the electrolytes will fix the problem K+ within normal limits Mg 2.0 Continue telemetry (7) Nutrition, metabolism, and development symptoms ICD Codes: R63.8 - Other symptoms and signs concerning food and fluid intake Status: Acute Plan: Fluids: per PO Electrolytes: continue to monitor, patient to continue dialysis and will have labs monitored there Nutrition: renal with low K. will speak to meat packer GI ppx: Not indicated at this time DVT ppx: will start chemical anticoagulation following surgical interventions Problem Qualifiers (1) Hypotension: Qualified Codes: I95.9 - Hypotension, unspecified Linh Rodriguez MD Jun 16, 2017 12:12
[2017-06-16] MEDS ORDERED: POVIDONE IODINE 5% (ANTISEPSIS KIT) 4 APPLICATIONS EACH NARE PRN (13:15)
[2017-06-16] MEDS ORDERED: LACTATED RINGER'S 1000 ML IV PRN (13:15)
[2017-06-16] MEDS ORDERED: CHLORHEXIDINE GLUCONATE 2 % 1 PACK (2 CLOTHS) TOPICAL PRN (13:15)
[2017-06-16] MEDS ORDERED: METOPROLOL TARTRATE 25 MG TAB PO PRN (13:15)
[2017-06-16] MEDS ORDERED: SODIUM CHLORID 0.9% 500 ML IV PRN (13:15)
[2017-06-16] MEDS: CHOLECALCIFEROL (VIT D3) 5000 UNIT CAP PO SCH (16:02)
[2017-06-16] MEDS: CALCITRIOL 0.25 MCG CAP PO SCH (16:02)
[2017-06-16] MEDS: CITALOPRAM HYDROBROMIDE 20 MG TAB PO SCH (16:02)
[2017-06-16] MEDS: PANTOPRAZOLE SOD 20 MG DELAYED RELEASE TAB PO SCH (16:02)
[2017-06-16] MEDS: CINACALCET HYDROCHLORIDE 30 MG TAB PO SCH (16:05)
--- NOTE | 2017-06-16 16:14 | PD.VS.PN ---
Subjective Subjective/Hospital Course Due to emergency, case cancelled for today. Rescheduled for morning. Objective Vitals/I&O Date Time Temp Pulse Resp B/P (MAP) Pulse Ox O2 Delivery O2 Flow Rate FiO2 06/16/17 12:00 78 06/16/17 08:00 Room Air 06/16/17 08:00 97.8 79 20 100/54 (69) 90 06/16/17 08:00 82 06/16/17 06:02 98.2 84 18 120/59 (79) 80 06/16/17 04:00 Room Air 06/16/17 03:48 79 06/16/17 02:13 18 06/16/17 01:17 98.3 72 18 105/53 (70) 94 06/16/17 00:00 Room Air 06/15/17 23:50 79 06/15/17 23:49 18 06/15/17 21:46 21 06/15/17 20:00 98.0 88 17 122/70 (87) 93 06/15/17 19:57 101 06/15/17 16:58 95 Room Air 06/15/17 16:30 90 Laboratory Laboratory Tests Test 06/16/17 05:42 White Blood Count 9.5 Red Blood Count 2.64 Hemoglobin 9.1 Hematocrit 26.7 Mean Corpuscular Volume 101.1 Mean Corpuscular Hemoglobin 34.3 Mean Corpuscular Hemoglobin Concent 33.9 Red Cell Distribution Width 16.6 Platelet Count 181 Mean Platelet Volume 7.8 Neutrophils (%) (Auto) 74.6 Lymphocytes (%) (Auto) 12.7 Monocytes (%) (Auto) 5.6 Eosinophils (%) (Auto) 5.9 Basophils (%) (Auto) 1.2 Neutrophils # (Auto) 7.1 Lymphocytes # (Auto) 1.2 Monocytes # (Auto) 0.5 Eosinophils # (Auto) 0.6 Basophils # (Auto) 0.1 CBC Comment AUTO DIFF Differential Total Cells Counted 100 Neutrophils % (Manual) 69 Band Neutrophils % 3 Lymphocytes % 20 Monocytes % 5 Eosinophils % 3 Neutrophils # (Manual) 6.8 Differential Comment FINAL DIFF MANUAL Platelet Estimate NORMAL Platelet Morphology Comment NORMAL Stomatocytes 1+ Blood Urea Nitrogen 23 Creatinine 5.62 Random Glucose 82 Total Protein 6.4 Albumin 2.6 Calcium Level 9.1 Alkaline Phosphatase 262 Aspartate Amino Transf (AST/SGOT) 35 Alanine Aminotransferase (ALT/SGPT) 17 Total Bilirubin 0.4 Sodium Level 139 Potassium Level 3.6 Chloride Level 100 Carbon Dioxide Level 27.0 Anion Gap 12 Estimat Glomerular Filtration Rate 8 Date/Time Source Procedure Growth Status 06/09/17 12:40 Urine Clean Catch Urine Culture - Final 10-50,000 CFU/ML MIXED GRAM POSITIVE ... Complete 06/11/17 14:16 Wound Foot Fungal Smear - Final NO FUNGAL ELEMENTS SEEN. Resulted 06/11/17 14:16 Wound Foot Fungal Culture Pending Resulted Imaging Last 48 hours Impressions Upper Extremity Ultrasound 06/15/17 0000 Signed Impressions: Service Date/Time: Thursday, June 15, 2017 15:16 - CONCLUSION: 1. Thrombosed peripheral cephalic vein near the antecubital fossa. 2. Otherwise, the upper extremity veins are patent. Baldemar Jacobson MD Upper Extremity Ultrasound 06/15/17 0000 Signed Impressions: Service Date/Time: Thursday, June 15, 2017 10:41 - CONCLUSION: 1. Thrombosed peripheral Left cephalic vein near the antecubital fossa. 2. Upper extremity venous mapping, as above. Baldemar Jacobson MD Assessment and Plan Assessment: (1) Peripheral vascular disease of foot Status: Chronic Plan Pt S/P Aortogram w/ B LE angiogram Pt doing well 1. For L LE, if tissue worsens, will need L LE angiogram under GETA with likely atherectomy given extensive calcifications. 2. For ESRD, I propose L UE BB AVF. Apparently, Dr. Marks doing today. Happy to have him coordinate care. Please call with any questions. Discharge Planning 2-3 days [phone] Carlos Araya MD Jun 16, 2017 16:14
[2017-06-16] MEDS: DOCUSATE SODIUM 50 MG/SENNA 8.6 MG TAB PO PRN (16:19)
--- NOTE | 2017-06-16 18:25 | HHI.NPPN ---
Subjective History of Present Illness 67 year old with ESRD, PVD DM Review of Systems General Constitutional: Fatigue Musculoskeletal MS: Pain/Stiffness Objective Data Data Vital Signs Date Time Temp Pulse Resp B/P (MAP) Pulse Ox O2 Delivery O2 Flow Rate FiO2 06/16/17 12:00 78 06/16/17 08:00 Room Air 06/16/17 08:00 97.8 79 20 100/54 (69) 90 06/16/17 08:00 82 06/16/17 06:02 98.2 84 18 120/59 (79) 80 06/16/17 04:00 Room Air 06/16/17 03:48 79 06/16/17 02:13 18 06/16/17 01:17 98.3 72 18 105/53 (70) 94 06/16/17 00:00 Room Air 06/15/17 23:50 79 06/15/17 23:49 18 06/15/17 21:46 21 06/15/17 20:00 98.0 88 17 122/70 (87) 93 06/15/17 19:57 101 -: 06/16/17 0542 06/16/17 0542 Physical Exam General Appearance: Well Developed, Well Nourished Neck Neck Exam: Neck Supple Pulmonary Resp Exam: Clear Bilaterally, No Distress Gastrointestinal/Abdomen GI Exam: Soft, Non-Tender, Bowel Sounds Present Extremeties Extremeties Remarks post surgery dressing Neurologic Neuro Exam: Alert Assessment/Plan Problem List: (1) ESRD (end stage renal disease) on dialysis ICD Codes: N18.6 - End stage renal disease; Z99.2 - Dependence on renal dialysis Status: Chronic Plan: hemodialysis yesterday UF 2 L on sodium thiosulfate Patient did well with dialysis had foot transmetatarsal amputation surgery Need PD Catheter out ESRD on HD now Dr. Araya to place AVF need placement at [facility] (2) Calciphylaxis ICD Codes: E83.59 - Other disorders of calcium metabolism Plan: On Sensipar Renvela (3) Type 2 diabetes mellitus with diabetic peripheral angiopathy without gangrene ICD Codes: E11.51 - Type 2 diabetes mellitus with diabetic peripheral angiopathy without gangrene Status: Chronic Plan: Continue monitor Nazanin Strickland MD Jun 16, 2017 18:25
[2017-06-16] MEDS: GABAPENTIN 100 MG CAP PO SCH (20:24)
[2017-06-16] MEDS: ALPRAZolam 0.25 MG TAB PO PRN (20:24)
[2017-06-16] MEDS: TEMAZEPAM 15 MG CAP PO PRN (23:20)
[2017-06-17] VITALS (8 sets, daily range): BP systolic 105–121; BP diastolic 52–58; PULSE 71–94; RESP 17–20; TEMP 97.5–98.3; O2SAT 91–96
[2017-06-17] MEDS: ACETAMINOPHEN/HYDROcodone 325 MG/10 MG TAB PO PRN ×3 (06:26→22:55)
[2017-06-17] MEDS: LEVOTHYROXINE SODIUM 100 MCG TAB PO SCH (06:26)
[2017-06-17 07:05] LABS: HEMATOCRIT 25.9 % (35.0-46.0); HEMOGLOBIN 8.7 GM/DL (11.6-15.3); MEAN CELL VOLUME 102.6 FL (80.0-100.0); MEAN CORPUSCULAR HEMOGLOBIN 34.4 PG (27.0-34.0); MEAN CORPUSCULAR HGB CONC 33.5 % (32.0-36.0); MEAN PLATELET VOLUME 8.2 FL (7.0-11.0); PLATELET COUNT 184 TH/MM3 (150-450); RED BLOOD COUNT 2.53 MIL/MM3 (4.00-5.30); RED CELL DISTRIBUTION WIDTH 16.9 % (11.6-17.2); WHITE BLOOD COUNT 8.9 TH/MM3 (4.0-11.0)
[2017-06-17 07:18] LABS: ALBUMIN 2.7 GM/DL (3.4-5.0); AST (GOT) 26 U/L (15-37); BICARBONATE 27.3 MEQ/L (21.0-32.0); BLOOD UREA NITROGEN 32 MG/DL (7-18); CALCIUM 9.1 MG/DL (8.5-10.1); CHLORIDE 100 MEQ/L (98-107); CREATININE 7.44 MG/DL (0.50-1.00); GLOMERULAR FILTRATION RATE 5 ML/MIN (>89); GLUCOSE,RANDOM 95 MG/DL (74-106); SODIUM (NA) 139 MEQ/L (136-145)
[2017-06-17 07:23] LABS: ALKALINE PHOSPHATASE 257 U/L (45-117); ALT (GPT) 15 U/L (10-53); TOTAL BILIRUBIN ADULT 0.4 MG/DL (0.2-1.0); TOTAL PROTEIN 6.3 GM/DL (6.4-8.2)
[2017-06-17] MEDS: INSULIN ASPART SUPPLEMENTAL SCALE SQ SCH ×4 (07:53→21:00)
[2017-06-17] MEDS: CINACALCET HYDROCHLORIDE 30 MG TAB PO SCH (08:30)
[2017-06-17] MEDS: INSULIN DETEMIR 100 UNITS/ML VIAL SQ SCH ×2 (08:30→21:00)
[2017-06-17] MEDS: MIDODRINE 5 MG TAB PO SCH ×2 (08:30→21:08)
[2017-06-17] MEDS: DOCUSATE SODIUM 50 MG/SENNA 8.6 MG TAB PO PRN (08:31)
[2017-06-17] MEDS: SEVELAMER CARBONATE 800 MG TAB PO SCH ×3 (08:31→16:41)
[2017-06-17] MEDS: CALCITRIOL 0.25 MCG CAP PO SCH (08:31)
[2017-06-17] MEDS: CITALOPRAM HYDROBROMIDE 20 MG TAB PO SCH (08:31)
[2017-06-17] MEDS: PANTOPRAZOLE SOD 20 MG DELAYED RELEASE TAB PO SCH (08:31)
[2017-06-17] MEDS: FUROSEMIDE 40 MG TAB PO SCH ×2 (08:31→21:08)
[2017-06-17] MEDS: CHOLECALCIFEROL (VIT D3) 5000 UNIT CAP PO SCH (08:31)
--- NOTE | 2017-06-17 09:05 | HHI.FPPN ---
Subjective Remarks No acute events overnight. Afebrile, vitals stable. Patient states her pain is well controlled with her current pain regimen. She does not have any specific complaints or concerns this morning. She specifically denies chest pain, SOB, cough, fevers. Patient endorses constipation. Last BM noted on 06/10. (Chai Jeter MD R2) Objective Vitals Vital Signs Date Time Temp Pulse Resp B/P (MAP) Pulse Ox O2 Delivery O2 Flow Rate FiO2 06/17/17 06:41 97.5 85 18 119/55 (76) 95 06/17/17 04:05 77 06/17/17 00:45 18 06/17/17 00:45 18 06/17/17 00:01 74 06/17/17 00:00 98.1 71 17 105/53 (70) 96 06/16/17 20:25 Room Air 06/16/17 20:00 97.9 84 18 110/55 (73) 95 06/16/17 20:00 85 06/16/17 16:00 97.8 79 20 105/46 (65) 100 06/16/17 12:00 78 06/16/17 12:00 97.9 78 20 112/68 (83) 97 I/O 06/16/17 06/16/17 06/16/17 06/17/17 06/17/17 06/17/17 07:00 15:00 23:00 07:00 15:00 23:00 Intake Total 0 ml 0 ml Balance 0 ml 0 ml Intake Oral 0 ml 0 ml # Voids 2 1 # Bowel Movements 0 0 (Chai Jeter MD R2) Result Diagram: 06/17/1720 06/17/17 0620 Objective Remarks GENERAL: NAD, laying in bed receiving hemodialysis NEURO: Alert. Normal speech. access director grossly intact. SKIN: Warm and dry. HEAD: Normocephalic. Atraumatic. EYES: EOMI. No scleral icterus. No injection or drainage. ENT: No nasal drainage. Moist mucous membranes. NECK: Supple. No JVD. CARDIOVASCULAR: Regular rate and rhythm without murmurs, rubs, or gallops. RESPIRATORY: Breath sounds clear to auscultation anteriorly and equal bilaterally, without wheezes, rales, or rhonchi. No accessory muscle use. GASTROINTESTINAL: Abdomen soft, nontender, protuberant. No guarding. MUSCULOSKELETAL: No lower extremity edema. left foot has area of discoloration on dorsum of foot that is reddish-almost has a purple hue to it. the rest of her foot has a normal hue. her skin is pliable and not hard even in the discolored area but is very tender to touch. she can lie with the blanket over it. right foot wrapped, bandage C/D/I. Procedures PermaCath placement 06/12 (Chai Jeter MD R2) A/P Assessment and Plan 67 year old female s/p angiogram and endovascular intervention by Dr. Araya on 06/09 and s/p right transmetatarsal amputation by podiatry on 06/11, admitted to [facility] for postop medical management Discharge Planning Upon clearance by vascular surgery and podiatry (Chai Jeter MD R2) Attending Attestation Patient seen and examined. Case reviewed and discussed with the resident team. Agree with plan of care as discussed with me and documented in the resident note. adjusting well to hemodialysis except diet (Linh Rodriguez MD) Problem List: (1) Peripheral arterial occlusive disease ICD Codes: I77.9 - Disorder of arteries and arterioles, unspecified Status: Acute Plan: Patient is s/p by Dr. Araya 06/09: 1. Aortogram w/ B LE angiogram 2. R SFA/popliteal orbital atherectomy and CIGARETTE MAKING MACHINE OPERATOR (5mm) 3. L AYO CIGARETTE MAKING MACHINE OPERATOR (7mm) 4. L EYELET MAKER Angioseal -Will conduct AVF surgical procedure for HD Podiatry consulted, patient is s/p right transmetatarsal amputation on 06/11 (2) Status post transmetatarsal amputation of right foot ICD Codes: Z89.431 - Acquired absence of right foot Status: Acute Plan: Postop from right transmetatarsal amputation on 06/11 by podiatry, Dr. Chambers, due to gangrene and ischemic ulcerated changes. Continue dressing changes per podiatry Nonweightbearing in right foot (3) ESRD (end stage renal disease) on dialysis ICD Codes: N18.6 - End stage renal disease; Z99.2 - Dependence on renal dialysis Status: Chronic Plan: Patient is ESRD, previously on PD upon admission Consulted nephrology, appreciate recommendations -Patient on hemodialysis with sodium thiosulfate -s/p P/C, 06/12 Continue home Sensipar 60 mg daily AVF fistula LUE planned for 06/18 AM per vascular surgery (4) Hypotension ICD Codes: I95.9 - Hypotension, unspecified Status: Chronic Plan: Continue midodrine 10 mg twice daily Monitors vitals q4h (5) Diabetes mellitus type 2, insulin dependent ICD Codes: E11.9 - Diabetes mellitus type 2, insulin dependent; Z79.4 - vault worker (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 No further events. If this recurs consider consulting Cardiology but the expectation is that adjusting the electrolytes will fix the problem K+ within normal limits Mg 2.0 Continue telemetry (7) Nutrition, metabolism, and development symptoms ICD Codes: R63.8 - Other symptoms and signs concerning food and fluid intake Status: Acute Plan: Fluids: per PO Electrolytes: continue to monitor, patient to continue dialysis and will have labs monitored there Nutrition: renal with low K. will speak to employment coordinator GI ppx: Not indicated at this time DVT ppx: will start chemical anticoagulation following surgical interventions Constipation: Nathaly-colace scheduled BID, Miralax andrea daily, milk of mag prn (Chai Jeter MD R2) Problem Qualifiers (1) Hypotension: Qualified Codes: I95.9 - Hypotension, unspecified Chai Jeter MD R2 Jun 17, 2017 09:05 Linh Rodriguez MD Jun 18, 2017 11:56
[2017-06-17] MEDS ORDERED: BISACODYL 10 MG SUPP RECTAL PRN (09:15)
[2017-06-17] MEDS ORDERED: SENNOSIDES 8.6 MG TAB PO PRN (09:15)
[2017-06-17] MEDS ORDERED: MAGNESIUM HYDROXIDE SUSP 30 ML CUP PO PRN (09:15)
[2017-06-17] MEDS: POLYETHYLENE GLYCOL 17 GM PKG PO SCH (09:45)
--- NOTE | 2017-06-17 10:11 | PD.VS.PN ---
Subjective Subjective/Hospital Course Pt sitting up in bed w/o complaints Pt alert in NAD Objective Vitals/I&O Date Time Temp Pulse Resp B/P (MAP) Pulse Ox O2 Delivery O2 Flow Rate FiO2 06/17/17 06:41 97.5 85 18 119/55 (76) 95 06/17/17 04:05 77 06/17/17 00:45 18 06/17/17 00:45 18 06/17/17 00:01 74 06/17/17 00:00 98.1 71 17 105/53 (70) 96 06/16/17 20:25 Room Air 06/16/17 20:00 97.9 84 18 110/55 (73) 95 06/16/17 20:00 85 06/16/17 16:00 97.8 79 20 105/46 (65) 100 06/16/17 12:00 78 06/16/17 12:00 97.9 78 20 112/68 (83) 97 06/17/17 06/17/17 06/17/17 07:00 15:00 23:00 Intake Total 0 ml Balance 0 ml Physical Exam GENERAL: A&OX3,NAD, GCS 15 SKIN: LE Warm and dry with motor intact Post operative dressing to Right TMA I/C/D Pt with improved Reddened darkening discoloration to L anterior aspect of foot Palpable R pop Biphasic L DP heard via Doppler Laboratory Laboratory Tests Test 06/17/17 06:20 White Blood Count 8.9 Red Blood Count 2.53 Hemoglobin 8.7 Hematocrit 25.9 Mean Corpuscular Volume 102.6 Mean Corpuscular Hemoglobin 34.4 Mean Corpuscular Hemoglobin Concent 33.5 Red Cell Distribution Width 16.9 Platelet Count 184 Mean Platelet Volume 8.2 Blood Urea Nitrogen 32 Creatinine 7.44 Random Glucose 95 Total Protein 6.3 Albumin 2.7 Calcium Level 9.1 Alkaline Phosphatase 257 Aspartate Amino Transf (AST/SGOT) 26 Alanine Aminotransferase (ALT/SGPT) 15 Total Bilirubin 0.4 Sodium Level 139 Potassium Level 3.8 Chloride Level 100 Carbon Dioxide Level 27.3 Anion Gap 12 Estimat Glomerular Filtration Rate 5 Date/Time Source Procedure Growth Status 06/09/17 12:40 Urine Clean Catch Urine Culture - Final 10-50,000 CFU/ML MIXED GRAM POSITIVE ... Complete 06/11/17 14:16 Wound Foot Fungal Smear - Final NO FUNGAL ELEMENTS SEEN. Resulted 06/11/17 14:16 Wound Foot Fungal Culture Pending Resulted Assessment and Plan Assessment: (1) Peripheral vascular disease of foot Status: Chronic Plan Pt S/P Aortogram w/ B LE angiogram Pt doing well with strong distal pulses Pt w/ ESRD recently started HD, needs HD access Plan Pt scheduled for a LEFT Upper Extremity BB AVF tomorrow AM w/ Dr. Araya Continue w/ Left arm precautions- NO B/P readings or LAB draws from L UE NPO after midnight For L LE, if tissue worsens, will need L LE angiogram under GETA with likely atherectomy given extensive calcifications. Petra Guerrero NP [facility]/[place] [phone] Discharge Planning 2-3 days [place] [phone] Petra Guerrero Jun 17, 2017 10:11
--- NOTE | 2017-06-17 11:18 | HHI.NPPN ---
Subjective History of Present Illness 67 year old with ESRD, PVD DM Review of Systems General Constitutional: Fatigue Musculoskeletal MS: Pain/Stiffness Objective Data Data Vital Signs Date Time Temp Pulse Resp B/P (MAP) Pulse Ox O2 Delivery O2 Flow Rate FiO2 06/17/17 08:00 Room Air 06/17/17 06:41 97.5 85 18 119/55 (76) 95 06/17/17 04:05 77 06/17/17 00:45 18 06/17/17 00:45 18 06/17/17 00:01 74 06/17/17 00:00 98.1 71 17 105/53 (70) 96 06/16/17 20:25 Room Air 06/16/17 20:00 97.9 84 18 110/55 (73) 95 06/16/17 20:00 85 06/16/17 16:00 97.8 79 20 105/46 (65) 100 06/16/17 12:00 78 06/16/17 12:00 97.9 78 20 112/68 (83) 97 -: 06/17/17 0620 06/17/17 0620 Physical Exam General Appearance: Well Developed, Well Nourished Neck Neck Exam: Neck Supple Pulmonary Resp Exam: Clear Bilaterally, No Distress Gastrointestinal/Abdomen GI Exam: Soft, Non-Tender, Bowel Sounds Present Extremeties Extremeties Remarks post surgery dressing Neurologic Neuro Exam: Alert Assessment/Plan Problem List: (1) ESRD (end stage renal disease) on dialysis ICD Codes: N18.6 - End stage renal disease; Z99.2 - Dependence on renal dialysis Status: Chronic Plan: hemodialysis progress noted air leak reported with PermCath UF 1.5 L on sodium thiosulfate Patient did well with dialysis had foot transmetatarsal amputation surgery Need PD Catheter out ESRD on HD now Dr. Araya to place AVF need [facility] at [facility] (2) Calciphylaxis ICD Codes: E83.59 - Other disorders of calcium metabolism Plan: On Sensipar Renvel[place] (3) Type 2 diabetes mellitus with diabetic peripheral angiopathy without gangrene ICD Codes: E11.51 - Type 2 diabetes mellitus with diabetic peripheral angiopathy without gangrene Status: Chronic Plan: Continue monitor Nazanin Strickland MD Jun 17, 2017 11:18
[2017-06-17] MEDS: HEPARIN SODIUM - IV 10,000 UNITS/10 ML VIAL PRN (13:30)
[2017-06-17] MEDS: SODIUM THIOSULFATE INJ 25,000 MG in WATER STERILE FOR INJ 100 ML IV PRN (13:31)
[2017-06-17] MEDS: EPOETIN ALFA 10,000 UNITS/ML VIAL IV PUSH PRN (13:31)
[2017-06-17] MEDS: GENTAMICIN SULFATE 20 MG/2 ML VIAL OTHER PRN (13:31)
[2017-06-17] MEDS: ONDANSETRON HCL 4 MG/2 ML VIAL IV PUSH PRN (16:41)
[2017-06-17] MEDS: GABAPENTIN 100 MG CAP PO SCH (21:08)
[2017-06-17] MEDS: ALPRAZolam 0.25 MG TAB PO PRN (21:08)
[2017-06-17] MEDS: DOCUSATE SODIUM 50 MG/SENNA 8.6 MG TAB PO SCH (21:09)
--- NOTE | 2017-06-17 21:15 | HHI.PR ---
Subjective Remarks Patient seen bedside. States she is nervous about seeing her foot. Reports tenderness and pain to right foot. Objective Vital Signs Date Time Temp Pulse Resp B/P (MAP) Pulse Ox O2 Delivery O2 Flow Rate FiO2 06/17/17 16:00 98.3 81 20 119/52 (74) 91 06/17/17 16:00 84 06/17/17 08:00 98.1 86 20 121/55 (77) 92 06/17/17 08:00 Room Air 06/17/17 08:00 82 06/17/17 06:41 97.5 85 18 119/55 (76) 95 06/17/17 04:05 77 06/17/17 00:45 18 06/17/17 00:45 18 06/17/17 00:01 74 06/17/17 00:00 98.1 71 17 105/53 (70) 96 I/O 06/16/17 06/16/17 06/16/17 06/17/17 06/17/17 06/17/17 07:00 15:00 23:00 07:00 15:00 23:00 Intake Total 0 ml 0 ml 360 ml Output Total 1500 ml Balance 0 ml 0 ml -1500 ml 360 ml Intake Oral 0 ml 0 ml 360 ml Hemodialysis 1500 ml # Voids 2 1 2 # Bowel Movements 0 0 0 Result Diagram: 06/17/17 0620 06/17/17 0620 Imaging Last Impressions Upper Extremity Ultrasound 06/15/17 0000 Signed Impressions: Service Date/Time: Thursday, June 15, 2017 15:16 - CONCLUSION: 1. Thrombosed peripheral cephalic vein near the antecubital fossa. 2. Otherwise, the upper extremity veins are patent. Baldemar Jacobson MD Catheter Placement X-Ray 06/12/17 0600 Signed Impressions: Service Date/Time: Monday, June 12, 2017 15:03 - CONCLUSION: Uncomplicated PermaCath placement as above. Baldemar Jacobson MD Procedures s/p right TMA Other Results Microbiology Date/Time Source Procedure Growth Status 06/09/17 12:40 Urine Clean Catch Urine Culture - Final 10-50,000 CFU/ML MIXED GRAM POSITIVE ... Complete 06/11/17 14:16 Wound Foot Fungal Smear - Final NO FUNGAL ELEMENTS SEEN. Resulted 4/5/18 14:16 Wound Foot Fungal Culture Pending Resulted Objective Remarks Incision to right transmetatarsal site with skin well coapted. No active drainage noted from amputation site. Mild edema noted to right foot. LEAD DATA ENTRY OPERATOR under 3 secs to amputation site. Medications and IVs Current Medications Medications (Trade) Dose Ordered Sig/Gianfranco Route Start Time Stop Time Status Last Admin (Xanax) 0.25 mg BID PRN PO 06/09/17 17:15 06/16/17 20:24 (Rocaltrol) 0.5 mcg DAILY PO 06/09/17 18:30 06/17/17 08:31 (Vitamin D3) 5,000 units DAILY PO 06/09/17 18:30 06/17/17 08:31 (Lasix) 40 mg BID PO 06/09/17 21:00 06/17/17 08:31 (Neurontin) 200 mg HS PO 06/09/17 21:00 06/16/17 20:24 (Synthroid) 100 mcg DAILY@0600 PO 06/09/17 19:00 06/17/17 06:26 (Proamatine) 10 mg BID PO 06/09/17 21:00 06/17/17 08:30 (Renvela) 2,400 mg TID PO 06/09/17 18:00 06/17/17 08:31 (Restoril) 15 mg HS PRN PO 06/09/17 17:15 06/16/17 23:20 (Sensipar) 60 mg DAILY PO 06/09/17 17:15 06/17/17 08:30 (Protonix) 20 mg DAILY PO 06/09/17 19:00 06/17/17 08:31 (NovoLOG SUPPLEMENTAL SCALE) 1 ACHS SLIDING SCALE SQ 06/09/17 21:00 06/15/17 17:00 (Levemir Inj) 5 units Q12HR SQ 06/09/17 21:00 06/15/17 09:00 (Motrin) 400 mg Q6H PRN PO 06/10/17 01:30 ([place] 5-325 Mg) 1 tab Q4H PRN PO 06/10/17 01:30 ([place] 10-325 Mg) 1 tab Q4H PRN PO 06/10/17 01:30 06/17/17 18:43 (Narcan Inj) 0.4 mg UNSCH PRN IV PUSH 4/4/18 01:30 (Zofran Inj) 4 mg Q6HR PRN IV PUSH 06/10/17 20:00 06/17/17 16:41 (CeleXA) 20 mg DAILY PO 06/12/17 21:00 06/17/17 08:31 Sodium Chloride 1,000 ml @ 0 mls/hr Q0M PRN OTHER 06/11/17 16:16 (Heparin Inj) 8,000 units UNSCH PRN IV FLUSH 06/11/17 16:30 Sodium Chloride 1,000 ml @ 200 mls/hr Q5H PRN IV 06/11/17 16:16 06/13/17 16:31 Sodium Chloride 1,000 ml @ 0 mls/hr Q0M PRN OTHER 06/11/17 16:16 (Mannitol Inj) 12.5 gm UNSCH PRN IV 06/11/17 16:30 Albumin Human 100 ml @ 60 mls/hr UNSCH PRN IV 06/11/17 16:30 (NS Flush) 5 ml UNSCH PRN IV FLUSH 06/11/17 16:30 (Heparin Inj) UNSCH PRN .XX 06/11/17 16:30 06/17/17 13:30 (Gentamicin Inj) 20 mg UNSCH PRN OTHER 06/11/17 16:30 06/17/17 13:31 (Zofran Inj) 4 mg UNSCH PRN IV PUSH 06/11/17 16:30 (Tylenol) 650 mg UNSCH PRN PO 06/11/17 16:30 (Benadryl) 25 mg UNSCH PRN PO 06/11/17 16:30 (Nitrostat Sl) 0.4 mg UNSCH PRN SL 06/11/17 16:30 (Catapres) 0.1 mg UNSCH PRN PO 06/11/17 16:30 (Epogen Inj) 4,000 units UNSCH PRN IV PUSH 06/11/17 16:30 06/15/17 10:50 (Gelfoam 12 Mm/7 Mm Top) 1 foam UNSCH PRN TOP 06/11/17 16:30 Sodium Thiosulfate 48143 mg/Sterile Water 200 ml @ 150 mls/hr WITH DIALYSIS PRN IV 06/11/17 16:30 06/17/17 13:31 (NS Flush) UNSCH PRN IV FLUSH 06/12/17 15:00 06/14/17 20:21 (Heparin Inj) UNSCH PRN IV FLUSH 06/12/17 15:00 (Roxicodone) 10 mg Q4H PRN PO 06/14/17 08:00 06/17/17 14:44 (Eucerin Cream) 1 applic Q6H PRN TOPICAL 06/16/17 11:30 Lactated Ringer's 1,000 ml @ 30 mls/hr Q24H PRN IV 06/16/17 13:15 06/19/17 13:14 Sodium Chloride 500 ml @ 30 mls/hr [id number] PRN IV 06/16/17 13:15 06/19/17 13:14 06/16/17 13:52 (Lopressor) 25 mg SEASONAL PACKAGE HANDLER PRN PO 06/16/17 13:15 06/19/17 13:14 (Betadine 5% Antisepsis Kit) 1 applic SEASONAL PACKAGE HANDLER PRN EACH NARE 06/16/17 13:15 06/19/17 13:14 (Chlorhexidine 2% Cloth) 3 pack SEASONAL PACKAGE HANDLER PRN TOPICAL 06/16/17 13:15 06/19/17 13:14 (Milk Of Magnesia Liq) 30 ml Q12H PRN PO 06/17/17 09:15 (Senokot) 17.2 mg Q12H PRN PO 06/17/17 09:15 (Dulcolax Supp) 10 mg DAILY PRN RECTAL 06/17/17 09:15 (Lactulose Liq) 30 ml DAILY PRN PO 06/17/17 09:15 (Nathaly-Colace) 2 tab BID PO 06/17/17 21:00 06/22/17 20:59 (Miralax) 17 gm DAILY PO 06/17/17 09:45 06/17/17 09:45 Assessment and Plan Assessment and Plan 67 year old female s/p right TMA Patient examined and evaluated with all questions answered Pathology reviewed free of OM and normal clearing margins OK to DC per podiatry She will need follow up with Dr. Chambers within 1 week of discharge Patient to remain in splint Dressing to remain clean, dry and intact Patient to remain NWB to right foot Keep right foot eelvated Anisha Bonilla DPM Jun 17, 2017 21:15
[2017-06-17] MEDS: TEMAZEPAM 15 MG CAP PO PRN (22:55)
[2017-06-18] VITALS (13 sets, daily range): BP systolic 101–120; BP diastolic 44–74; PULSE 65–115; RESP 17–22; TEMP 97.4–98.4; O2SAT 88–97
[2017-06-18] MEDS: LEVOTHYROXINE SODIUM 100 MCG TAB PO SCH (06:17)
[2017-06-18] MEDS: ACETAMINOPHEN/HYDROcodone 325 MG/10 MG TAB PO PRN ×3 (06:17→21:09)
[2017-06-18] MEDS ORDERED: BUPIVACAINE HCL PF 0.5% 30 ML VIAL ONE (07:59)
[2017-06-18] MEDS ORDERED: THROMBIN (TOPICAL) 20,000 UNIT SPRAY KIT ONE (07:59)
[2017-06-18] MEDS ORDERED: PROTAMINE SULFATE 50 MG/5 ML VIAL ONE (07:59)
[2017-06-18] MEDS ORDERED: HEPARIN-NS/PF INJ 500 ML ONE (07:59)
[2017-06-18] MEDS ORDERED: VANCOMYCIN HCL 1000 MG VIAL ONE (07:59)
[2017-06-18] MEDS ORDERED: HEPARIN SODIUM - IV 10,000 UNITS/10 ML VIAL ONE (07:59)
[2017-06-18] MEDS: INSULIN ASPART SUPPLEMENTAL SCALE SQ SCH ×4 (08:00→20:34)
[2017-06-18] MEDS: SEVELAMER CARBONATE 800 MG TAB PO SCH ×3 (09:00→18:34)
[2017-06-18] MEDS: INSULIN DETEMIR 100 UNITS/ML VIAL SQ SCH ×2 (09:00→21:10)
[2017-06-18] MEDS: POLYETHYLENE GLYCOL 17 GM PKG PO SCH (09:00)
--- NOTE | 2017-06-18 09:35 | HHI.PR ---
cc: Carlos Araya MD Immediate Post Op Note Procedure Date: Jun 18, 2017 Pre Op Diagnosis: ESRD, need for HD access nonfunctioning PD catheter Post Op Diagnosis: ESRD, need for HD access nonfunctioning PD catheter Surgeon: Carlos Araya Shrimper(s): Thi Jimenez Procedure: 1. Removal of PD catheter 2. L UE Brachiobasilic AVF (1st stage) Findings: 3mm vein and 5mm artery - good thrill after AVF Strong Doppler signals in L wrist Additional Information: PD catheter out without any problems Complications: none Specimen(s) removed: none for pathology Estimated blood loss: 20mL Anesthesia: LMA Drains: None Fluids: 350mL IVF Patient to: PACU Patient Condition: Good Implant/Devices: SEE IMPLANT LOG (if applicable) Date/Time of Procedure: SEE SURGICAL CARE RECORD Carlos Araya MD Jun 18, 2017 09:35
[2017-06-18] MEDS ORDERED: MIDAZOLAM HCL 2 MG/2 ML VIAL ONE ×3 (10:06→14:15)
[2017-06-18] MEDS ORDERED: DO NOT ADM ANY ANTICOAGULANT DRUGS PRN (10:45)
[2017-06-18] MEDS: CITALOPRAM HYDROBROMIDE 20 MG TAB PO SCH (11:51)
[2017-06-18] MEDS: CHOLECALCIFEROL (VIT D3) 5000 UNIT CAP PO SCH (11:51)
[2017-06-18] MEDS: CALCITRIOL 0.25 MCG CAP PO SCH (11:51)
[2017-06-18] MEDS: PANTOPRAZOLE SOD 20 MG DELAYED RELEASE TAB PO SCH (11:52)
[2017-06-18] MEDS: CINACALCET HYDROCHLORIDE 30 MG TAB PO SCH (11:52)
[2017-06-18] MEDS: DOCUSATE SODIUM 50 MG/SENNA 8.6 MG TAB PO SCH ×2 (11:52→20:34)
[2017-06-18] MEDS: MIDODRINE 5 MG TAB PO SCH ×2 (11:52→20:34)
[2017-06-18] MEDS: FUROSEMIDE 40 MG TAB PO SCH ×2 (11:53→20:34)
--- NOTE | 2017-06-18 12:21 | HHI.FPPN ---
Subjective Remarks No acute events overnight. Patient seen and examined in her room s/p AVF placement this morning by vascular surgery. Patient appears comfortable. No specific complaints. Denies pain. (Chai Jeter MD R2) Objective Vitals Vital Signs Date Time Temp Pulse Resp B/P (MAP) Pulse Ox O2 Delivery O2 Flow Rate FiO2 06/18/17 10:30 80 12 126/61 (82) 97 Nasal Cannula 2 06/18/17 10:15 79 15 116/52 (73) 100 Nasal Cannula 3 06/18/17 10:00 80 12 125/60 (81) 99 Nasal Cannula 3 06/18/17 09:57 98.1 80 12 125/60 (81) 100 Nasal Cannula 3 06/18/17 07:54 98.2 84 18 120/55 (76) 88 06/18/17 03:55 65 06/18/17 00:00 Room Air 06/18/17 00:00 98.2 76 20 105/74 (84) 97 06/17/17 23:50 75 06/17/17 20:00 94 06/17/17 20:00 Room Air 06/17/17 20:00 97.5 74 18 107/58 (74) 95 06/17/17 16:00 98.3 81 20 119/52 (74) 91 06/17/17 16:00 84 I/O 06/17/17 06/17/17 06/17/17 06/18/17 06/18/17 06/18/17 07:00 15:00 23:00 07:00 15:00 23:00 Intake Total 0 ml 360 ml 840 ml 350 ml Output Total 1500 ml 20 ml Balance 0 ml -1500 ml 360 ml 840 ml 330 ml Intake Oral 0 ml 360 ml 840 ml Other 350 ml Hemodialysis 1500 ml Estimated Blood Loss 20 ml # Voids 1 2 2 # Bowel Movements 0 0 0 (Chai Jeter MD R2) Result Diagram: 06/17/1761906/17/17619 Objective Remarks GENERAL: NAD, lying comfortably in bed NEURO: Alert. Normal speech. lathe puller grossly intact. SKIN: Warm and dry. HEAD: Normocephalic. Atraumatic. EYES: EOMI. No scleral icterus. No injection or drainage. ENT: No nasal drainage. Moist mucous membranes. NECK: Supple. No JVD. CARDIOVASCULAR: Regular rate and rhythm without murmurs, rubs, or gallops. RESPIRATORY: Breath sounds clear to auscultation anteriorly and equal bilaterally, without wheezes, rales, or rhonchi. No accessory muscle use. GASTROINTESTINAL: Abdomen soft, nontender, protuberant. No guarding. MUSCULOSKELETAL: No lower extremity edema. left foot has area of discoloration on dorsum of foot that is reddish-almost has a purple hue to it. the rest of her foot has a normal hue. her skin is pliable and not hard even in the discolored area but is very tender to touch. she can lie with the blanket over it. right foot wrapped, bandage C/D/I. Procedures PermaCath placement 06/12 (Chai Jeter MD R2) A/P Assessment and Plan 67 year old female s/p angiogram and endovascular intervention by Dr. Araya on 06/09, s/p right transmetatarsal amputation by podiatry on 06/11, and AVF placement by vascular 06/18 admitted to [facility] for postop medical management Discharge Planning Upon clearance by vascular surgery and podiatry (Chai Jeter MD R2) Attending Attestation Patient seen and examined. Case reviewed and discussed with the resident team. Agree with plan of care as discussed with me and documented in the resident note. she is sedated today posy op but is arousable and is able to answer questions and breathe well (Linh Rodriguez MD) Problem List: (1) Peripheral arterial occlusive disease ICD Codes: I77.9 - Disorder of arteries and arterioles, unspecified Status: Acute Plan: Patient is s/p by Dr. Araya 06/09: 1. Aortogram w/ B LE angiogram 2. R SFA/popliteal orbital atherectomy and ORGAN TUNER (5mm) 3. L AYO ORGAN TUNER (7mm) 4. L JEWEL HOLE CORNERER Angioseal -Will conduct AVF surgical procedure for HD Podiatry consulted, patient is s/p right transmetatarsal amputation on 06/11 (2) Status post transmetatarsal amputation of right foot ICD Codes: Z89.431 - Acquired absence of right foot Status: Acute Plan: Postop from right transmetatarsal amputation on 06/11 by podiatry, Dr. Chambers, due to gangrene and ischemic ulcerated changes. Continue dressing changes per podiatry Nonweightbearing in right foot (3) ESRD (end stage renal disease) on dialysis ICD Codes: N18.6 - End stage renal disease; Z99.2 - Dependence on renal dialysis Status: Chronic Plan: Patient is ESRD, previously on PD upon admission Consulted nephrology, appreciate recommendations -Patient on hemodialysis with sodium thiosulfate -s/p P/C, 06/12 Continue home Sensipar 60 mg daily AVF LUE placed 06/18 (4) Hypotension ICD Codes: I95.9 - Hypotension, unspecified Status: Chronic Plan: Continue midodrine 10 mg twice daily Monitors vitals q4h (5) Diabetes mellitus type 2, insulin dependent ICD Codes: E11.9 - Diabetes mellitus type 2, insulin dependent; Z79.4 - half-way (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 No further events. If this recurs consider consulting Cardiology but the expectation is that adjusting the electrolytes will fix the problem K+ within normal limits Mg 2.0 Continue telemetry (7) Nutrition, metabolism, and development symptoms ICD Codes: R63.8 - Other symptoms and signs concerning food and fluid intake Status: Acute Plan: Fluids: per PO Electrolytes: continue to monitor, patient to continue dialysis and will have labs monitored there Nutrition: renal with low K. will speak to power reactor operator GI ppx: Not indicated at this time DVT ppx: will start chemical anticoagulation following surgical interventions Constipation: Nathaly-colace scheduled BID, Miralax andrea daily, milk of mag prn (Chai Jeter MD R2) Problem Qualifiers (1) Hypotension: Qualified Codes: I95.9 - Hypotension, unspecified Chai Jeter MD R2 Jun 18, 2017 12:21 Linh Rodriguez MD Jun 18, 2017 13:32
--- NOTE | 2017-06-18 12:46 | MP ---
cc: Carlos Araya MD DATE OF OPERATION: 06/18/2017 PREOPERATIVE DIAGNOSIS: 1. End-stage renal disease, needs dialysis access. 2. Nonfunctioning peritoneal dialysis catheter. POSTOPERATIVE DIAGNOSIS: 1. End-stage renal disease, needs dialysis access. 2. Nonfunctioning peritoneal dialysis catheter. PROCEDURE PERFORMED: 1. Left brachiobasilic arteriovenous fistula. 2. Removal of peritoneal dialysis catheter. ATTENDING SURGEON: Carlos Araya MD RUBBER TIRE CURER SURGEON: Thi Jimenez PA-C ANESTHESIA: General. INDICATIONS: Ms. Ruth is a 67-year-old lady with end-stage renal disease, who needs permanent dialysis access. She has a peritoneal dialysis catheter that is no longer working. She was taken to the operating room for left arm access creation and peritoneal dialysis catheter removal. DESCRIPTION OF PROCEDURE: Informed consent was obtained from the patient. She was taken to the operating room and placed supine on the operating table and appropriate time-out was taken to ensure the patient's identity, operative site, and planned procedure. The administration of a gram of vancomycin was initiated prior to skin incision and will be discontinued after a single preoperative dose. Vancomycin was chosen because of the has end-stage renal disease. Her left arm and abdomen were prepped and draped. An incision made along the course of the abdomen juxtaposed to the peritoneal dialysis entry site, carried down through the subcutaneous tissue with electrocautery. The cuff was identified and dissected free. We then dissected down to the peritoneum and gently dissected this secondary intraperitoneal cuff free and the dialysis catheter was removed without difficulty. The wound was then irrigated and closed with 2-0 Polysorb, 3-0 Polysorb and 4-0 Monocryl. With separate instruments and clean gloves, an incision made on the medial aspect of left upper arm, carried down through the subcutaneous tissue with electrocautery. Basilic vein was identified, dissected free for several centimeters. Side branches were ligated with 3-0 silk. The vein was marked for orientation. The brachial artery was identified in the medial aspect of the incision. The patient was systemically heparinized with 3000 units of IV heparin. Proximal and distal control of the brachial artery was obtained with profunda clamps and a longitudinal arteriotomy was made with an 11 blade and extended with [place] scissors. The distal aspect of the vein was clamped with a right angle. The vein was transected and the distal aspect was oversewn with 3-0 silk. The vein was spatulated and sewn end-to-side to the artery with running 6-0 Prolene suture. At the completion, it was flushed and noted to be hemostatic. There was a nice thrill in the fistula and a Doppler signal. The heparin was reversed with protamine. The wound was infiltrated with Marcaine and closed with 2-0 Polysorb, 3-0 Polysorb and 4-0 Monocryl. Sponge and needle counts were correct at the end of the end of the case. I was present, scrubbed and performed the entire procedure. MD ALONA Elizabeth/LELO , 12:31 PM , 12:45 PM
--- NOTE | 2017-06-18 16:56 | HHI.NPPN ---
Subjective History of Present Illness 67 year old with ESRD, PVD DM Review of Systems General Constitutional: Fatigue Musculoskeletal MS: Pain/Stiffness Objective Data Data 06/18/17 06/19/17 18:59 06:59 Intake Total 350 ml Output Total 20 ml Balance 330 ml Other 350 ml Estimated Blood Loss 20 ml Vital Signs Date Time Temp Pulse Resp B/P (MAP) Pulse Ox O2 Delivery O2 Flow Rate FiO2 06/18/17 15:00 86 20 107/44 (65) 94 06/18/17 14:45 98.4 83 20 101/52 (68) 94 06/18/17 12:00 97.7 81 17 105/53 (70) 93 06/18/17 10:30 80 12 126/61 (82) 97 Nasal Cannula 2 06/18/17 10:15 79 15 116/52 (73) 100 Nasal Cannula 3 06/18/17 10:00 80 12 125/60 (81) 99 Nasal Cannula 3 06/18/17 09:57 98.1 80 12 125/60 (81) 100 Nasal Cannula 3 06/18/17 07:54 98.2 84 18 120/55 (76) 88 06/18/17 07:33 83 06/18/17 07:30 Room Air 06/18/17 03:55 65 06/18/17 00:00 Room Air 06/18/17 00:00 98.2 76 20 105/74 (84) 97 06/17/17 23:50 75 06/17/17 20:00 94 06/17/17 20:00 Room Air 06/17/17 20:00 97.5 74 18 107/58 (74) 95 -: 06/17/17 0620 06/17/17 0620 Physical Exam General Appearance: Well Developed, Well Nourished Neck Neck Exam: Neck Supple Pulmonary Resp Exam: Clear Bilaterally, No Distress Gastrointestinal/Abdomen GI Exam: Soft, Non-Tender, Bowel Sounds Present Extremeties Extremeties Remarks post surgery dressing Neurologic Neuro Exam: Alert Assessment/Plan Problem List: (1) ESRD (end stage renal disease) on dialysis ICD Codes: N18.6 - End stage renal disease; Z99.2 - Dependence on renal dialysis Status: Chronic Plan: hemodialysis progress noted air leak reported with PermCath UF 1.5 L on sodium thiosulfate Patient did well with dialysis had foot transmetatarsal amputation surgery ESRD on HD MWF Dr. Quiana Jalloh AVF PD catheter out need placement at [facility] (2) Calciphylaxis ICD Codes: E83.59 - Other disorders of calcium metabolism Plan: On Sensipar Renvela (3) Type 2 diabetes mellitus with diabetic peripheral angiopathy without gangrene ICD Codes: E11.51 - Type 2 diabetes mellitus with diabetic peripheral angiopathy without gangrene Status: Chronic Plan: Continue monitor Nazanin Strickland MD Jun 18, 2017 16:56
[2017-06-18] MEDS ORDERED: HEPARIN SODIUM - IV 2,000 UNITS/2 ML VIAL IV FLUSH PRN (17:00)
[2017-06-18] MEDS ORDERED: SODIUM CHLORIDE 0.9% FLUSH 10 ML FLUSH IV FLUSH PRN (17:00)
--- NOTE | 2017-06-18 17:05 | PD.RAD ---
Post Procedure Progress Note Pre Procedure Diagnosis: (1) S/P dialysis catheter insertion (2) ESRD (end stage renal disease) on dialysis Post Procedure Diagnosis: (1) ESRD (end stage renal disease) on dialysis (2) S/P dialysis catheter insertion Procedure Date: Jun 18, 2017 Supervising Radiologist: Walker Peters Proceduralist/Assist: Lindsay Cota, RT(R)(CV), Jil Miranda RT(R) Anesthesia: Local, Analgesia, Conscious Sedation Plan of Activity Patient to Unit: ROPU Patient Condition: Good See PACS Report for procedural detail/treatment Central Venous Access Device Procedure 1 Right Internal Jugular Hemodialysis Catheter Tunneled Reposition, Exchange dual lumen Malay: 16 PICC Line Length (cm): 23 Walker Peters MD Jun 18, 2017 17:05
[2017-06-18] MEDS: GABAPENTIN 100 MG CAP PO SCH (20:34)
[2017-06-18] MEDS: ALPRAZolam 0.25 MG TAB PO PRN (21:09)
[2017-06-18 21:19] LABS: HEMATOCRIT 31.5 % (35.0-46.0); MEAN CELL VOLUME 104.1 FL (80.0-100.0); MEAN CORPUSCULAR HGB CONC 31.7 % (32.0-36.0); PLATELET COUNT 215 TH/MM3 (150-450); RED BLOOD COUNT 3.02 MIL/MM3 (4.00-5.30); RED CELL DISTRIBUTION WIDTH 17.1 % (11.6-17.2); WHITE BLOOD COUNT 11.7 TH/MM3 (4.0-11.0)
[2017-06-18 21:36] LABS: ALKALINE PHOSPHATASE 255 U/L (45-117); ALT (GPT) 15 U/L (10-53); AST (GOT) 20 U/L (15-37); BICARBONATE 25.3 MEQ/L (21.0-32.0); BLOOD UREA NITROGEN 24 MG/DL (7-18); CALCIUM 9.1 MG/DL (8.5-10.1); CHLORIDE 99 MEQ/L (98-107); CREATININE 6.31 MG/DL (0.50-1.00); GLOMERULAR FILTRATION RATE 7 ML/MIN (>89); GLUCOSE,RANDOM 125 MG/DL (74-106); SODIUM (NA) 136 MEQ/L (136-145); TOTAL BILIRUBIN ADULT 0.4 MG/DL (0.2-1.0); TOTAL PROTEIN 7.2 GM/DL (6.4-8.2)
[2017-06-18] MEDS: TEMAZEPAM 15 MG CAP PO PRN (22:57)
[2017-06-19 04:06] VITALS: PULSE 73
[2017-06-19] MEDS: ACETAMINOPHEN/HYDROcodone 325 MG/10 MG TAB PO PRN ×4 (06:18→22:58)
[2017-06-19] MEDS: LEVOTHYROXINE SODIUM 100 MCG TAB PO SCH (06:18)
[2017-06-19 07:39] VITALS: BP 115/63; PULSE 92; RESP 18; TEMP 98.1; O2SAT 97
--- NOTE | 2017-06-19 07:51 | PD.VS.PN ---
Subjective POD #: 1 Procedure(s): L UE AVF and PD catheter removal Subjective/Hospital Course Looks great. Arm ok. Abdomen a little sore. Pt notes L foot feels worse and she is appropriately concerned about it Objective Vitals/I&O Date Time Temp Pulse Resp B/P (MAP) Pulse Ox O2 Delivery O2 Flow Rate FiO2 06/19/17 07:39 98.1 92 18 115/63 (80) 97 06/19/17 04:06 73 06/18/17 23:49 73 06/18/17 23:00 97.4 74 22 104/52 (69) 94 06/18/17 23:00 Room Air 06/18/17 20:29 Room Air 06/18/17 20:29 97.7 79 22 105/55 (72) 93 06/18/17 19:44 89 06/18/17 16:15 115 06/18/17 16:00 98.0 80 17 115/60 (78) 94 06/18/17 15:00 86 20 107/44 (65) 94 06/18/17 14:45 98.4 83 20 101/52 (68) 94 06/18/17 13:00 20 06/18/17 12:00 97.7 81 17 105/53 (70) 93 06/18/17 10:30 80 12 126/61 (82) 97 Nasal Cannula 2 06/18/17 10:15 79 15 116/52 (73) 100 Nasal Cannula 3 06/18/17 10:00 80 12 125/60 (81) 99 Nasal Cannula 3 06/18/17 09:57 98.1 80 12 125/60 (81) 100 Nasal Cannula 3 06/18/17 07:54 98.2 84 18 120/55 (76) 88 Exam: L UE with mild ecchymoses. + thrill. Hand ok. Abdominal incision ok R TMA wrapped per podiatry L foot with darkening lateral foot but toes spared. Skin intact. No odor Laboratory Laboratory Tests Test 06/18/17 19:54 White Blood Count 11.7 Red Blood Count 3.02 Hemoglobin 10.0 Hematocrit 31.5 Mean Corpuscular Volume 104.1 Mean Corpuscular Hemoglobin 33.0 Mean Corpuscular Hemoglobin Concent 31.7 Red Cell Distribution Width 17.1 Platelet Count 215 Mean Platelet Volume 9.0 Blood Urea Nitrogen 24 Creatinine 6.31 Random Glucose 125 Total Protein 7.2 Albumin 3.0 Calcium Level 9.1 Alkaline Phosphatase 255 Aspartate Amino Transf (AST/SGOT) 20 Alanine Aminotransferase (ALT/SGPT) 15 Total Bilirubin 0.4 Sodium Level 136 Potassium Level 4.6 Chloride Level 99 Carbon Dioxide Level 25.3 Anion Gap 12 Estimat Glomerular Filtration Rate 7 Date/Time Source Procedure Growth Status 06/09/17 12:40 Urine Clean Catch Urine Culture - Final 10-50,000 CFU/ML MIXED GRAM POSITIVE ... Complete 06/11/17 14:16 Wound Foot Fungal Smear - Final NO FUNGAL ELEMENTS SEEN. Resulted 06/11/17 14:16 Wound Foot Fungal Culture - Preliminary NO GROWTH IN 1 WEEK Resulted Assessment and Plan Assessment: (1) Peripheral vascular disease of foot Status: Chronic Plan POD#1 s/p L UE AVF and PD catheter removal Looks good overall but she is concerned about L foot. 1. From a AVF standpoint, needs time for maturation. Continue to use HD catheter and will schedule f/u in clinic. 2. I discussed her LEFT foot with her. Because of the persistent discoloration that may be related to PAD, I offered a repeat L LE angiogram - could be done inpatient vs outpatient. She wants it done in patient so will schedule for THURSDAY Discharge Planning as early as Thursday [phone] Carlos Araya MD Jun 19, 2017 07:51
[2017-06-19] MEDS: INSULIN ASPART SUPPLEMENTAL SCALE SQ SCH ×4 (08:00→21:00)
[2017-06-19] MEDS: POLYETHYLENE GLYCOL 17 GM PKG PO SCH (09:00)
[2017-06-19] MEDS: FUROSEMIDE 40 MG TAB PO SCH ×2 (09:31→20:56)
[2017-06-19] MEDS: CALCITRIOL 0.25 MCG CAP PO SCH (09:31)
[2017-06-19] MEDS: MIDODRINE 5 MG TAB PO SCH ×2 (09:31→20:56)
[2017-06-19] MEDS: CHOLECALCIFEROL (VIT D3) 5000 UNIT CAP PO SCH (09:31)
[2017-06-19] MEDS: PANTOPRAZOLE SOD 20 MG DELAYED RELEASE TAB PO SCH (09:31)
[2017-06-19] MEDS: SEVELAMER CARBONATE 800 MG TAB PO SCH ×3 (09:32→18:00)
[2017-06-19] MEDS: CINACALCET HYDROCHLORIDE 30 MG TAB PO SCH (09:32)
[2017-06-19] MEDS: CITALOPRAM HYDROBROMIDE 20 MG TAB PO SCH (09:32)
[2017-06-19] MEDS: DOCUSATE SODIUM 50 MG/SENNA 8.6 MG TAB PO SCH ×2 (09:32→20:56)
[2017-06-19] MEDS: INSULIN DETEMIR 100 UNITS/ML VIAL SQ SCH ×2 (09:32→21:07)
--- NOTE | 2017-06-19 09:46 | HHI.FPPN ---
Subjective Remarks No acute events overnight. Afebrile. BPs stable. Patient seen and examined this AM. She states she would like to have the angiogram done as an inpatient for further workup prior to discharge. She denies any worsening pain. Her only questions are regarding hemodialysis. She otherwise does not have specific complaints or concerns. Denies fevers, CP, dyspnea. (Chai Jeter MD R2) Objective Vitals Vital Signs Date Time Temp Pulse Resp B/P (MAP) Pulse Ox O2 Delivery O2 Flow Rate FiO2 06/19/17 07:39 98.1 92 18 115/63 (80) 97 06/19/17 04:06 73 06/18/17 23:49 73 06/18/17 23:00 97.4 74 22 104/52 (69) 94 06/18/17 23:00 Room Air 06/18/17 20:29 Room Air 06/18/17 20:29 97.7 79 22 105/55 (72) 93 06/18/17 19:44 89 06/18/17 16:15 115 06/18/17 16:00 98.0 80 17 115/60 (78) 94 06/18/17 15:00 86 20 107/44 (65) 94 06/18/17 14:45 98.4 83 20 101/52 (68) 94 06/18/17 13:00 20 06/18/17 12:00 97.7 81 17 105/53 (70) 93 06/18/17 10:30 80 12 126/61 (82) 97 Nasal Cannula 2 06/18/17 10:15 79 15 116/52 (73) 100 Nasal Cannula 3 06/18/17 10:00 80 12 125/60 (81) 99 Nasal Cannula 3 06/18/17 09:57 98.1 80 12 125/60 (81) 100 Nasal Cannula 3 I/O 06/18/17 06/18/17 06/18/17 06/19/17 06/19/17 06/19/17 07:00 15:00 23:00 07:00 15:00 23:00 Intake Total 840 ml 350 ml Output Total 20 ml Balance 840 ml 330 ml Intake Oral 840 ml Other 350 ml Estimated Blood Loss 20 ml # Voids 2 # Bowel Movements 0 (Chai Jeter MD R2) Result Diagram: 06/18/17195306/18/171953 Objective Remarks GENERAL: NAD, lying comfortably in bed NEURO: Alert. Normal speech. client delivery specialist grossly intact. SKIN: Warm and dry. HEAD: Normocephalic. Atraumatic. EYES: EOMI. No scleral icterus. No injection or drainage. ENT: No nasal drainage. Moist mucous membranes. NECK: Supple. No JVD. CARDIOVASCULAR: Regular rate and rhythm without murmurs, rubs, or gallops. RESPIRATORY: Breath sounds clear to auscultation anteriorly and equal bilaterally, without wheezes, rales, or rhonchi. No accessory muscle use. GASTROINTESTINAL: Abdomen soft, nontender, protuberant. No guarding. MUSCULOSKELETAL: No lower extremity edema. left foot has area of discoloration on dorsum of foot that is reddish-almost has a purple hue to it. the rest of her foot has a normal hue. her skin is pliable and not hard even in the discolored area but is very tender to touch. she can lie with the blanket over it. right foot wrapped, bandage C/D/I. Procedures PermaCath placement 06/12 (Chai Jeter MD R2) A/P Assessment and Plan 67 year old female s/p angiogram and endovascular intervention by Dr. Araya on 06/09, s/p right transmetatarsal amputation by podiatry on 06/11, and AVF placement by vascular 06/18 admitted to [facility] for postop medical management Discharge Planning Upon clearance by vascular surgery and podiatry (Chai Jeter MD R2) Attending Attestation Patient seen and examined. Case reviewed and discussed with the resident team. Agree with plan of care as discussed with me and documented in the resident note. improving slowly day by day (Linh Rodriguez MD) Problem List: (1) Peripheral arterial occlusive disease ICD Codes: I77.9 - Disorder of arteries and arterioles, unspecified Status: Acute Plan: Patient is s/p by Dr. Araya 06/09: 1. Aortogram w/ B LE angiogram 2. R SFA/popliteal orbital atherectomy and CAGE MANAGER (5mm) 3. L AYO CAGE MANAGER (7mm) 4. L TEMPLATE CLERK Angioseal Podiatry consulted, patient is s/p right transmetatarsal amputation on 06/11 Anticipating angiogram for Thursday 06/22 (2) Status post transmetatarsal amputation of right foot ICD Codes: Z89.431 - Acquired absence of right foot Status: Acute Plan: Postop from right transmetatarsal amputation on 06/11 by podiatry, Dr. Chambers, due to gangrene and ischemic ulcerated changes. Continue dressing changes per podiatry Nonweightbearing in right foot (3) ESRD (end stage renal disease) on dialysis ICD Codes: N18.6 - End stage renal disease; Z99.2 - Dependence on renal dialysis Status: Chronic Plan: Patient is ESRD, previously on PD upon admission Consulted nephrology, appreciate recommendations -Patient on hemodialysis with sodium thiosulfate -s/p P/C, 06/12 Continue home Sensipar 60 mg daily AVF LUE placed 06/18 (4) Hypotension ICD Codes: I95.9 - Hypotension, unspecified Status: Chronic Plan: Continue midodrine 10 mg twice daily Monitors vitals q4h (5) Diabetes mellitus type 2, insulin dependent ICD Codes: E11.9 - Diabetes mellitus type 2, insulin dependent; Z79.4 - rat exterminator (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 No further events. If this recurs consider consulting Cardiology but the expectation is that adjusting the electrolytes will fix the problem K+ within normal limits Mg 2.0 Continue telemetry (7) Nutrition, metabolism, and development symptoms ICD Codes: R63.8 - Other symptoms and signs concerning food and fluid intake Status: Acute Plan: Fluids: per PO Electrolytes: continue to monitor, patient to continue dialysis and will have labs monitored there Nutrition: renal with low K. will speak to tennis player GI ppx: Not indicated at this time DVT ppx: start heparin 5,000 units q8h Constipation: Nathaly-colace scheduled BID, Miralax andrea daily, milk of mag prn (Chai Jeter MD R2) Problem Qualifiers (1) Hypotension: Qualified Codes: I95.9 - Hypotension, unspecified Chai Jeter MD R2 Jun 19, 2017 09:46 Linh Rodriguez MD Jun 20, 2017 11:03
[2017-06-19 11:26] VITALS: BP 116/59; PULSE 71; RESP 17; TEMP 98.1; O2SAT 90
[2017-06-19] MEDS: HEPARIN SODIUM - SQ 10,000 UNITS/ML VIAL SQ SCH ×2 (12:00→22:59)
[2017-06-19 12:05] VITALS: PULSE 76
--- NOTE | 2017-06-19 12:07 | RADRPT ---
EXAM DATE/TIME: 06/19/2017 11:20 [place] COMPARISON: No previous studies available for comparison. INDICATIONS : Evaluate for pulmonary disease. MEDICAL HISTORY : Hypothyroidism. Hypercholesterolemia. Hypertension. Dyspnea. Edema. GERD. GOUT. Diabetes. Anxiety. Ul cer. SURGICAL HISTORY : Cholecystectomy. Tubal ligation. Cardiac catheterization. ENCOUNTER: Subsequent ACUITY: 4 - 6 days PAIN SCORE: 0/10 LOCATION: Bilateral chest FINDINGS: A single view of the chest demonstrates the lungs to be symmetrically aerated without evidence of mas s, infiltrate or effusion. Right IJ tunneled dialysis catheter in place. The cardiomediastinal conto urs are unremarkable. Osseous structures are intact. CONCLUSION: 1. No acute cardiopulmonary disease. Baldemar Jacobson MD on June 19, 2017 at 12:05 Board Certified Radiologist. This report was verified electronically.
--- NOTE | 2017-06-19 16:31 | HHI.NPPN ---
Subjective History of Present Illness 67 year old with ESRD, PVD DM Review of Systems General Constitutional: Fatigue Musculoskeletal MS: Pain/Stiffness Objective Data Data 06/19/17 06/20/17 19:00 07:00 Output Total 2000 ml Balance -2000 ml Hemodialysis 2000 ml Vital Signs Date Time Temp Pulse Resp B/P (MAP) Pulse Ox O2 Delivery O2 Flow Rate FiO2 06/19/17 11:26 98.1 71 17 116/59 (78) 90 06/19/17 08:00 Room Air 06/19/17 07:39 98.1 92 18 115/63 (80) 97 06/19/17 04:06 73 06/18/17 23:49 73 06/18/17 23:00 97.4 74 22 104/52 (69) 94 06/18/17 23:00 Room Air 06/18/17 20:29 Room Air 06/18/17 20:29 97.7 79 22 105/55 (72) 93 06/18/17 19:44 89 -: 06/18/17195306/18/171953 Physical Exam General Appearance: Well Developed, Well Nourished Neck Neck Exam: Neck Supple Pulmonary Resp Exam: Clear Bilaterally, No Distress Gastrointestinal/Abdomen GI Exam: Soft, Non-Tender, Bowel Sounds Present Extremeties Extremeties Remarks post surgery dressing Neurologic Neuro Exam: Alert Assessment/Plan Problem List: (1) ESRD (end stage renal disease) on dialysis ICD Codes: N18.6 - End stage renal disease; Z99.2 - Dependence on renal dialysis Status: Chronic Plan: hemodialysis progress noted air leak reported with PermCath Seen during hemodialysis UF 2 L on sodium thiosulfate had foot transmetatarsal amputation surgery ESRD on HD MWF seen during dialysis on Thursday ultrafiltration [address] Quiana Jalloh AVF PD catheter out need placement at [facility] Patient no need angioplasty of the left leg She will be staying over weekend (2) Calciphylaxis ICD Codes: E83.59 - Other disorders of calcium metabolism Plan: On Sensipar Renvela (3) Type 2 diabetes mellitus with diabetic peripheral angiopathy without gangrene ICD Codes: E11.51 - Type 2 diabetes mellitus with diabetic peripheral angiopathy without gangrene Status: Chronic Plan: Continue monitor Nazanin Strickland MD Jun 19, 2017 16:31
[2017-06-19] MEDS: GENTAMICIN SULFATE 20 MG/2 ML VIAL OTHER PRN (16:49)
[2017-06-19] MEDS: SODIUM THIOSULFATE INJ 25,000 MG in WATER STERILE FOR INJ 100 ML IV PRN (16:49)
[2017-06-19] MEDS: EPOETIN ALFA 10,000 UNITS/ML VIAL IV PUSH PRN (16:50)
[2017-06-19] MEDS: ONDANSETRON HCL 4 MG/2 ML VIAL IV PUSH PRN (18:52)
[2017-06-19 20:00] VITALS: BP 107/54; PULSE 72; PULSE 82; RESP 18; TEMP 97.9; O2SAT 99
[2017-06-19] MEDS: LACTULOSE SYRUP 20 GM/30 ML CUP PO PRN (20:10)
[2017-06-19] MEDS: GABAPENTIN 100 MG CAP PO SCH (20:56)
[2017-06-19] MEDS: ALPRAZolam 0.25 MG TAB PO PRN (21:06)
[2017-06-19] MEDS: TEMAZEPAM 15 MG CAP PO PRN (22:58)
[2017-06-20] VITALS: BP 92/46; PULSE 76; PULSE 82; RESP 20; TEMP 98.4; O2SAT 96
[2017-06-20 04:00] VITALS: PULSE 71
[2017-06-20] MEDS: LEVOTHYROXINE SODIUM 100 MCG TAB PO SCH (06:32)
[2017-06-20] MEDS: HEPARIN SODIUM - SQ 10,000 UNITS/ML VIAL SQ SCH ×3 (06:32→20:34)
[2017-06-20] MEDS: ACETAMINOPHEN/HYDROcodone 325 MG/10 MG TAB PO PRN ×3 (06:32→18:22)
[2017-06-20 08:00] VITALS: BP 102/55; PULSE 87; RESP 20; TEMP 98; O2SAT 93
[2017-06-20] MEDS: INSULIN ASPART SUPPLEMENTAL SCALE SQ SCH ×4 (08:00→20:31)
[2017-06-20] MEDS: POLYETHYLENE GLYCOL 17 GM PKG PO SCH (09:00)
--- NOTE | 2017-06-20 09:04 | HHI.FPPN ---
Subjective Remarks Ms Ruth is doing well. she has been getting back to normal with her bowel functioning and has had 2 bowel mvts since yesterday. she is breathing well and eating well. she does complain about vomiting after dialysis. after the 2 past dialysis treatments she would vomit up the food she ate 3-4 hours earlier. we discussed that she could have gastroparesis as it was seen in people who had DM and also renal issues. she declines any testing at this time. can consider liquids only prior to dialysis as liquids are digested much easier when people have gastroparesis. she is better with her left foot and has less pain. she is still coming to term with being on her hemodialysis and has been depressed but is feeling better with her antidepressant Objective Vitals Vital Signs Date Time Temp Pulse Resp B/P (MAP) Pulse Ox O2 Delivery O2 Flow Rate FiO2 06/20/17 08:00 Room Air 06/20/17 04:00 71 06/20/17 04:00 Room Air 06/20/17 00:00 Room Air 06/20/17 00:00 76 06/20/17 00:00 98.4 82 20 92/46 (61) 96 06/19/17 20:00 Room Air 06/19/17 20:00 72 06/19/17 20:00 97.9 82 18 107/54 (71) 99 06/19/17 12:05 76 06/19/17 11:26 98.1 71 17 116/59 (78) 90 06/19/17 10:31 20 I/O 06/19/17 06/19/17 06/19/17 06/20/17 06/20/17 06/20/17 07:00 15:00 23:00 07:00 15:00 23:00 Intake Total 600 ml 240 ml Output Total 2000 ml Balance -1400 ml 240 ml Intake Oral 600 ml 240 ml Hemodialysis 2000 ml # Voids 2 2 # Bowel Movements 2 3 Result Diagram: 06/18/17195306/18/171953 Objective Remarks GENERAL: NAD, lying comfortably in bed NEURO: Alert. Normal speech. supervisor machining grossly intact. SKIN: Warm and dry. HEAD: Normocephalic. Atraumatic. EYES: EOMI. No scleral icterus. No injection or drainage. ENT: No nasal drainage. Moist mucous membranes. NECK: Supple. No JVD. CARDIOVASCULAR: Regular rate and rhythm without murmurs, rubs, or gallops. RESPIRATORY: Breath sounds clear to auscultation anteriorly and equal bilaterally, without wheezes, rales, or rhonchi. No accessory muscle use. GASTROINTESTINAL: Abdomen soft, nontender, protuberant. No guarding. MUSCULOSKELETAL: No lower extremity edema. left foot has area of discoloration on dorsum of foot that is reddish-almost has a purple hue to it. the rest of her foot has a normal hue. her skin is pliable and not hard even in the discolored area but is very tender to touch. she can lie with the blanket over it. right foot wrapped, bandage C/D/I. Procedures PermaCath placement 06/12 Urinary Catheter: No Vascular Central Line Catheter: Yes Line: Central Venous Catheter Reason for Continuation dialysis A/P Assessment and Plan 67 year old female s/p angiogram and endovascular intervention by Dr. Araya on 06/09, s/p right transmetatarsal amputation by podiatry on 06/11, and AVF placement by vascular 06/18. [facility] getting another angiogram on the for her left leg Discharge Planning Upon clearance by vascular surgery and podiatry Problem List: (1) Peripheral arterial occlusive disease ICD Codes: I77.9 - Disorder of arteries and arterioles, unspecified Status: Acute Plan: Patient is s/p by Dr. Araya 06/09: 1. Aortogram w/ B LE angiogram 2. R SFA/popliteal orbital atherectomy and OFFENSIVE COORDINATOR (5mm) 3. L AYO OFFENSIVE COORDINATOR (7mm) 4. L GREENS PICKER Angioseal Podiatry consulted, patient is s/p right transmetatarsal amputation on 06/11 Anticipating angiogram for Thursday 06/22 (2) Status post transmetatarsal amputation of right foot ICD Codes: Z89.431 - Acquired absence of right foot Status: Acute Plan: Postop from right transmetatarsal amputation on 06/11 by podiatry, Dr. Chambers, due to gangrene and ischemic ulcerated changes. Continue dressing changes per podiatry Non weightbearing in right foot (3) ESRD (end stage renal disease) on dialysis ICD Codes: N18.6 - End stage renal disease; Z99.2 - Dependence on renal dialysis Status: Chronic Plan: Patient is ESRD, previously on PD upon admission Consulted nephrology, appreciate recommendations -Patient on hemodialysis with sodium thiosulfate -s/p P/C, 06/12 Continue home Sensipar 60 mg daily AVF LUE placed 06/18 (4) Hypotension ICD Codes: I95.9 - Hypotension, unspecified Status: Chronic Plan: Continue midodrine 10 mg twice daily Monitors vitals q4h (5) Diabetes mellitus type 2, insulin dependent ICD Codes: E11.9 - Diabetes mellitus type 2, insulin dependent; Z79.4 - care home (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 No further events. If this recurs consider consulting Cardiology but the expectation is that adjusting the electrolytes will fix the problem K+ within normal limits Mg 2.0 will stop telemetry as she has had no new rhythm problems (7) Nutrition, metabolism, and development symptoms ICD Codes: R63.8 - Other symptoms and signs concerning food and fluid intake Status: Acute Plan: Fluids: per PO Electrolytes: continue to monitor, patient to continue dialysis and will have labs monitored there Nutrition: renal with low K. will speak to process treater GI ppx: Not indicated at this time DVT ppx: start heparin 5,000 units q8h Constipation: Nathaly-colace scheduled BID, Miralax andrea daily, milk of mag prn Problem Qualifiers (1) Hypotension: Qualified Codes: I95.9 - Hypotension, unspecified Linh Rodriguez MD Jun 20, 2017 09:04
[2017-06-20] MEDS: CITALOPRAM HYDROBROMIDE 20 MG TAB PO SCH (10:06)
[2017-06-20] MEDS: DOCUSATE SODIUM 50 MG/SENNA 8.6 MG TAB PO SCH ×2 (10:06→20:31)
[2017-06-20] MEDS: MIDODRINE 5 MG TAB PO SCH ×2 (10:07→20:30)
[2017-06-20] MEDS: SEVELAMER CARBONATE 800 MG TAB PO SCH ×3 (10:07→18:00)
[2017-06-20] MEDS: CALCITRIOL 0.25 MCG CAP PO SCH (10:08)
[2017-06-20] MEDS: FUROSEMIDE 40 MG TAB PO SCH ×2 (10:08→20:31)
[2017-06-20] MEDS: PANTOPRAZOLE SOD 20 MG DELAYED RELEASE TAB PO SCH (10:09)
[2017-06-20] MEDS: CINACALCET HYDROCHLORIDE 30 MG TAB PO SCH (10:09)
[2017-06-20] MEDS: CHOLECALCIFEROL (VIT D3) 5000 UNIT CAP PO SCH (10:10)
[2017-06-20] MEDS: INSULIN DETEMIR 100 UNITS/ML VIAL SQ SCH ×2 (10:26→20:31)
--- NOTE | 2017-06-20 10:33 | HHI.NPPN ---
Subjective History of Present Illness 67 year old with ESRD, PVD DM Interval History Had dialysis yesterday. PD catheter has been removed. Dialysis MWF. Review of Systems General Constitutional: Fatigue Musculoskeletal MS: Pain/Stiffness Objective Data Data Vital Signs Date Time Temp Pulse Resp B/P (MAP) Pulse Ox O2 Delivery O2 Flow Rate FiO2 06/20/17 08:00 Room Air 06/20/17 04:00 71 06/20/17 04:00 Room Air 06/20/17 00:00 Room Air 06/20/17 00:00 76 06/20/17 00:00 98.4 82 20 92/46 (61) 96 06/19/17 20:00 Room Air 06/19/17 20:00 72 06/19/17 20:00 97.9 82 18 107/54 (71) 99 06/19/17 12:05 76 06/19/17 11:26 98.1 71 17 116/59 (78) 90 -: 06/18/[id number]/18/[id number] Physical Exam General Appearance: Well Developed, Well Nourished Neck Neck Exam: Neck Supple Pulmonary Resp Exam: Clear Bilaterally, No Distress Gastrointestinal/Abdomen GI Exam: Soft, Non-Tender, Bowel Sounds Present Neurologic Neuro Exam: Alert Assessment/Plan Problem List: (1) ESRD (end stage renal disease) on dialysis ICD Codes: N18.6 - End stage renal disease; Z99.2 - Dependence on renal dialysis Status: Chronic Plan: On HD MWF. on sodium thiosulfate had foot transmetatarsal amputation surgery Dr. Quiana Jalloh AVF PD catheter out need placement at [facility] (2) Calciphylaxis ICD Codes: E83.59 - Other disorders of calcium metabolism Plan: On Sensipar Renvela (3) Type 2 diabetes mellitus with diabetic peripheral angiopathy without gangrene ICD Codes: E11.51 - Type 2 diabetes mellitus with diabetic peripheral angiopathy without gangrene Status: Chronic Plan: Continue monitor Alexys Vela MD Jun 20, 2017 10:33
[2017-06-20 12:00] VITALS: BP 108/53; PULSE 73; RESP 20; TEMP 98; O2SAT 100
[2017-06-20 16:00] VITALS: BP 108/53; PULSE 76; RESP 20; TEMP 97.8; O2SAT 96
[2017-06-20 20:00] VITALS: BP 100/57; PULSE 68; RESP 17; TEMP 97.7; O2SAT 100
[2017-06-20] MEDS: GABAPENTIN 100 MG CAP PO SCH (20:30)
[2017-06-20] MEDS: ALPRAZolam 0.25 MG TAB PO PRN (20:37)
[2017-06-20] MEDS: TEMAZEPAM 15 MG CAP PO PRN (22:53)
[2017-06-21 01:05] VITALS: BP 101/54; PULSE 68; RESP 18; TEMP 98; O2SAT 99
[2017-06-21] MEDS: HEPARIN SODIUM - SQ 10,000 UNITS/ML VIAL SQ SCH ×3 (05:56→20:44)
[2017-06-21] MEDS: LEVOTHYROXINE SODIUM 100 MCG TAB PO SCH (05:56)
[2017-06-21] MEDS: ACETAMINOPHEN/HYDROcodone 325 MG/10 MG TAB PO PRN ×4 (05:57→19:55)
[2017-06-21 06:51] LABS: AUTOMATED NEUTROPHIL # 5.5 TH/MM3 (1.8-7.7); BASOPHIL # 0.2 TH/MM3 (0-0.2); BASOPHIL % 2.4 % (0.0-2.0); EOSINOPHIL # 0.4 TH/MM3 (0-0.4); EOSINOPHIL % 4.7 % (0.0-4.0); HEMATOCRIT 24.9 % (35.0-46.0); HEMOGLOBIN 8.3 GM/DL (11.6-15.3); LYMPH % 13.9 % (9.0-44.0); LYMPHOCYTE # 1.1 TH/MM3 (1.0-4.8); MEAN CELL VOLUME 102.2 FL (80.0-100.0); MEAN CORPUSCULAR HGB CONC 33.3 % (32.0-36.0); MONOCYTE # 0.5 TH/MM3 (0-0.9); PLATELET COUNT 206 TH/MM3 (150-450); RED BLOOD COUNT 2.44 MIL/MM3 (4.00-5.30); RED CELL DISTRIBUTION WIDTH 17.4 % (11.6-17.2); WHITE BLOOD COUNT 7.6 TH/MM3 (4.0-11.0)
[2017-06-21 07:08] LABS: ALBUMIN 2.7 GM/DL (3.4-5.0); ALKALINE PHOSPHATASE 238 U/L (45-117); ALT (GPT) 14 U/L (10-53); AST (GOT) 31 U/L (15-37); BLOOD UREA NITROGEN 20 MG/DL (7-18); CALCIUM 8.7 MG/DL (8.5-10.1); CHLORIDE 99 MEQ/L (98-107); CREATININE 6.31 MG/DL (0.50-1.00); GLOMERULAR FILTRATION RATE 7 ML/MIN (>89); GLUCOSE,RANDOM 96 MG/DL (74-106); SODIUM (NA) 139 MEQ/L (136-145); TOTAL BILIRUBIN ADULT 0.3 MG/DL (0.2-1.0); TOTAL PROTEIN 6.1 GM/DL (6.4-8.2)
[2017-06-21] MEDS: INSULIN ASPART SUPPLEMENTAL SCALE SQ SCH ×4 (07:56→20:45)
[2017-06-21 08:00] VITALS: BP 98/54; PULSE 84; RESP 20; TEMP 97.9; O2SAT 99
[2017-06-21] MEDS: POLYETHYLENE GLYCOL 17 GM PKG PO SCH (09:00)
[2017-06-21] MEDS: DOCUSATE SODIUM 50 MG/SENNA 8.6 MG TAB PO SCH ×2 (09:04→20:45)
[2017-06-21] MEDS: MIDODRINE 5 MG TAB PO SCH ×2 (09:04→20:45)
[2017-06-21] MEDS: CALCITRIOL 0.25 MCG CAP PO SCH (09:04)
[2017-06-21] MEDS: CITALOPRAM HYDROBROMIDE 20 MG TAB PO SCH (09:04)
[2017-06-21] MEDS: PANTOPRAZOLE SOD 20 MG DELAYED RELEASE TAB PO SCH (09:04)
[2017-06-21] MEDS: CINACALCET HYDROCHLORIDE 30 MG TAB PO SCH (09:04)
[2017-06-21] MEDS: SEVELAMER CARBONATE 800 MG TAB PO SCH ×3 (09:05→16:17)
[2017-06-21] MEDS: FUROSEMIDE 40 MG TAB PO SCH ×2 (09:05→20:45)
[2017-06-21] MEDS: INSULIN DETEMIR 100 UNITS/ML VIAL SQ SCH ×2 (09:06→20:43)
[2017-06-21] MEDS: CHOLECALCIFEROL (VIT D3) 5000 UNIT CAP PO SCH (09:06)
--- NOTE | 2017-06-21 09:08 | HHI.FPPN ---
Subjective Remarks No acute events overnight. Afebrile, vitals stable. Patient sitting at bedside eating breakfast this morning. She does not have any specific complaints or concerns. Denies worsening pain. Denies fevers or chills, CP, dyspnea. (Chai Jeter MD R2) Objective Vitals Vital Signs Date Time Temp Pulse Resp B/P (MAP) Pulse Ox O2 Delivery O2 Flow Rate FiO2 06/21/17 04:00 Room Air 06/21/17 01:05 98.0 68 18 101/54 (70) 99 06/21/17 00:00 Room Air 06/20/17 20:00 97.7 68 17 100/57 (71) 100 06/20/17 20:00 Room Air 06/20/17 16:00 97.8 76 20 108/53 (71) 96 06/20/17 12:00 98.0 73 20 108/53 (71) 100 I/O 06/20/17 06/20/17 06/20/17 06/21/17 06/21/17 06/21/17 07:00 15:00 23:00 07:00 15:00 23:00 Intake Total 240 ml 480 ml 0 ml Balance 240 ml 480 ml 0 ml Intake Oral 240 ml 480 ml 0 ml # Voids 2 2 2 # Bowel Movements 3 1 0 (Chai Jeter MD R2) Result Diagram: 06/21/17 0555 06/21/17 0555 Objective Remarks GENERAL: NAD, sitting comfortably in chair NEURO: Alert. Normal speech. workers compensation claims assistant grossly intact. SKIN: Warm and dry. HEAD: Normocephalic. Atraumatic. EYES: EOMI. No scleral icterus. No injection or drainage. ENT: No nasal drainage. Moist mucous membranes. NECK: Supple. No JVD. CARDIOVASCULAR: Regular rate and rhythm without murmurs, rubs, or gallops. RESPIRATORY: Breath sounds clear to auscultation anteriorly and equal bilaterally, without wheezes, rales, or rhonchi. No accessory muscle use. GASTROINTESTINAL: Abdomen soft, nontender, protuberant. No guarding. MUSCULOSKELETAL: No lower extremity edema. left foot has area of discoloration on dorsum of foot that is reddish-almost has a purple hue to it. the rest of her foot has a normal hue. her skin is pliable and not hard even in the discolored area but is very tender to touch. right foot wrapped, bandage C/D/I. Procedures PermaCath placement 06/12 (Chai Jeter MD R2) Line: Central Venous Catheter (Chai Jeter MD R2) A/P Assessment and Plan 67 year old female s/p angiogram and endovascular intervention by Dr. Araya on 06/09, s/p right transmetatarsal amputation by podiatry on 06/11, and AVF placement by vascular 06/18. admitted to [facility] for postop medical management getting another angiogram on the for her left leg Discharge Planning Upon clearance by vascular surgery and podiatry (Chai Jeter MD R2) Attending Attestation Patient seen and examined. Case reviewed and discussed with the resident team. Agree with plan of care as discussed with me and documented in the resident note. she is looking forward to getting everything taken care of with the angioplasty on Thursday (Linh Rodriguez MD) Problem List: (1) Peripheral arterial occlusive disease ICD Codes: I77.9 - Disorder of arteries and arterioles, unspecified Status: Acute Plan: Patient is s/p by Dr. Araya 06/09: 1. Aortogram w/ B LE angiogram 2. R SFA/popliteal orbital atherectomy and CLIENT APPLICATION SUPPORT ENGINEER (5mm) 3. L AYO CLIENT APPLICATION SUPPORT ENGINEER (7mm) 4. L INFANT CHILDCARE PROVIDER Angioseal Podiatry consulted, patient is s/p right transmetatarsal amputation on 06/11 Anticipating angiogram for Thursday 06/22 (2) Status post transmetatarsal amputation of right foot ICD Codes: Z89.431 - Acquired absence of right foot Status: Acute Plan: Postop from right transmetatarsal amputation on 06/11 by podiatry, Dr. Chambers, due to gangrene and ischemic ulcerated changes. Continue dressing changes per podiatry Non weightbearing in right foot (3) ESRD (end stage renal disease) on dialysis ICD Codes: N18.6 - End stage renal disease; Z99.2 - Dependence on renal dialysis Status: Chronic Plan: Patient is ESRD, previously on PD upon admission Consulted nephrology, appreciate recommendations -Patient now on hemodialysis with sodium thiosulfate -PD catheter removed Continue home Sensipar 60 mg daily AVF LUE placed 06/18 Continue HD MWF per nephrology (4) Hypotension ICD Codes: I95.9 - Hypotension, unspecified Status: Chronic Plan: Continue midodrine 10 mg twice daily Monitors vitals q4h (5) Diabetes mellitus type 2, insulin dependent ICD Codes: E11.9 - Diabetes mellitus type 2, insulin dependent; Z79.4 - intermediate designer (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 No further events. If this recurs consider consulting Cardiology but the expectation is that adjusting the electrolytes will fix the problem K+ within normal limits Mg 2.0 will stop telemetry as she has had no new rhythm problems (7) Nutrition, metabolism, and development symptoms ICD Codes: R63.8 - Other symptoms and signs concerning food and fluid intake Status: Acute Plan: Fluids: per PO Electrolytes: continue to monitor Nutrition: renal with low K GI ppx: Not indicated at this time DVT ppx: heparin 5,000 units q8h Constipation: Nathaly-colace scheduled BID, Miralax andrea daily, milk of mag prn (Chai Jeter MD R2) Problem Qualifiers (1) Hypotension: Qualified Codes: I95.9 - Hypotension, unspecified Chai Jeetr MD R2 Jun 21, 2017 09:08 Linh Rodriguez MD Jun 22, 2017 12:15
[2017-06-21 12:00] VITALS: BP 131/61; PULSE 71; RESP 20; TEMP 97.9; O2SAT 98
[2017-06-21 16:00] VITALS: BP 105/53; PULSE 63; RESP 20; TEMP 97.5; O2SAT 97
[2017-06-21] MEDS: LACTULOSE SYRUP 20 GM/30 ML CUP PO PRN (16:18)
[2017-06-21 20:00] VITALS: BP 113/57; PULSE 71; RESP 20; TEMP 97.6; O2SAT 93
[2017-06-21] MEDS: GABAPENTIN 100 MG CAP PO SCH (20:44)
[2017-06-21] MEDS: ALPRAZolam 0.25 MG TAB PO PRN (20:44)
[2017-06-21] MEDS ORDERED: POVIDONE IODINE 5% (ANTISEPSIS KIT) 4 APPLICATIONS EACH NARE PRN (21:15)
[2017-06-21] MEDS ORDERED: CHLORHEXIDINE GLUCONATE 2 % 1 PACK (2 CLOTHS) TOPICAL PRN (21:15)
[2017-06-21] MEDS ORDERED: SODIUM CHLORID 0.9% 500 ML IV PRN (21:15)
[2017-06-21] MEDS ORDERED: METOPROLOL TARTRATE 25 MG TAB PO PRN (21:15)
[2017-06-21] MEDS ORDERED: LACTATED RINGER'S 1000 ML IV PRN (21:15)
[2017-06-21] MEDS: TEMAZEPAM 15 MG CAP PO PRN (23:06)
[2017-06-22] MEDS: ACETAMINOPHEN/HYDROcodone 325 MG/10 MG TAB PO PRN ×2 (06:14→20:05)
[2017-06-22] MEDS: LEVOTHYROXINE SODIUM 100 MCG TAB PO SCH (06:14)
[2017-06-22] MEDS: HEPARIN SODIUM - SQ 10,000 UNITS/ML VIAL SQ SCH ×3 (06:15→21:56)
[2017-06-22 07:45] VITALS: BP 108/64; PULSE 80; RESP 18; TEMP 97.9; O2SAT 97
[2017-06-22] MEDS: INSULIN ASPART SUPPLEMENTAL SCALE SQ SCH ×4 (08:00→21:00)
[2017-06-22] MEDS: FUROSEMIDE 40 MG TAB PO SCH ×2 (08:48→21:56)
[2017-06-22] MEDS: CHOLECALCIFEROL (VIT D3) 5000 UNIT CAP PO SCH (08:48)
[2017-06-22] MEDS: CALCITRIOL 0.25 MCG CAP PO SCH (08:48)
[2017-06-22] MEDS: CITALOPRAM HYDROBROMIDE 20 MG TAB PO SCH (08:48)
[2017-06-22] MEDS: PANTOPRAZOLE SOD 20 MG DELAYED RELEASE TAB PO SCH (08:49)
[2017-06-22] MEDS: MIDODRINE 5 MG TAB PO SCH ×2 (08:49→21:55)
[2017-06-22] MEDS: CINACALCET HYDROCHLORIDE 30 MG TAB PO SCH (08:49)
[2017-06-22] MEDS: DOCUSATE SODIUM 50 MG/SENNA 8.6 MG TAB PO SCH (08:49)
[2017-06-22] MEDS: SEVELAMER CARBONATE 800 MG TAB PO SCH ×3 (08:50→18:00)
[2017-06-22] MEDS: INSULIN DETEMIR 100 UNITS/ML VIAL SQ SCH ×2 (08:50→21:00)
[2017-06-22] MEDS: POLYETHYLENE GLYCOL 17 GM PKG PO SCH (08:50)
[2017-06-22] MEDS ORDERED: HEPARIN-NS/PF INJ 500 ML ONE (11:53)
[2017-06-22] MEDS ORDERED: PHENYLEPH/NS 1000 MCG/10 ML SYR IV ONE (12:00)
[2017-06-22] MEDS ORDERED: IOHEXOL 300 MG/ML 100 ML BTL (for Rad CT) IVCONTRAST ONE (12:00)
[2017-06-22] MEDS ORDERED: ROCURONIUM INJ 50 MG/5 ML SYRINGE IV PUSH ONE (12:00)
[2017-06-22] MEDS ORDERED: ePHEDrine/NS 25 MG/5 ML SYRINGE IV ONE (12:00)
[2017-06-22] MEDS ORDERED: ONDANSETRON HCL 4 MG/2 ML VIAL IV ONE (12:00)
[2017-06-22] MEDS ORDERED: PHENYLEPHRINE HCL 10 MG/ML VIAL IV ONE (12:00)
[2017-06-22] MEDS ORDERED: GLYCOPYRROLATE 1 MG/5 ML SYRINGE IV PUSH ONE (12:00)
[2017-06-22] MEDS ORDERED: LIDOCAINE HCL 1% PF 5 ML SYRINGE OTHER ONE (12:00)
[2017-06-22] MEDS ORDERED: NEOSTIGMINE 5 MG/5 ML SYRINGE IV PUSH ONE (12:00)
[2017-06-22] MEDS ORDERED: PROPOFOL 200 MG/20 ML AMP IV ONE (12:00)
--- NOTE | 2017-06-22 12:18 | HHI.FPPN ---
Subjective Remarks Patient seen and examined this morning. She states that she is feeling fine, except for the fact she is NPO until this afternoon for her procedure and then will have hemodialysis afterwards. Otherwise, no other complaints. No chest pain , no shortness of breath, no abdominal pain, no nausea/vomiting, is constipated but doesn't want any more medication for it. (Azul Veloz MD R1) Objective Vitals Vital Signs Date Time Temp Pulse Resp B/P (MAP) Pulse Ox O2 Delivery O2 Flow Rate FiO2 06/22/17 10:05 18 06/22/17 07:45 97.9 80 18 108/64 (79) 97 06/22/17 04:00 Room Air 06/22/17 00:00 Room Air 06/21/17 20:00 97.6 71 20 113/57 (75) 93 06/21/17 20:00 Room Air 06/21/17 16:00 97.5 63 20 105/53 (70) 97 I/O 06/21/17 06/21/17 06/21/17 06/22/17 06/22/17 06/22/17 07:00 15:00 23:00 07:00 15:00 23:00 Intake Total 0 ml 240 ml 240 ml Balance 0 ml 240 ml 240 ml Intake Oral 0 ml 240 ml 240 ml # Voids 2 1 2 # Bowel Movements 0 1 (Azul Veloz MD R1) Result Diagram: 06/21/17 0555 06/21/17 0555 Objective Remarks GENERAL: NAD, sitting comfortably in wheelchair NEURO: Alert. Normal speech. brand marketing manager grossly intact. SKIN: Warm and dry. HEAD: Normocephalic. Atraumatic. EYES: EOMI. No scleral icterus. No injection or drainage. ENT: No nasal drainage. Moist mucous membranes. NECK: Supple. No JVD. CARDIOVASCULAR: Regular rate and rhythm without murmurs, rubs, or gallops. RESPIRATORY: Breath sounds clear to auscultation anteriorly and equal bilaterally, without wheezes, rales, or rhonchi. No accessory muscle use. GASTROINTESTINAL: Abdomen soft, nontender, protuberant. No guarding. MUSCULOSKELETAL: No lower extremity edema. left foot has area of discoloration on dorsum of foot that is reddish-almost has a purple hue to it. the rest of her foot has a normal hue. her skin is pliable and not hard even in the discolored area but is very tender to touch. right foot wrapped, bandage C/D/I. Procedures PermaCath placement 06/12 (Azul Veloz MD R1) Line: Central Venous Catheter (Azul Veloz MD R1) A/P Assessment and Plan 67 year old female s/p angiogram and endovascular intervention by Dr. Araya on 06/09, s/p right transmetatarsal amputation by podiatry on 06/11, and AVF placement by vascular 06/18. admitted to [facility] for postop medical management getting another angiogram on the for her left leg Discharge Planning Upon clearance by vascular surgery and podiatry (Azul Veloz MD R1) Attending Attestation Patient seen and examined. Case reviewed and discussed with the resident team. Agree with plan of care as discussed with me and documented in the resident note. getting ready to be done with all her procedures and go home soon hopefully (Linh Rodriguez MD) Problem List: (1) Peripheral arterial occlusive disease ICD Codes: I77.9 - Disorder of arteries and arterioles, unspecified Status: Acute Plan: Patient is s/p by Dr. Araya 06/09: 1. Aortogram w/ B LE angiogram 2. R SFA/popliteal orbital atherectomy and SCHEDULE CHECKER (5mm) 3. L AYO SCHEDULE CHECKER (7mm) 4. L MOLASSES FEED MIXER Angioseal Podiatry consulted, patient is s/p right transmetatarsal amputation on 06/11 Anticipating angiogram for this afternoon with Dr. Araya (2) Status post transmetatarsal amputation of right foot ICD Codes: Z89.431 - Acquired absence of right foot Status: Acute Plan: Postop from right transmetatarsal amputation on 06/11 by podiatry, Dr. Chambers, due to gangrene and ischemic ulcerated changes. Continue dressing changes per podiatry Non weightbearing in right foot (3) ESRD (end stage renal disease) on dialysis ICD Codes: N18.6 - End stage renal disease; Z99.2 - Dependence on renal dialysis Status: Chronic Plan: Patient is ESRD, previously on PD upon admission Consulted nephrology, appreciate recommendations -Patient now on hemodialysis with sodium thiosulfate -PD catheter removed Continue home Sensipar 60 mg daily AVF LUE placed 06/18 Continue HD MWF per nephrology (4) Hypotension ICD Codes: I95.9 - Hypotension, unspecified Status: Chronic Plan: Continue midodrine 10 mg twice daily Monitors vitals q4h (5) Diabetes mellitus type 2, insulin dependent ICD Codes: E11.9 - Diabetes mellitus type 2, insulin dependent; Z79.4 - assisted (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 No further events. If this recurs consider consulting Cardiology but the expectation is that adjusting the electrolytes will fix the problem K+ within normal limits Mg 2.0 will stop telemetry as she has had no new rhythm problems (7) Nutrition, metabolism, and development symptoms ICD Codes: R63.8 - Other symptoms and signs concerning food and fluid intake Status: Acute Plan: Fluids: per PO Electrolytes: continue to monitor Nutrition: renal with low K GI ppx: Not indicated at this time DVT ppx: heparin 5,000 units q8h Constipation: Nathaly-colace scheduled BID, Miralax andrea daily, milk of mag prn (Azul Veloz MD R1) Problem Qualifiers (1) Hypotension: Qualified Codes: I95.9 - Hypotension, unspecified Azul Veloz MD R1 Jun 22, 2017 12:18 Linh Rodriguez MD Jun 23, 2017 12:28
[2017-06-22] MEDS ORDERED: IOHEXOL 300 INJ 50 ML IV ONE (14:02)
--- NOTE | 2017-06-22 14:52 | HHI.PR ---
cc: Carlos Araya MD Immediate Post Op Note Procedure Date: Jun 22, 2017 Pre Op Diagnosis: L LE PAD, tissue loss Post Op Diagnosis: same Surgeon: Carlos Araya Public Aid Eligibility Assistant(s): none Procedure: 1. Aortogram w/ L LE angiogram 2. L SFA/popliteal orbital atherectomy with HARBOR TUG CAPTAIN 3. R VEHICLE SAFETY INSPECTOR Angioseal Findings: 1. L SFA calcific occlusive disease 2. Distal SFA occlusion 3. AT runoff to DP Complications: none Specimen(s) removed: none Estimated blood loss: 10mL Anesthesia: MAC Drains: None Patient to: PACU Patient Condition: Good Implant/Devices: SEE IMPLANT LOG (if applicable) Date/Time of Procedure: SEE SURGICAL CARE RECORD Carlos Araya MD Jun 22, 2017 14:52
[2017-06-22] MEDS ORDERED: DEXTROSE 50% IN WATER 50 ML VIAL(D50) ONE (15:15)
[2017-06-22] MEDS ORDERED: MIDAZOLAM HCL 2 MG/2 ML VIAL ONE (15:26)
[2017-06-22] MEDS ORDERED: DO NOT ADM ANY ANTICOAGULANT DRUGS PRN (16:15)
--- NOTE | 2017-06-22 17:40 | HHI.NPPN ---
Subjective History of Present Illness 67 year old with ESRD, PVD DM Review of Systems General Constitutional: Fatigue Musculoskeletal MS: Pain/Stiffness Objective Data Data 06/22/17 06/23/17 19:00 07:00 Intake Total 100 ml Output Total 10 ml Balance 90 ml Other 100 ml Estimated Blood Loss 10 ml Vital Signs Date Time Temp Pulse Resp B/P (MAP) Pulse Ox O2 Delivery O2 Flow Rate FiO2 06/22/17 16:42 95 Room Air 06/22/17 15:55 73 16 95 Nasal Cannula 2 06/22/17 15:45 97.6 72 16 130/61 (84) 94 Nasal Cannula 2 06/22/17 15:30 74 15 129/58 (81) 93 Nasal Cannula 2 06/22/17 15:15 77 15 131/62 (85) 98 Nasal Cannula 3 06/22/17 15:00 97.8 75 15 132/59 (83) 95 Nasal Cannula 3 06/22/17 10:05 18 06/22/17 07:45 97.9 80 18 108/64 (79) 97 06/22/17 04:00 Room Air 06/22/17 00:00 Room Air 06/21/17 20:00 97.6 71 20 113/57 (75) 93 06/21/17 20:00 Room Air -: 06/21/17 0555 06/22/17 1215 Physical Exam General Appearance: Well Developed, Well Nourished Neck Neck Exam: Neck Supple Pulmonary Resp Exam: Clear Bilaterally, No Distress Gastrointestinal/Abdomen GI Exam: Soft, Non-Tender, Bowel Sounds Present Extremeties Extremeties Remarks post surgery dressing Neurologic Neuro Exam: Alert Assessment/Plan Problem List: (1) ESRD (end stage renal disease) on dialysis ICD Codes: N18.6 - End stage renal disease; Z99.2 - Dependence on renal dialysis Status: Chronic Plan: On HD MWF. on sodium thiosulfate had foot transmetatarsal amputation surgery Dr. Quiana Jalloh AVF Status post PAD left SFA angioplasty PD catheter out need placement at [facility] Seen during hemodialysis 3K bath and UF for 3 L (2) Calciphylaxis ICD Codes: E83.59 - Other disorders of calcium metabolism Plan: On Sensipar Renvela (3) Type 2 diabetes mellitus with diabetic peripheral angiopathy without gangrene ICD Codes: E11.51 - Type 2 diabetes mellitus with diabetic peripheral angiopathy without gangrene Status: Chronic Plan: Continue monitor Nazanin Strickland MD Jun 22, 2017 17:40
[2017-06-22] MEDS: GENTAMICIN SULFATE 20 MG/2 ML VIAL OTHER PRN (19:17)
[2017-06-22] MEDS: SODIUM THIOSULFATE INJ 25,000 MG in WATER STERILE FOR INJ 100 ML IV PRN (19:17)
[2017-06-22] MEDS: EPOETIN ALFA 10,000 UNITS/ML VIAL IV PUSH PRN (19:17)
[2017-06-22] MEDS: HEPARIN SODIUM - IV 10,000 UNITS/10 ML VIAL PRN (19:18)
--- NOTE | 2017-06-22 19:25 | MP ---
cc: Carlos Araya MD DATE OF OPERATION:06/22/17 PREOPERATIVE DIAGNOSIS: Left lower extremity tissue loss, peripheral vascular disease. POSTOPERATIVE DIAGNOSIS: Left lower extremity tissue loss, peripheral vascular disease. PROCEDURES PERFORMED: 1. Aortogram with left lower extremity angiograms. 2. Left SFA orbital atherectomy and angioplasty to 5 mm. 3. Right common femoral artery Angio-Seal. ATTENDING SURGEON: Carlos Araya MD ANESTHESIA: General. INDICATION: Ms. Ruth is a regular lady with peripheral arterial occlusive disease, end-stage renal disease and bilateral lower extremity tissue loss. She has had worsening of her left lower extremity tissue loss and is taken to the operating room for angiographic evaluation and treatment. There was no prior catheter-based imaging available for my review since her worsening of her tissue loss. DESCRIPTION OF PROCEDURE: Informed consent was obtained from the patient. She was taken to the operating room and placed supine on the operating table. An appropriate timeout was taken to ensure the patient's identity, operative site and planned procedure. The administration of antibiotics was not necessary since this is a clean procedure without the planned implantation of any foreign objects. Everyone in the room agreed with timeout and we proceeded. Her bilateral groins were prepped and draped and the right common femoral artery was accessed with a 21-gauge micropuncture needle. This was exchanged using Seldinger technique for a micropuncture sheath, through which a 0.035 Glidewire was introduced. The micropuncture sheath was exchanged for a 5-Ukrainian sheath and the VCF catheter was placed over the wire and through the sheath. An aortogram was obtained. The Glidewire was reintroduced and navigated down to the left common femoral artery and left lower extremity angiogram was obtained. The patient was systemically heparinized with 5000 units of IV heparin. A 0.035 Ricci wire was introduced and passed down to the SFA. The VCF catheter and 5-Ukrainian sheath removed and a 6-Ukrainian 55 cm antral sheath was introduced. A CXI catheter was placed over the Ricci. The Ricci was exchanged for a MUSIC WRITER wire. The MUSIC WRITER and CXI catheter were navigated down to the popliteal artery and angiogram confirmed we were in the popliteal artery. The MUSIC WRITER wire was exchanged with the ViperWire and the orbital atherectomy device was then inserted and the entire SFA was arthrectomized without difficulty. Over the ViperWire, a 5 mm balloon was used to angioplasty the entire SFA, and the completion angiogram showed excellent result without any recoil or extravasation. There was also no flow-limiting dissection. The wire, catheter and sheath removed and groin was closed with an Angio-Seal. There were no complications. I was present and scrubbed and performed the entire procedure. INTERPRETATION OF IMAGES: The patient has a patent infrarenal aorta, patent but calcified common iliac arteries. The left common iliac artery has a 50% stenosis. The left external iliac artery is patent. Hypogastric arteries are patent. The left common femoral is patent. The SFA is patent, but there are several high-grade calcific stenoses and then at the adductor canal, there was a focal occlusion. The popliteal artery is patent and there is 3-vessel runoff. After atherectomy and angioplasty, there was excellent result without any recoil, extravasation or flow-limiting dissection. MD ALONA Elizabeth/BARBIE , 07:04 PM , 07:24 PM SAMIR
[2017-06-22 21:27] VITALS: BP 102/61; PULSE 86; RESP 18; TEMP 97.8; O2SAT 100
[2017-06-22] MEDS: GABAPENTIN 100 MG CAP PO SCH (21:56)
[2017-06-22] MEDS: ALPRAZolam 0.25 MG TAB PO PRN (22:04)
[2017-06-23] VITALS: BP 100/51; PULSE 79; RESP 20; TEMP 98.1; O2SAT 95
[2017-06-23] MEDS: TEMAZEPAM 15 MG CAP PO PRN (00:14)
[2017-06-23] MEDS: ACETAMINOPHEN/HYDROcodone 325 MG/10 MG TAB PO PRN ×4 (00:14→17:56)
[2017-06-23 06:00] VITALS: PULSE 87
[2017-06-23] MEDS: LEVOTHYROXINE SODIUM 100 MCG TAB PO SCH (06:22)
[2017-06-23] MEDS: HEPARIN SODIUM - SQ 10,000 UNITS/ML VIAL SQ SCH ×2 (06:22→13:01)
[2017-06-23 07:39] LABS: AUTOMATED NEUTROPHIL # 7.6 TH/MM3 (1.8-7.7); BASOPHIL # 0.1 TH/MM3 (0-0.2); BASOPHIL % 1.2 % (0.0-2.0); EOSINOPHIL # 0.4 TH/MM3 (0-0.4); EOSINOPHIL % 3.9 % (0.0-4.0); HEMATOCRIT 27.9 % (35.0-46.0); HEMOGLOBIN 9.4 GM/DL (11.6-15.3); LYMPH % 11.3 % (9.0-44.0); LYMPHOCYTE # 1.1 TH/MM3 (1.0-4.8); MEAN CORPUSCULAR HEMOGLOBIN 34.9 PG (27.0-34.0); MEAN CORPUSCULAR HGB CONC 33.6 % (32.0-36.0); MEAN PLATELET VOLUME 8.1 FL (7.0-11.0); MONO % 5.7 % (0.0-8.0); MONOCYTE # 0.6 TH/MM3 (0-0.9); NEUT % 77.9 % (16.0-70.0); PLATELET COUNT 241 TH/MM3 (150-450); RED BLOOD COUNT 2.68 MIL/MM3 (4.00-5.30); RED CELL DISTRIBUTION WIDTH 17.3 % (11.6-17.2); WHITE BLOOD COUNT 9.8 TH/MM3 (4.0-11.0)
[2017-06-23 08:00] VITALS: BP 101/52; PULSE 83; RESP 16; TEMP 97.5; O2SAT 92
[2017-06-23] MEDS: INSULIN ASPART SUPPLEMENTAL SCALE SQ SCH ×2 (08:00→12:00)
[2017-06-23] MEDS: MIDODRINE 5 MG TAB PO SCH (08:17)
[2017-06-23] MEDS: SEVELAMER CARBONATE 800 MG TAB PO SCH ×2 (08:17→13:01)
[2017-06-23 08:18] LABS: BICARBONATE 29.3 MEQ/L (21.0-32.0); CALCIUM 8.9 MG/DL (8.5-10.1); CREATININE 5.17 MG/DL (0.50-1.00)
[2017-06-23] MEDS: POLYETHYLENE GLYCOL 17 GM PKG PO SCH (08:18)
[2017-06-23] MEDS: CALCITRIOL 0.25 MCG CAP PO SCH (08:18)
[2017-06-23] MEDS: PANTOPRAZOLE SOD 20 MG DELAYED RELEASE TAB PO SCH (08:18)
[2017-06-23] MEDS: CINACALCET HYDROCHLORIDE 30 MG TAB PO SCH (08:18)
[2017-06-23] MEDS: INSULIN DETEMIR 100 UNITS/ML VIAL SQ SCH (08:18)
[2017-06-23] MEDS: FUROSEMIDE 40 MG TAB PO SCH (08:18)
[2017-06-23] MEDS: CHOLECALCIFEROL (VIT D3) 5000 UNIT CAP PO SCH (08:18)
[2017-06-23] MEDS: CITALOPRAM HYDROBROMIDE 20 MG TAB PO SCH (08:20)
[2017-06-23 08:52] LABS: SPHEROCYTES OCC (NORMAL)
[2017-06-23 09:00] VITALS: O2SAT 100
--- NOTE | 2017-06-23 09:30 | HHI.FPPN ---
Subjective Remarks No acute events overnight. Afebrile, vitals stable. Patient specifically denies fevers or chills, CP, dyspnea, worsening pain. She other has no complaints. Her only questions are regarding her vascular surgery procedure yesterday. (Chai Jeter MD R2) Objective Vitals Vital Signs Date Time Temp Pulse Resp B/P (MAP) Pulse Ox O2 Delivery O2 Flow Rate FiO2 06/23/17 06:00 87 06/23/17 00:00 98.1 79 20 100/51 (67) 95 06/23/17 00:00 Nasal Cannula 2.00 06/22/17 21:27 97.8 86 18 102/61 (75) 100 06/22/17 21:27 Nasal Cannula 2.00 06/22/17 16:42 95 Room Air 06/22/17 15:55 73 16 95 Nasal Cannula 2 06/22/17 15:45 97.6 72 16 130/61 (84) 94 Nasal Cannula 2 06/22/17 15:30 74 15 129/58 (81) 93 Nasal Cannula 2 06/22/17 15:15 77 15 131/62 (85) 98 Nasal Cannula 3 06/22/17 15:00 97.8 75 15 132/59 (83) 95 Nasal Cannula 3 06/22/17 10:05 18 I/O 06/22/17 06/22/17 06/22/17 06/23/17 06/23/17 06/23/17 06:59 14:59 22:59 06:59 14:59 22:59 Intake Total 240 ml 100 ml 510 ml Output Total 10 ml 2000 ml Balance 240 ml 90 ml -2000 ml 510 ml Intake Oral 240 ml 510 ml Other 100 ml Hemodialysis 2000 ml Estimated Blood Loss 10 ml # Voids 2 1 # Bowel Movements 1 1 (Chai Jeter MD R2) Result Diagram: 06/23/17 0704 06/23/17 0704 Objective Remarks GENERAL: NAD, lying comfortably in bed NEURO: Alert. Normal speech. oceanography teacher grossly intact. SKIN: Warm and dry. HEAD: Normocephalic. Atraumatic. EYES: EOMI. No scleral icterus. No injection or drainage. ENT: No nasal drainage. Moist mucous membranes. NECK: Supple. No JVD. CARDIOVASCULAR: Regular rate and rhythm without murmurs, rubs, or gallops. RESPIRATORY: Breath sounds clear to auscultation anteriorly and equal bilaterally, without wheezes, rales, or rhonchi. No accessory muscle use. GASTROINTESTINAL: Abdomen soft, nontender, protuberant. No guarding. MUSCULOSKELETAL: No lower extremity edema. left foot has area of discoloration on dorsum of foot that is reddish-almost has a purple hue to it. the rest of her foot has a normal hue. her skin is pliable and not hard even in the discolored area but is very tender to touch. right foot wrapped, bandage C/D/I. Procedures PermaCath placement 06/12 (Chai Jeter MD R2) Line: Central Venous Catheter (Chai Jeter MD R2) A/P Assessment and Plan 67 year old female s/p angiogram and endovascular intervention by Dr. Araya on 06/09, s/p right transmetatarsal amputation by podiatry on 06/11, AVF placement by vascular 06/18, LLE angiogram with LLE endovascular intervention on 06/22. Admitted to [facility] for postop medical management. Discharge Planning Upon clearance by vascular surgery and podiatry (Chai Jeter MD R2) Attending Attestation Patient seen and examined. Case reviewed and discussed with the resident team. Agree with plan of care as discussed with me and documented in the resident note. she hopes to go home today if possible. she does want [facility] but not to go to a SNF (Linh Rodriguez MD) Problem List: (1) Peripheral arterial occlusive disease ICD Codes: I77.9 - Disorder of arteries and arterioles, unspecified Status: Acute Plan: Patient is s/p by Dr. Araya 06/09: 1. Aortogram w/ B LE angiogram 2. R SFA/popliteal orbital atherectomy and COLLECTIONS REPRESENTATIVE (5mm) 3. L AYO COLLECTIONS REPRESENTATIVE (7mm) 4. L LOGGING TRACTOR OPERATOR Angioseal S/p 06/22 by vascular surgery: 1. Aortogram w/ L LE angiogram 2. L SFA/popliteal orbital atherectomy with COLLECTIONS REPRESENTATIVE 3. R LOGGING TRACTOR OPERATOR Angioseal (2) Status post transmetatarsal amputation of right foot ICD Codes: Z89.431 - Acquired absence of right foot Status: Acute Plan: Postop from right transmetatarsal amputation on 06/11 by podiatry, Dr. Chambers, due to gangrene and ischemic ulcerated changes. Continue dressing changes per podiatry Non weightbearing in right foot (3) ESRD (end stage renal disease) on dialysis ICD Codes: N18.6 - End stage renal disease; Z99.2 - Dependence on renal dialysis Status: Chronic Plan: Patient is ESRD, previously on PD upon admission Consulted nephrology, appreciate recommendations -Patient now on hemodialysis with sodium thiosulfate -PD catheter removed Continue home Sensipar 60 mg daily AVF LUE placed 06/18 Continue HD MWF per nephrology (4) Hypotension ICD Codes: I95.9 - Hypotension, unspecified Status: Chronic Plan: Continue midodrine 10 mg twice daily Monitors vitals q4h (5) Diabetes mellitus type 2, insulin dependent ICD Codes: E11.9 - Diabetes mellitus type 2, insulin dependent; Z79.4 - termite treater helper (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 No further events. If this recurs consider consulting Cardiology but the expectation is that adjusting the electrolytes will fix the problem K+ within normal limits Mg 2.0 will stop telemetry as she has had no new rhythm problems (7) Nutrition, metabolism, and development symptoms ICD Codes: R63.8 - Other symptoms and signs concerning food and fluid intake Status: Acute Plan: Fluids: per PO Electrolytes: continue to monitor Nutrition: renal with low K GI ppx: Not indicated at this time DVT ppx: heparin 5,000 units q8h Constipation: Nathaly-colace scheduled BID, Miralax andrea daily, milk of mag prn (Chai Jeter MD R2) Problem Qualifiers (1) Hypotension: Qualified Codes: I95.9 - Hypotension, unspecified Chai Jeter MD R2 Jun 23, 2017 09:30 Linh Rodriguez MD Jun 23, 2017 12:30
--- NOTE | 2017-06-23 11:38 | HHI.FF ---
Face to Face Verification Diagnosis: (1) ESRD (end stage renal disease) on dialysis (2) Calciphylaxis (3) Peripheral arterial occlusive disease (4) Impaired mobility and activities of daily living (5) S/P angioplasty (6) Status post transmetatarsal amputation of right foot Home Health Nursing Order: Wound care and dressing changes I have seen patient Emilee Ruth on 06/23/17. My clinical findings support the need for the requested home health care services because: Limited ability to care for self I certify that my clinical findings support that this patient is homebound because: Unsteady gait/balance Chai Jeter MD R2 Jun 23, 2017 11:38
[2017-06-23 12:00] VITALS: BP_SYST 101; BP_SYST 84; BP_DIAS 57; BP_DIAS 63; PULSE 82; RESP 17; TEMP 97.9; O2SAT 92
--- NOTE | 2017-06-23 12:11 | HHI.DCPOC ---
Discharge Care Plan Diagnosis: (1) Status post transmetatarsal amputation of right foot (2) S/P angioplasty (3) Calciphylaxis Goals to Promote Your Health * To prevent worsening of your condition and complications * To maintain your health at the optimal level Directions to Meet Your Goals Take your medications as prescribed Follow your dietary instruction Follow activity as directed Keep your appointments as scheduled Take your immunizations and boosters as scheduled If your symptoms worsen call your PCP, if no PCP go to Urgent Care Center or Emergency Room Smoking is Dangerous to Your Health. Avoid second hand smoke Call the 24-hour hour crisis hotline for domestic abuse at Azul Veloz MD R1 Jun 23, 2017 12:11
--- NOTE | 2017-06-23 12:13 | PD.VS.PN ---
Subjective POD #: 1 Procedure(s): Aortogram w/ L LE angiogram L SFA/popliteal orbital atherectomy with CAP CUTTER R NITROGLYCERIN NEUTRALIZER Angioseal Subjective/Hospital Course 67/F S/P (POD 5) L UE AVF and PD catheter removal and (POD 1) L LE revascularization Pt doing well this am Pt denied hand pain Pt c/o post operative L UE numbness Incision to L UE intact with a palpable thrill near AVF L LE warm w/ motor intact and palpable DP L Anterior aspect of foot w/ improved discoloration R LE with OCL splint and post operative dressing (I/C/D) Objective Vitals/I&O Date Time Temp Pulse Resp B/P (MAP) Pulse Ox O2 Delivery O2 Flow Rate FiO2 06/23/17 09:00 100 Nasal Cannula 2.00 06/23/17 08:00 97.5 83 16 101/52 (68) 92 06/23/17 06:00 87 06/23/17 00:00 98.1 79 20 100/51 (67) 95 06/23/17 00:00 Nasal Cannula 2.00 06/22/17 21:27 97.8 86 18 102/61 (75) 100 06/22/17 21:27 Nasal Cannula 2.00 06/22/17 16:42 95 Room Air 06/22/17 15:55 73 16 95 Nasal Cannula 2 06/22/17 15:45 97.6 72 16 130/61 (84) 94 Nasal Cannula 2 06/22/17 15:30 74 15 129/58 (81) 93 Nasal Cannula 2 06/22/17 15:15 77 15 131/62 (85) 98 Nasal Cannula 3 06/22/17 15:00 97.8 75 15 132/59 (83) 95 Nasal Cannula 3 06/23/17 06/23/17 06/23/17 07:00 15:00 23:00 Intake Total 510 ml Balance 510 ml Exam: Looks great LE/UE warm w/ motor intact Palpable L DP noted Incision to L UE intact w/ palpable thrill Equal hand sign writer strength Pulses: Palpable L DP Palpable R/L radial pulses Laboratory Laboratory Tests Test 06/22/17 12:15 06/23/17 07:04 Potassium Level 4.8 3.9 White Blood Count 9.8 Red Blood Count 2.68 Hemoglobin 9.4 Hematocrit 27.9 Mean Corpuscular Volume 104.0 Mean Corpuscular Hemoglobin 34.9 Mean Corpuscular Hemoglobin Concent 33.6 Red Cell Distribution Width 17.3 Platelet Count 241 Mean Platelet Volume 8.1 Neutrophils (%) (Auto) 77.9 Lymphocytes (%) (Auto) 11.3 Monocytes (%) (Auto) 5.7 Eosinophils (%) (Auto) 3.9 Basophils (%) (Auto) 1.2 Neutrophils # (Auto) 7.6 Lymphocytes # (Auto) 1.1 Monocytes # (Auto) 0.6 Eosinophils # (Auto) 0.4 Basophils # (Auto) 0.1 CBC Comment AUTO DIFF Differential Comment AUTO DIFF CONFIRMED Platelet Estimate NORMAL Platelet Morphology Comment NORMAL Polychromasia 2.0 Spherocytes OCC Blood Urea Nitrogen 14 Creatinine 5.17 Random Glucose 87 Calcium Level 8.9 Sodium Level 139 Chloride Level 98 Carbon Dioxide Level 29.3 Anion Gap 12 Estimat Glomerular Filtration Rate 8 Date/Time Source Procedure Growth Status 06/09/17 12:40 Urine Clean Catch Urine Culture - Final 10-50,000 CFU/ML MIXED GRAM POSITIVE ... Complete 418 14:16 Wound Foot Fungal Smear - Final NO FUNGAL ELEMENTS SEEN. Resulted 4 14:16 Wound Foot Fungal Culture - Preliminary NO GROWTH IN 1 WEEK Resulted Assessment and Plan Assessment: (1) Peripheral vascular disease of foot Status: Chronic Plan POD#5 s/p L UE AVF and PD catheter removal POD #1 s/p L LE revascularization Looks great LE/UE warm w/ motor intact Pt w/ palpable distal pulses Pt c/o post operative L UE numbness Pt w/o hand pain L LE discoloration improved Plan Discussed post operative care and management of L UE AVF and LE revascularization Questions answered Pt clear for D/C from a vascular standpoint Arranged out pt f/u Pt made aware of plan Petra Guerrero [place] [phone] Discharge Planning Pt clear for d/c from a vascular standpoint [place] [id number] [phone] Petra Guerrero [facility] Jun 23, 2017 12:13
[2017-06-23] MEDS ORDERED: SODIUM CHLOR 0.9% 250 ML INJ 250 ML IV ONE (12:30)
[2017-06-23] MEDS ORDERED: MIDODRINE 5 MG TAB PO ONE (12:30)
--- NOTE | 2017-06-23 12:43 | HHI.NPPN ---
Subjective History of Present Illness 67 year old with ESRD, PVD DM Review of Systems General Constitutional: Fatigue Musculoskeletal MS: Pain/Stiffness Objective Data Data Vital Signs Date Time Temp Pulse Resp B/P (MAP) Pulse Ox O2 Delivery O2 Flow Rate FiO2 06/23/17 09:00 100 Nasal Cannula 2.00 06/23/17 08:00 97.5 83 16 101/52 (68) 92 06/23/17 06:00 87 06/23/17 00:00 98.1 79 20 100/51 (67) 95 06/23/17 00:00 Nasal Cannula 2.00 06/22/17 21:27 97.8 86 18 102/61 (75) 100 06/22/17 21:27 Nasal Cannula 2.00 06/22/17 16:42 95 Room Air 06/22/17 15:55 73 16 95 Nasal Cannula 2 06/22/17 15:45 97.6 72 16 130/61 (84) 94 Nasal Cannula 2 06/22/17 15:30 74 15 129/58 (81) 93 Nasal Cannula 2 06/22/17 15:15 77 15 131/62 (85) 98 Nasal Cannula 3 06/22/17 15:00 97.8 75 15 132/59 (83) 95 Nasal Cannula 3 -: 06/23/17 0704 06/23/17 0704 Physical Exam General Appearance: Well Developed, Well Nourished Neck Neck Exam: Neck Supple Pulmonary Resp Exam: Clear Bilaterally, No Distress Gastrointestinal/Abdomen GI Exam: Soft, Non-Tender, Bowel Sounds Present Extremeties Extremeties Remarks post surgery dressing Neurologic Neuro Exam: Alert Assessment/Plan Problem List: (1) ESRD (end stage renal disease) on dialysis ICD Codes: N18.6 - End stage renal disease; Z99.2 - Dependence on renal dialysis Status: Chronic Plan: On HD MWF. on sodium thiosulfate had foot transmetatarsal amputation surgery Dr. Quiana Jalloh AVF Status post PAD left SFA angioplasty PD catheter out need placement at [facility] HD MWF set up as out pt dc today she asked for transport to dialysis ctr (2) Calciphylaxis ICD Codes: E83.59 - Other disorders of calcium metabolism Plan: On Sensipar Renvela (3) Type 2 diabetes mellitus with diabetic peripheral angiopathy without gangrene ICD Codes: E11.51 - Type 2 diabetes mellitus with diabetic peripheral angiopathy without gangrene Status: Chronic Plan: Continue monitor Nazanin Strickland MD Jun 23, 2017 12:42
[2017-06-23] MEDS ORDERED: HYDR-3583 PO (14:32)
[2017-06-23 17:49] VITALS: O2SAT 92
--- NOTE | 2017-06-24 14:14 | HHI.DS ---
Discharge Summary Admission Date Jun 09, 2017 at 21:04 Discharge Date: Jun 23, 2017 Admitting Diagnosis PAD (1) Peripheral arterial occlusive disease Diagnosis: Principal Plan: Patient is s/p by Dr. Araya 06/09: 1. Aortogram w/ B LE angiogram 2. R SFA/popliteal orbital atherectomy and JDE DEVELOPER (5mm) 3. L AYO JDE DEVELOPER (7mm) 4. L FLATWORK FINISHER HAND Angioseal S/p 06/22 by vascular surgery: 1. Aortogram w/ L LE angiogram 2. L SFA/popliteal orbital atherectomy with JDE DEVELOPER 3. R FLATWORK FINISHER HAND Angioseal ICD Codes: I77.9 - Disorder of arteries and arterioles, unspecified Status: Acute (2) Status post transmetatarsal amputation of right foot Diagnosis: Principal Plan: Postop from right transmetatarsal amputation on 06/11 by podiatry, Dr. Chambers, due to gangrene and ischemic ulcerated changes. Continue dressing changes per podiatry Non weightbearing in right foot ICD Codes: Z89.431 - Acquired absence of right foot Status: Acute (3) ESRD (end stage renal disease) on dialysis Diagnosis: Principal Plan: Patient is ESRD, previously on PD upon admission Consulted nephrology, appreciate recommendations -Patient now on hemodialysis with sodium thiosulfate -PD catheter removed Continue home Sensipar 60 mg daily AVF LUE placed 06/18 Continue HD MWF per nephrology ICD Codes: N18.6 - End stage renal disease; Z99.2 - Dependence on renal dialysis Status: Chronic (4) Hypotension Diagnosis: Secondary Plan: Continue midodrine 10 mg twice daily Monitors vitals q4h ICD Codes: I95.9 - Hypotension, unspecified Status: Chronic (5) Diabetes mellitus type 2, insulin dependent Diagnosis: Secondary Plan: Hold home insulin regimen Start levemir 5 units bid Low-dose ISS Accuchecks ACHS dialysis pts usually need very little insulin ICD Codes: E11.9 - Diabetes mellitus type 2, insulin dependent; Z79.4 - MCFP (current) use of insulin Status: Chronic (6) V tach Diagnosis: Secondary Plan: 14 beat run at 0820 am 06/10. No further events. If this recurs consider consulting Cardiology but the expectation is that adjusting the electrolytes will fix the problem K+ within normal limits Mg 2.0 will stop telemetry as she has had no new rhythm problems ICD Codes: I47.2 - Ventricular tachycardia Status: Resolved (7) Nutrition, metabolism, and development symptoms Diagnosis: Secondary Plan: Fluids: per PO Electrolytes: continue to monitor Nutrition: renal with low K GI ppx: Not indicated at this time DVT ppx: heparin 5,000 units q8h Constipation: Nathaly-colace scheduled BID, Miralax andrea daily, milk of mag prn ICD Codes: R63.8 - Other symptoms and signs concerning food and fluid intake Status: Acute Consultants Vascular surgery, Podiatry, nephrology Procedures PermaCath placement 06/12 Brief History Ms Ruth is a 67-year-old female with PMH significant for PAD with right lower extremity tissue loss, ESRD on peritoneal dialysis, IDDM, hypotension who presented on 06/09 for angiogram and endovascular intervention by vascular surgery. The patient underwent right superficial femoral artery orbital atherectomy and JDE DEVELOPER, left common iliac artery JDE DEVELOPER, and left common femoral artery angioseal by Dr. Araya. The patient is admitted to our the [facility] service for postoperative wound care and medical management. Patient is seen and examined in PACU. Patient is resting comfortably. She endorses fatigue and feeling tired post-operatively. Denies pain. She otherwise did not report any specific complaints. She was sedated postop and in fact did not remember meeting us in the PACU. Today she was more informative and told us she has had complications from her PAD for some time and now has tissue loss that will necessitate an amputation of part of her right lower extremity. She states she has had severe pain on the left especially in the foot for 4 days total and is concerned as that is how her right foot presented. She has not had any hardening of the skin and has been on peritoneal dialysis without infections or problems for about 5 years. She is on a heart monitor and had a 14 beat run of V tach at 820 this am. Otherwise her monitor has not shown any events. Her K was somewhat elevated today. She has been admitted to have her procedure tomorrow with Dr Chambers and be followed for her blood flow post angiogram with Dr Araya. CBC/BMP: 06/23/17 0704 06/23/17 0704 Significant Findings Laboratory Tests Test 06/22/17 12:15 06/23/17 07:04 Red Blood Count 2.68 MIL/MM3 (4.00-5.30) Hemoglobin 9.4 GM/DL (11.6-15.3) Hematocrit 27.9 % (35.0-46.0) Mean Corpuscular Volume 104.0 FL (80.0-100.0) Mean Corpuscular Hemoglobin 34.9 PG (27.0-34.0) Red Cell Distribution Width 17.3 % (11.6-17.2) Neutrophils (%) (Auto) 77.9 % (16.0-70.0) Polychromasia 2.0 % (0.0-1.9) Spherocytes OCC (NORMAL) Creatinine 5.17 MG/DL (0.50-1.00) Estimat Glomerular Filtration Rate 8 ML/MIN (>89) Imaging Bilateral upper extremity ultrasound 06/15 showing thrombosed left peripheral cephalic vein near the antecubital fossa. Upper extremity veins are otherwise patent. Chest x-ray 06/19 no acute cardiopulmonary disease PE at Discharge GENERAL: NAD, lying comfortably in bed NEURO: Alert. Normal speech. conflicts analyst grossly intact. SKIN: Warm and dry. HEAD: Normocephalic. Atraumatic. EYES: EOMI. No scleral icterus. No injection or drainage. ENT: No nasal drainage. Moist mucous membranes. NECK: Supple. No JVD. CARDIOVASCULAR: Regular rate and rhythm without murmurs, rubs, or gallops. RESPIRATORY: Breath sounds clear to auscultation anteriorly and equal bilaterally, without wheezes, rales, or rhonchi. No accessory muscle use. GASTROINTESTINAL: Abdomen soft, nontender, protuberant. No guarding. MUSCULOSKELETAL: No lower extremity edema. left foot has area of discoloration on dorsum of foot that is reddish-almost has a purple hue to it. the rest of her foot has a normal hue. her skin is pliable and not hard even in the discolored area but is very tender to touch. right foot wrapped, bandage C/D/I. Hospital Course Patient was admitted by vascular surgery due to peripheral arterial disease and right lower extremity tissue loss. She presented for an angiogram and endovascular intervention. The patient underwent 1. Aortogram w/ B LE angiogram 2. R SFA/popliteal orbital atherectomy and JDE DEVELOPER (5mm) 3. L AYO JDE DEVELOPER (7mm) 4. L FLATWORK FINISHER HAND Angioseal on 06/09. Podiatry was subsequently consulted due to gangrenous fourth and fifth digit of the right foot with a dorsal foot ischemic ulcer as well as possible early left foot ischemia. The patient underwent a right transmetatarsal amputation on 06/11 by podiatry. Nephrology was consulted to render an opinion of her left lower extremity and possible calciphylaxis. The patient was advised to begin hemodialysis for prevention of possible calciphylaxis and to discontinue peritoneal dialysis. The patient had a left brachiobasilic AV fistula placed on 06/18 and subsequently began hemodialysis MWF per nephrology. The patient subsequently underwent 1. Aortogram with left lower extremity angiograms. 2. Left SFA orbital atherectomy and angioplasty to 5 mm. 3. Right common femoral artery Angio-Seal by vascular surgery on 06/22. The patient was discharged home with a wheelchair and instructed to follow-up with her primary care physician, vascular surgery, and podiatry. Pt Condition on Discharge: Stable Discharge Disposition: Disch w/ Home Health Serv Discharge Instructions DIET: Follow Instructions for: Diabetic Diet, Dialysis Diet Activities you can perform: Non Weight Bearing Follow up Referrals: Appointment for Follow Up @ [facility] Appointment for Follow Up @ [facility] with TC KAUFFMAN Nephrology - 1 Week with Nazanin Strickland MD PCP Follow-up - 1 Week with Danae Del Rosario MD PCP Follow-up with DANAE DEL ROSARIO Podiatry - 1 Week @ [facility] with Tc Chambers DPM SNF/[facility]/ with [facility] Vascular Surgery - 2 Weeks @ Vascular Surgery with Carlos Araya MD Vascular Surgery with Carlos Araya MD New Medications: Wheelchair (Wheelchair) 1 Mis Mis EA .XX DIRECTED, #1 0 Refills Hydrocodone/Acetaminophen (Hydrocodone-Acetamin 10-325 mg) 10 Mg-325 Mg Tablet 1 TAB PO Q4H PRN for PAIN SCALE 6 TO 10, #30 Continued Medications: Acetaminophen (Eq Acetaminophen) 325 Mg Tab 650 MG PO Q4H PRN for Fever/ Pain 1-6 for 30 Days, #360 TAB Alprazolam (Xanax) 0.25 Mg Tab 0.25 MG PO BID PRN for ANXIETY, #60 TAB Aspirin (Px Aspirin) 325 Mg Tab 325 MG PO DAILY for stroke prevention, #30 TAB Calcitriol (Calcitriol) 0.25 Mcg Cap 0.5 MCG PO DAILY for Calcium Supplement, #60 CAP 0 Refills Daily Cholecalciferol (D 5000) 5,000 Unit Cap 1 CAP PO DAILY for vitamin D supplement, #30 CAP Cinacalcet (Sensipar) 60 Mg Tab 60 MG PO DAILY for reduce calcium, #30 TAB 0 Refills Diphenhydramine HCl (Benadryl Allergy) 25 Mg Cap 1 TAB PO BID Furosemide (Furosemide) 40 Mg Tab 40 MG PO BID for diuretic, #60 TAB 0 Refills Gabapentin (Gabapentin) 100 Mg Cap 200 MG PO HS for neuropathy, #60 CAP Insulin Aspart Inj (Novolog Inj) 100 Unit/Ml Inj 1 UNIT SQ ACHS SLIDING SCALE for 30 Days, INJECTION Sliding Scale As Directed. Insulin Detemir Inj (Levemir Inj) 1,000 unit/ 10 ML Vial 30 UNITS SQ HS for control sugar for 30 Days, INJECTION Do not mix with any other Insulin. Levothyroxine (Levothyroxine) 100 Mcg Tab 100 MCG PO DAILY for Thyroid, #30 TAB 0 Refills Midodrine (Midodrine) 10 Mg Tab 10 MG PO BID for Control Low Blood Pressure, #60 TAB 0 Refills Omeprazole (Omeprazole) 20 Mg Tab 20 MG PO DAILY for Reflux, #30 TAB 0 Refills Potassium Chloride ER (K-Tab) 8 Meq Tab 8 MEQ PO DAILY for Electrolyte Replacement, #30 TAB 0 Refills Sevelamer Carbonate (Renvela) 800 Mg Tab 3 TAB PO TID for Control phosphorous levels, #500 TAB 0 Refills 3 tabs with each meal and 1-2 tabs with each snack. Temazepam (Restoril) 15 Mg Cap 15 MG PO HS PRN for INSOMNIA, #30 CAP 0 Refills Chai Jeter MD R2 Jun 24, 2017 14:14
[2017-06-24] MEDS ORDERED: WHEEMIS3 (14:15)
--- NOTE | 2017-06-25 17:54 | RADRPT ---
EXAM DATE/TIME: 06/18/2017 14:18 INDICATIONS : Patient with ESRD. Has nonfunctioning right permcath. Needs an exchange. MEDICAL HISTORY : 1. ESRD 2. DM 3. Hypothroidism 4. GERD 5. Peripheral neuropathy SURGICAL HISTORY : 1. Cholecystectomy 2. Rt toe amputation 3. PD cath removal 4. perm cath ENCOUNTER: Subsequent ACUITY: 2 days PAIN SCORE: 5/10 LOCATION: abdomin and right foot. FLUORO TIME: 1.6 minutes IMAGE SERIES: 3 SEDATION TIME: 45 minutes ACCESS: Right SEDATION: 1.) 4 mg midazolam (Versed) IV 2.) 100 mcg fentanyl (Sublimaze) IV DEVICE: 1. 15 Guine[place] dual lumen 23 cm Baxter II Plus catheter PROCEDURE: CENTRAL VENOUS CATHETER REPLACEMENT, RT 1. Fluoroscopically guided central venous catheter exchange. The risks, benefits and alternatives to the procedure were explained and verbal and written consent w as obtained. The site was prepped in sterile fashion. Full sterile technique was used, including ca p, mask, sterile gloves and gown and a large sterile sheet. Hand hygiene and 2% chlorhexidine and/or betadine/alcohol prep was utilized per protocol for cutaneous antisepsis. The skin and subcutaneous tissues were infiltrated with local anesthetic solution. With fluoroscopic guidance the previously placed central venous catheter was exchanged for the prescr ibed catheter as above. Post procedure image demonstrates satisfactory position of the tube. CONCLUSION: Uncomplicated venous catheter change as above. Walker Peters MD on June 25, 2017 at 17:51 Board Certified Radiologist. This report was verified electronically.
== END 2017-06-23 18:15 | disposition home health service (06) | DRG 270 ==
LOC: HSDI 12:05 → HSDC 12:05 → UNDOADMIN 19:43 → HSDI 19:43 → HSDC 21:03 → N04A 21:04
PROVIDERS: ADMIT Family Medicine; ATTEND Family Medicine
PROC: 047K3ZZ Dilation of Right Femoral Artery, Percutaneous Approach (ICD-10-PCS; 2017-06-09)
PROC: 047N3ZZ Dilation of Left Popliteal Artery, Percutaneous Approach (ICD-10-PCS; 2017-06-09)
PROC: B41D1ZZ Fluoroscopy of Aorta and Bilateral Lower Extremity Arteries using Low Osmolar Contrast (ICD-10-PCS; 2017-06-09)
PROC: 3E1M39Z Irrigation of Peritoneal Cavity using Dialysate, Percutaneous Approach (ICD-10-PCS; 2017-06-09)
PROC: 04CK3ZZ Extirpation of Matter from Right Femoral Artery, Percutaneous Approach (ICD-10-PCS; principal; 2017-06-09 13:55)
PROC: 047D3ZZ Dilation of Left Common Iliac Artery, Percutaneous Approach (ICD-10-PCS; 2017-06-09 13:55)
PROC: 0Y6M0Z9 Detachment at Right Foot, Partial 1st Ray, Open Approach (ICD-10-PCS; 2017-06-11)
PROC: 0Y6M0ZB Detachment at Right Foot, Partial 2nd Ray, Open Approach (ICD-10-PCS; 2017-06-11)
PROC: 0Y6M0ZC Detachment at Right Foot, Partial 3rd Ray, Open Approach (ICD-10-PCS; 2017-06-11)
PROC: 0Y6M0ZD Detachment at Right Foot, Partial 4th Ray, Open Approach (ICD-10-PCS; 2017-06-11)
PROC: 0Y6M0ZF Detachment at Right Foot, Partial 5th Ray, Open Approach (ICD-10-PCS; 2017-06-11)
PROC: 3E0T3BZ Introduction of Anesthetic Agent into Peripheral Nerves and Plexi, Percutaneous Approach (ICD-10-PCS; 2017-06-11)
PROC: 05HM33Z Insertion of Infusion Device into Right Internal Jugular Vein, Percutaneous Approach (ICD-10-PCS; 2017-06-12)
PROC: 5A1D70Z Performance of Urinary Filtration, Intermittent, Less than 6 Hours Per Day (ICD-10-PCS; 2017-06-12)
PROC: 03180ZD Bypass Left Brachial Artery to Upper Arm Vein, Open Approach (ICD-10-PCS; 2017-06-18)
PROC: 0WPG03Z Removal of Infusion Device from Peritoneal Cavity, Open Approach (ICD-10-PCS; 2017-06-18)
PROC: 05HM33Z Insertion of Infusion Device into Right Internal Jugular Vein, Percutaneous Approach (ICD-10-PCS; 2017-06-18)
PROC: 04CL3ZZ Extirpation of Matter from Left Femoral Artery, Percutaneous Approach (ICD-10-PCS; 2017-06-22)
PROC: 047L3ZZ Dilation of Left Femoral Artery, Percutaneous Approach (ICD-10-PCS; 2017-06-22)
PROC: B41G1ZZ Fluoroscopy of Left Lower Extremity Arteries using Low Osmolar Contrast (ICD-10-PCS; 2017-06-22)
DX: E11.52 Type 2 diabetes mellitus with diabetic peripheral angiopathy with gangrene (principal); N18.6 End stage renal disease; I47.2 Ventricular tachycardia; I95.9 Hypotension, unspecified; E11.22 Type 2 diabetes mellitus with diabetic chronic kidney disease; I12.0 Hypertensive chronic kidney disease with stage 5 chronic kidney disease or end stage renal disease; E83.59 Other disorders of calcium metabolism; T85.611A Breakdown (mechanical) of intraperitoneal dialysis catheter, initial encounter; L97.429 Non-pressure chronic ulcer of left heel and midfoot with unspecified severity; E11.42 Type 2 diabetes mellitus with diabetic polyneuropathy; Z99.2 Dependence on renal dialysis; E03.9 Hypothyroidism, unspecified; I70.223 Atherosclerosis of native arteries of extremities with rest pain, bilateral legs; K21.9 Gastro-esophageal reflux disease without esophagitis; L97.519 Non-pressure chronic ulcer of other part of right foot with unspecified severity; E11.621 Type 2 diabetes mellitus with foot ulcer; Y81.2 Prosthetic and other implants, materials and accessory general- and plastic-surgery devices associated with adverse incidents; G47.30 Sleep apnea, unspecified; K59.00 Constipation, unspecified; R20.0 Anesthesia of skin; Z87.891 Personal history of nicotine dependence; Z79.4 Long term (current) use of insulin; Z86.73 Personal history of transient ischemic attack (TIA), and cerebral infarction without residual deficits
CPT/HCPCS: 36415; 36561; 71045; 75710; 75716; 76942; 77001; 80048; 80053; 80074; 81001; 82948; 83735; 84100; 84132; 85007; 85025; 85027; 85610; 85730; 86403; 86850; 86900; 86901; 87015; 87070; 87086; 87102; 87116; 87205; 87206; 88304; 88307; 88311; 90935; 93005; 93970; 93998; 96374; 96375; 99152; 99153; C1725; C1750; C1769; J0610; J0690; J1100; J1580; J1642; J1644; J1815; J2250; J2270; J2370; J2405; J2550; J2710; J2720; J2795; J3010; J3370; J7030; J7040; J7050; J7120; Q4081; Q9967

== ENCOUNTER 2017-08-25 09:31 | Observation (INO) | payer MEDICARE, OTHER ==
[~2017-08-25] VITALS: Ht 162.6 cm; Wt 104.0 kg
[2017-08-25] VITALS (12 sets, daily range): BP systolic 134–144; BP diastolic 60–88; PULSE 65–82; RESP 16–20; TEMP 97.6–98.4; O2SAT 95–98
[~2017-08-25 09:31] MED LIST changes: -BENA25CA4 PO; +BUPIVACAINE HCL PF 0.5% 30 ML VIAL ONE; -DEXAMETHASONE SOD PHOS 4 MG/ML VIAL IV ONE; -GLYCOPYRROLATE 1 MG/5 ML SYRINGE IV PUSH ONE; +HYDR-3583 PO; -IOHEXOL 300 MG/ML 50 ML BTL (for RAD DIAG) IVCONTRAST ONE; -LIDOCAINE HCL 1% PF 5 ML SYRINGE OTHER ONE; -NEOSTIGMINE 5 MG/5 ML SYRINGE IV PUSH ONE; -ONDANSETRON HCL 4 MG/2 ML VIAL IV ONE; -PHENYLEPH/NS 1000 MCG/10 ML SYR IV ONE; -PHENYLEPHRINE HCL 10 MG/ML VIAL IV ONE; -PROPOFOL 200 MG/20 ML AMP IV ONE; -ROCURONIUM INJ 50 MG/5 ML SYRINGE IV PUSH ONE; -SODIUM CHLORID 0.9% 500 ML INJ 500 ML IV ONE; +WHEEMIS3
--- NOTE | 2017-08-25 10:14 | HHI.HP ---
History of Present Illness Chief Complaint: ESRD, need for HD access History of Present Illness 67 yo female with ESRD for years, s/p L BB AVF in June. Presents for second stage. No hand troubles. In baseline state of health. Ready for surgery. Past/Family/Social History Past Medical History ESRD CVA PAD DM hypothyroidism ? calciphylaxis Past Surgical History B LE angio/endovascular revascularizations PD catheter insertion/removal L UE BB AVF podiatric surgery [place] Social History nonsmoker Family History NC Home Medications Active Scripts Wheelchair (Wheelchair) 1 Mis Mis, EA .XX DIRECTED, #1 0 Refills Prov:Chai Jeter MD R2 06/24/17 Hydrocodone/Acetaminophen (Hydrocodone-Acetamin 10-325 mg) 10 Mg-325 Mg Tablet, 1 TAB PO Q4H Y for PAIN SCALE 6 TO 10, #30 Prov:Azul Veloz MD R1 06/23/17 Temazepam (Restoril) 15 Mg Cap, 15 MG PO HS Y for INSOMNIA, #30 CAP 0 Refills Prov:Suman Arshad MD 05/20/17 Alprazolam (Xanax) 0.25 Mg Tab, 0.25 MG PO BID Y for ANXIETY, #60 TAB Prov:Suman Arshad MD 05/20/17 Calcitriol (Calcitriol) 0.25 Mcg Cap, 0.5 MCG PO DAILY for Calcium Supplement, # 60 CAP 0 Refills Daily Prov:Yin Ashley 05/19/17 Insulin Aspart Inj (Novolog Inj) 100 Unit/Ml Inj, 1 UNIT SQ ACHS SLIDING SCALE for 30 Days, INJECTION Sliding Scale As Directed. Prov:Yin Ashley 05/19/17 Insulin Detemir Inj (Levemir Inj) 1,000 unit/ 10 ML Vial, 30 UNITS SQ HS for control sugar for 30 Days, INJECTION Do not mix with any other Insulin. Prov:Yin Ashley 05/19/17 Gabapentin (Gabapentin) 100 Mg Cap, 200 MG PO HS for neuropathy, #60 CAP Prov:Yin Ashley 05/19/17 Acetaminophen (Eq Acetaminophen) 325 Mg Tab, 650 MG PO Q4H Y for Fever/ Pain 1- 6 for 30 Days, #360 TAB Prov:Yin Ashley 05/19/17 Aspirin (Px Aspirin) 325 Mg Tab, 325 MG PO DAILY for stroke prevention, #30 TAB Prov:Yin Ashley 05/19/17 Potassium Chloride ER (K-Tab) 8 Meq Tab, 8 MEQ PO DAILY for Electrolyte Replacement, #30 TAB 0 Refills Prov:Yin Ashley 05/19/17 Cinacalcet (Sensipar) 60 Mg Tab, 60 MG PO DAILY for reduce calcium, #30 TAB 0 Refills Prov:Yin Ashley 05/19/17 Midodrine (Midodrine) 10 Mg Tab, 10 MG PO BID for Control Low Blood Pressure, # 60 TAB 0 Refills Prov:iYn Ashley 05/19/17 Sevelamer Carbonate (Renvela) 800 Mg Tab, 3 TAB PO TID for Control phosphorous levels, #500 TAB 0 Refills 3 tabs with each meal and 1-2 tabs with each snack. Prov:Yin Ashley 05/19/17 Furosemide (Furosemide) 40 Mg Tab, 40 MG PO BID for diuretic, #60 TAB 0 Refills Prov:Yin Ashley 05/19/17 Cholecalciferol (D 5000) 5,000 Unit Cap, 1 CAP PO DAILY for vitamin D supplement , #30 CAP Prov:Yin Ashley 05/19/17 Omeprazole (Omeprazole) 20 Mg Tab, 20 MG PO DAILY for Reflux, #30 TAB 0 Refills Prov:Yin Ashley 05/19/17 Levothyroxine (Levothyroxine) 100 Mcg Tab, 100 MCG PO DAILY for Thyroid, #30 TAB 0 Refills Prov:Yin Ashley 05/19/17 Walker Rolling/GetGo (Walker Rolling/GetGo) 1 Mis Mis, EA .XX DIRECTED, #1 Prov:Yin Ashley 05/18/17 Discontinued Reported Medications Diphenhydramine HCl (Benadryl Allergy) 25 Mg Cap, 1 TAB PO BID 06/08/17 Coded Allergies: quinine (Verified Allergy, Severe, Shortness of Breath, 08/25/17) tramadol (Verified Allergy, Severe, Rash, 08/25/17) Review of Systems Constitutional: DENIES: Diaphoretic episodes, Fatigue, Fever, Weight gain, Weight loss, Chills, Dizziness, Change in appetite, Night Sweats Physical Exam Neuro: alert, oriented, no distress HEENT: NC/AT Neck: no JVD Heart: reg rate, no M Lungs: clear B Vascular: L UE with + thrill incision healed pending duplex reviewed - all diameters >6mm on LEFT brachiobasilic AVF Caprini VTE Risk Assessment Caprini VTE Risk Assessment: No/Low Risk (score <= 1) Caprini Risk Assessment Model Point Value = 1 Point Value = 2 Point Value = 3 Point Value = 5 Age 41-60 Minor surgery BMI > 25 kg/m2 Swollen legs Varicose veins or History of unexplained or recurrent spontaneous Oral contraceptives or hormone replacement Sepsis (< 1 month) Serious lung disease, including pneumonia (< 1 month) Abnormal pulmonary function Acute myocardial infarction Congestive heart failure (< 1 month) History of inflammatory bowel disease Medical patient at bed rest Age 61-74 Arthroscopic surgery Major open surgery (> 45 min) Laparoscopic surgery (> 45 min) Malignancy Confined to bed (> 72 hours) Immobilizing plaster cast Central venous access Age >= 75 History of VTE Family history of VTE Factor V Leiden Prothrombin [id number] Lupus anticoagulant Anticardiolipin antibodies Elevated serum homocysteine Heparin-induced thrombocytopenia Other congenital or acquired thrombophilia Stroke (< 1 month) Elective arthroplasty Hip, pelvis, or leg fracture Acute spinal cord injury (< 1 month) Prophylaxis Regimen Total Risk Factor Score Risk Level Prophylaxis Regimen 0-1 Low Early ambulation 2 Moderate Order ONE of the following: *Sequential Compression Device (SCD) *Heparin 5000 units SQ BID 3-4 Higher Order ONE of the following medications: *Heparin 5000 units SQ TID *Enoxaparin/Lovenox 40 mg SQ daily (WT < 150 kg, CrCl > 30 mL/min) *Enoxaparin/Lovenox 30 mg SQ daily (WT < 150 kg, CrCl > 10-29 mL/min) *Enoxaparin/Lovenox 30 mg SQ BID (WT < 150 kg, CrCl > 30 mL/min) AND/OR *Sequential Compression Device (SCD) 5 or more Highest Order ONE of the following medications: *Heparin 5000 units SQ TID (Preferred with Epidurals) *Enoxaparin/Lovenox 40 mg SQ daily (WT < 150 kg, CrCl > 30 mL/min) *Enoxaparin/Lovenox 30 mg SQ daily (WT < 150 kg, CrCl > 10-29 mL/min) *Enoxaparin/Lovenox 30 mg SQ BID (WT < 150 kg, CrCl > 30 mL/min) AND *Sequential Compression Device (SCD) Assessment and Plan Plan ESRD need for HD access, s/p 1st stage L BB AVF Plan for L UE access revision (transposition) PACU and CPCU post-op : [phone] Carlos Araya MD Aug 25, 2017 10:14
[2017-08-25] MEDS ORDERED: LACTATED RINGER'S 1000 ML IV PRN (10:15)
[2017-08-25] MEDS ORDERED: CHLORHEXIDINE GLUCONATE 2 % 1 PACK (2 CLOTHS) TOPICAL PRN (10:15)
[2017-08-25] MEDS ORDERED: POVIDONE IODINE 5% (ANTISEPSIS KIT) 4 APPLICATIONS EACH NARE PRN (10:15)
[2017-08-25] MEDS ORDERED: SODIUM CHLORID 0.9% 500 ML IV PRN (10:15)
[2017-08-25] MEDS ORDERED: INSULIN HUMAN REGULAR 1,000 UNITS/10 ML VIAL SQ PRN (10:15)
[2017-08-25] MEDS ORDERED: METOPROLOL TARTRATE 25 MG TAB PO PRN (10:15)
[2017-08-25] MEDS ORDERED: CITA20TA4 PO (10:23)
[2017-08-25] MEDS ORDERED: TEMA30CA PO (10:23)
[2017-08-25] MEDS ORDERED: Hemodialysis Vas Access Cath PRN NS Lock Flush IV FLUSH (10:30)
[2017-08-25] MEDS ORDERED: Hemodialysis Vas Acc Cath PRN Heparin 1000 unit/ml Flush IV FLUSH (10:30)
[2017-08-25 10:37] LABS: AUTOMATED NEUTROPHIL # 6.6 TH/MM3 (1.8-7.7); BASOPHIL % 0.5 % (0.0-2.0); EOSINOPHIL # 0.2 TH/MM3 (0-0.4); EOSINOPHIL % 2.1 % (0.0-4.0); HEMATOCRIT 32.5 % (35.0-46.0); HEMOGLOBIN 10.8 GM/DL (11.6-15.3); LYMPH % 9.2 % (9.0-44.0); LYMPHOCYTE # 0.7 TH/MM3 (1.0-4.8); MEAN CELL VOLUME 96.7 FL (80.0-100.0); MEAN CORPUSCULAR HEMOGLOBIN 32.1 PG (27.0-34.0); MEAN CORPUSCULAR HGB CONC 33.2 % (32.0-36.0); MEAN PLATELET VOLUME 8.2 FL (7.0-11.0); MONO % 3.7 % (0.0-8.0); MONOCYTE # 0.3 TH/MM3 (0-0.9); NEUT % 84.5 % (16.0-70.0); PLATELET COUNT 240 TH/MM3 (150-450); RED BLOOD COUNT 3.36 MIL/MM3 (4.00-5.30); RED CELL DISTRIBUTION WIDTH 14.4 % (11.6-17.2); WHITE BLOOD COUNT 7.8 TH/MM3 (4.0-11.0)
[2017-08-25 10:47] LABS: INTERNATIONAL NORMALIZED RATIO 1.1 RATIO; PROTHROMBIN TIME - PATIENT 10.8 SEC (9.8-11.6)
[2017-08-25 10:54] LABS: BICARBONATE 21.1 MEQ/L (21.0-32.0); CALCIUM 9.2 MG/DL (8.5-10.1); CREATININE 3.72 MG/DL (0.50-1.00)
[2017-08-25] MEDS ORDERED: VANCOMYCIN HCL 1000 MG VIAL ONE (11:28)
[2017-08-25] MEDS ORDERED: HEPARIN-NS/PF INJ 500 ML ONE (11:28)
[2017-08-25] MEDS ORDERED: THROMBIN (TOPICAL) 20,000 UNIT SPRAY KIT ONE (11:28)
[2017-08-25] MEDS ORDERED: PROTAMINE SULFATE 50 MG/5 ML VIAL ONE (11:28)
[2017-08-25] MEDS ORDERED: HEPARIN SODIUM - IV 10,000 UNITS/10 ML VIAL ONE (11:28)
[2017-08-25] MEDS ORDERED: DEXAMETHASONE SOD PHOS 4 MG/ML VIAL IV ONE (12:00)
[2017-08-25] MEDS ORDERED: LIDOCAINE HCL 1% PF 5 ML SYRINGE OTHER ONE (12:00)
[2017-08-25] MEDS ORDERED: GLYCOPYRROLATE 1 MG/5 ML SYRINGE IV PUSH ONE (12:00)
[2017-08-25] MEDS ORDERED: PHENYLEPH/NS 1000 MCG/10 ML SYR IV ONE (12:00)
[2017-08-25] MEDS ORDERED: PROPOFOL 200 MG/20 ML AMP IV ONE (12:00)
[2017-08-25] MEDS ORDERED: NEOSTIGMINE 5 MG/5 ML SYRINGE IV PUSH ONE (12:00)
[2017-08-25] MEDS ORDERED: ROCURONIUM INJ 50 MG/5 ML SYRINGE IV PUSH ONE (12:00)
[2017-08-25] MEDS ORDERED: ePHEDrine/NS 25 MG/5 ML SYRINGE IV ONE (12:00)
[2017-08-25] MEDS ORDERED: SODIUM CHLOR 0.9% 250 ML INJ 250 ML IV ONE (12:00)
[2017-08-25] MEDS ORDERED: ONDANSETRON HCL 4 MG/2 ML VIAL IV ONE (12:00)
--- NOTE | 2017-08-25 13:08 | HHI.PR ---
cc: Carlos Araya MD; Nazanin Strickland MD Immediate Post Op Note Procedure Date: Aug 25, 2017 Pre Op Diagnosis: ESRD, need for HD access Post Op Diagnosis: ESRD, need for HD access Surgeon: Carlos Araya Tool Chaser(s): Carlos Mendes Procedure: L UE access revision (transposition) Findings: 7-8mm basilic vein Additional Information: good thrill after AVF + Doppler signal in wrist Complications: none Specimen(s) removed: none Estimated blood loss: 25mL Anesthesia: General Drains: None Fluids: 650mL IVF Patient to: PACU Patient Condition: Good Implant/Devices: SEE IMPLANT LOG (if applicable) Date/Time of Procedure: SEE SURGICAL CARE RECORD Carlos Araya MD Aug 25, 2017 13:08
[2017-08-25] MEDS ORDERED: HYDROmorphone HCL 2 MG TAB PO PRN (13:15)
[2017-08-25] MEDS ORDERED: TEMAZEPAM 15 MG CAP PO PRN (13:15)
[2017-08-25] MEDS ORDERED: BISACODYL 10 MG SUPP RECTAL PRN (13:15)
[2017-08-25] MEDS ORDERED: SENNOSIDES 8.6 MG TAB PO PRN (13:15)
[2017-08-25] MEDS ORDERED: ALPRAZolam 0.25 MG TAB PO PRN (13:15)
[2017-08-25] MEDS ORDERED: MORPHINE SULFATE 4 MG/ML INJ IV PUSH PRN (13:15)
[2017-08-25] MEDS ORDERED: LACTULOSE SYRUP 20 GM/30 ML CUP PO PRN (13:15)
[2017-08-25] MEDS ORDERED: ACETAMINOPHEN 325 MG TAB PO PRN ×2 (13:15→18:00)
--- NOTE | 2017-08-25 13:39 | MP ---
cc: Carlos Araya MD DATE OF OPERATION: 08/25/2017 PREOPERATIVE DIAGNOSIS: Endstage renal disease, need for dialysis access. POSTOPERATIVE DIAGNOSIS: Endstage renal disease, need for dialysis access. PROCEDURE PERFORMED: Left upper extremity access revision (transposition). ATTENDING SURGEON: Carlos Araya MD ANESTHESIA: General. INDICATION FOR PROCEDURE: Ms. Ruth is a 67-year-old lady with end-stage renal disease, who underwent a left brachiobasilic arteriovenous fistula as a first of a planned 2-stage procedure. This was done on 06/18 and it has matured nicely by ultrasound. She was taken to the operating room for a second stage. DESCRIPTION OF PROCEDURE: Informed consent was obtained from the patient, she was taken to the operating room and placed supine on the operating table. An appropriate timeout was taken to ensure the patient's identity, operative site, and planned procedure. The administration of a gram of vancomycin was initiated prior to skin incision and will be discontinued after single preoperative dose. Everyone in the room agreed with timeout and we proceeded. Of note, Vancomycin was chosen because of the patient's end-stage renal disease. Her left arm was prepped and draped. An incision was made over the medial aspect of the upper arm, carried down through subcutaneous tissue with electrocautery. The basilic vein was identified, dissected free from the previous anastomosis all the way out to the axillary vein. Side branches were ligated with silk ties and then the vein was mobilized. The patient was systemically heparinized with 3000 units IV heparin. A tunnel was then created on the anterior aspect of the upper arm. The fistula was clamped proximally with a profunda clamp and distally with a profunda clamp. It was marked for orientation. It was transected at a bevel and then it was tunneled to the anterior portion of the upper arm, and then an end-to-end anastomosis was created between the vein with running 6-0 Prolene suture. At the completion, it was flushed and noted to be hemostatic. There was a nice thrill in the fistula and Doppler signal in the wrist. The heparin was reversed with protamine. The wound was irrigated, infiltrated with Marcaine and closed with 2-0 Polysorb, 3-0 Polysorb and 4-0 Monocryl. The sponge and needle counts were correct at the end of the case. I was present and scrubbed and performed the entire procedure. MD ALONA Elizabeth/RORY , 01:12 PM , 01:38 PM
[2017-08-25] MEDS ORDERED: *morphine SULFATE 8 MG/ML PERIprocedure ONLY ONE ×2 (13:47→14:09)
[2017-08-25] MEDS ORDERED: GLUCAGON 1 MG/ML VIAL OTHER PRN (15:15)
[2017-08-25] MEDS ORDERED: DEXTROSE 50% IN WATER 50 ML VIAL(D50) IV PUSH PRN (15:15)
[2017-08-25] MEDS: LOW DOSE INSULIN NOVOLOG SUPPLEMENTAL SCALE SQ SCH ×2 (16:15→21:00)
[2017-08-25] MEDS: FUROSEMIDE 40 MG TAB PO SCH (16:46)
[2017-08-25] MEDS: SEVELAMER CARBONATE 800 MG TAB PO SCH (16:46)
[2017-08-25] MEDS ORDERED: INSULIN ASPART SUPPLEMENTAL SCALE SQ SCH (17:00)
--- NOTE | 2017-08-25 17:23 | EKG ---
Date Performed: 08/25/2017 Time Performed: 10:37:58 PTAGE: 67 years EKG: Sinus rhythm LOW QRS VOLTAGE IN PRECORDIAL LEADS LEFT ANTERIOR FASCICULAR BLOCK POSSIBLE ANTERIOR MYOCARDIAL INFA RCTION , PROBABLY OLD ABNORMAL ECG PREVIOUS TRACING : 06/09/2017 12.37 Since the previous tracing, no significant change noted DOCTOR: Cuauhtemoc Patel Interpretating Date/Time 08/25/2017 17:21:54
[2017-08-25] MEDS ORDERED: SODIUM CHLOR 0.9% 1000 ML INJ 1,000 ML IV PRN (17:55)
[2017-08-25] MEDS ORDERED: SODIUM CHLOR 0.9% 1000 ML INJ 1,000 ML OTHER PRN ×2 (17:55)
[2017-08-25] MEDS ORDERED: GENTAMICIN SULFATE 20 MG/2 ML VIAL OTHER PRN (18:00)
[2017-08-25] MEDS ORDERED: NITROGLYCERIN 0.4 MG SL 25 TABS/BTL SL PRN (18:00)
[2017-08-25] MEDS ORDERED: HEPARIN SODIUM - IV 10,000 UNITS/10 ML VIAL PRN (18:00)
[2017-08-25] MEDS ORDERED: HEPARIN SODIUM - IV 10,000 UNITS/10 ML VIAL IV FLUSH PRN (18:00)
[2017-08-25] MEDS ORDERED: GELATIN 12 MM/7 MM FOAM TOP PRN (18:00)
[2017-08-25] MEDS ORDERED: MANNITOL 12.5 GM/50 ML VIAL IV PRN (18:00)
[2017-08-25] MEDS ORDERED: ALBUMIN 25% INJ 100 ML IV PRN (18:00)
[2017-08-25] MEDS ORDERED: cloNIDine HCL 0.1 MG TAB PO PRN (18:00)
[2017-08-25] MEDS ORDERED: SODIUM THIOSULFATE INJ 25,000 MG in WATER STERILE FOR INJ 100 ML IV SCH (18:00)
[2017-08-25] MEDS ORDERED: diphenhydrAMINE HCL 25 MG CAP PO PRN (18:00)
[2017-08-25] MEDS ORDERED: SODIUM CHLORIDE 0.9% FLUSH 10 ML FLUSH IV FLUSH PRN (18:00)
--- NOTE | 2017-08-25 18:07 | PD.CONS ---
[facility] Service Nephrology Consult Requested By Dr. Araya Reason for Consult ESRD management Primary Care Physician Danae Hernandez MD History of Present Illness Patient is a 67-year-old white female with history of diabetes, peripheral vascular disease, calciphylaxis, hypertension, ESRD who had been admitted for AV fistula placement and this was done on the left arm she is doing well and recovered, patient has chronic foot wounds and has ischemic wounds with delayed healing. She is here now postoperatively and is planning to go for dialysis in the morning her regular days of Thursday, Thursday and Thursday. Review of Systems Constitutional: COMPLAINS OF: Fatigue Cardiovascular: COMPLAINS OF: Lower Extremity Edema Musculoskeletal: COMPLAINS OF: Joint pain, Muscle aches, Joint Swelling, Neck pain Neurologic: COMPLAINS OF: Abnormal gait Psychiatric: COMPLAINS OF: Anxiety, Depression Past Family Social History Allergies: Coded Allergies: quinine (Verified Allergy, Severe, Shortness of Breath, 08/25/17) tramadol (Verified Allergy, Severe, Rash, 08/25/17) Past Medical History Diabetes ESRD Calciphylaxis Peripheral vascular disease History of smoking COPD Hypertension Chronic foot wound Ischemic ulcers Coronary artery disease Hyperlipidemia Peripheral neuropathy CVA Past Surgical History AV fistula second procedure Permacath Tenckhoff catheter and removal Gallbladder Tubal ligation Peripheral vascular disease with angioplasty Foot surgery Reported Medications Reported Meds & Active Scripts Active Wheelchair (Device) 1 Mis Mis Ea .XX DIRECTED Hydrocodone-Acetamin 10-325 mg (Hydrocodone/Acetaminophen) 10 Mg-325 Mg Tablet 1 Tab PO Q4H PRN Xanax (Alprazolam) 0.25 Mg Tab 0.25 Mg PO BID PRN Calcitriol 0.25 Mcg Cap 0.5 Mcg PO DAILY Daily Novolog Inj (Insulin Aspart) 100 Unit/Ml Inj 1 Unit SQ ACHS SLIDING SCALE 30 Days Sliding Scale As Directed. Levemir Inj (Insulin Detemir) 1,000 unit/ 10 ML Vial 30 Units SQ HS 30 Days Do not mix with any other Insulin. Gabapentin 100 Mg Cap 200 Mg PO HS Eq Acetaminophen (Acetaminophen) 325 Mg Tab 650 Mg PO Q4H PRN 30 Days Px Aspirin (Aspirin) 325 Mg Tab 325 Mg PO DAILY K-Tab (Potassium Chloride) 8 Meq Tab 8 Meq PO DAILY Sensipar (Cinacalcet) 60 Mg Tab 60 Mg PO DAILY Midodrine 10 Mg Tab 10 Mg PO BID Renvela (Sevelamer Carbonate) 800 Mg Tab 3 Tab PO TID 3 tabs with each meal and 1-2 tabs with each snack. Furosemide 40 Mg Tab 40 Mg PO BID D 5000 (Cholecalciferol) 5,000 Unit Cap 1 Cap PO DAILY Omeprazole 20 Mg Tab 20 Mg PO DAILY Levothyroxine (Levothyroxine Sodium) 100 Mcg Tab 100 Mcg PO DAILY Walker Rolling/GetGo (Device) 1 Mis Mis Ea .XX DIRECTED Reported Citalopram (Citalopram Hydrobromide) 20 Mg Tab 20 Mg PO DAILY Temazepam 30 Mg Cap 30 Mg PO HS PRN Active Ordered Medications Current Medications Medications (Trade) Dose Ordered Sig/Gianfranco Route Start Time Stop Time Status Last Admin Lactated Ringer's 1,000 ml @ 30 mls/hr Q24H PRN IV 08/25/17 10:15 08/28/17 10:14 Sodium Chloride 500 ml @ 30 mls/hr [id number] PRN IV 08/25/17 10:15 08/28/17 10:14 08/25/17 10:00 (Lopressor) 25 mg SENIOR CARE ASSISTANT PRN PO 08/25/17 10:15 08/28/17 10:14 (Betadine 5% Antisepsis Kit) 1 applic SENIOR CARE ASSISTANT PRN EACH NARE 08/25/17 10:15 08/28/17 10:14 08/25/17 10:36 (Chlorhexidine 2% Cloth) 3 pack SENIOR CARE ASSISTANT PRN TOPICAL 08/25/17 10:15 08/28/17 10:14 08/25/17 10:37 (NovoLIN R INJ) See Protocol Table ... SENIOR CARE ASSISTANT PRN SQ 08/25/17 10:15 08/28/17 10:14 (NS Flush) 5 ml UNSCH PRN IV FLUSH 08/25/17 10:30 (Heparin Inj) 2,000 units UNSCH PRN IV FLUSH 08/25/17 10:30 (Roxicodone) 5 mg Q4H PRN PO 08/25/17 13:15 (Dilaudid) 2 mg Q4H PRN PO 08/25/17 13:15 (Morphine Inj) 2 mg Q1H PRN IV PUSH 08/25/17 13:15 (Heparin Inj) 5,000 units Q8H SQ 08/26/17 13:00 (Nathaly-Colace) 1 tab BID PO 08/25/17 21:00 (Senokot) 17.2 mg Q12H PRN PO 08/25/17 13:15 (Dulcolax Supp) 10 mg DAILY PRN RECTAL 08/25/17 13:15 (Lactulose Liq) 30 ml DAILY PRN PO 08/25/17 13:15 (Tylenol) 650 mg Q4H PRN PO 08/25/17 13:15 (Xanax) 0.25 mg BID PRN PO 08/25/17 13:15 (Aspirin) 325 mg DAILY PO 08/26/17 09:00 (Rocaltrol) 0.5 mcg DAILY PO 08/26/17 09:00 (Vitamin D3) 5,000 units DAILY PO 08/26/17 09:00 UNV (CeleXA) 20 mg DAILY PO 08/26/17 09:00 (Lasix) 40 mg BID@0900,1800 PO 08/25/17 18:00 08/25/17 16:46 (Neurontin) 200 mg HS PO 08/25/17 21:00 (Levemir Inj) 30 units HS SQ 08/25/17 21:00 (Synthroid) 100 mcg DAILY@0600 PO 08/26/17 06:00 (Proamatine) 10 mg BID PO 08/25/17 21:00 (KCl) 8 meq DAILY PO 08/26/17 09:00 (Renvela) 2,400 mg TID PO 08/25/17 18:00 08/25/17 16:46 (Restoril) 30 mg HS PRN PO 08/25/17 13:15 (Sensipar) 60 mg DAILY PO 08/26/17 09:00 (Protonix) 20 mg DAILY PO 08/26/17 09:00 (D50w (Vial) Inj) 50 ml UNSCH PRN IV PUSH 08/25/17 15:15 (Glucagon Inj) 1 mg UNSCH PRN OTHER 08/25/17 15:15 (NovoLOG SUPPLEMENTAL SCALE) 1 ACHS SLIDING SCALE SQ 08/25/17 17:00 Family History Noncontributory Social History History of smoking in the past Physical Exam Vital Signs Vital Signs Date Time Temp Pulse Resp B/P (MAP) Pulse Ox O2 Delivery O2 Flow Rate FiO2 08/25/17 17:00 74 08/25/17 16:00 70 08/25/17 15:00 68 08/25/17 15:00 97.9 67 20 134/88 (103) 98 08/25/17 14:50 97.9 74 20 144/63 (90) 98 08/25/17 14:15 74 14 144/62 (89) 97 Nasal Cannula 2 08/25/17 14:00 75 14 137/63 (87) 99 Nasal Cannula 2 08/25/17 13:45 81 19 150/66 (94) 96 Nasal Cannula 2 08/25/17 13:34 97.6 83 19 135/60 (85) 92 Nasal Cannula 2 08/25/17 10:25 97.8 84 18 144/69 (94) 98 Physical Exam GENERAL: Well-nourished, well-developed patient. SKIN: Warm and dry. HEAD: Normocephalic. EYES: No scleral icterus. No injection or drainage. NECK: Supple, trachea midline. No JVD or lymphadenopathy. CARDIOVASCULAR: Regular rate and rhythm without murmurs, gallops, or rubs. RESPIRATORY: Breath sounds equal bilaterally. No accessory muscle use. GASTROINTESTINAL: Abdomen soft, non-tender, nondistended. EXTREMITIES: No cyanosis, 2-3+ edema. Left arm AV fistula positive thrill NEUROLOGICAL: Awake, alert, and oriented x 3. Non-focal. Laboratory Laboratory Tests Test 08/25/17 10:15 White Blood Count 7.8 Red Blood Count 3.36 Hemoglobin 10.8 Hematocrit 32.5 Mean Corpuscular Volume 96.7 Mean Corpuscular Hemoglobin 32.1 Mean Corpuscular Hemoglobin Concent 33.2 Red Cell Distribution Width 14.4 Platelet Count 240 Mean Platelet Volume 8.2 Neutrophils (%) (Auto) 84.5 Lymphocytes (%) (Auto) 9.2 Monocytes (%) (Auto) 3.7 Eosinophils (%) (Auto) 2.1 Basophils (%) (Auto) 0.5 Neutrophils # (Auto) 6.6 Lymphocytes # (Auto) 0.7 Monocytes # (Auto) 0.3 Eosinophils # (Auto) 0.2 Basophils # (Auto) 0.0 CBC Comment DIFF FINAL Differential Comment Prothrombin Time 10.8 Prothromb Time International Ratio 1.1 Blood Urea Nitrogen 9 Creatinine 3.72 Random Glucose 88 Calcium Level 9.2 Sodium Level 142 Potassium Level 3.8 Chloride Level 105 Carbon Dioxide Level 21.1 Anion Gap 16 Estimat Glomerular Filtration Rate 12 Result Diagram: 08/25/17 1015 08/25/17 1015 Assessment and Plan Problem List: (1) ESRD (end stage renal disease) on dialysis ICD Codes: N18.6 - End stage renal disease; Z99.2 - Dependence on renal dialysis Status: Chronic Plan: Patient to be scheduled for hemodialysis in the morning continue supportive care She received sodium thiosulfate AV fistula with positive thrill will wait to get a clearance from surgery on follow-up She will be discharged after dialysis Discussed with staff and at dialysis center. (2) Calciphylaxis of right lower extremity with nonhealing ulcer ICD Codes: L97.919 - Non-pressure chronic ulcer of unspecified part of right lower leg with unspecified severity; E83.59 - Other disorders of calcium metabolism Status: Acute Plan: Continue with sodium thiosulfate (3) Diabetes ICD Codes: E11.9 - Type 2 diabetes mellitus without complications Status: Chronic Plan: Continue to monitor blood glucose (4) Peripheral arterial occlusive disease ICD Codes: I77.9 - Disorder of arteries and arterioles, unspecified Status: Acute Plan: Severe peripheral vascular disease Nazanin Strickland MD Aug 25, 2017 18:07
[2017-08-25] MEDS ORDERED: ONDANSETRON ODT 4 MG TAB PO PRN (18:30)
[2017-08-25] MEDS ORDERED: EPOETIN ALFA 4,000 UNITS/ML VIAL IV PUSH PRN (20:00)
[2017-08-25] MEDS ORDERED: DO NOT ADM ANY ANTICOAGULANT DRUGS PRN (20:15)
[2017-08-25] MEDS: DOCUSATE SODIUM 50 MG/SENNA 8.6 MG TAB PO SCH (21:00)
[2017-08-25] MEDS ORDERED: INSULIN DETEMIR 100 UNITS/ML VIAL SQ SCH (21:00)
[2017-08-25] MEDS ORDERED: GABAPENTIN 100 MG CAP PO SCH (21:00)
[2017-08-25] MEDS: MIDODRINE 5 MG TAB PO SCH (22:31)
[2017-08-26] VITALS (13 sets, daily range): BP systolic 133–155; BP diastolic 62–70; PULSE 64–95; RESP 16–18; TEMP 97.6–98.2; O2SAT 92–100
[2017-08-26 04:46] LABS: BICARBONATE 22.8 MEQ/L (21.0-32.0); CALCIUM 9.3 MG/DL (8.5-10.1); CREATININE 4.41 MG/DL (0.50-1.00)
[2017-08-26] MEDS ORDERED: LEVOTHYROXINE SODIUM 100 MCG TAB PO SCH (06:00)
--- NOTE | 2017-08-26 07:41 | PD.VS.PN ---
Subjective POD #: 1 Procedure(s): L UE access revision (transposition) Subjective/Hospital Course feels well, no complaints. hand numb but no motor dysfunction Objective Vitals/I&O Date Time Temp Pulse Resp B/P (MAP) Pulse Ox O2 Delivery O2 Flow Rate FiO2 08/26/17 06:06 72 08/26/17 05:00 73 08/26/17 04:10 92 Room Air 08/26/17 04:08 97.6 68 16 133/62 (85) 92 08/26/17 04:00 72 08/26/17 03:00 70 08/26/17 02:00 71 08/26/17 01:00 71 08/26/17 00:00 74 08/25/17 23:08 95 Room Air 08/25/17 23:05 98.4 77 16 138/60 (86) 95 08/25/17 23:00 79 08/25/17 22:00 76 08/25/17 21:00 82 08/25/17 20:10 97.6 71 16 138/65 (89) 98 08/25/17 20:00 65 08/25/17 19:30 98 Nasal Cannula 2.00 08/25/17 19:00 70 08/25/17 18:00 68 08/25/17 17:00 74 08/25/17 16:00 70 08/25/17 15:00 68 08/25/17 15:00 97.9 67 20 134/88 (103) 98 08/25/17 14:50 97.9 74 20 144/63 (90) 98 08/25/17 14:15 74 14 144/62 (89) 97 Nasal Cannula 2 08/25/17 14:00 75 14 137/63 (87) 99 Nasal Cannula 2 08/25/17 13:45 81 19 150/66 (94) 96 Nasal Cannula 2 08/25/17 13:34 97.6 83 19 135/60 (85) 92 Nasal Cannula 2 08/25/17 10:25 97.8 84 18 144/69 (94) 98 08/26/17 08/26/17 08/26/17 07:00 15:00 23:00 Intake Total 240 ml Output Total 100 ml Balance 140 ml Exam: L UE ecchymoses but no hematoma + thrill hand ok Laboratory Laboratory Tests Test 08/25/17 10:15 08/26/17 04:03 White Blood Count 7.8 Red Blood Count 3.36 Hemoglobin 10.8 Hematocrit 32.5 Mean Corpuscular Volume 96.7 Mean Corpuscular Hemoglobin 32.1 Mean Corpuscular Hemoglobin Concent 33.2 Red Cell Distribution Width 14.4 Platelet Count 240 Mean Platelet Volume 8.2 Neutrophils (%) (Auto) 84.5 Lymphocytes (%) (Auto) 9.2 Monocytes (%) (Auto) 3.7 Eosinophils (%) (Auto) 2.1 Basophils (%) (Auto) 0.5 Neutrophils # (Auto) 6.6 Lymphocytes # (Auto) 0.7 Monocytes # (Auto) 0.3 Eosinophils # (Auto) 0.2 Basophils # (Auto) 0.0 CBC Comment DIFF FINAL Differential Comment Prothrombin Time 10.8 Prothromb Time International Ratio 1.1 Blood Urea Nitrogen 9 13 Creatinine 3.72 4.41 Random Glucose 88 113 Calcium Level 9.2 9.3 Sodium Level 142 142 Potassium Level 3.8 4.1 Chloride Level 105 105 Carbon Dioxide Level 21.1 22.8 Anion Gap 16 14 Estimat Glomerular Filtration Rate 12 10 Assessment and Plan Plan POD#1 s/p L UE access revision 1. HD this morning 2. D/C after HD 3. F/u 3 weeks : [id number] Discharge Planning today after HD Carlos Araya MD Aug 26, 2017 07:41
[2017-08-26] MEDS: SEVELAMER CARBONATE 800 MG TAB PO SCH ×2 (08:00→12:41)
[2017-08-26] MEDS: LOW DOSE INSULIN NOVOLOG SUPPLEMENTAL SCALE SQ SCH ×2 (08:00→12:00)
[2017-08-26] MEDS: MIDODRINE 5 MG TAB PO SCH (08:01)
[2017-08-26] MEDS: DOCUSATE SODIUM 50 MG/SENNA 8.6 MG TAB PO SCH (08:02)
[2017-08-26] MEDS: FUROSEMIDE 40 MG TAB PO SCH (08:03)
[2017-08-26] MEDS ORDERED: POTASSIUM CHLORIDE 8 MEQ CONTROLLED RELEASE TAB PO SCH (09:00)
[2017-08-26] MEDS ORDERED: CINACALCET HYDROCHLORIDE 30 MG TAB PO SCH (09:00)
[2017-08-26] MEDS ORDERED: CITALOPRAM HYDROBROMIDE 20 MG TAB PO SCH (09:00)
[2017-08-26] MEDS ORDERED: PANTOPRAZOLE SOD 20 MG DELAYED RELEASE TAB PO SCH (09:00)
[2017-08-26] MEDS ORDERED: CHOLECALCIFEROL (VIT D3) 5000 UNIT CAP PO SCH (09:00)
[2017-08-26] MEDS ORDERED: CALCITRIOL 0.25 MCG CAP PO SCH (09:00)
[2017-08-26] MEDS ORDERED: ASPIRIN 325 MG TAB PO SCH (09:00)
[2017-08-26] MEDS ORDERED: OXYC1CAP PO (09:14)
--- NOTE | 2017-08-26 09:27 | PD.VS.DC ---
Discharge Summary Admission Date: Aug 25, 2017 at 13:12 Discharge Date: Aug 26, 2017 Admission Diagnosis: (1) AVF (arteriovenous fistula) (2) End stage renal failure on dialysis Discharge Diagnosis: (1) AVF (arteriovenous fistula) ICD Codes: I77.0 - Arteriovenous fistula, acquired (2) End stage renal failure on dialysis ICD Codes: N18.6 - End stage renal disease; Z99.2 - Dependence on renal dialysis Status: Chronic Brief History from admission 67 yo female with ESRD for years, s/p L BB AVF in June. Presents for second stage. No hand troubles. In baseline state of health. Ready for surgery. Procedure(s): L UE access revision (transposition) Significant Findings GENERAL: A&OX3,NAD,GCS15 SKIN: Warm and dry. L UE AVF incision intact with ecchymosis nathaly wound/ No swelling or drainage Palpable L Radial pulse + thrill near AVF noted Pt w/o hand pain Pt c/o L UE paresthesias Laboratory Tests Test 08/25/17 10:15 08/26/17 04:03 Red Blood Count 3.36 MIL/MM3 (4.00-5.30) Hemoglobin 10.8 GM/DL (11.6-15.3) Hematocrit 32.5 % (35.0-46.0) Neutrophils (%) (Auto) 84.5 % (16.0-70.0) Lymphocytes # (Auto) 0.7 TH/MM3 (1.0-4.8) Creatinine 3.72 MG/DL (0.50-1.00) 4.41 MG/DL (0.50-1.00) Anion Gap 16 MEQ/L (5-15) Estimat Glomerular Filtration Rate 12 ML/MIN (>89) 10 ML/MIN (>89) Random Glucose 113 MG/DL (74-106) Hospital Course: 67 yo female with ESRD for years S/p L BB AVF in June. Pt Presents for second stage. Pt S/P L UE access revision (transposition) POD 1 Doing well w/o hand pain Pt c/o expected post operative L UE paresthesias Incision intact Palpable Thrill Palpable distal pulses present Pt clear for D/C post HD Arrange out pt f/u Reviewed E- [place]- No recent activity over the past 2M Prescribed post operative pain medication (3d day supply) Allergies Coded Allergies Type Severity Reaction Last Updated Verified quinine Allergy Severe Shortness of Breath 08/25/17 Yes tramadol Allergy Severe Rash 08/25/17 Yes 08/24/17 08/24/17 08/25/17 08/25/17 08/26/17 08/26/17 05:59 17:59 05:59 17:59 05:59 17:59 Intake Total 1610 ml 240 ml Output Total 25 ml 100 ml Balance 1585 ml 140 ml Intake Oral 960 ml 240 ml Other 650 ml Output Urine Total 100 ml Estimated Blood Loss 25 ml # Voids 0 2 # Bowel Movements 0 Laboratory Tests Test 08/25/17 10:15 08/26/17 04:03 White Blood Count 7.8 TH/MM3 Red Blood Count 3.36 MIL/MM3 Hemoglobin 10.8 GM/DL Hematocrit 32.5 % Mean Corpuscular Volume 96.7 FL Mean Corpuscular Hemoglobin 32.1 PG Mean Corpuscular Hemoglobin Concent 33.2 % Red Cell Distribution Width 14.4 % Platelet Count 240 TH/MM3 Mean Platelet Volume 8.2 FL Neutrophils (%) (Auto) 84.5 % Lymphocytes (%) (Auto) 9.2 % Monocytes (%) (Auto) 3.7 % Eosinophils (%) (Auto) 2.1 % Basophils (%) (Auto) 0.5 % Neutrophils # (Auto) 6.6 TH/MM3 Lymphocytes # (Auto) 0.7 TH/MM3 Monocytes # (Auto) 0.3 TH/MM3 Eosinophils # (Auto) 0.2 TH/MM3 Basophils # (Auto) 0.0 TH/MM3 CBC Comment DIFF FINAL Differential Comment Prothrombin Time 10.8 SEC Prothromb Time International Ratio 1.1 RATIO Blood Urea Nitrogen 9 MG/DL 13 MG/DL Creatinine 3.72 MG/DL 4.41 MG/DL Random Glucose 88 MG/DL 113 MG/DL Calcium Level 9.2 MG/DL 9.3 MG/DL Sodium Level 142 MEQ/L 142 MEQ/L Potassium Level 3.8 MEQ/L 4.1 MEQ/L Chloride Level 105 MEQ/L 105 MEQ/L Carbon Dioxide Level 21.1 MEQ/L 22.8 MEQ/L Anion Gap 16 MEQ/L 14 MEQ/L Estimat Glomerular Filtration Rate 12 ML/MIN 10 ML/MIN Orders Procedure Category Date Status Time Bupivacaine Pf 0.5% MED 08/25/17 Complete Inj (Marcaine Pf 0.5 06:44 Complete Blood Count LAB 08/25/17 Complete With Diff 09:56 Basic Metabolic Panel LAB 08/25/17 Complete (Bmp) 09:56 Prothrombin Time / LAB 08/25/17 Complete Inr (Pt) 09:56 Type And Screen BBK 08/25/17 Complete 09:56 Electrocardiogram CAV 08/25/17 Resulted 10:00 Lactated Ringer's MED 08/25/17 In Process 1000 Ml Inj (Lr 1000 M 10:15 Sodium Chlorid 0.9% MED 08/25/17 In Process 500 Ml Inj (Ns 500 M 10:15 Metoprolol Tartrate MED 08/25/17 In Process (Lopressor) 10:15 Povidone Iod 5% MED 08/25/17 In Process Antisepsis Kit 10:15 Chlorhexidine 2% MED 08/25/17 In Process Cloth (Chlorhexidine 10:15 Insulin Human Regular MED 08/25/17 In Process Inj (Novolin R Inj 10:15 Sodium Chloride 0.9% MED 08/25/17 In Process Flush (Ns Flush) 10:30 Heparin Inj (Heparin MED 08/25/17 In Process Inj) 10:30 Protamine Sulfate Inj MED 08/25/17 Complete (Protamine Sulfate 11:28 Heparin Inj (Heparin MED 08/25/17 Complete Inj) 11:28 Vancomycin Inj MED 08/25/17 Complete (Vancomycin Inj) 11:28 Thrombin Top [place] MED 08/25/17 Complete (Thrombin Top [place]) 11:28 Heparin-Ns/Pf Inj MED 08/25/17 Complete (Heparin-Ns/Pf Inj) 11:28 Place In Observation ADMITTING 08/25/17 Transmitted Code Status CODE 08/25/17 Transmitted 13:08 Vital Signs (Adult) KALINA 08/25/17 In Process 13:08 Auto Travel Counselor / KALINA 08/25/17 In Process Telemetry 13:08 Activity Oob Ad Vickie KALINA 08/25/17 In Process 13:08 Notify Parameters KALINA 08/25/17 In Process 13:08 Precautions KALINA 08/25/17 In Process 13:08 Diet Heart Healthy DIET 08/25/17 Transmitted Lunch Basic Metabolic Panel LAB 08/26/17 Complete (Bmp) 06:00 Consult Nephrology CONS 08/25/17 Transmitted Oxycodone (Roxicodone) MED 08/25/17 In Process 13:15 Hydromorphone MED 08/25/17 In Process (Dilaudid) 13:15 Morphine Inj MED 08/25/17 In Process (Morphine Inj) 13:15 Docusate Sodium-Senna MED 08/25/17 In Process (Nathaly-Colace) 21:00 Sennosides (Senokot) MED 08/25/17 In Process 13:15 Bisacodyl Supp MED 08/25/17 In Process (Dulcolax Supp) 13:15 Lactulose Liq MED 08/25/17 In Process (Lactulose Liq) 13:15 Acetaminophen MED 08/25/17 In Process (Tylenol) 13:15 Alprazolam (Xanax) MED 08/25/17 In Process 13:15 Aspirin (Aspirin) MED 08/26/17 In Process 09:00 Calcitriol (Rocaltrol) MED 08/26/17 Complete 09:00 Cholecalciferol MED 08/26/17 In Process (Vitamin D3) 09:00 Citalopram (Celexa) MED 08/26/17 In Process 09:00 Furosemide (Lasix) MED 08/25/17 In Process 18:00 Gabapentin (Neurontin) MED 08/25/17 In Process 21:00 Insulin Detemir Inj MED 08/25/17 In Process (Levemir Inj) 21:00 Levothyroxine MED 08/26/17 In Process (Synthroid) 06:00 Midodrine (Proamatine) MED 08/25/17 In Process 21:00 Potassium Chloride MED 08/26/17 In Process (Kcl) 09:00 Sevelamer (Renvela) MED 08/25/17 In Process 18:00 Temazepam (Restoril) MED 08/25/17 In Process 13:15 Cinacalcet (Sensipar) MED 08/26/17 In Process 09:00 Pantoprazole MED 08/26/17 In Process (Protonix) 09:00 Fentanyl Inj MED 08/25/17 Complete (Fentanyl Inj) 13:22 *Morphine Inj MED 08/25/17 Complete (*Morphine Inj 13:47 *Morphine Inj MED 08/25/17 Complete (*Morphine Inj 14:09 Vascular Access Team KALINA 08/25/17 In Process Consult/P 14:17 Vascular Poc IMGUS 08/25/17 [facility] 08/25/17 Complete (Hub Use Only)Inp Phy CONS 08/25/17 Transmitted Cons/Ref Fentanyl Inj MED 08/25/17 Complete (Fentanyl Inj) 14:59 Heparin Inj (Heparin MED 08/26/17 In Process Inj) 13:00 Dextrose 50% In Anupam MED 08/25/17 In Process (Vial) Inj (D50w (Vi 15:15 Glucagon Inj MED 08/25/17 In Process (Glucagon Inj) 15:15 Insulin Aspart MED 08/25/17 In Process Supplemtl Scale 17:00 Blood Flow Rate KALINA 08/25/17 In Process 17:55 Dialysate Flow Rate KALINA 08/25/17 In Process 17:55 Dialyzer KALINA 08/25/17 In Process 17:55 Concentrate KALINA 08/25/17 In Process 17:55 Acid Concentrate KALINA 08/25/17 In Process 17:55 Length Of Dialysis KALINA 08/25/17 In Process 17:55 Frequency Of Dialysis KALINA 08/25/17 In Process 17:55 Dialysis Obtain KALINA 08/25/17 In Process 17:55 Needle Size KALINA 08/25/17 In Process 17:55 Dialysis Schedule KALINA 08/25/17 In Process 17:55 Resp Oxygen Vimal C RSP 08/25/17 Logged Titrat 1-4 L Dialysis Weight KALINA 08/25/17 In Process 17:55 ^ Obtain As Needed KALINA 08/25/17 In Process 17:55 Sodium Chlor 0.9% MED 08/25/17 In Process 1000 Ml Inj (Ns 1000 M 17:55 Heparin Inj (Heparin MED 08/25/17 In Process Inj) 18:00 Sodium Chlor 0.9% MED 08/25/17 In Process 1000 Ml Inj (Ns 1000 M 17:55 Sodium Chlor 0.9% MED 08/25/17 In Process 1000 Ml Inj (Ns 1000 M 17:55 Mannitol Inj MED 08/25/17 In Process (Mannitol Inj) 18:00 Albumin 25% Inj MED 08/25/17 In Process (Albumin 25% Inj) 18:00 Sodium Chloride 0.9% MED 08/25/17 In Process Flush (Ns Flush) 18:00 Heparin Inj (Heparin MED 08/25/17 In Process Inj) 18:00 Gentamicin Inj MED 08/25/17 In Process (Gentamicin Inj) 18:00 Acetaminophen MED 08/25/17 In Process (Tylenol) 18:00 Diphenhydramine MED 08/25/17 In Process (Benadryl) 18:00 Nitroglycerin Sl MED 08/25/17 In Process (Nitrostat Sl) 18:00 Clonidine (Catapres) MED 08/25/17 In Process 18:00 Gelatin 12 Mm/7 Mm MED 08/25/17 In Process Top (Gelfoam 12 Mm/7 18:00 Sodium Thiosulfate MED 08/25/17 In Process Inj (Sodium Thiosulfa 18:00 Class Iv Pacu Ea 30 [facility] 08/25/17 Complete MIN General/Pacu [facility] 08/25/17 Complete Post Anesthesia Oxygen [facility] 08/25/17 Complete Bedside Glucose [facility] 08/25/17 Complete Ondansetron Odt MED 08/25/17 In Process (Zofran Odt) 18:30 Epoetin Torey Inj MED 08/25/17 In Process (Epogen Inj) 20:00 Nursing Information MED 08/25/17 In Process (Misc Nursing Inform 20:15 Attending Discharge DISCHARGE 08/26/17 Transmitted Order Vital Signs Date Time Temp Pulse Resp B/P (MAP) Pulse Ox O2 Delivery O2 Flow Rate FiO2 08/26/17 08:01 98.0 64 18 145/70 (95) 100 08/26/17 08:01 100 Room Air 08/26/17 06:06 72 08/26/17 05:00 73 08/26/17 04:10 92 Room Air 08/26/17 04:08 97.6 68 16 133/62 (85) 92 08/26/17 04:00 72 08/26/17 03:00 70 08/26/17 02:00 71 08/26/17 01:00 71 08/26/17 00:00 74 08/25/17 23:08 95 Room Air 08/25/17 23:05 98.4 77 16 138/60 (86) 95 08/25/17 23:00 79 08/25/17 22:00 76 08/25/17 21:00 82 08/25/17 20:10 97.6 71 16 138/65 (89) 98 08/25/17 20:00 65 08/25/17 19:30 98 Nasal Cannula 2.00 08/25/17 19:00 70 08/25/17 18:00 68 08/25/17 17:00 74 08/25/17 16:00 70 08/25/17 15:00 68 08/25/17 15:00 97.9 67 20 134/88 (103) 98 08/25/17 14:50 97.9 74 20 144/63 (90) 98 08/25/17 14:15 74 14 144/62 (89) 97 Nasal Cannula 2 08/25/17 14:00 75 14 137/63 (87) 99 Nasal Cannula 2 08/25/17 13:45 81 19 150/66 (94) 96 Nasal Cannula 2 08/25/17 13:34 97.6 83 19 135/60 (85) 92 Nasal Cannula 2 08/25/17 10:25 97.8 84 18 144/69 (94) 98 Discharge Condition: Good Discharge Disposition: Discharge Home Discharge Instructions: DIET You may resume your diabetic/Dialysis diet ACTIVITY Activity as tolerated You may shower then pat dry incision site NO tub baths or swimming until your incision is fully healed NO heavy lifting over a gallon of milk for 10 days (LEFT ARM) MEDICATION You may resume your daily home medications You were prescribed a narcotic pain medication which may cause drowsiness- No driving while taking this medication You were prescribed a narcotic pain medication which may cause constipation- Take with an over the counter stool softener WOUND CARE Leave your incision open to air Do not apply any creams or ointments to your incision as it may loosen your surgical glue Call the office ([phone]) to report any new onset redness, drainage, pain or swelling Any questions or concerns: Call [facility] at [facility] [phone] Petra Guerrero Aug 26, 2017 09:27
[2017-08-26] MEDS: HEPARIN SODIUM - SQ 10,000 UNITS/ML VIAL SQ SCH ×2 (12:41→12:46)
--- NOTE | 2017-08-26 13:37 | HHI.NPPN ---
Subjective History of Present Illness 67 year old with ESRD PVD DM Calciphylaxis Review of Systems General Constitutional: Fatigue Objective Data Data Vital Signs Date Time Temp Pulse Resp B/P (MAP) Pulse Ox O2 Delivery O2 Flow Rate FiO2 08/26/17 08:01 98.0 64 18 145/70 (95) 100 08/26/17 08:01 100 Room Air 08/26/17 08:00 73 08/26/17 07:00 66 08/26/17 06:06 72 08/26/17 05:00 73 08/26/17 04:10 92 Room Air 08/26/17 04:08 97.6 68 16 133/62 (85) 92 08/26/17 04:00 72 08/26/17 03:00 70 08/26/17 02:00 71 08/26/17 01:00 71 08/26/17 00:00 74 08/25/17 23:08 95 Room Air 08/25/17 23:05 98.4 77 16 138/60 (86) 95 08/25/17 23:00 79 08/25/17 22:00 76 08/25/17 21:00 82 08/25/17 20:10 97.6 71 16 138/65 (89) 98 08/25/17 20:00 65 08/25/17 19:30 98 Nasal Cannula 2.00 08/25/17 19:00 70 08/25/17 18:00 68 08/25/17 17:00 74 08/25/17 16:00 70 08/25/17 15:00 68 08/25/17 15:00 97.9 67 20 134/88 (103) 98 08/25/17 14:50 97.9 74 20 144/63 (90) 98 08/25/17 14:15 74 14 144/62 (89) 97 Nasal Cannula 2 08/25/17 14:00 75 14 137/63 (87) 99 Nasal Cannula 2 08/25/17 13:45 81 19 150/66 (94) 96 Nasal Cannula 2 -: 08/25/17 1015 08/26/17 0403 Physical Exam General Appearance: Well Developed, Well Nourished Neck Neck Exam: Neck Supple Pulmonary Resp Exam: Clear Bilaterally, Breath Sounds Equal Cardiology CV Exam: Regular, Normal Sinus Rhythm Gastrointestinal/Abdomen GI Exam: Soft, Non-Tender, Bowel Sounds Present Extremeties Extremities Exam: Moderate Edema Extremeties Remarks Rt foot dressed Assessment/Plan Problem List: (1) ESRD (end stage renal disease) on dialysis ICD Codes: N18.6 - End stage renal disease; Z99.2 - Dependence on renal dialysis Status: Chronic Plan: Patient had hemodialysis in the morning 3 L off AV fistula with positive thrill will wait to get a clearance from surgery on follow-up She will be discharged after dialysis Discharge and fu as out pt (2) 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
== END 2017-08-26 14:15 | disposition home or self-care (01) ==
LOC: HSDC 09:31 → HSDI 13:12 → INTOOBSV 13:12 → HCPC 14:29
PROVIDERS: ADMIT Surgery; ATTEND Surgery
DX: I12.0 Hypertensive chronic kidney disease with stage 5 chronic kidney disease or end stage renal disease (principal); N18.6 End stage renal disease; E11.22 Type 2 diabetes mellitus with diabetic chronic kidney disease; E11.51 Type 2 diabetes mellitus with diabetic peripheral angiopathy without gangrene; I25.10 Atherosclerotic heart disease of native coronary artery without angina pectoris; D63.1 Anemia in chronic kidney disease; E78.5 Hyperlipidemia, unspecified; J44.9 Chronic obstructive pulmonary disease, unspecified; L97.919 Non-pressure chronic ulcer of unspecified part of right lower leg with unspecified severity; E83.59 Other disorders of calcium metabolism; I44.4 Left anterior fascicular block; E03.9 Hypothyroidism, unspecified; Z86.73 Personal history of transient ischemic attack (TIA), and cerebral infarction without residual deficits; Z79.899 Other long term (current) drug therapy; Z79.82 Long term (current) use of aspirin; Z99.2 Dependence on renal dialysis; Z87.891 Personal history of nicotine dependence
CPT/HCPCS: 01844; 36819; 76937; 80048; 82948; 85025; 85610; 86850; 86900; 86901; 93005; 96365; 96375; G0257; G0378; J1100; J1580; J1644; J2270; J2370; J2405; J2710; J2720; J3010; J3370; J7040; J7050; Q4081; 90935